=== PATIENT | female | born 1945 | race Caucasian/White ===

== ENCOUNTER 2018-11-16 09:40 | Emergency (ER) | payer SELFPAY ==
[2018-11-16] MEDS ORDERED: PHENYLEPHRINE 0.5% NOSE 15ML NAS ONE (10:04)
[2018-11-16] MEDS ORDERED: ONDANSETRON 4 MG/2 ML VIAL ONE (10:19)
[2018-11-16 10:57] LABS: Absolute Lymphocytes (CBC) 1.8 K/uL (0.7-4.9); Basophils % 1.4 % (0-1.3); Lymphocytes % 17.6 % (15.3-44.8); MPV 7.8 fL (7.6-11.3)
--- NOTE | 2018-11-16 11:28 | ER ---
Nurse's Notes [facility] Name: Tab Hanley Age: 73 yrs Sex: Female : 1945 Arrival Date: 11/16/2018 Time: 09:42 Bed 17 Private MD: Diagnosis: Epistaxis Presentation: 11/16 09:49 Presenting complaint: EMS states: [facility] faculty reported epistaxis x 1.5 hours, jl7 pt initially reported scratching her nose but does not remember at this time. Transition of care: patient was received from another setting of care (long-term care facility), [facility]. Onset of symptoms was November 16, 2018. Risk Assessment: Do you want to hurt yourself or someone else? Patient reports no desire to harm self or others. Initial Sepsis Screen: Does the patient meet any 2 criteria? No. Patient's initial sepsis screen is negative. Does the patient have a suspected source of infection? No. Patient's initial sepsis screen is negative. Care prior to arrival: None. 09:49 Method Of Arrival: EMS: [facility] jl7 09:49 Acuity: ELIER 4 jl7 Triage Assessment: 09:55 General: Appears in no apparent distress. comfortable, Behavior is calm, cooperative, jl7 appropriate for age. Pain: Denies pain. EENT: Nares with bleeding noted on left. Neuro: Level of Consciousness is awake, alert, obeys commands, Oriented to person, place. Cardiovascular: Patient's skin is warm and dry. Respiratory: Airway is patent Respiratory effort is even, unlabored, Respiratory pattern is regular, symmetrical. GI: No signs and/or symptoms were reported involving the gastrointestinal system. : No signs and/or symptoms were reported regarding the genitourinary system. Derm: Skin is pink, warm \\T\\ dry. Musculoskeletal: No signs and/or symptoms reported regarding the musculoskeletal system. Historical: - Allergies: 09:55 No Known Allergies; jl7 - Home Meds: 09:55 atorvastatin 80 mg oral tab 1 tab once daily [Active]; gabapentin 100 mg oral cap jl7 [Active]; carvedilol 6.25 mg oral tab 1 tab every 12 hours [Active]; apixaban oral oral [Active]; clopidogrel 75 mg oral tab 1 tab once daily [Active]; isosorbide mononitrate 30 mg Oral Tb24 1 tab once daily [Active]; fluoxetine 10 mg Oral cap 1 caps once daily [Active]; famotidine 20 mg Oral tab [Active]; Insulin Glargine Sub-Q [Active]; - PMHx: 09:55 Hyperlipidemia; Hypertension; Depression; Diabetes - IDDM; GERD; jl7 - Immunization history:: Adult Immunizations up to date. - Social history:: Smoking status: Patient/guardian denies using tobacco. - Family history:: not pertinent. - Ebola Screening: : No symptoms or risks identified at this time. - Hospitalizations: : No recent hospitalization is reported. Screenin:05 Abuse screen: Denies threats or abuse. Denies injuries from another. Nutritional jl7 screening: No deficits noted. Tuberculosis screening: No symptoms or risk factors identified. Fall Risk Gait- Weak (10 pts.). Mental Status- Overestimates/Forgets Limitations (15 pts.). Total Trevino Fall Scale indicates Low Risk Score (25-44 pts). Fall prevention measures have been instituted. Side Rails Up X 2 Placed close to Nursing Station Frequent Obs/Assesments occuring As available Patient and Family Educated on Fall Prevention Program and strategies. Assessment: 10:05 Reassessment: Nose clamp removed, no bleeding noted, pt denies any discomfort at this 7 time. retail service technician will be obtaining ordered labs, labels at the bedside. 11:00 Reassessment: Patient appears in no apparent distress at this time. Patient and/or jl7 family updated on plan of care and expected duration. Pain level reassessed. Patient denies pain at this time. 12:00 Reassessment: Pt's son is at bedside, report called to Matthew at [facility], reports he jl7 is calling for transportation now. 12:15 Reassessment: pt c/o mild VERDUZCO, requesting tylenol, ERD notified, see MAR for orders. jl7 12:41 Reassessment: Waiting for applesauce from the cafeteria to administer Tylenol to pt. jl7 13:33 Reassessment: Patient appears in no apparent distress at this time. Patient and/or jl7 family updated on plan of care and expected duration. Pain level reassessed. Apple sauce delivered from cafeteria, pt denies VERDUZCO at this time. Repositioned pt to left side, pt denies discomfort. [facility] faculty reports transportation will be here to transport pt in about 10 minutes Patient denies pain at this time. 14:15 Reassessment: [facility] sent a patient bus for transportation, the transportation jl7 employee states "I do not lift patients and put them in the wheelchair." Pt has not been able to sit unassisted in the stretcher during ER visit. Pt reports she cannot hold herself up to sit in the wheel chair. 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 alf notified, [facility] faculty stated "We haven't had her for very long but she sat in the wheelchair this morning." Requested for stretcher transportation, Matthew at [facility] currently trying to get a hold of [facility]. 15:36 Reassessment: [facility] at bedside to transport pt to [facility]. jl7 Vital Signs: 10:03 BP 109 / 89; Pulse 98; Resp 18 S; Pulse Ox 96% on R/A; Pain 0/10; jl7 15:36 BP 115 / 89; Pulse 95; Resp 16 S; Pulse Ox 96% on R/A; jl7 ED Course: 09:42 Patient arrived in ED. rn 09:42 Surya Ortiz MD is Attending Physician. rn 09:51 Jagruti Pierce RN is Primary Nurse. jl7 09:51 Triage completed. jl7 09:55 Arm band placed on right wrist. jl7 10:05 Patient has correct armband on for positive identification. Fall risk band placed. Bed jl7 in low position. Call light in reach. Side rails up X2. Pulse ox on. NIBP on. Warm blanket given. 10:05 Missed attempt(s): 22 gauge in right antecubital area. jl7 13:32 Head of bed lowered. Turned to left side. jl7 14:42 Turned to right side. jl7 15:38 No provider procedures requiring assistance completed. Patient did not have IV access jl7 during this emergency room visit. Administered Medications: 09:45 Drug: Hieu-Synephrine [place] 0.5 % 2 sprays Route: Intranasal; Site: both nares; jl7 10:05 Follow up: Response: No adverse reaction jl7 09:49 Not Given (Other Intervention Used): Oxymetazoline Drops (0.05 %) 1 sprays Intranasal jl7 once 12:40 Not Given (Patient Refused): Zofran 4 mg IVP once; over 2 minutes jl7 15:39 Not Given (Patient Refused): Tylenol 650 mg PO once jl7 Outcome: 11:27 Discharge ordered by . rn 15:38 Discharged to senior living. Report called to Matthew mortensen 15:38 Condition: stable 15:38 Discharge instructions given to patient, senior living, Instructed on discharge instructions, follow up and referral plans. Demonstrated understanding of instructions, follow-up care. 15:39 Patient left the ED. jl7 Signatures: Surya Ortiz MD MD rn Jagruti Pierce RN RN jl7
--- NOTE | 2018-11-16 11:29 | EDPHYS ---
Physician Documentation [facility] Name: Tab Hanley Age: 73 yrs Sex: Female : 1945 Arrival Date: 11/16/2018 Time: 09:42 Bed 17 Private MD: ED Physician Surya Ortiz HPI: 11/16 09:43 This 73 yrs old Female presents to ER via Unassigned with complaints of rn nosebleed. 09:43 The patient presents with a nose bleed, and the bleeding resolved prior to arrival. rn Onset: The symptoms/episode began/occurred this morning. Modifying factors: The symptoms are alleviated by nothing. the symptoms are aggravated by nothing. Severity of symptoms: At their worst the symptoms were mild in the emergency department the symptoms have resolved. The patient has not experienced similar symptoms in the past. 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 No known trauma. Questionable if patient was scratching. . Historical: - Allergies: 09:55 No Known Allergies; jl7 - Home Meds: 09:55 atorvastatin 80 mg oral tab 1 tab once daily [Active]; gabapentin 100 mg oral cap jl7 [Active]; carvedilol 6.25 mg oral tab 1 tab every 12 hours [Active]; apixaban oral oral [Active]; clopidogrel 75 mg oral tab 1 tab once daily [Active]; isosorbide mononitrate 30 mg Oral Tb24 1 tab once daily [Active]; fluoxetine 10 mg Oral cap 1 caps once daily [Active]; famotidine 20 mg Oral tab [Active]; Insulin Glargine Sub-Q [Active]; - PMHx: 09:55 Hyperlipidemia; Hypertension; Depression; Diabetes - IDDM; GERD; jl7 - Immunization history:: Adult Immunizations up to date. - Social history:: Smoking status: Patient/guardian denies using tobacco. - Family history:: not pertinent. - Ebola Screening: : No symptoms or risks identified at this time. - Hospitalizations: : No recent hospitalization is reported. ROS: 09:43 Constitutional: Negative for fever, chills, and weight loss, ENT: + nosebleed corporate communications intern: Negative for chest pain, palpitations, and edema, Respiratory: Negative for shortness of breath, cough, wheezing, and pleuritic chest pain, Abdomen/GI: + nausea, no abd pain Neuro: Negative for headache, weakness, numbness, tingling, and seizure. Exam: 09:43 Constitutional: This is a well developed, well nourished patient who is awake, alert, rn and in no acute distress. Head/Face: Normocephalic, atraumatic. Eyes: Normal conjunctivae ENT: dry blood in mouth, clotted blood left nare, no active bleeding noted. Respiratory: Mild tachypnea, no retractions, is speaking full sentences Abdomen/GI: soft, non-tender Neuro: Awake, alert, oriented to person and place, not time (per EMS baseline is Oriented x 2) Vital Signs: 10:03 BP 109 / 89; Pulse 98; Resp 18 S; Pulse Ox 96% on R/A; Pain 0/10; jl7 15:36 BP 115 / 89; Pulse 95; Resp 16 S; Pulse Ox 96% on R/A; jl7 MDM: 09:42 Patient medically screened. rn 11:26 Differential diagnosis: spontaneous epistaxis. Data reviewed: vital signs, nurses rn notes, lab test result(s), and as a result, I will discharge patient. Counseling: I had a detailed discussion with the patient and/or guardian regarding: the historical points, exam findings, and any diagnostic results supporting the discharge/admit diagnosis, lab results, the need for outpatient follow up, to return to the emergency department if symptoms worsen or persist or if there are any questions or concerns that arise at home. Response to treatment: the patient's symptoms have resolved after treatment, and as a result, I will discharge patient. ED course: NO further bleeding here, hemoglobin 10.4, normal vitals, will dc back to group home for observation. No intervention required here. No indication for admission or emergent blood transfusion.. 11/16 09:42 Order name: CBC with Diff; Complete Time: 11:26 rn Administered Medications: 09:45 Drug: Hieu-Synephrine [place] 0.5 % 2 sprays Route: Intranasal; Site: both nares; [facility] 10:05 Follow up: Response: No adverse reaction [facility] 09:49 Not Given (Other Intervention Used): Oxymetazoline Drops (0.05 %) 1 sprays Intranasal jl7 once 12:40 Not Given (Patient Refused): Zofran 4 mg IVP once; over 2 minutes jl7 15:39 Not Given (Patient Refused): Tylenol 650 mg PO once jl7 Disposition: 11/16/18 11:27 Discharged to Home. Impression: Epistaxis. - Condition is Stable. - Discharge Instructions: Nosebleed, Adult. - Medication Reconciliation Form, Thank You Letter, Antibiotic Education, Prescription Opioid Use form. - Follow up: Private Physician; When: As needed; Reason: Recheck today's complaints, Re-evaluation by your physician. - Problem is new. - Symptoms are resolved. Signatures: Dispatcher [employer] EDRI Surya Ortiz MD MD rn Leal, Jahala, RN RN jl7 Corrections: (The following items were deleted from the chart) 12:04 09:43 PROTIME (+INR)+COAG.LAB.BRZ ordered. EDRI EDRI 12:04 09:43 PTT, ACTIVATED+COAG.LAB.BRZ ordered. [facility] EDRI 15:39 11:27 11/16/2018 11:27 Discharged to Home. Impression: Epistaxis. Condition is Stable. jl7 Forms are Medication Reconciliation Form, Thank You Letter, Antibiotic Education, Prescription Opioid Use. Follow up: Private Physician; When: As needed; Reason: Recheck today's complaints, Re-evaluation by your physician. Problem is new. Symptoms are resolved. rn
[2018-11-16] MEDS ORDERED: ACETAMINOPHEN 325 MG TABLET ONE (12:35)
--- NOTE | 2018-11-16 22:12 | EKG ---
Test Date: 2018-11-16 Test Time: 09:50:41 Crystallography Teacher: TERELL MEASUREMENT RESULTS: Intervals: Rate: 100 WY: 172 QRSD: 164 QT: 416 QTc: 536 [place]: P: 38 WY: 172 QRS: -55 T: 100 INTERPRETIVE STATEMENTS: Atrial-sensed ventricular-paced rhythm tracking sinus rhythm No previous ECG available for comparison Electronically Signed On 11-16-18 22:11:10 CDT by Rikki Briggs
== END 2018-11-16 15:39 | disposition home or self-care (01) ==
LOC: ER 09:40
DX: R04.0 Epistaxis (principal); E78.5 Hyperlipidemia, unspecified; I10 Essential (primary) hypertension; E11.9 Type 2 diabetes mellitus without complications; F32.9 Major depressive disorder, single episode, unspecified; K21.9 Gastro-esophageal reflux disease without esophagitis; Z79.4 Long term (current) use of insulin
CPT/HCPCS: 36415; 85025; 93005; J2405

== ENCOUNTER 2018-11-18 12:57 | Emergency (ER) | payer OTHER, SELFPAY ==
--- OUTSIDE RECORDS SUMMARY | 2018-11-18 13:08 | XMS REPORT ---
:1945 [facility] [address] [place] [address] [address] [place] [address] Care Team Providers Name Role Phone OSCAR COSTA Unavailable Unavailable Problems This patient has no known problems. Allergies, Adverse Reactions, Alerts This patient has no known allergies or adverse reactions. Medications This patient has no known medications. Results Test Description Test Time Test Comments Text Results Atomic Results Result Comments BLOOD CULTURE 2018-11-16 20:01:00 Test Item Value Reference Range Comments CULTURE (BEAKER) (test nlez=7506) No growth in 5 days BLOOD [id number] 20:01:00 Test Item Value Reference Range Comments CULTURE (BEAKER) (test ovcg=5889) No growth in 5 days BLOOD [id number] 10:37:00 Test Item Value Reference Range Comments CULTURE (BEAKER) From Aerobic Bottle Only (test ygfu=5767) Coagulase negative Staphylococcus GRAM STAIN RESULT From aerobic bottle (BEAKER) (test only: gram positive ledv=5991) cocci in clusters BLOOD [id number] 10:36:00 Test Item Value Reference Range Comments CULTURE (BEAKER) From Aerobic Bottle Only (test gxie=1519) Coagulase negative Staphylococcus GRAM STAIN RESULT From aerobic bottle (BEAKER) (test only: gram positive bipc=7575) cocci in clusters POCT-GLUCOSE [id number] 12:32:00 Test Item Value Reference Range Comments POC-GLUCOSE METER (BEAKER) 87 mg/dL 70-110 TESTED AT [facility] [address] [facility] (test yxnx=2494) [facility] [address] POCT-GLUCOSE [id number] 21:28:00 Test Item Value Reference Range Comments POC-GLUCOSE METER (BEAKER) 100 mg/dL 70-110 TESTED AT [facility] [address] [facility] (test tikh=9402) [facility] [address] POCT-GLUCOSE [id number] 21:01:00 Test Item Value Reference Range Comments POC-GLUCOSE METER (BEAKER) 98 mg/dL 70-110 TESTED AT [facility] [address] [facility] (test jluf=6393) [facility] [address] VANCOMYCIN LEVEL, [id number] 13:29:00 Test Item Value Reference Range Comments VANCOMYCIN TROUGH (BEAKER) (test mchc=204) 14.1 ug/mL 10.0-20.0 POCT-GLUCOSE [id number] 12:34:00 Test Item Value Reference Range Comments POC-GLUCOSE METER (BEAKER) 113 mg/dL 70-110 TESTED AT [facility] [address] [facility] (test qbyc=9664) [facility] [address] [id number] 06:25:00 Test Item Value Reference Range Comments MAGNESIUM (BEAKER) (test rzuh=160) 1.8 mg/dL 1.6-2.6 BASIC METABOLIC [id number] 06:25:00 Test Item Value Reference Range Comments SODIUM (BEAKER) (test 140 meq/L 136-145 crxx=985) POTASSIUM (BEAKER) (test 3.8 meq/L 3.5-5.1 adtu=075) CHLORIDE (BEAKER) (test 110 meq/L 98-107 zcuk=483) CO2 (BEAKER) (test 27 meq/L 22-29 ayoe=675) BLOOD UREA NITROGEN 16 mg/dL 7-21 (BEAKER) (test tbrg=822) CREATININE (BEAKER) (test 0.90 mg/dL 0.57-1.25 tlnn=681) GLUCOSE RANDOM (BEAKER) 106 mg/dL 70-105 (test omdm=850) CALCIUM (BEAKER) (test 8.1 mg/dL 8.4-10.2 ynwi=590) EGFR (BEAKER) (test 61 mL/min/1.73 sq m ESTIMATED GFR IS NOT lzfo=1960) ACCURATE CREATININE CLEARANCE IN PREDICTING GLOMERULAR FILTRATION RATE. ESTIMATED GFR IS NOT APPLICABLE FOR DIALYSIS PATIENTS. CBC (HEMOGRAM ONLY)2018-11-14 05:35:00 Test Item Value Reference Range Comments WHITE BLOOD CELL COUNT (BEAKER) (test mzpx=933) 6.3 K/ L 3.5-10.5 RED BLOOD CELL COUNT (BEAKER) (test xhlq=263) 2.54 M/ L 3.93-5.22 HEMOGLOBIN (BEAKER) (test uljb=041) 7.2 GM/DL 11.2-15.7 HEMATOCRIT (BEAKER) (test jrtg=947) 24.2 % 34.1-44.9 MEAN CORPUSCULAR VOLUME (BEAKER) (test okel=724) 95.3 fL 79.4-94.8 MEAN CORPUSCULAR HEMOGLOBIN (BEAKER) (test 28.3 pg 25.6-32.2 nzuq=867) MEAN CORPUSCULAR HEMOGLOBIN CONC (BEAKER) (test 29.8 GM/DL 32.2-35.5 cxlj=439) RED CELL DISTRIBUTION WIDTH (BEAKER) (test 15.0 % 11.7-14.4 pjku=300) PLATELET COUNT (BEAKER) (test cohe=157) 362 K/CU MM 150-450 MEAN PLATELET VOLUME (BEAKER) (test sxhq=661) 9.6 fL 9.4-12.3 NUCLEATED RED BLOOD CELLS (BEAKER) (test 0 /100 WBC 0-0 yzir=987) POCT-GLUCOSE [id number] 21:52:00 Test Item Value Reference Range Comments POC-GLUCOSE METER (BEAKER) 221 mg/dL 70-110 TESTED AT [address] (test qxev=8816) [place] [address] POCT-GLUCOSE [id number] 16:58:00 Test Item Value Reference Range Comments POC-GLUCOSE METER (BEAKER) 190 mg/dL 70-110 TESTED AT [address] (test xwbf=4007) [place] [address] POCT-GLUCOSE [id number] 16:58:00 Test Item Value Reference Range Comments POC-GLUCOSE METER (BEAKER) 167 mg/dL 70-110 TESTED AT [address] (test hptz=7270) [place] [address] [id number] 13:24:00 Test Item Value Reference Range Comments PREALBUMIN (BEAKER) (test qchu=823) 15 mg/dL 14-45 VANCOMYCIN LEVEL, [id number] 13:21:00 Test Item Value Reference Range Comments VANCOMYCIN TROUGH (BEAKER) (test jhrt=876) 22.5 ug/mL 10.0-20.0 CT, CTANGIO [id number] 11:52:00FINAL REPORT CT, CTANGIO BRAIN, CT, CAROTID, ANGIOBRAIN CT WITHOUT CONTRAST INDICATION: Stroke COMPARISON: Correlation to noncontrast head CT November 06, 2018 TECHNIQUE:Rapid acquisition spiral images were obtained between the aortic arch and the cranial vertex during intravenous contrast infusion to reconstruct axial images and angiographic 3D maximum intensity projections (MIP). 3-D volumetric reformatted images were created at a dedicated workstation. Precontrast images of the brain were also obtained. Stenosis evaluation reported in compliance with NASCET criteria. DOSE REDUCTION: Dose modulation, iterative reconstruction, and/or weight-based adjustment of the mA/kV was utilized to reduce the radiation dose to as low as reasonably achievable. FINDINGS:CT BRAIN:Cerebral parenchyma: Evolving ischemic changes in the right posterior and middle cerebral artery territories without hemorrhagic conversion. No interval infarct.Midline structures: Normally positioned.Cerebellum and brainstem: Normal.Ventricles: Normal volume.Extra-axial spaces: Unremarkable.Calvarium and skull base: Intact.Paranasal sinuses and mastoid air cells: Visible chambers are clear.Orbital contents: Included portions unremarkable. CTA BRAIN:Internal carotid arteries: Circumferential calcific atherosclerosis of the internal carotid arteries bilaterally intracranially. There is retrograde filling on the right via intact communicating vessels.Middle cerebral arteries: Patent to distal branches.Anteriorcerebral arteries: Right A1 segment is atretic. Anterior communicating artery is intact. Anterior cerebral arteries are patent bilaterally.Basilar system: Patent vertebrobasilar system.Posterior cerebral arteries: Atretic caliber of the right P4 segment and distal branches. There is preserved perfusion of the proximal right [employer] segments. The contralateral side is unremarkable.Venous opacification: Major dural sinuses unremarkable for bolus timing.Additional findings: None. CTA NECK:Common carotid arteries: The common carotid arteries are normal in size. 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 Cervical internal carotid arteries: Left internal carotid artery stent material is patent.Vertebral arteries: Codominant. No origin stenosis.Arch anatomy: Conventional. Marked narrowing at the origin of the innominate artery, greater than 50%. Approximately 50% narrowing at the origin of the left common carotid and subclavian arteries, respectively. Nonvascularfindings:Osseous structures: No acute osseous abnormality. Intact calvarium and skull base.Cervical soft tissues : No adenopathy. Patent aerodigestive tract.Lung apices: Severe emphysematous changes bilaterally in the apices. Small bilateral pleural effusions are present. No apical pneumothorax. IMPRESSION: Evolving right [employer] territory infarction without hemorrhagic conversion. Lesser involvement in the right middle cerebral artery territory. Distal/P4 segments on the right are insufficiently opacified. Proximal segments are intact. Marked narrowing at the origin of the great cervical vessels including the innominate, left common and left subclavian arteries. Distal opacification is present. 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 Right anterior and middle cerebral artery supplied by the contralateral circulation and patent communicating vessels. Signed: JR Leary Robert [facility] Verified Date/ Time: 11/13/2018 11:52:12 Reading Location: [address] Neuro Reading Room CT, CAROTID, [id number] 11:52:00FINAL REPORT CT, CTANGIO BRAIN, CT, CAROTID, ANGIOBRAIN CT WITHOUT CONTRAST INDICATION: Stroke COMPARISON: Correlation to noncontrast head CT November 06, 2018 TECHNIQUE:Rapid acquisition spiral images were obtained between the aortic arch and the cranial vertex during intravenous contrast infusion to reconstruct axial images and angiographic 3D maximum intensity projections (MIP). 3-D volumetric reformatted images were created at a dedicated workstation. Precontrast images of the brain were also obtained. Stenosis evaluation reported in compliance with NASCET criteria. DOSE REDUCTION: Dose modulation, iterative reconstruction, and/or weight-based adjustment of the mA/kV was utilized to reduce the radiation dose to as low as reasonably achievable. FINDINGS:CT BRAIN:Cerebral parenchyma: Evolving ischemic changes in the right posterior and middle cerebral artery territories without hemorrhagic conversion. No interval infarct.Midline structures: Normally positioned.Cerebellum and brainstem: Normal.Ventricles: Normal volume.Extra-axial spaces: Unremarkable.Calvarium and skull base: Intact.Paranasal sinuses and mastoid air cells: Visible chambers are clear.Orbital contents: Included portions unremarkable. CTA BRAIN:Internal carotid arteries: Circumferential calcific atherosclerosis of the internal carotid arteries bilaterally intracranially. There is retrograde filling on the right via intact communicating vessels.Middle cerebral arteries: Patent to distal branches.Anteriorcerebral arteries: Right A1 segment is atretic. Anterior communicating artery is intact. Anterior cerebral arteries are patent bilaterally.Basilar system: Patent vertebrobasilar system.Posterior cerebral arteries: Atretic caliber of the right P4 segment and distal branches. There is preserved perfusion of the proximal right [employer] segments. The contralateral side is unremarkable.Venous opacification: Major dural sinuses unremarkable for bolus timing.Additional findings: None. CTA NECK:Common carotid arteries: The common carotid arteries are normal in size. 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 Cervical internal carotid arteries: Left internal carotid artery stent material is patent.Vertebral arteries: Codominant. No origin stenosis.Arch anatomy: Conventional. Marked narrowing at the origin of the innominate artery, greater than 50%. Approximately 50% narrowing at the origin of the left common carotid and subclavian arteries, respectively. Nonvascularfindings:Osseous structures: No acute osseous abnormality. Intact calvarium and skull base.Cervical soft tissues : No adenopathy. Patent aerodigestive tract.Lung apices: Severe emphysematous changes bilaterally in the apices. Small bilateral pleural effusions are present. No apical pneumothorax. IMPRESSION: Evolving right [employer] territory infarction without hemorrhagic conversion. Lesser involvement in the right middle cerebral artery territory. Distal/P4 segments on the right are insufficiently opacified. Proximal segments are intact. Marked narrowing at the origin of the great cervical vessels including the innominate, left common and left subclavian arteries. Distal opacification is present. 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 Right anterior and middle cerebral artery supplied by the contralateral circulation and patent communicating vessels. Signed: JR Leary Robert [facility] Verified Date/ Time: 11/13/2018 11:52:12 Reading Location: [facility] C0[facility] Neuro Reading Room BASIC METABOLIC [id number] 07:49:00 Test Item Value Reference Range Comments SODIUM (BEAKER) (test 140 meq/L 136-145 cxul=991) POTASSIUM (BEAKER) (test 4.0 meq/L 3.5-5.1 wxfr=829) CHLORIDE (BEAKER) (test 110 meq/L 98-107 slun=393) CO2 (BEAKER) (test 25 meq/L 22-29 wsdh=701) BLOOD UREA NITROGEN 11 mg/dL 7-21 (BEAKER) (test mncz=652) CREATININE (BEAKER) (test 0.92 mg/dL 0.57-1.25 uhww=415) GLUCOSE RANDOM (BEAKER) 116 mg/dL 70-105 (test ibfu=212) CALCIUM (BEAKER) (test 7.9 mg/dL 8.4-10.2 hzjn=226) EGFR (BEAKER) (test 60 mL/min/1.73 sq m ESTIMATED GFR IS NOT okcm=1785) ACCURATE CREATININE CLEARANCE IN PREDICTING GLOMERULAR FILTRATION RATE. ESTIMATED GFR IS NOT APPLICABLE FOR DIALYSIS PATIENTS. [id number] 07:47:00 Test Item Value Reference Range Comments MAGNESIUM (BEAKER) (test igdz=506) 1.8 mg/dL 1.6-2.6 POCT-GLUCOSE [id number] 07:34:00 Test Item Value Reference Range Comments POC-GLUCOSE METER (BEAKER) 121 mg/dL 70-110 TESTED AT [facility] [address] [facility] (test wemu=7620) [facility] [address] CBC (HEMOGRAM ONLY)2018-11-13 05:12:00 Test Item Value Reference Range Comments WHITE BLOOD CELL COUNT (BEAKER) (test arhz=211) 5.7 K/ L 3.5-10.5 RED BLOOD CELL COUNT (BEAKER) (test wvry=735) 2.52 M/ L 3.93-5.22 HEMOGLOBIN (BEAKER) (test yxnt=225) 7.4 GM/DL 11.2-15.7 HEMATOCRIT (BEAKER) (test zgtx=487) 24.1 % 34.1-44.9 MEAN CORPUSCULAR VOLUME (BEAKER) (test gszm=279) 95.6 fL 79.4-94.8 MEAN CORPUSCULAR HEMOGLOBIN (BEAKER) (test 29.4 pg 25.6-32.2 pfdo=611) MEAN CORPUSCULAR HEMOGLOBIN CONC (BEAKER) (test 30.7 GM/DL 32.2-35.5 byya=357) RED CELL DISTRIBUTION WIDTH (BEAKER) (test 15.0 % 11.7-14.4 dxco=305) PLATELET COUNT (BEAKER) (test ewfy=790) 342 K/CU MM 150-450 MEAN PLATELET VOLUME (BEAKER) (test lmqx=683) 9.7 fL 9.4-12.3 NUCLEATED RED BLOOD CELLS (BEAKER) (test 0 /100 WBC 0-0 npbr=387) POCT-GLUCOSE [id number] 22:19:00 Test Item Value Reference Range Comments POC-GLUCOSE METER (BEAKER) 158 mg/dL 70-110 TESTED AT [address] (test txdx=1037) [facility] [address] POCT-GLUCOSE [id number] 17:24:00 Test Item Value Reference Range Comments POC-GLUCOSE METER (BEAKER) 135 mg/dL 70-110 TESTED AT [address] (test logo=9927) [facility] [address] POCT-GLUCOSE [id number] 12:54:00 Test Item Value Reference Range Comments POC-GLUCOSE METER (BEAKER) 159 mg/dL 70-110 TESTED AT [address] (test szjj=1473) [facility] [address] POCT-GLUCOSE [id number] 07:55:00 Test Item Value Reference Range Comments POC-GLUCOSE METER (BEAKER) 110 mg/dL 70-110 TESTED AT [address] (test qmme=6866) [facility] [address] [id number] 06:07:00 Test Item Value Reference Range Comments MAGNESIUM (BEAKER) (test ezrv=189) 1.8 mg/dL 1.6-2.6 BASIC METABOLIC [id number] 06:07:00 Test Item Value Reference Range Comments SODIUM (BEAKER) (test 140 meq/L 136-145 yvbi=913) POTASSIUM (BEAKER) (test 3.4 meq/L 3.5-5.1 jxqz=881) CHLORIDE (BEAKER) (test 110 meq/L 98-107 jfvb=907) CO2 (BEAKER) (test 25 meq/L 22-29 ndcr=026) BLOOD UREA NITROGEN 8 mg/dL 7-21 (BEAKER) (test vswt=962) CREATININE (BEAKER) (test 0.81 mg/dL 0.57-1.25 mvqb=726) GLUCOSE RANDOM (BEAKER) 89 mg/dL 70-105 (test omiq=742) CALCIUM (BEAKER) (test 8.2 mg/dL 8.4-10.2 dcnq=757) EGFR (BEAKER) (test 69 mL/min/1.73 sq m ESTIMATED GFR IS NOT jdsi=6002) ACCURATE CREATININE CLEARANCE IN PREDICTING GLOMERULAR FILTRATION RATE. ESTIMATED GFR IS NOT APPLICABLE FOR DIALYSIS PATIENTS. CBC (HEMOGRAM ONLY)2018-11-12 05:20:00 Test Item Value Reference Range Comments WHITE BLOOD CELL COUNT (BEAKER) (test ucff=624) 6.1 K/ L 3.5-10.5 RED BLOOD CELL COUNT (BEAKER) (test utfr=036) 2.71 M/ L 3.93-5.22 HEMOGLOBIN (BEAKER) (test phen=464) 7.9 GM/DL 11.2-15.7 HEMATOCRIT (BEAKER) (test kwky=718) 25.1 % 34.1-44.9 MEAN CORPUSCULAR VOLUME (BEAKER) (test suul=530) 92.6 fL 79.4-94.8 MEAN CORPUSCULAR HEMOGLOBIN (BEAKER) (test 29.2 pg 25.6-32.2 vwhc=776) MEAN CORPUSCULAR HEMOGLOBIN CONC (BEAKER) (test 31.5 GM/DL 32.2-35.5 ojlt=462) RED CELL DISTRIBUTION WIDTH (BEAKER) (test 14.9 % 11.7-14.4 spxv=899) PLATELET COUNT (BEAKER) (test jghc=251) 375 K/CU MM 150-450 MEAN PLATELET VOLUME (BEAKER) (test wjpl=247) 9.6 fL 9.4-12.3 NUCLEATED RED BLOOD CELLS (BEAKER) (test 0 /100 WBC 0-0 boox=690) RAD, CHEST, 1 VIEW, NON [id number] 23:49:00Reason for exam:-> cracklesShould this be performed at the bedside?->YesFINAL REPORT Portable chest. CLINICAL HISTORY: crackles. COMPARISON STUDY: October 07, 2018. FINDINGS: The cardiac silhouette is enlarged. Sternotomy wires are seen. The pulmonary parenchyma demonstrates interstitial and airspace opacities , more pronounced than on previous. A rightPICC line is again noted. There is a pacer device. No pneumothorax is seen. Degenerative changes arenoted. IMPRESSION : Worsening of pulmonary opacities compared to previous suggestive of worsening infection or CHF. Signed: Kenny Land [facility] Verified Date/Time: 2018 23:49:52 Reading Location: [facility] B1 C013W Consult Reading Room POCT- GLUCOSE [id number] 22:44:00 Test Item Value Reference Range Comments POC-GLUCOSE METER (BEAKER) 169 mg/dL 70-110 TESTED AT [facility] [address] [facility] (test xqiv=5368) [facility] [address] POCT-GLUCOSE [id number] 18:45:00 Test Item Value Reference Range Comments POC-GLUCOSE METER (BEAKER) 233 mg/dL 70-110 TESTED AT [facility] [address] [facility] (test teph=9263) [facility] [address] BLOOD CULTURE IDENTIFICATION [id number] 15:21:00 Test Item Value Reference Range Comments LISTERIA MONOCYTOGENES (test Not detected Not detected gads=[id number]) STAPHYLOCOCCUS (test Detected Not detected Coagulase negative Staph udfb=9778268) species (CoNS)- methicillin resistantFirst-line therapy: Vancomycin MecA DETECTED Possible contamination. The likelihood of pathogenicity is increased if the organism is observed in multiple blood cultures obtained from separate venipunctures. Reference Range: Not Detected STAPHYLOCOCCUS AUREUS (test Not detected Not detected msfu=3417860) STREPTOCOCCUS (test Not detected Not detected ddsz=2414380) STREPTOCOCCUS AGALACTIAE (GROUP Not detected Not detected B) (test vtbh=7471909) STREPTOCOCCUS PNEUMONIAE (test Not detected Not detected bwti=5741824) STREPTOCOCCUS PYOGENES (GROUP Not detected Not detected A) (test bfym=8660265) ACINETOBACTER BAUMANNII (test Not detected Not detected zanq=1312302) HAEMOPHILUS INFLUENZAE (test Not detected Not detected vgsg=8113787) NEISSERIA MENINGITIDIS (test Not detected Not detected rkos=5212113) ENTEROBACTERIACEAE (test Not detected Not detected phae=6642945) ENTEROBACTER CLOACOE COMPLEX Not detected Not detected (test mpfv=6569869) KLEBSIELLA OXYTOCA (test Not detected Not detected nptg=8710482) KLEBSIELLA PNEUMONIAE (test Not detected Not detected czop=2977) PROTEUS (test pqfx=1089309) Not detected Not detected SERRATIA MARCESCENS (test Not detected Not detected jegz=0577707) HAIR ALBICANS (test Not detected Not detected ksyv=1152623) HAIR GLABRATA (test Not detected Not detected xotv=2694452) HAIR KRUSEI (test Not detected Not detected dvth=2311695) HAIR PARAPSILOSIS (test Not detected Not detected plyh=8498255) HAIR TROPICALIS (test Not detected Not detected owdj=8161722) ESCHERICHIA COLI (test Not detected Not detected xcxx=9102670) METHICILLIN-RESISTANCE GENE Detected Not detected (test etcm=6459461) VANCOMYCIN-RESISTANCE GENE Not detected (test icjp=1375257) CARBAPENEM-RESISTANCE GENE Not detected (test dbfa=0539386) ENTEROCOCCUS-BEAKER (test Not detected Not detected cuen=5480820) PSEUDOMONAS AERUGINOSA-BEAKER Not detected Not detected (test pvvz=5646524) Other bacteria and resistance markers not targeted by this PCR panel cannot be excluded; therefore clinical correlation and follow up of serology, culture results, and other molecular studies is required. The results are not intended to be used as the sole means for clinical diagnosis or patient management decisions. This sample was tested at the [facility] using the [employer] Blood Culture ID Panel. It is FDA cleared and has been verified and approved by the [facility] for clinical use. This laboratory is CLIA-certified and College ofAmerican Pathologists (CAP)-accredited to perform high complexity testing.VANCOMYCIN LEVEL, [id number] 12:54:00 Test Item Value Reference Range Comments VANCOMYCIN TROUGH (AKER) (test edpi=183) 2.2 ug/mL 10.0-20.0 POCT-GLUCOSE [id number] 12:32:00 Test Item Value Reference Range Comments POC-GLUCOSE METER (BEAKER) 199 mg/dL 70-110 TESTED AT [facility] [address] (test xdfh=2410) [facility] [address] [id number] 12:30:00 Test Item Value Reference Range Comments PROCALCITONIN (BEAKER) (test sths=0752) 0.17 ng/mL <0.05 SEPSIS RISK (ng/mL)Low: 0.05-0.50Intermediate: 0.51-2.00High: & gt;=2.01LACTIC ACID, [id number] 11:55:00 Test Item Value Reference Range Comments LACTATE BLOOD VENOUS (2) (BEAKER) (test 1.8 mmol/L 0.5-2.2 wmlg=8459) POCT-GLUCOSE [id number] 07:47:00 Test Item Value Reference Range Comments POC-GLUCOSE METER (BEAKER) 110 mg/dL 70-110 TESTED AT [facility] [address] (test fdqa=8828) [facility] [address] [id number] 07:22:00 Test Item Value Reference Range Comments MAGNESIUM (BEAKER) (test vjzm=640) 1.9 mg/dL 1.6-2.6 BASIC METABOLIC [id number] 07:22:00 Test Item Value Reference Range Comments SODIUM (BEAKER) (test 139 meq/L 136-145 hkhs=387) POTASSIUM (BEAKER) (test 3.3 meq/L 3.5-5.1 scjo=235) CHLORIDE (BEAKER) (test 108 meq/L 98-107 wfol=527) CO2 (BEAKER) (test 25 meq/L 22-29 cbzg=390) BLOOD UREA NITROGEN 10 mg/dL 7-21 (BEAKER) (test erpg=104) CREATININE (BEAKER) (test 0.95 mg/dL 0.57-1.25 uekk=496) GLUCOSE RANDOM (BEAKER) 89 mg/dL 70-105 (test mgfw=818) CALCIUM (BEAKER) (test 8.1 mg/dL 8.4-10.2 jqok=258) EGFR (BEAKER) (test 58 mL/min/1.73 sq m ESTIMATED GFR IS NOT awhk=5816) ACCURATE CREATININE CLEARANCE IN PREDICTING GLOMERULAR FILTRATION RATE. ESTIMATED GFR IS NOT APPLICABLE FOR DIALYSIS PATIENTS. CBC (HEMOGRAM ONLY)2018-11-11 06:56:00 Test Item Value Reference Range Comments WHITE BLOOD CELL COUNT (BEAKER) (test lmjb=117) 5.9 K/ L 3.5-10.5 RED BLOOD CELL COUNT (BEAKER) (test yvjm=602) 2.60 M/ L 3.93-5.22 HEMOGLOBIN (BEAKER) (test djim=821) 7.5 GM/DL 11.2-15.7 HEMATOCRIT (BEAKER) (test qijo=882) 24.3 % 34.1-44.9 MEAN CORPUSCULAR VOLUME (BEAKER) (test adrl=617) 93.5 fL 79.4-94.8 MEAN CORPUSCULAR HEMOGLOBIN (BEAKER) (test 28.8 pg 25.6-32.2 iizf=010) MEAN CORPUSCULAR HEMOGLOBIN CONC (BEAKER) (test 30.9 GM/DL 32.2-35.5 kbts=405) RED CELL DISTRIBUTION WIDTH (BEAKER) (test 14.7 % 11.7-14.4 otzm=239) PLATELET COUNT (BEAKER) (test znyh=903) 338 K/CU MM 150-450 MEAN PLATELET VOLUME (BEAKER) (test utxo=454) 10.1 fL 9.4-12.3 NUCLEATED RED BLOOD CELLS (BEAKER) (test 0 /100 WBC 0-0 xgxf=103) POCT-GLUCOSE [id number] 21:00:00 Test Item Value Reference Range Comments POC-GLUCOSE METER (BEAKER) 202 mg/dL 70-110 TESTED AT [facility] [address] [facility] (test sesy=3897) [facility] [address] URINALYSIS W/ REFLEX URINE [id number] 18:44:00 Test Item Value Reference Range Comments COLOR (BEAKER) (test eddw=550) Yellow CLARITY (BEAKER) (test ysrs=792) Cloudy SPECIFIC GRAVITY UA (BEAKER) (test hhiy=767) 1.011 1.001-1.035 PH UA (BEAKER) (test gmww=519) 6.0 5.0-8.0 PROTEIN UA (BEAKER) (test clfv=392) 100 mg/dL Negative GLUCOSE UA (BEAKER) (test akue=289) Negative Negative KETONES UA (BEAKER) (test tles=582) Negative Negative BILIRUBIN UA (BEAKER) (test qjiy=806) Negative Negative BLOOD UA (BEAKER) (test jjub=027) Small Negative NITRITE UA (BEAKER) (test dikj=921) Negative Negative LEUKOCYTE ESTERASE UA (BEAKER) (test iyhe=820) Large Negative UROBILINOGEN UA (BEAKER) (test pkhp=732) 0.2 mg/dL 0.2-1.0 RBC UA (BEAKER) (test xxml=266) 33 /HPF WBC UA (BEAKER) (test adhu=650) 357 /HPF MUCUS (BEAKER) (test vqbj=6367) Rare YEAST (BEAKER) (test olqg=4223) Many SOURCE(BEAKER) (test eqjf=6585) POCT-GLUCOSE [id number] 18:37:00 Test Item Value Reference Range Comments POC-GLUCOSE METER (BEAKER) 218 mg/dL 70-110 TESTED AT [facility] [address] [facility] (test kncq=0735) [facility] [address] POCT-GLUCOSE [id number] 17:16:00 Test Item Value Reference Range Comments POC-GLUCOSE METER (BEAKER) 216 mg/dL 70-110 TESTED AT [address] (test pkxr=1481) [facility] [address] POCT-GLUCOSE [id number] 08:55:00 Test Item Value Reference Range Comments POC-GLUCOSE METER (BEAKER) 212 mg/dL 70-110 TESTED AT [address] (test plar=6834) [facility] [address] [id number] 06:55:00 Test Item Value Reference Range Comments MAGNESIUM (BEAKER) (test urjs=404) 1.4 mg/dL 1.6-2.6 BASIC METABOLIC [id number] 06:55:00 Test Item Value Reference Range Comments SODIUM (BEAKER) (test 137 meq/L 136-145 bnak=428) POTASSIUM (BEAKER) (test 3.5 meq/L 3.5-5.1 ejmi=389) CHLORIDE (BEAKER) (test 107 meq/L 98-107 rxjj=500) CO2 (BEAKER) (test 24 meq/L 22-29 nnda=205) BLOOD UREA NITROGEN 12 mg/dL 7-21 (BEAKER) (test rsxj=435) CREATININE (BEAKER) (test 0.89 mg/dL 0.57-1.25 pysy=074) GLUCOSE RANDOM (BEAKER) 141 mg/dL 70-105 (test ubui=808) CALCIUM (BEAKER) (test 8.3 mg/dL 8.4-10.2 tuke=418) EGFR (BEAKER) (test 62 mL/min/1.73 sq m ESTIMATED GFR IS NOT jjni=1853) ACCURATE CREATININE CLEARANCE IN PREDICTING GLOMERULAR FILTRATION RATE. ESTIMATED GFR IS NOT APPLICABLE FOR DIALYSIS PATIENTS. CBC (HEMOGRAM ONLY)2018-11-10 05:57:00 Test Item Value Reference Range Comments WHITE BLOOD CELL COUNT (BEAKER) (test ffcx=309) 7.4 K/ L 3.5-10.5 RED BLOOD CELL COUNT (BEAKER) (test ooeo=122) 2.78 M/ L 3.93-5.22 HEMOGLOBIN (BEAKER) (test jwwm=799) 8.0 GM/DL 11.2-15.7 HEMATOCRIT (BEAKER) (test efnx=166) 25.9 % 34.1-44.9 MEAN CORPUSCULAR VOLUME (BEAKER) (test jeqd=048) 93.2 fL 79.4-94.8 MEAN CORPUSCULAR HEMOGLOBIN (BEAKER) (test 28.8 pg 25.6-32.2 gfgr=588) MEAN CORPUSCULAR HEMOGLOBIN CONC (BEAKER) (test 30.9 GM/DL 32.2-35.5 xdha=741) RED CELL DISTRIBUTION WIDTH (BEAKER) (test 14.6 % 11.7-14.4 ljtv=862) PLATELET COUNT (BEAKER) (test cofp=806) 331 K/CU MM 150-450 MEAN PLATELET VOLUME (BEAKER) (test snzy=581) 10.0 fL 9.4-12.3 NUCLEATED RED BLOOD CELLS (BEAKER) (test 0 /100 WBC 0-0 dblr=092) POCT-GLUCOSE [id number] 21:26:00 Test Item Value Reference Range Comments POC-GLUCOSE METER (BEAKER) 213 mg/dL 70-110 TESTED AT [address] (test yhol=6712) [place] [address] POCT-GLUCOSE [id number] 17:27:00 Test Item Value Reference Range Comments POC-GLUCOSE METER (BEAKER) 185 mg/dL 70-110 TESTED AT [address] (test wbbq=9338) [place] [address] POCT-GLUCOSE [id number] 13:24:00 Test Item Value Reference Range Comments POC-GLUCOSE METER (BEAKER) 135 mg/dL 70-110 TESTED AT [address] (test hflt=9730) [place] [address] BLOOD [id number] 10:55:00 Test Item Value Reference Range Comments CULTURE (BEAKER) From Aerobic And Anaerobic (test hddq=6337) Bottles Same organism has been isolated from cultures(s) of the same body site and collection date. Repeat identification and susceptibility testing performed only after consultation with the clinical microbiology laboratory.Refer to previous culture ofProteus mirabilis GRAM STAIN RESULT From aerobic and (BEAKER) (test anaerobic bottles: rehm=5357) gram negative rods BLOOD [id number] 10:54:00 Test Item Value Reference Range Comments CULTURE (BEAKER) (test PROTEUS MIRABILIS From Aerobic And mvmv=9153) Anaerobic Bottles Proteus mirabilis Amikacin (test code=1) Ampicillin + Sulbactam (test code=6) Aztreonam (test code=32) Cefepime (test code=51) Cefoxitin (test code=68) Ceftazidime (test code=27) Ceftriaxone (test code=52) Ertapenem (test code=38) Gentamicin (test code=18) Levofloxacin (test code=22) Meropenem (test code=34) Nitrofurantoin (test code=23) Piperacillin + Tazobactam (test code=29) Tetracycline (test code=2) Tobramycin (test code=25) Trimethoprim + Sulfamethoxazole (test code=47) GRAM STAIN RESULT (BEAKER) From aerobic and (test jxvk=7190) anaerobic bottles: gram negative rods BLOOD CULTURE IDENTIFICATION [id number] 10:54:00 Test Item Value Reference Range Comments LISTERIA MONOCYTOGENES Not detected Not detected (test dqoo=4191783) STAPHYLOCOCCUS (test Not detected Not detected dqqp=3458943) STAPHYLOCOCCUS AUREUS Not detected Not detected (test tbrq=3666799) STREPTOCOCCUS (test Not detected Not detected dljn=9446231) STREPTOCOCCUS AGALACTIAE Not detected Not detected (GROUP B) (test yzek=8347088) STREPTOCOCCUS PNEUMONIAE Not detected Not detected (test aarx=3970080) STREPTOCOCCUS PYOGENES Not detected Not detected (GROUP A) (test nwon=2818606) ACINETOBACTER BAUMANNII Not detected Not detected (test xdgd=9394565) HAEMOPHILUS INFLUENZAE Not detected Not detected (test uuly=1889034) NEISSERIA MENINGITIDIS Not detected Not detected (test nkkr=0135764) ENTEROBACTERIACEAE (test Detected Not detected ptqx=0271689) ENTEROBACTER CLOACOE Not detected Not detected COMPLEX (test ruxl=7213680) KLEBSIELLA OXYTOCA (test Not detected Not detected izhf=5585235) KLEBSIELLA PNEUMONIAE Not detected Not detected (test crju=9280) PROTEUS (test Detected Not detected Proteus speciesKPC not detected nmbn=8433942) (a carbapenamase gene)First-line therapy: Cefepime or MeropenemDe-escalate based on susceptibilitiesReference Range: Not Detected SERRATIA MARCESCENS (test Not detected Not detected bcqe=1118600) HAIR ALBICANS (test Not detected Not detected rklg=6534688) HAIR GLABRATA (test Not detected Not detected lmnj=1383282) HAIR KRUSEI (test Not detected Not detected tohj=8499051) HAIR PARAPSILOSIS Not detected Not detected (test yxxl=6235144) HAIR TROPICALIS (test Not detected Not detected hixy=2391576) ESCHERICHIA COLI (test Not detected Not detected usgi=2863609) METHICILLIN-RESISTANCE Not detected GENE (test kehw=2612248) VANCOMYCIN-RESISTANCE Not detected GENE (test mkzp=5034014) CARBAPENEM-RESISTANCE Not detected Not detected GENE (test pjna=5749653) ENTEROCOCCUS-BEAKER (test Not detected Not detected hnwm=4324872) PSEUDOMONAS Not detected Not detected AERUGINOSA-BEAKER (test llfx=1652822) Other bacteria and resistance markers not targeted by this PCR panel cannot be excluded; therefore clinical correlation and follow up of serology, culture results, and other molecular studies is required. The results are not intended to be used as the sole means for clinical diagnosis or patient management decisions. This sample was tested at the [facility] using the [place] Blood Culture ID Panel. It is FDA cleared and has been verified and approved by the [facility] for clinical use. This laboratory is CLIA-certified and College ofAmerican Pathologists (CAP)-accredited to perform high complexity testing.POCT-GLUCOSE [id number] 08:40:00 Test Item Value Reference Range Comments POC-GLUCOSE METER (BEAKER) 110 mg/dL 70-110 TESTED AT [facility] [address] (test pwkv=4643) [facility] [address] [id number] 05:26:00 Test Item Value Reference Range Comments MAGNESIUM (BEAKER) (test oodg=501) 1.6 mg/dL 1.6-2.6 BASIC METABOLIC [id number] 05:26:00 Test Item Value Reference Range Comments SODIUM (BEAKER) (test 140 meq/L 136-145 rqsq=968) POTASSIUM (BEAKER) (test 3.6 meq/L 3.5-5.1 iidg=460) CHLORIDE (BEAKER) (test 111 meq/L 98-107 auyb=535) CO2 (BEAKER) (test 25 meq/L 22-29 xrad=411) BLOOD UREA NITROGEN 13 mg/dL 7-21 (BEAKER) (test jefk=259) CREATININE (BEAKER) (test 0.83 mg/dL 0.57-1.25 ksnb=409) GLUCOSE RANDOM (BEAKER) 84 mg/dL 70-105 (test qiuc=004) CALCIUM (BEAKER) (test 8.3 mg/dL 8.4-10.2 scow=938) EGFR (BEAKER) (test 67 mL/min/1.73 sq m ESTIMATED GFR IS NOT cxbl=6094) ACCURATE CREATININE CLEARANCE IN PREDICTING GLOMERULAR FILTRATION RATE. ESTIMATED GFR IS NOT APPLICABLE FOR DIALYSIS PATIENTS. CBC (HEMOGRAM ONLY)2018-11-09 04:53:00 Test Item Value Reference Range Comments WHITE BLOOD CELL COUNT (BEAKER) (test tesj=902) 6.2 K/ L 3.5-10.5 RED BLOOD CELL COUNT (BEAKER) (test xodz=587) 2.71 M/ L 3.93-5.22 HEMOGLOBIN (BEAKER) (test mvci=577) 7.8 GM/DL 11.2-15.7 HEMATOCRIT (BEAKER) (test ppvt=585) 25.9 % 34.1-44.9 MEAN CORPUSCULAR VOLUME (BEAKER) (test errl=900) 95.6 fL 79.4-94.8 MEAN CORPUSCULAR HEMOGLOBIN (BEAKER) (test 28.8 pg 25.6-32.2 kxuh=139) MEAN CORPUSCULAR HEMOGLOBIN CONC (BEAKER) (test 30.1 GM/DL 32.2-35.5 arjw=968) RED CELL DISTRIBUTION WIDTH (BEAKER) (test 14.7 % 11.7-14.4 iano=107) PLATELET COUNT (BEAKER) (test ynri=606) 307 K/CU MM 150-450 MEAN PLATELET VOLUME (BEAKER) (test mief=586) 9.8 fL 9.4-12.3 NUCLEATED RED BLOOD CELLS (BEAKER) (test 0 /100 WBC 0-0 ittb=726) POCT-GLUCOSE [id number] 20:45:00 Test Item Value Reference Range Comments POC-GLUCOSE METER (BEAKER) 207 mg/dL 70-110 TESTED AT [facility] [address] [facility] (test wajc=0052) [facility] [address] POCT-GLUCOSE [id number] 19:02:00 Test Item Value Reference Range Comments POC-GLUCOSE METER (BEAKER) 296 mg/dL 70-110 TESTED AT [facility] [address] [facility] (test qzkt=1833) [facility] [address] POCT-GLUCOSE [id number] 12:32:00 Test Item Value Reference Range Comments POC-GLUCOSE METER (BEAKER) 291 mg/dL 70-110 TESTED AT [address] (test ikvs=5936) [facility] [address] POCT-GLUCOSE [id number] 08:34:00 Test Item Value Reference Range Comments POC-GLUCOSE METER (BEAKER) 261 mg/dL 70-110 TESTED AT [address] (test avud=7328) [place] [address] [id number] 07:19:00 Test Item Value Reference Range Comments MAGNESIUM (BEAKER) (test glou=928) 1.8 mg/dL 1.6-2.6 BASIC METABOLIC [id number] 07:19:00 Test Item Value Reference Range Comments SODIUM (BEAKER) (test 138 meq/L 136-145 itit=928) POTASSIUM (BEAKER) (test 3.9 meq/L 3.5-5.1 qipt=325) CHLORIDE (BEAKER) (test 110 meq/L 98-107 mqnl=936) CO2 (BEAKER) (test 22 meq/L 22-29 vjse=529) BLOOD UREA NITROGEN 15 mg/dL 7-21 (BEAKER) (test xogz=371) CREATININE (BEAKER) (test 0.97 mg/dL 0.57-1.25 vbkq=919) GLUCOSE RANDOM (BEAKER) 182 mg/dL 70-105 (test vqsn=537) CALCIUM (BEAKER) (test 8.6 mg/dL 8.4-10.2 oova=895) EGFR (BEAKER) (test 56 mL/min/1.73 sq m ESTIMATED GFR IS NOT mxan=1127) ACCURATE CREATININE CLEARANCE IN PREDICTING GLOMERULAR FILTRATION RATE. ESTIMATED GFR IS NOT APPLICABLE FOR DIALYSIS PATIENTS. CBC (HEMOGRAM ONLY)2018-11-08 06:06:00 Test Item Value Reference Range Comments WHITE BLOOD CELL COUNT (BEAKER) (test mlvq=591) 8.5 K/ L 3.5-10.5 RED BLOOD CELL COUNT (BEAKER) (test zotq=980) 2.93 M/ L 3.93-5.22 HEMOGLOBIN (BEAKER) (test frbx=115) 8.6 GM/DL 11.2-15.7 HEMATOCRIT (BEAKER) (test ldnc=897) 28.0 % 34.1-44.9 MEAN CORPUSCULAR VOLUME (BEAKER) (test mkfo=917) 95.6 fL 79.4-94.8 MEAN CORPUSCULAR HEMOGLOBIN (BEAKER) (test 29.4 pg 25.6-32.2 egct=173) MEAN CORPUSCULAR HEMOGLOBIN CONC (BEAKER) (test 30.7 GM/DL 32.2-35.5 xfgq=001) RED CELL DISTRIBUTION WIDTH (BEAKER) (test 15.1 % 11.7-14.4 yfhg=618) PLATELET COUNT (BEAKER) (test lljy=779) 355 K/CU MM 150-450 MEAN PLATELET VOLUME (BEAKER) (test prty=976) 9.8 fL 9.4-12.3 NUCLEATED RED BLOOD CELLS (BEAKER) (test 0 /100 WBC 0-0 aktv=482) POCT-GLUCOSE [id number] 20:44:00 Test Item Value Reference Range Comments POC-GLUCOSE METER (BEAKER) 160 mg/dL 70-110 TESTED AT [address] (test evot=7847) [facility] [address] POCT-GLUCOSE [id number] 18:16:00 Test Item Value Reference Range Comments POC-GLUCOSE METER (BEAKER) 196 mg/dL 70-110 TESTED AT [address] (test rkjg=3779) [facility] [address] RAD, ABDOMEN/KUB, 1 VIEW [id number] 14:24:00Reason for exam:->feeding tubeFINAL REPORT RAD, ABDOMEN/KUB, 1 VIEW AP INDICATION: feeding tube COMPARISON:None TECHNIQUE: Limited portable radiograph of the lower chest and upper abdomen was acquired for purposes of evaluating feeding tube placement Findings/impression: Feeding tube tip is located to the right of the spine at the level of L4, and unusual course in the absence of prior surgery. Conceivably, it may be within the distal stomach. Signed: Alejandra Bose MDReport Verified Date/Time: 11/07/2018 14:24:41 Reading Location: [facility] C013W Consult Reading Room POCT-GLUCOSE [id number] 12:35:00 Test Item Value Reference Range Comments POC-GLUCOSE METER (BEAKER) 185 mg/dL 70-110 TESTED AT [facility] [address] (test kyhg=8058) [facility] [address] [id number] 06:03:00 Test Item Value Reference Range Comments MAGNESIUM (BEAKER) (test cnsp=711) 2.2 mg/dL 1.6-2.6 BASIC METABOLIC [id number] 06:03:00 Test Item Value Reference Range Comments SODIUM (BEAKER) (test 138 meq/L 136-145 edei=748) POTASSIUM (BEAKER) (test 4.0 meq/L 3.5-5.1 asoz=867) CHLORIDE (BEAKER) (test 110 meq/L 98-107 rumy=829) CO2 (BEAKER) (test 24 meq/L 22-29 igzi=643) BLOOD UREA NITROGEN 16 mg/dL 7-21 (BEAKER) (test trfd=961) CREATININE (BEAKER) (test 0.94 mg/dL 0.57-1.25 blcy=676) GLUCOSE RANDOM (BEAKER) 115 mg/dL 70-105 (test utsm=966) CALCIUM (BEAKER) (test 8.4 mg/dL 8.4-10.2 jlqe=616) EGFR (BEAKER) (test 58 mL/min/1.73 sq m ESTIMATED GFR IS NOT omqz=9834) ACCURATE CREATININE CLEARANCE IN PREDICTING GLOMERULAR FILTRATION RATE. ESTIMATED GFR IS NOT APPLICABLE FOR DIALYSIS PATIENTS. PT/[id number] 05:51:00 Test Item Value Reference Range Comments PROTIME (BEAKER) (test alfj=922) 18.3 seconds 11.9-14.2 INR (BEAKER) (test jdtn=917) 1.6 <=5.9 PARTIAL THROMBOPLASTIN TIME (BEAKER) (test 29.8 seconds 22.5-36.0 ffqr=169) Effective 09/14/2018: PT Reference Range ChangeNew: 11.9-14.2 Previous: 11.7- 14.7RECOMMENDED COUMADIN/WARFARIN INR THERAPY RANGESSTANDARD DOSE: 2.0-3.0 Includes: PROPHYLAXIS for venous thrombosis, systemic embolization; TREATMENT for venous thrombosis and/or pulmonary embolus.HIGH RISK: Target INR is2.5-3.5 for patients wiht mechanical heart valves.CBC (HEMOGRAM ONLY)2018-11-07 05:29:00 Test Item Value Reference Range Comments WHITE BLOOD CELL COUNT (BEAKER) (test ztio=217) 7.7 K/ L 3.5-10.5 RED BLOOD CELL COUNT (BEAKER) (test oohb=211) 2.85 M/ L 3.93-5.22 HEMOGLOBIN (BEAKER) (test nvko=450) 8.2 GM/DL 11.2-15.7 HEMATOCRIT (BEAKER) (test yeoa=809) 27.1 % 34.1-44.9 MEAN CORPUSCULAR VOLUME (BEAKER) (test mldb=302) 95.1 fL 79.4-94.8 MEAN CORPUSCULAR HEMOGLOBIN (BEAKER) (test 28.8 pg 25.6-32.2 ssje=976) MEAN CORPUSCULAR HEMOGLOBIN CONC (BEAKER) (test 30.3 GM/DL 32.2-35.5 yghi=682) RED CELL DISTRIBUTION WIDTH (BEAKER) (test 15.1 % 11.7-14.4 uqmy=579) PLATELET COUNT (BEAKER) (test jczw=334) 334 K/CU MM 150-450 MEAN PLATELET VOLUME (BEAKER) (test bnfq=269) 10.1 fL 9.4-12.3 NUCLEATED RED BLOOD CELLS (BEAKER) (test 0 /100 WBC 0-0 lidq=873) TROPONIN [id number] 00:59:00 Test Item Value Reference Range Comments TROPONIN I (BEAKER) (test kazl=005) 0.08 ng/mL 0.00-0.03 Troponin I (TnI) levels must be interpreted in the context of the presenting symptoms and the clinical findings. Elevated TnI levels indicate myocardial damage, but are not specific for ischemic heart disease. Elevated TnI levels are seen in patients with other cardiac conditions (including myocarditis and congestive heart failure), and slight TnI elevations occur in patients with other conditions, including sepsis, renal failure, acidosis, acute neurological disease, and persistent tachyarrhythmia.POCT-GLUCOSE [id number] 20:54:00 Test Item Value Reference Range Comments POC-GLUCOSE METER (BEAKER) 115 mg/dL 70-110 TESTED AT [place] [id number] [facility] (test rqtc=3493) [place] [id number] POCT-GLUCOSE [id number] 20:41:00 Test Item Value Reference Range Comments POC-GLUCOSE METER (BEAKER) 182 mg/dL 70-110 TESTED AT [address] (test sljr=2546) [place] [address] RAD, CHEST, 1 VIEW, NON [id number] 18:32:00Reason for exam:-> dyspneaShould this be performed at the bedside?->YesFINAL REPORT AP chest HISTORY: Dyspnea. COMPARISON: 11/02/2017. IMPRESSION: Left AICD. Stable cardiac silhouette. Coarse interstitial markings similar to previous. Small effusionsappear improved from previous. No pneumothorax. Signed : Raquel Maria MDReport Verified Date/Time: 11/06/2018 18:32:43 Reading Location: [address] Consult Reading Room POCT-GLUCOSE [id number] 18:16:00 Test Item Value Reference Range Comments POC-GLUCOSE METER (BEAKER) 174 mg/dL 70-110 TESTED AT [address] (test kqld=6365) [place] [address] URINALYSIS W/ REFLEX URINE [id number] 17:44:00 Test Item Value Reference Range Comments COLOR (BEAKER) (test rlar=724) Yellow CLARITY (BEAKER) (test kgvr=432) Hazy SPECIFIC GRAVITY UA (BEAKER) (test 1.010 1.001-1.035 deft=307) PH UA (BEAKER) (test zvdk=219) 6.5 5.0-8.0 PROTEIN UA (BEAKER) (test xjtv=742) 200 mg/dL Negative GLUCOSE UA (BEAKER) (test qozs=027) Negative Negative KETONES UA (BEAKER) (test ysdb=773) Negative Negative BILIRUBIN UA (BEAKER) (test ukho=953) Negative Negative BLOOD UA (BEAKER) (test anya=940) Trace Negative NITRITE UA (BEAKER) (test ilro=388) Negative Negative LEUKOCYTE ESTERASE UA (BEAKER) (test Large Negative ioqx=046) UROBILINOGEN UA (BEAKER) (test eqix=680) 0.2 mg/dL 0.2-1.0 RBC UA (BEAKER) (test qmtr=621) 7 /HPF WBC UA (BEAKER) (test juxh=118) 258 /HPF WBC CLUMPS PRESENT YEAST (BEAKER) (test fvzj=0717) Few SOURCE(BEAKER) (test ysfy=8214) TROPONIN [id number] 16:50:00 Test Item Value Reference Range Comments TROPONIN I (BEAKER) (test sykf=846) 0.08 ng/mL 0.00-0.03 Troponin I (TnI) levels must be interpreted in the context of the presenting symptoms and the clinical findings. Elevated TnI levels indicate myocardial damage, but are not specific for ischemic heart disease. Elevated TnI levels are seen in patients with other cardiac conditions (including myocarditis and congestive heart failure), and slight TnI elevations occur in patients with other conditions, including sepsis, renal failure, acidosis, acute neurological disease, and persistent tachyarrhythmia.POCT-LACTIC ACID, [id number] 15:55 :00 Test Item Value Reference Range Comments POC-LACTIC ACID, VENOUS 1.2 mmol/L 0.9-1.7 TESTED AT [facility] [address] (BEAKER) (test tvru=8940) [facility] [address] CT, BRAIN/STROKE [id number] 15:32:00FINAL REPORT CT Head without contrast CLINICAL HISTORY: Decreased alertness TECHNIQUE: Contiguous axial images through the head without contrast. This exam was performed according to the departmental dose optimization program which includes automated exposure control, adjustmentof the mA and/or kV according to the patient size, and/or use of an iterative reconstruction technique. COMPARISON: 10/29/2018 FINDINGS: Evolving right middle and posterior cerebral artery distribution infarction is again seen without hemorrhagic transformation. There is questionable new lucency in theleft parietal lobe. Generalized parenchymal volume loss is again seen without hydrocephalus or midline shift. There are atherosclerotic calcifications of the intracranial circulation. There are no extra-axial fluid collections. The skull is intact. The paranasal sinuses are well-aerated. IMPRESSION: Possible new loss of lewis- white differentiation the left parietal lobe, for which clinical correlationfor acute infarction is recommended. Evolving right MCA and [employer] distribution infarction without hemorrhagic transformation. The findings were discussed with the stroke neurologist at 3:30 PM Signed: Jaret Robbins Verified Date/Time: 11/06/2018 15:32:51 Reading Location: [facility] C013V Neuro Reading Room POCT-GLUCOSE [id number] 12:49:00 Test Item Value Reference Range Comments POC-GLUCOSE METER (BEAKER) 199 mg/dL 70-110 TESTED AT [facility] [address] [facility] (test aqjm=7591) [facility] [address] POCT-GLUCOSE [id number] 10:14:00 Test Item Value Reference Range Comments POC-GLUCOSE METER (BEAKER) 182 mg/dL 70-110 TESTED AT [address] (test iqba=4183) [facility] [address] [id number] 06:57:00 Test Item Value Reference Range Comments MAGNESIUM (BEAKER) (test wvsz=574) 1.6 mg/dL 1.6-2.6 BASIC METABOLIC [id number] 06:57:00 Test Item Value Reference Range Comments SODIUM (BEAKER) (test 141 meq/L 136-145 ysge=007) POTASSIUM (BEAKER) (test 3.6 meq/L 3.5-5.1 yjmc=688) CHLORIDE (BEAKER) (test 109 meq/L 98-107 hxzv=424) CO2 (BEAKER) (test 27 meq/L 22-29 vttx=950) BLOOD UREA NITROGEN 18 mg/dL 7-21 (BEAKER) (test aytn=768) CREATININE (BEAKER) (test 0.96 mg/dL 0.57-1.25 sqei=013) GLUCOSE RANDOM (BEAKER) 149 mg/dL 70-105 (test okpi=795) CALCIUM (BEAKER) (test 8.6 mg/dL 8.4-10.2 rpdr=323) EGFR (BEAKER) (test 57 mL/min/1.73 sq m ESTIMATED GFR IS NOT gjjj=5119) ACCURATE CREATININE CLEARANCE IN PREDICTING GLOMERULAR FILTRATION RATE. ESTIMATED GFR IS NOT APPLICABLE FOR DIALYSIS PATIENTS. CBC (HEMOGRAM ONLY)2018-11-06 05:47:00 Test Item Value Reference Range Comments WHITE BLOOD CELL COUNT (BEAKER) (test yrih=756) 7.1 K/ L 3.5-10.5 RED BLOOD CELL COUNT (BEAKER) (test slok=614) 2.99 M/ L 3.93-5.22 HEMOGLOBIN (BEAKER) (test vdsd=505) 8.8 GM/DL 11.2-15.7 HEMATOCRIT (BEAKER) (test arfn=547) 28.5 % 34.1-44.9 MEAN CORPUSCULAR VOLUME (BEAKER) (test uhwl=409) 95.3 fL 79.4-94.8 MEAN CORPUSCULAR HEMOGLOBIN (BEAKER) (test 29.4 pg 25.6-32.2 fmgd=011) MEAN CORPUSCULAR HEMOGLOBIN CONC (BEAKER) (test 30.9 GM/DL 32.2-35.5 ipta=862) RED CELL DISTRIBUTION WIDTH (BEAKER) (test 14.8 % 11.7-14.4 ouxm=800) PLATELET COUNT (BEAKER) (test rndm=126) 330 K/CU MM 150-450 MEAN PLATELET VOLUME (BEAKER) (test rhjg=817) 10.0 fL 9.4-12.3 NUCLEATED RED BLOOD CELLS (BEAKER) (test 0 /100 WBC 0-0 bhyw=537) POCT-GLUCOSE [id number] 21:14:00 Test Item Value Reference Range Comments POC-GLUCOSE METER (BEAKER) 190 mg/dL 70-110 TESTED AT [address] (test wevq=3565) [place] [address] POCT-GLUCOSE [id number] 18:18:00 Test Item Value Reference Range Comments POC-GLUCOSE METER (BEAKER) 206 mg/dL 70-110 TESTED AT [address] (test twbj=5170) [place] [id number] POCT-GLUCOSE [id number] 12:54:00 Test Item Value Reference Range Comments POC-GLUCOSE METER (BEAKER) 167 mg/dL 70-110 TESTED AT [address] (test reji=1855) [place] [address] VITAMIN D, [id number] 08:40:00 Test Item Value Reference Range Comments VITAMIN D 25-OH (BEAKER) (test ntex=0931) 6.4 ng/mL 6.6-49.9 Effective 01/27/2017: Reference Range ChangeNew: 6.6-49.9 ng/mL Previous: 13.0 -47.8 ng/mLRecommended Vitamin D Target Range: 30.0-40.0 ng/mLPOCT-GLUCOSE [id number] 08:10:00 Test Item Value Reference Range Comments POC-GLUCOSE METER (BEAKER) 155 mg/dL 70-110 TESTED AT [facility] [address] [facility] (test odww=0211) [facility] [address] [id number] 07:35:00 Test Item Value Reference Range Comments FERRITIN (BEAKER) (test yeiz=279) 355 ng/mL 5-275 VITAMIN B12 AND [id number] 07:35:00 Test Item Value Reference Range Comments VITAMIN B12 (BEAKER) (test abms=686) 420 pg/mL 213-816 FOLATE (BEAKER) (test cttl=958) 6.7 ng/mL >=7.0 IRON, TIBC, % SAT. (WITHOUT FERRITIN)2018-11-05 06:59:00 Test Item Value Reference Range Comments IRON (BEAKER) (test cgha=414) 28.0 ug/dL 40.0-160.0 TOTAL IRON BINDING CAPACITY (BEAKER) (test 194 ug/dL 250-450 cryz=627) IRON % SATURATION (2) (BEAKER) (test nwss=2740) 14 % 20-55 [id number] 06:38:00 Test Item Value Reference Range Comments MAGNESIUM (BEAKER) (test svuy=203) 1.6 mg/dL 1.6-2.6 BASIC METABOLIC [id number] 06:38:00 Test Item Value Reference Range Comments SODIUM (BEAKER) (test 138 meq/L 136-145 seho=966) POTASSIUM (BEAKER) (test 3.9 meq/L 3.5-5.1 bemc=537) CHLORIDE (BEAKER) (test 105 meq/L 98-107 revm=986) CO2 (BEAKER) (test 27 meq/L 22-29 ypsr=511) BLOOD UREA NITROGEN 18 mg/dL 7-21 (BEAKER) (test yyhd=082) CREATININE (BEAKER) (test 1.00 mg/dL 0.57-1.25 faak=315) GLUCOSE RANDOM (BEAKER) 131 mg/dL 70-105 (test ctam=439) CALCIUM (BEAKER) (test 8.7 mg/dL 8.4-10.2 pexh=218) EGFR (BEAKER) (test 54 mL/min/1.73 sq m ESTIMATED GFR IS NOT snrm=2993) ACCURATE CREATININE CLEARANCE IN PREDICTING GLOMERULAR FILTRATION RATE. ESTIMATED GFR IS NOT APPLICABLE FOR DIALYSIS PATIENTS. CBC (HEMOGRAM ONLY)2018-11-05 05:52:00 Test Item Value Reference Range Comments WHITE BLOOD CELL COUNT (BEAKER) (test uanh=733) 7.3 K/ L 3.5-10.5 RED BLOOD CELL COUNT (BEAKER) (test lzfe=408) 3.09 M/ L 3.93-5.22 HEMOGLOBIN (BEAKER) (test idob=631) 9.0 GM/DL 11.2-15.7 HEMATOCRIT (BEAKER) (test oawz=529) 29.5 % 34.1-44.9 MEAN CORPUSCULAR VOLUME (BEAKER) (test qrii=866) 95.5 fL 79.4-94.8 MEAN CORPUSCULAR HEMOGLOBIN (BEAKER) (test 29.1 pg 25.6-32.2 wsgi=375) MEAN CORPUSCULAR HEMOGLOBIN CONC (BEAKER) (test 30.5 GM/DL 32.2-35.5 qois=942) RED CELL DISTRIBUTION WIDTH (BEAKER) (test 14.8 % 11.7-14.4 ywiy=510) PLATELET COUNT (BEAKER) (test bnbk=904) 353 K/CU MM 150-450 MEAN PLATELET VOLUME (BEAKER) (test icur=938) 9.9 fL 9.4-12.3 NUCLEATED RED BLOOD CELLS (BEAKER) (test 0 /100 WBC 0-0 xkzm=860) POCT-GLUCOSE [id number] 21:02:00 Test Item Value Reference Range Comments POC-GLUCOSE METER (BEAKER) 149 mg/dL 70-110 TESTED AT [address] (test mdbz=8417) [facility] [address] POCT-GLUCOSE [id number] 19:17:00 Test Item Value Reference Range Comments POC-GLUCOSE METER (BEAKER) 142 mg/dL 70-110 TESTED AT [address] (test tucc=9593) [facility] [address] [id number] 13:41:00 Test Item Value Reference Range Comments ALBUMIN (BEAKER) (test mjdc=0092) 2.6 g/dL 3.5-5.0 POCT-GLUCOSE [id number] 11:23:00 Test Item Value Reference Range Comments POC-GLUCOSE METER (BEAKER) 202 mg/dL 70-110 TESTED AT [facility] [address] [facility] (test nbxw=7056) [facility] [address] [id number] 08:46:00 Test Item Value Reference Range Comments MAGNESIUM (BEAKER) (test ifhl=258) 1.6 mg/dL 1.6-2.6 BASIC METABOLIC [id number] 08:46:00 Test Item Value Reference Range Comments SODIUM (BEAKER) (test 135 meq/L 136-145 zzgu=331) POTASSIUM (BEAKER) (test 3.7 meq/L 3.5-5.1 agiq=687) CHLORIDE (BEAKER) (test 103 meq/L 98-107 clla=168) CO2 (BEAKER) (test 26 meq/L 22-29 vgia=443) BLOOD UREA NITROGEN 15 mg/dL 7-21 (BEAKER) (test kvsm=329) CREATININE (BEAKER) (test 0.85 mg/dL 0.57-1.25 mdeb=482) GLUCOSE RANDOM (BEAKER) 193 mg/dL 70-105 (test qxvt=685) CALCIUM (BEAKER) (test 8.5 mg/dL 8.4-10.2 ejwm=776) EGFR (BEAKER) (test 66 mL/min/1.73 sq m ESTIMATED GFR IS NOT uqjs=7225) ACCURATE CREATININE CLEARANCE IN PREDICTING GLOMERULAR FILTRATION RATE. ESTIMATED GFR IS NOT APPLICABLE FOR DIALYSIS PATIENTS. CBC (HEMOGRAM ONLY)2018-11-04 06:41:00 Test Item Value Reference Range Comments WHITE BLOOD CELL COUNT (BEAKER) (test thnk=032) 8.9 K/ L 3.5-10.5 RED BLOOD CELL COUNT (BEAKER) (test jsfd=059) 3.24 M/ L 3.93-5.22 HEMOGLOBIN (BEAKER) (test tiit=612) 9.4 GM/DL 11.2-15.7 HEMATOCRIT (BEAKER) (test bhrq=212) 29.6 % 34.1-44.9 MEAN CORPUSCULAR VOLUME (BEAKER) (test kutq=150) 91.4 fL 79.4-94.8 MEAN CORPUSCULAR HEMOGLOBIN (BEAKER) (test 29.0 pg 25.6-32.2 pivk=048) MEAN CORPUSCULAR HEMOGLOBIN CONC (BEAKER) (test 31.8 GM/DL 32.2-35.5 mlnx=020) RED CELL DISTRIBUTION WIDTH (BEAKER) (test 14.8 % 11.7-14.4 glyo=715) PLATELET COUNT (BEAKER) (test jnua=467) 373 K/CU MM 150-450 MEAN PLATELET VOLUME (BEAKER) (test twuu=177) 9.9 fL 9.4-12.3 NUCLEATED RED BLOOD CELLS (BEAKER) (test 0 /100 WBC 0-0 wvgk=489) POCT-GLUCOSE [id number] 22:15:00 Test Item Value Reference Range Comments POC-GLUCOSE METER (BEAKER) 263 mg/dL 70-110 TESTED AT [address] (test tysp=8681) [place] [id number] POCT-GLUCOSE [id number] 18:35:00 Test Item Value Reference Range Comments POC-GLUCOSE METER (BEAKER) 338 mg/dL 70-110 TESTED AT [address] (test lbdb=4890) [place] [address] [id number] 08:26:00 Test Item Value Reference Range Comments MAGNESIUM (BEAKER) (test zcar=552) 1.5 mg/dL 1.6-2.6 BASIC METABOLIC [id number] 08:26:00 Test Item Value Reference Range Comments SODIUM (BEAKER) (test 136 meq/L 136-145 ewpc=249) POTASSIUM (BEAKER) (test 3.8 meq/L 3.5-5.1 utzx=303) CHLORIDE (BEAKER) (test 104 meq/L 98-107 eyix=245) CO2 (BEAKER) (test 25 meq/L 22-29 vsep=827) BLOOD UREA NITROGEN 10 mg/dL 7-21 (BEAKER) (test zkki=224) CREATININE (BEAKER) (test 0.83 mg/dL 0.57-1.25 nqbc=731) GLUCOSE RANDOM (BEAKER) 129 mg/dL 70-105 (test aoqu=773) CALCIUM (BEAKER) (test 8.8 mg/dL 8.4-10.2 tqka=713) EGFR (BEAKER) (test 67 mL/min/1.73 sq m ESTIMATED GFR IS NOT eozj=5616) ACCURATE CREATININE CLEARANCE IN PREDICTING GLOMERULAR FILTRATION RATE. ESTIMATED GFR IS NOT APPLICABLE FOR DIALYSIS PATIENTS. TROPONIN [id number] 08:23:00 Test Item Value Reference Range Comments TROPONIN I (BEAKER) (test tfqu=782) 0.24 ng/mL 0.00-0.03 Troponin I (TnI) levels must be interpreted in the context of the presenting symptoms and the clinical findings. Elevated TnI levels indicate myocardial damage, but are not specific for ischemic heart disease. Elevated TnI levels are seen in patients with other cardiac conditions (including myocarditis and congestive heart failure), and slight TnI elevations occur in patients with other conditions, including sepsis, renal failure, acidosis, acute neurological disease, and persistent tachyarrhythmia.POCT-GLUCOSE [id number] 07:59:00 Test Item Value Reference Range Comments POC-GLUCOSE METER (BEAKER) 134 mg/dL 70-110 TESTED AT [facility] [address] [facility] (test heli=5877) [facility] [address] CBC (HEMOGRAM ONLY)2018-11-03 07:16:00 Test Item Value Reference Range Comments WHITE BLOOD CELL COUNT (BEAKER) (test yvrf=851) 8.4 K/ L 3.5-10.5 RED BLOOD CELL COUNT (BEAKER) (test xpus=172) 3.21 M/ L 3.93-5.22 HEMOGLOBIN (BEAKER) (test rfmv=514) 9.4 GM/DL 11.2-15.7 HEMATOCRIT (BEAKER) (test aekm=253) 29.9 % 34.1-44.9 MEAN CORPUSCULAR VOLUME (BEAKER) (test ldrn=221) 93.1 fL 79.4-94.8 MEAN CORPUSCULAR HEMOGLOBIN (BEAKER) (test 29.3 pg 25.6-32.2 npyd=786) MEAN CORPUSCULAR HEMOGLOBIN CONC (BEAKER) (test 31.4 GM/DL 32.2-35.5 ikky=034) RED CELL DISTRIBUTION WIDTH (BEAKER) (test 14.7 % 11.7-14.4 cela=264) PLATELET COUNT (BEAKER) (test wdxh=130) 337 K/CU MM 150-450 MEAN PLATELET VOLUME (BEAKER) (test kzhi=916) 9.8 fL 9.4-12.3 NUCLEATED RED BLOOD CELLS (BEAKER) (test 0 /100 WBC 0-0 bacs=183) POCT-GLUCOSE [id number] 22:53:00 Test Item Value Reference Range Comments POC-GLUCOSE METER (BEAKER) 142 mg/dL 70-110 TESTED AT [address] (test euxv=9601) [place] [address] TROPONIN [id number] 18:57:00 Test Item Value Reference Range Comments TROPONIN I (BEAKER) (test lpyf=946) 0.28 ng/mL 0.00-0.03 Troponin I (TnI) levels must be interpreted in the context of the presenting symptoms and the clinical findings. Elevated TnI levels indicate myocardial damage, but are not specific for ischemic heart disease. Elevated TnI levels are seen in patients with other cardiac conditions (including myocarditis and congestive heart failure), and slight TnI elevations occur in patients with other conditions, including sepsis, renal failure, acidosis, acute neurological disease, and persistent tachyarrhythmia.POCT-GLUCOSE [id number] 18:42:00 Test Item Value Reference Range Comments POC-GLUCOSE METER (BEAKER) 125 mg/dL 70-110 TESTED AT [address] (test kfvn=7306) [place] [address] POCT-GLUCOSE [id number] 15:04:00 Test Item Value Reference Range Comments POC-GLUCOSE METER (BEAKER) 120 mg/dL 70-110 TESTED AT [address] (test xrix=1555) [place] [address] TROPONIN [id number] 11:37:00 Test Item Value Reference Range Comments TROPONIN I (BEAKER) (test llhf=243) 0.26 ng/mL 0.00-0.03 Troponin I (TnI) levels must be interpreted in the context of the presenting symptoms and the clinical findings. Elevated TnI levels indicate myocardial damage, but are not specific for ischemic heart disease. Elevated TnI levels are seen in patients with other cardiac conditions (including myocarditis and congestive heart failure), and slight TnI elevations occur in patients with other conditions, including sepsis, renal failure, acidosis, acute neurological disease, and persistent tachyarrhythmia.RAD, CHEST, 1 VIEW, NON [id number] 11:31:00Reason for exam:->chest painShould this be performed at the bedside?- >YesFINAL REPORT Chest, portable AP view History: Chest pain Comparison: 10/25/2018 IMPRESSION: The cardiothoracic stable. 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 Right operation PICCtip terminates at the cavoatrial junction. Bibasilar atelectasis is present. No new consolidation, pleural effusion, or pneumothorax. Signed: Oscar Lyons MDReport Verified Date/Time: 11/02/2018 11:31:36 Reading Location: [facility] Radiology Reading Room POCT-GLUCOSE [id number] 09:33:00 Test Item Value Reference Range Comments POC-GLUCOSE METER (ROCAELAKER) 155 mg/dL 70-110 TESTED AT [address] (test pxgd=7175) [facility] [address] [place], ANGIOGRAM, [id number] 08:35:00Reason for exam:->Diagnostic Angiogram and Possible Carotid Stent PlacmentFINAL REPORT DATE OF PROCEDURE: 10/26/2018 SURGEON: Lobo Dillon M.D. GEOMETRY PROFESSOR: Felicity Curiel MD PREOPERATIVE DIAGNOSIS: Left and right cervical carotid stenosis POSTOPERATIVE DIAGNOSIS: High grade left carotid stenosis s/p stenting and balloon angioplasty and rightcervical carotid artery occlusion OPERATION : 1) Diagnostic Cerebral Angiogram2) Left cervical carotid stent placement with distal protection.3) Post-stent balloon angioplasty of the left internal carotid artery origin ANESTHESIA: MAC ESTIMATED BLOOD LOSS: minimal COMPLICATIONS: none apparent VESSELS STUDIED:*Right common carotid artery x 2* Right subclavian artery x 1*Right vertebral artery x2*Left common carotid artery x 1*Left internal carotid artery x 3*Left subclavian artery x 1*Left vertebral artery x 2*Right common femoral artery x1 MATERIALS EMPLOYED:*6 Lithuanian shuttle sheath *5 Lithuanian 130cm diagnostic catheter*Flexor Shuttle guiding cathter*Synchro Glidewire*Amplatz Super Stiff guidewire*ALBERTO II catheter* 5F Flush Contra catheter*Synchro Standard, exchange length*Spyder 6mm distal protection device*Viatrac 14 Plus 4x20mm balloon*Precise Pro 6 x 30mm stent*6 Lithuanian Mynxgrip closure device INDICATIONS: The patient is a 73 year old female with significant vascular disease who originally presented with an occlusion of the right carotid terminus, who underwent thrombectomy. She has had a prolonged hospital stay, requiring pacemaker, anticoagulation for numerous DVTs, and NSTEMI for whichshe is undergoing evaluation for CABG. She presents for diagnosis of right and left carotid stenosisand possible treatment of left or right carotid stenosis depending on imaging findings. The patient was on appropriate DAPT prior to the angiogram. I had a complete discussion with the patient and her son regarding natural history of the disease process and stroke risk, rationale for the procedure, benefits of the procedure, as well as the risks of the procedure. They asked appropriate questions and was demonstrated understanding of the disease and the procedure. The risks discussed included but were not limited to stroke, weakness, paralysis, aphasia , contrast reaction, kidney to toxicity, vessel dissection or injury, bleeding, groin hematoma, paralysis and even . They understood the risk benefit profile and agreed to proceed. PROCEDURE: After appropriate consent was obtained, the patient was brought to the angiographic suite and cardiopulmonary monitoring was placed. A timeout was performed. Both groins were prepped and draped in the usual sterile fashion. The right pedal pulse was inconsistently dopplerable, and nonpalpable. After administration of 10 mL of 2% lidocaine at the puncture site a micropuncture needle was used to perform a single wall puncture of the left common femoralartery and an angled DSA angiogram was performed. After confirming good location the puncture site, a 6 Lithuanian shuttle sheath was advanced over an exchange length Synchro Glidewire into the mid thoracic aorta, the inner stylette and wire were removed, the catheter back bled , flushed in usual fashion and it was maintained on heparinized flushed throughout remainder the procedure. Using coaxial technique, a pre-flushed 4 Lithuanian Berenstein catheter on constant heparinized saline flush was advanced overthe Glidewire into the descending aorta, the Glidewire was removed, the catheter back bled, flushed in usual fashion and the catheter was maintained on heparinized flushed throughout duration of the case. Using coaxial technique, the catheter was advanced into the aortic arch and with the aid of roadmapping, digital fluoroscopy, and careful guidewire manipulation, the right innominate, right common carotid, left common carotid, left internal carotid and left vertebral arteries were selectively catheterized. Upon each successive catheterization, digital subtraction angiography using the appropriate rate and volume of contrast in multiple projections was performed. The images reviewed at the outsideworkstation for quality and content. Given the SHAYNA occlusion and high grade LICA origin stenosis and the patient's future need for a CABG, a left ICA carotid stent was recommended. While in the LCCA, roadmap guidance was used to advance the dx catheter into the ECA. The Dx catheter and sheath were exchanged out under live fluoro. The shuttle sheath was then advanced into the mid cervical common carotid artery. The Glidewire and diagnostic catheter were then removed. We then performed cervical and intracranial ICA angiograms through the 6 Lithuanian sheath. ENDOVASCULAR INTERVENTION: A Weight-based heparin bolus was administered and the ACT checked after five minutes and confirmed to be above 250. Using a gently curved Synchro microwire, the stenosis was carefully traversed with minimal contact with the plaque. The Synchro wire was advanced under roadmap guidance to the horizontal petrous ICA andexchanged for a preprepared Spider 6 mm distal protection device was advanced over the exchange length wire and positioned in the distal cervical internal carotid artery and deployed. Using standard technique, a 6x30mm Precise Pro carotid stent was then deployed in the internal carotid artery extending into the common carotid artery. There appeared to be some residual stenosis of the proximal ICA. Under roadmap guidance, a prepped 4 x 20mm Viatrac balloon was advanced over the wire with rapid exchange technique and position and across the stenosis. The balloon was inflated carefully to nominal of8 thuy pressure within the stent to resolve residual stenosis and ensure full stent apposition. The anesthesia team had atropine on standby during this maneuver but it was not necessary as his heart rate was stable and SBP maintained >110. Follow-up runs showed no residual stenosis and the balloon was removed in the standard manner. The distal protection device was then recaptured and removed. Post stenting, an angiogram of the cervical carotid was performed demonstrating significant improvement in the stenosis and satisfactory positioning of the stent. A repeat cerebral angiogram demonstrated no evidence of branch occlusions or slow filling branches, and no other untoward findings. The sheath was slowly retracted and the cervical common carotid artery was examined under fluoroscopy with puffing technique and no evidence of luminal injuries was noted. The sheath was then retracted into the descending aorta, the guidewire was then reinserted in the sheath exchanged out the circulation. Hemostasis was then achieved with a 6 Mynxgrip closure device. The patient tolerated the procedure well and was [facility] unchanged neurological status, without groin hematoma andwith good left distal extremity pulses. The patient was transferred to the intensive care unit for further recovery monitoring. FINDINGS: RIGHT COMMON FEMORAL ARTERY (DSA PA - PELVIS )Normal puncture above the bifurcation and below the markers of the inguinal ligament. Atherosclerotic disease of the femoral vessel RIGHT COMMON CAROTID ARTERY (DSA - PA, LATERAL - CERVICAL )There is complete occlusion of the right common carotid artery at it's origin. There are large and tortuous ECA branches, which anastomoses with the vertebrobasilar system. RIGHT SUBCLAVIAN ARTERY (DSA - PA, LATERAL - CERVICAL )The right subclavian artery is occluded distal to the origin of the right vertebral artery. The cervical right ICA is also occluded just distal to the origin. There are large, tortuous ECA branches which anastomoses and retrograde filling of the ascending cervical branches and retrograde fills the right subclavian artery distal to the occlusion. Vertebral artery fills without stenosis, aneurysm or otherlesion , and fills the majority of the right anterior circulation via the posterior communicating artery. LEFT SUBCLAVIAN ARTERY (DSA -PA, LATERAL )The origin of the left vertebral artery is severely stenotic >85%. The subclavian artery shows moderate atherosclerotic disease. The visualized intracranial portions of the left vertebral artery are without obvious stenosis or vascular lesion. LEFT COMMON CAROTID ARTERY (DSA - PA, LATERAL, OBLIQUE - CERVICAL )The left internal carotid artery origin shows 80% stenosis by NASCET criteria with a post -stenotic dilatation. There are large, tortuous ECA branches. LEFT INTERNAL CAROTID ARTERY (DSA, PA, LATERAL x2)Normal distal cervical, petrous, cavernous and supraclinoid internal carotid artery with physiological filling of the MCA and MARY branches. Capillary phase and venous phase are unremarkable. Post- carotid stenting, there is increased density ofcontrast filling indicating better flow and there is new cross-filling into the right MCA noted across [place] indicating that the collateral flow to the right anterior circulation is enhanced. The venous phase demonstrates patent transverse sinuses. INTERPRETATION: 1. Severe left cervical carotid artery stenosis >80%, successfully treated with a Precise Pro 6 x 30mm stent and balloon angioplasty. Post-stenting, there is no residual LICA stenosis by NASCET criteria and good apposition of the stent to the vessel wall. 2. Complete right cervical internal carotid occlusion with right anterior circulation filling via the right P-comm and right Acomm anastomotic channels. 3. Severe left vertebral artery stenosis & gt;85% but widely patent right vertebral artery origin and course. 4. Complete occlusionof the right subclavian artery just distal to the right vertebral artery origin with reconstitution of the right subclavian artery via retrograde flow through the thyrocervical trunk via right occipital artery and right ascending cervical artery enlarged anastomoses, indicating significant chronicity of the occlusion. FACULTY ATTESTATION: I, Lobo Dillon M.D., was present for the entirety of the procedure. I performed or directly supervised all aspects of the procedure. I performed all critical aspects of the case. I interpreted the images and reported results. Signed: Lobo Dillon MDReport Verified Date/Time: 11/02/2018 08:35:28 Reading Location: [facility] Y026 Neuro Angio Reading Room [id number] 07:55:00 Test Item Value Reference Range Comments MAGNESIUM (BEAKER) (test vtcg=439) 1.6 mg/dL 1.6-2.6 BASIC METABOLIC [id number] 07:55:00 Test Item Value Reference Range Comments SODIUM (BEAKER) (test 137 meq/L 136-145 kerc=218) POTASSIUM (BEAKER) (test 4.0 meq/L 3.5-5.1 edeu=725) CHLORIDE (BEAKER) (test 105 meq/L 98-107 qubz=978) CO2 (BEAKER) (test 25 meq/L 22-29 eajz=829) BLOOD UREA NITROGEN 9 mg/dL 7-21 (BEAKER) (test kxqn=303) CREATININE (BEAKER) (test 0.79 mg/dL 0.57-1.25 ljcv=840) GLUCOSE RANDOM (BEAKER) 141 mg/dL 70-105 (test lfcb=145) CALCIUM (BEAKER) (test 8.6 mg/dL 8.4-10.2 lvry=965) EGFR (BEAKER) (test 71 mL/min/1.73 sq m ESTIMATED GFR IS NOT fygc=2083) ACCURATE CREATININE CLEARANCE IN PREDICTING GLOMERULAR FILTRATION RATE. ESTIMATED GFR IS NOT APPLICABLE FOR DIALYSIS PATIENTS. TROPONIN [id number] 07:21:00 Test Item Value Reference Range Comments TROPONIN I (BEAKER) (test uvhu=095) 0.21 ng/mL 0.00-0.03 Troponin I (TnI) levels must be interpreted in the context of the presenting symptoms and the clinical findings. Elevated TnI levels indicate myocardial damage, but are not specific for ischemic heart disease. Elevated TnI levels are seen in patients with other cardiac conditions (including myocarditis and congestive heart failure), and slight TnI elevations occur in patients with other conditions, including sepsis, renal failure, acidosis, acute neurological disease, and persistent tachyarrhythmia.CBC (HEMOGRAM ONLY)2018-11-02 06:20:00 Test Item Value Reference Range Comments WHITE BLOOD CELL COUNT (BEAKER) (test ewfx=041) 7.8 K/ L 3.5-10.5 RED BLOOD CELL COUNT (BEAKER) (test ikzk=106) 3.22 M/ L 3.93-5.22 HEMOGLOBIN (BEAKER) (test ckbp=429) 9.3 GM/DL 11.2-15.7 HEMATOCRIT (BEAKER) (test unwj=459) 30.3 % 34.1-44.9 MEAN CORPUSCULAR VOLUME (BEAKER) (test gkkt=957) 94.1 fL 79.4-94.8 MEAN CORPUSCULAR HEMOGLOBIN (BEAKER) (test 28.9 pg 25.6-32.2 oiss=405) MEAN CORPUSCULAR HEMOGLOBIN CONC (BEAKER) (test 30.7 GM/DL 32.2-35.5 kmiq=244) RED CELL DISTRIBUTION WIDTH (BEAKER) (test 14.8 % 11.7-14.4 fuar=483) PLATELET COUNT (BEAKER) (test xwvr=896) 342 K/CU MM 150-450 MEAN PLATELET VOLUME (BEAKER) (test mqef=945) 10.0 fL 9.4-12.3 NUCLEATED RED BLOOD CELLS (BEAKER) (test 0 /100 WBC 0-0 pais=461) POCT-GLUCOSE [id number] 21:32:00 Test Item Value Reference Range Comments POC-GLUCOSE METER (BEAKER) 137 mg/dL 70-110 TESTED AT [address] (test hhdj=7499) [place] [address] TROPONIN [id number] 18:48:00 Test Item Value Reference Range Comments TROPONIN I (BEAKER) (test zfzx=506) 0.34 ng/mL 0.00-0.03 Troponin I (TnI) levels must be interpreted in the context of the presenting symptoms and the clinical findings. Elevated TnI levels indicate myocardial damage, but are not specific for ischemic heart disease. Elevated TnI levels are seen in patients with other cardiac conditions (including myocarditis and congestive heart failure), and slight TnI elevations occur in patients with other conditions, including sepsis, renal failure, acidosis, acute neurological disease, and persistent tachyarrhythmia.POCT-GLUCOSE [id number] 17:34:00 Test Item Value Reference Range Comments POC-GLUCOSE METER (BEAKER) 108 mg/dL 70-110 TESTED AT [address] (test ccgu=5502) [place] [address] POCT-GLUCOSE [id number] 12:55:00 Test Item Value Reference Range Comments POC-GLUCOSE METER (BEAKER) 190 mg/dL 70-110 TESTED AT [address] (test wdyr=0665) [place] [address] POCT-GLUCOSE [id number] 09:07:00 Test Item Value Reference Range Comments POC-GLUCOSE METER (BEAKER) 199 mg/dL 70-110 TESTED AT [address] (test vbtp=3073) [place] [address] TROPONIN [id number] 08:04:00 Test Item Value Reference Range Comments TROPONIN I (BEAKER) (test jvdv=001) 0.37 ng/mL 0.00-0.03 Troponin I (TnI) levels must be interpreted in the context of the presenting symptoms and the clinical findings. Elevated TnI levels indicate myocardial damage, but are not specific for ischemic heart disease. Elevated TnI levels are seen in patients with other cardiac conditions (including myocarditis and congestive heart failure), and slight TnI elevations occur in patients with other conditions, including sepsis, renal failure, acidosis, acute neurological disease, and persistent tachyarrhythmia.[id number] 07:14:00 Test Item Value Reference Range Comments MAGNESIUM (BEAKER) (test kejz=200) 1.8 mg/dL 1.6-2.6 BASIC METABOLIC [id number] 07:14:00 Test Item Value Reference Range Comments SODIUM (BEAKER) (test 139 meq/L 136-145 kmpj=385) POTASSIUM (BEAKER) (test 4.0 meq/L 3.5-5.1 fzjj=953) CHLORIDE (BEAKER) (test 107 meq/L 98-107 mlmb=540) CO2 (BEAKER) (test 27 meq/L 22-29 grgx=847) BLOOD UREA NITROGEN 11 mg/dL 7-21 (BEAKER) (test bgmw=963) CREATININE (BEAKER) (test 0.76 mg/dL 0.57-1.25 wzdu=995) GLUCOSE RANDOM (BEAKER) 97 mg/dL 70-105 (test ljij=360) CALCIUM (BEAKER) (test 8.4 mg/dL 8.4-10.2 xlax=013) EGFR (BEAKER) (test 75 mL/min/1.73 sq m ESTIMATED GFR IS NOT sbrt=9754) ACCURATE CREATININE CLEARANCE IN PREDICTING GLOMERULAR FILTRATION RATE. ESTIMATED GFR IS NOT APPLICABLE FOR DIALYSIS PATIENTS. [id number] 07:02:00 Test Item Value Reference Range Comments PARTIAL THROMBOPLASTIN TIME (BEAKER) (test 78.2 seconds 22.5-36.0 wjux=299) CBC (HEMOGRAM ONLY)2018-11-01 06:38:00 Test Item Value Reference Range Comments WHITE BLOOD CELL COUNT (BEAKER) (test fwjd=744) 8.0 K/ L 3.5-10.5 RED BLOOD CELL COUNT (BEAKER) (test cslp=862) 3.02 M/ L 3.93-5.22 HEMOGLOBIN (BEAKER) (test nops=746) 8.8 GM/DL 11.2-15.7 HEMATOCRIT (BEAKER) (test uwpp=929) 28.3 % 34.1-44.9 MEAN CORPUSCULAR VOLUME (BEAKER) (test bydp=770) 93.7 fL 79.4-94.8 MEAN CORPUSCULAR HEMOGLOBIN (BEAKER) (test 29.1 pg 25.6-32.2 zvau=452) MEAN CORPUSCULAR HEMOGLOBIN CONC (BEAKER) (test 31.1 GM/DL 32.2-35.5 tqpt=564) RED CELL DISTRIBUTION WIDTH (BEAKER) (test 14.9 % 11.7-14.4 ofed=177) PLATELET COUNT (BEAKER) (test pxhg=117) 336 K/CU MM 150-450 MEAN PLATELET VOLUME (BEAKER) (test ogsq=122) 10.1 fL 9.4-12.3 NUCLEATED RED BLOOD CELLS (BEAKER) (test 0 /100 WBC 0-0 tdbo=850) [id number] 01:43:00 Test Item Value Reference Range Comments PARTIAL THROMBOPLASTIN TIME (BEAKER) (test 71.9 seconds 22.5-36.0 vulr=064) TROPONIN [id number] 00:57:00 Test Item Value Reference Range Comments TROPONIN I (BEAKER) (test vbpm=034) 0.44 ng/mL 0.00-0.03 Troponin I (TnI) levels must be interpreted in the context of the presenting symptoms and the clinical findings. Elevated TnI levels indicate myocardial damage, but are not specific for ischemic heart disease. Elevated TnI levels are seen in patients with other cardiac conditions (including myocarditis and congestive heart failure), and slight TnI elevations occur in patients with other conditions, including sepsis, renal failure, acidosis, acute neurological disease, and persistent tachyarrhythmia.POCT-GLUCOSE [id number] 22:19:00 Test Item Value Reference Range Comments POC-GLUCOSE METER (BEAKER) 307 mg/dL 70-110 Notified LLUVIA VERA/TESTED AT [facility] (test tcjo=8507) [address] [facility] [address] PLATELET [id number] 18:57:00 Test Item Value Reference Range Comments PLATELET COUNT (BEAKER) (test mzpt=899) 311 K/CU MM 150-450 [id number] 17:43:00 Test Item Value Reference Range Comments PARTIAL THROMBOPLASTIN TIME (BEAKER) (test 46.3 seconds 22.5-36.0 bwdf=669) TROPONIN [id number] 17:01:00 Test Item Value Reference Range Comments TROPONIN I (BEAKER) (test jwxp=831) 0.75 ng/mL 0.00-0.03 Troponin I (TnI) levels must be interpreted in the context of the presenting symptoms and the clinical findings. Elevated TnI levels indicate myocardial damage, but are not specific for ischemic heart disease. Elevated TnI levels are seen in patients with other cardiac conditions (including myocarditis and congestive heart failure), and slight TnI elevations occur in patients with other conditions, including sepsis, renal failure, acidosis, acute neurological disease, and persistent tachyarrhythmia.[id number] 16:43:00 Test Item Value Reference Range Comments PARTIAL THROMBOPLASTIN TIME (BEAKER) (test 140.2 seconds 22.5-36.0 apol=061) POCT-GLUCOSE [id number] 12:30:00 Test Item Value Reference Range Comments POC-GLUCOSE METER (BEAKER) 173 mg/dL 70-110 TESTED AT [facility] [address] [place] [address] (test zrto=7267) [facility] [address] TROPONIN [id number] 11:16:00 Test Item Value Reference Range Comments TROPONIN I (BEAKER) (test wglh=043) 0.84 ng/mL 0.00-0.03 Troponin I (TnI) levels must be interpreted in the context of the presenting symptoms and the clinical findings. Elevated TnI levels indicate myocardial damage, but are not specific for ischemic heart disease. Elevated TnI levels are seen in patients with other cardiac conditions (including myocarditis and congestive heart failure), and slight TnI elevations occur in patients with other conditions, including sepsis, renal failure, acidosis, acute neurological disease, and persistent tachyarrhythmia.[id number] 10:46:00 Test Item Value Reference Range Comments MAGNESIUM (BEAKER) (test jqdm=391) 2.2 mg/dL 1.6-2.6 [id number] 10:38:00 Test Item Value Reference Range Comments PARTIAL THROMBOPLASTIN TIME (BEAKER) (test 65.3 seconds 22.5-36.0 syiv=819) HEMOGLOBIN AND [id number] 10:34:00 Test Item Value Reference Range Comments HEMOGLOBIN (BEAKER) (test mrpv=957) 8.7 GM/DL 11.2-15.7 HEMATOCRIT (BEAKER) (test ytsz=398) 28.4 % 34.1-44.9 POCT-GLUCOSE [id number] 08:38:00 Test Item Value Reference Range Comments POC-GLUCOSE METER (BEAKER) 205 mg/dL 70-110 TESTED AT [facility] [address] (test bmpa=1077) [place] [address] TROPONIN [id number] 05:22:00 Test Item Value Reference Range Comments TROPONIN I (BEAKER) (test krsb=113) 0.50 ng/mL 0.00-0.03 Troponin I (TnI) levels must be interpreted in the context of the presenting symptoms and the clinical findings. Elevated TnI levels indicate myocardial damage, but are not specific for ischemic heart disease. Elevated TnI levels are seen in patients with other cardiac conditions (including myocarditis and congestive heart failure), and slight TnI elevations occur in patients with other conditions, including sepsis, renal failure, acidosis, acute neurological disease, and persistent tachyarrhythmia.[id number] 05:07:00 Test Item Value Reference Range Comments MAGNESIUM (BEAKER) (test gfnc=541) 1.7 mg/dL 1.6-2.6 BASIC METABOLIC [id number] 05:07:00 Test Item Value Reference Range Comments SODIUM (BEAKER) (test 139 meq/L 136-145 ywmb=559) POTASSIUM (BEAKER) (test 4.1 meq/L 3.5-5.1 dojb=582) CHLORIDE (BEAKER) (test 108 meq/L 98-107 pfui=176) CO2 (BEAKER) (test 26 meq/L 22-29 vwtu=645) BLOOD UREA NITROGEN 11 mg/dL 7-21 (BEAKER) (test vkbx=494) CREATININE (BEAKER) (test 0.79 mg/dL 0.57-1.25 tlgx=763) GLUCOSE RANDOM (BEAKER) 190 mg/dL 70-105 (test yxus=689) CALCIUM (BEAKER) (test 8.0 mg/dL 8.4-10.2 guwi=797) EGFR (BEAKER) (test 71 mL/min/1.73 sq m ESTIMATED GFR IS NOT yuae=5208) ACCURATE CREATININE CLEARANCE IN PREDICTING GLOMERULAR FILTRATION RATE. ESTIMATED GFR IS NOT APPLICABLE FOR DIALYSIS PATIENTS. [id number] 04:42:00 Test Item Value Reference Range Comments PARTIAL THROMBOPLASTIN TIME (BEAKER) (test 76.0 seconds 22.5-36.0 seba=170) CBC (HEMOGRAM ONLY)2018-10-31 04:35:00 Test Item Value Reference Range Comments WHITE BLOOD CELL COUNT (BEAKER) (test dodi=730) 7.8 K/ L 3.5-10.5 RED BLOOD CELL COUNT (BEAKER) (test hfek=261) 2.88 M/ L 3.93-5.22 HEMOGLOBIN (BEAKER) (test pexy=163) 8.4 GM/DL 11.2-15.7 HEMATOCRIT (BEAKER) (test vjvj=565) 27.2 % 34.1-44.9 MEAN CORPUSCULAR VOLUME (BEAKER) (test xckc=921) 94.4 fL 79.4-94.8 MEAN CORPUSCULAR HEMOGLOBIN (BEAKER) (test 29.2 pg 25.6-32.2 qclm=594) MEAN CORPUSCULAR HEMOGLOBIN CONC (BEAKER) (test 30.9 GM/DL 32.2-35.5 htct=790) RED CELL DISTRIBUTION WIDTH (BEAKER) (test 15.0 % 11.7-14.4 vjcu=588) PLATELET COUNT (BEAKER) (test csbg=273) 302 K/CU MM 150-450 MEAN PLATELET VOLUME (BEAKER) (test siow=851) 9.9 fL 9.4-12.3 NUCLEATED RED BLOOD CELLS (BEAKER) (test 0 /100 WBC 0-0 qvqx=924) TROPONIN [id number] 22:57:00 Test Item Value Reference Range Comments TROPONIN I (BEAKER) (test jgvw=431) 0.15 ng/mL 0.00-0.03 Troponin I (TnI) levels must be interpreted in the context of the presenting symptoms and the clinical findings. Elevated TnI levels indicate myocardial damage, but are not specific for ischemic heart disease. Elevated TnI levels are seen in patients with other cardiac conditions (including myocarditis and congestive heart failure), and slight TnI elevations occur in patients with other conditions, including sepsis, renal failure, acidosis, acute neurological disease, and persistent tachyarrhythmia.[id number] 22:43:00 Test Item Value Reference Range Comments PROTIME (BEAKER) (test xvls=197) 13.6 seconds 11.9-14.2 INR (BEAKER) (test nxio=668) 1.1 <=5.9 PARTIAL THROMBOPLASTIN TIME (BEAKER) (test 63.6 seconds 22.5-36.0 tlyv=086) Effective 09/14/2018: PT Reference Range ChangeNew: 11.9-14.2 Previous: 11.7- 14.7RECOMMENDED COUMADIN/WARFARIN INR THERAPY RANGESSTANDARD DOSE: 2.0-3.0 Includes: PROPHYLAXIS for venous thrombosis, systemic embolization; TREATMENT for venous thrombosis and/or pulmonary embolus.HIGH RISK: Target INR is2.5-3.5 for patients wiht mechanical heart valves.HEMOGLOBIN AND [id number] 22 :33:00 Test Item Value Reference Range Comments HEMOGLOBIN (BEAKER) (test ezsl=663) 9.5 GM/DL 11.2-15.7 HEMATOCRIT (BEAKER) (test zouv=381) 30.3 % 34.1-44.9 POCT-GLUCOSE [id number] 22:12:00 Test Item Value Reference Range Comments POC-GLUCOSE METER (BEAKER) 278 mg/dL 70-110 TESTED AT [address] (test wdun=0321) [facility] [address] POCT-GLUCOSE [id number] 17:26:00 Test Item Value Reference Range Comments POC-GLUCOSE METER (BEAKER) 203 mg/dL 70-110 TESTED AT [address] (test genv=6242) [facility] [address] [id number] 16:36:00 Test Item Value Reference Range Comments PROTIME (BEAKER) (test kudx=854) 14.8 seconds 11.9-14.2 INR (BEAKER) (test lmnb=862) 1.2 <=5.9 PARTIAL THROMBOPLASTIN TIME (BEAKER) (test 106.3 seconds 22.5-36.0 xhtj=623) Effective 09/14/2018: PT Reference Range ChangeNew: 11.9-14.2 Previous: 11.7- 14.7RECOMMENDED COUMADIN/WARFARIN INR THERAPY RANGESSTANDARD DOSE: 2.0-3.0 Includes: PROPHYLAXIS for venous thrombosis, systemic embolization; TREATMENT for venous thrombosis and/or pulmonary embolus.HIGH RISK: Target INR is2.5-3.5 for patients wiht mechanical heart valves.HEMOGLOBIN AND [id number] 16 :13:00 Test Item Value Reference Range Comments HEMOGLOBIN (BEAKER) (test pcsd=210) 8.8 GM/DL 11.2-15.7 HEMATOCRIT (BEAKER) (test zhfq=899) 28.4 % 34.1-44.9 OCCULT BLOOD, [id number] 15:13:00 Test Item Value Reference Range Comments FECAL OCCULT BLOOD (BEAKER) (test nuil=474) Negative Negative POCT-GLUCOSE [id number] 11:31:00 Test Item Value Reference Range Comments POC-GLUCOSE METER (BEAKER) 185 mg/dL 70-110 TESTED AT [facility] [address] [facility] (test bahu=9679) [facility] [address] [id number] 09:25:00 Test Item Value Reference Range Comments MAGNESIUM (BEAKER) (test xixg=274) 2.1 mg/dL 1.6-2.6 [id number] 09:21:00 Test Item Value Reference Range Comments PROTIME (BEAKER) (test qaai=492) 13.8 seconds 11.9-14.2 INR (BEAKER) (test zkly=862) 1.1 <=5.9 PARTIAL THROMBOPLASTIN TIME (BEAKER) (test 69.6 seconds 22.5-36.0 akoi=537) Effective 09/14/2018: PT Reference Range ChangeNew: 11.9-14.2 Previous: 11.7- 14.7RECOMMENDED COUMADIN/WARFARIN INR THERAPY RANGESSTANDARD DOSE: 2.0-3.0 Includes: PROPHYLAXIS for venous thrombosis, systemic embolization; TREATMENT for venous thrombosis and/or pulmonary embolus.HIGH RISK: Target INR is2.5-3.5 for patients wiht mechanical heart valves.HEMOGLOBIN AND [id number] 09 :17:00 Test Item Value Reference Range Comments HEMOGLOBIN (BEAKER) (test izev=621) 8.8 GM/DL 11.2-15.7 HEMATOCRIT (BEAKER) (test knsl=749) 28.2 % 34.1-44.9 OCCULT BLOOD, [id number] 08:28:00 Test Item Value Reference Range Comments FECAL OCCULT BLOOD (BEAKER) (test spmo=131) Negative Negative POCT-GLUCOSE [id number] 08:02:00 Test Item Value Reference Range Comments POC-GLUCOSE METER (BEAKER) 94 mg/dL 70-110 TESTED AT [facility] [address] (test xvfd=3378) [facility] [address] [id number] 03:04:00 Test Item Value Reference Range Comments MAGNESIUM (BEAKER) (test ugeu=187) 1.6 mg/dL 1.6-2.6 BASIC METABOLIC [id number] 03:04:00 Test Item Value Reference Range Comments SODIUM (BEAKER) (test 138 meq/L 136-145 mgnc=827) POTASSIUM (BEAKER) (test 3.9 meq/L 3.5-5.1 iyte=225) CHLORIDE (BEAKER) (test 109 meq/L 98-107 adgq=458) CO2 (BEAKER) (test 25 meq/L 22-29 kzlz=160) BLOOD UREA NITROGEN 11 mg/dL 7-21 (BEAKER) (test frlz=097) CREATININE (BEAKER) (test 0.77 mg/dL 0.57-1.25 vtsf=493) GLUCOSE RANDOM (BEAKER) 107 mg/dL 70-105 (test yzkm=439) CALCIUM (BEAKER) (test 8.1 mg/dL 8.4-10.2 sipu=227) EGFR (BEAKER) (test 73 mL/min/1.73 sq m ESTIMATED GFR IS NOT elsh=8003) ACCURATE CREATININE CLEARANCE IN PREDICTING GLOMERULAR FILTRATION RATE. ESTIMATED GFR IS NOT APPLICABLE FOR DIALYSIS PATIENTS. [id number] 02:35:00 Test Item Value Reference Range Comments PARTIAL THROMBOPLASTIN TIME (BEAKER) (test 80.4 seconds 22.5-36.0 nugq=362) CBC (HEMOGRAM ONLY)2018-10-30 02:23:00 Test Item Value Reference Range Comments WHITE BLOOD CELL COUNT (BEAKER) (test dyjk=194) 7.2 K/ L 3.5-10.5 RED BLOOD CELL COUNT (BEAKER) (test rhuv=325) 2.88 M/ L 3.93-5.22 HEMOGLOBIN (BEAKER) (test jsvj=465) 8.4 GM/DL 11.2-15.7 HEMATOCRIT (BEAKER) (test ovxq=340) 26.8 % 34.1-44.9 MEAN CORPUSCULAR VOLUME (BEAKER) (test ebec=034) 93.1 fL 79.4-94.8 MEAN CORPUSCULAR HEMOGLOBIN (BEAKER) (test 29.2 pg 25.6-32.2 piax=566) MEAN CORPUSCULAR HEMOGLOBIN CONC (BEAKER) (test 31.3 GM/DL 32.2-35.5 ontt=742) RED CELL DISTRIBUTION WIDTH (BEAKER) (test 15.4 % 11.7-14.4 jvtq=242) PLATELET COUNT (BEAKER) (test diao=243) 310 K/CU MM 150-450 MEAN PLATELET VOLUME (BEAKER) (test icdv=596) 9.4 fL 9.4-12.3 NUCLEATED RED BLOOD CELLS (BEAKER) (test 0 /100 WBC 0-0 sswp=180) CT, BRAIN, WITHOUT [id number] 02:05:00FINAL REPORT EXAM: CT head without contrast. CLINICAL HISTORY: Cerebral ischemia COMPARISON: CT head 10/27/2018. TECHNIQUE: CT images of the head were obtained without intravenous contrast. This exam was performed according to our departmental dose optimization program which includes automated exposure control , adjustment of the mA and/or kV according to patient's size and/or use of iterative reconstructive technique. FINDINGS:There is an area of diffuse hypodensity in the right temporoparietal and right occipital lobes as well as hypodense areas in the right basal ganglia, right thalamus and right thalamocapsular region consistent with evolving acute right MCA and right [employer] territory infarcts. There is diffuse sulcal effacement without significant mass effect. There is noacute intracranial hemorrhage, extra-axial fluid collection, midline shift or hydrocephalus. The basal cisterns are patent. There is generalized parenchymal atrophy. The visualized orbits are normal.There is mild mucosal thickening of the right ethmoid sinus. The tympanomastoid cavities are clear.The skull base and calvarium are intact. 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 No acute intracranial hemorrhage, midline shift or hydrocephalus. Signed: Kane Beck Verified Date/Time : 10/30/2018 02:05:43 [id number] 01:04:00 Test Item Value Reference Range Comments PARTIAL THROMBOPLASTIN TIME (BEAKER) (test 116.1 seconds 22.5-36.0 ufrq=164) [id number] 22:08:00 Test Item Value Reference Range Comments PARTIAL THROMBOPLASTIN TIME (BEAKER) (test 127.2 seconds 22.5-36.0 wlxn=736) HEMOGLOBIN AND [id number] 21:39:00 Test Item Value Reference Range Comments HEMOGLOBIN (BEAKER) (test eywr=426) 9.0 GM/DL 11.2-15.7 HEMATOCRIT (BEAKER) (test zrwr=499) 28.7 % 34.1-44.9 HEMOGLOBIN AND [id number] 18:45:00 Test Item Value Reference Range Comments HEMOGLOBIN (BEAKER) (test xkzk=991) 9.2 GM/DL 11.2-15.7 HEMATOCRIT (BEAKER) (test zjpy=690) 29.7 % 34.1-44.9 POCT-GLUCOSE [id number] 18:27:00 Test Item Value Reference Range Comments POC-GLUCOSE METER (BEAKER) 224 mg/dL 70-110 TESTED AT [address] (test rfwh=0311) [place] [address] [id number] 16:04:00 Test Item Value Reference Range Comments PARTIAL THROMBOPLASTIN TIME (BEAKER) (test 68.7 seconds 22.5-36.0 sgtj=076) [id number] 14:22:00 Test Item Value Reference Range Comments PARTIAL THROMBOPLASTIN TIME (BEAKER) (test 195.5 seconds 22.5-36.0 gcmo=510) HEMOGLOBIN AND [id number] 13:11:00 Test Item Value Reference Range Comments HEMOGLOBIN (BEAKER) (test ggoi=644) 8.8 GM/DL 11.2-15.7 HEMATOCRIT (BEAKER) (test elkw=721) 29.8 % 34.1-44.9 POCT-GLUCOSE [id number] 12:17:00 Test Item Value Reference Range Comments POC-GLUCOSE METER (BEAKER) 196 mg/dL 70-110 TESTED AT [address] (test ajvh=8689) [place] [address] [id number] 06:21:00 Test Item Value Reference Range Comments MAGNESIUM (BEAKER) (test jmtd=683) 1.9 mg/dL 1.6-2.6 BASIC METABOLIC [id number] 06:21:00 Test Item Value Reference Range Comments SODIUM (BEAKER) (test 139 meq/L 136-145 cqck=437) POTASSIUM (BEAKER) (test 3.7 meq/L 3.5-5.1 ihsv=728) CHLORIDE (BEAKER) (test 109 meq/L 98-107 ahdx=633) CO2 (BEAKER) (test 24 meq/L 22-29 qbzm=738) BLOOD UREA NITROGEN 13 mg/dL 7-21 (BEAKER) (test lfpi=587) CREATININE (BEAKER) (test 0.81 mg/dL 0.57-1.25 xxxy=038) GLUCOSE RANDOM (BEAKER) 117 mg/dL 70-105 (test oblb=779) CALCIUM (BEAKER) (test 8.3 mg/dL 8.4-10.2 uuzj=646) EGFR (BEAKER) (test 69 mL/min/1.73 sq m ESTIMATED GFR IS NOT lqgf=6480) ACCURATE CREATININE CLEARANCE IN PREDICTING GLOMERULAR FILTRATION RATE. ESTIMATED GFR IS NOT APPLICABLE FOR DIALYSIS PATIENTS. [id number] 05:56:00 Test Item Value Reference Range Comments PARTIAL THROMBOPLASTIN TIME (BEAKER) (test 73.1 seconds 22.5-36.0 vckw=912) CBC (HEMOGRAM ONLY)2018-10-29 05:36:00 Test Item Value Reference Range Comments WHITE BLOOD CELL COUNT (BEAKER) (test nito=466) 8.2 K/ L 3.5-10.5 RED BLOOD CELL COUNT (BEAKER) (test yhgl=262) 2.97 M/ L 3.93-5.22 HEMOGLOBIN (BEAKER) (test ubxz=684) 8.7 GM/DL 11.2-15.7 HEMATOCRIT (BEAKER) (test lott=110) 28.2 % 34.1-44.9 MEAN CORPUSCULAR VOLUME (BEAKER) (test mjov=831) 94.9 fL 79.4-94.8 MEAN CORPUSCULAR HEMOGLOBIN (BEAKER) (test 29.3 pg 25.6-32.2 jkcz=080) MEAN CORPUSCULAR HEMOGLOBIN CONC (BEAKER) (test 30.9 GM/DL 32.2-35.5 zmsc=060) RED CELL DISTRIBUTION WIDTH (BEAKER) (test 15.9 % 11.7-14.4 hxfb=070) PLATELET COUNT (BEAKER) (test eoes=324) 333 K/CU MM 150-450 MEAN PLATELET VOLUME (BEAKER) (test lcvq=968) 9.9 fL 9.4-12.3 NUCLEATED RED BLOOD CELLS (BEAKER) (test 0 /100 WBC 0-0 bojm=625) POCT-GLUCOSE [id number] 22:41:00 Test Item Value Reference Range Comments POC-GLUCOSE METER (BEAKER) 139 mg/dL 70-110 TESTED AT [facility] [address] [facility] (test njmr=6650) [facility] [address] HEMOGLOBIN AND [id number] 21:49:00 Test Item Value Reference Range Comments HEMOGLOBIN (BEAKER) (test ikat=198) 8.4 GM/DL 11.2-15.7 HEMATOCRIT (BEAKER) (test rqzd=628) 26.7 % 34.1-44.9 CT, [id number] 21:47:00FINAL REPORT CT abdomen and pelvis, 10/28/2018 TECHNIQUE: Helical scanning of the abdomen and pelvis was performed without intravenous or oral contrast. There are small bilateral pleural effusions. There are mild changes of interstitial lung disease in both lung bases characterized by traction bronchiectasis and small blebs. There are 7 to 8 mm nodules in the left lung base of uncertain etiology. Neoplasm is a consideration follow-up is recommended. There is no evidence of pericardial effusion. The liver, spleen, pancreas and adrenals appear normal. There are a few scattered calcifications are quite small and likely represent nonobstructive stones. There is no evidence of significant distention gastrointestinal tract or retroperitoneal hematoma or ascites. CT examination of pelvis unremarkable. CONCLUSION: Small bilateral pleural effusions. Interstitial lung disease. 2 Suspicious nodules in the left lower lobe. Follow- up is recommended.. There is no evidence of retroperitoneal adenopathy Signed: [facility] Verified Date/Time: 10/28/2018 21:47:43 Reading Location : [facility] B1 [id number] Consult Reading Room POCT-GLUCOSE [id number] 17:56:00 Test Item Value Reference Range Comments POC-GLUCOSE METER (BEAKER) 196 mg/dL 70-110 TESTED AT [address] (test dxst=9989) [facility] [address] CBC (HEMOGRAM ONLY)2018-10-28 17:24:00 Test Item Value Reference Range Comments WHITE BLOOD CELL COUNT (BEAKER) (test sxzj=116) 10.1 K/ L 3.5-10.5 RED BLOOD CELL COUNT (BEAKER) (test covb=465) 2.98 M/ L 3.93-5.22 HEMOGLOBIN (BEAKER) (test vabo=408) 8.6 GM/DL 11.2-15.7 HEMATOCRIT (BEAKER) (test cijn=747) 28.0 % 34.1-44.9 MEAN CORPUSCULAR VOLUME (BEAKER) (test vbqh=402) 94.0 fL 79.4-94.8 MEAN CORPUSCULAR HEMOGLOBIN (BEAKER) (test 28.9 pg 25.6-32.2 qbim=090) MEAN CORPUSCULAR HEMOGLOBIN CONC (BEAKER) (test 30.7 GM/DL 32.2-35.5 sjnx=923) RED CELL DISTRIBUTION WIDTH (BEAKER) (test 15.9 % 11.7-14.4 uajr=880) PLATELET COUNT (BEAKER) (test rvpr=350) 410 K/CU MM 150-450 MEAN PLATELET VOLUME (BEAKER) (test yydo=255) 9.5 fL 9.4-12.3 NUCLEATED RED BLOOD CELLS (BEAKER) (test 0 /100 WBC 0-0 lspk=529) [id number] 17:16:00 Test Item Value Reference Range Comments PARTIAL THROMBOPLASTIN TIME (BEAKER) (test 28.2 seconds 22.5-36.0 eixj=660) Prior to initiating heparinPOCT-GLUCOSE [id number] 07:57:00 Test Item Value Reference Range Comments POC-GLUCOSE METER (BEAKER) 199 mg/dL 70-110 TESTED AT [address] (test rtiz=6791) [facility] [address] [id number] 04:40:00 Test Item Value Reference Range Comments MAGNESIUM (BEAKER) (test vipy=181) 2.0 mg/dL 1.6-2.6 BASIC METABOLIC [id number] 04:40:00 Test Item Value Reference Range Comments SODIUM (BEAKER) (test 142 meq/L 136-145 pyjx=780) POTASSIUM (BEAKER) (test 3.9 meq/L 3.5-5.1 tgnz=217) CHLORIDE (BEAKER) (test 113 meq/L 98-107 kzzo=047) CO2 (BEAKER) (test 23 meq/L 22-29 ljmm=922) BLOOD UREA NITROGEN 15 mg/dL 7-21 (BEAKER) (test imzr=742) CREATININE (BEAKER) (test 0.86 mg/dL 0.57-1.25 bmil=838) GLUCOSE RANDOM (BEAKER) 171 mg/dL 70-105 (test uvkc=218) CALCIUM (BEAKER) (test 8.1 mg/dL 8.4-10.2 uxer=446) EGFR (BEAKER) (test 65 mL/min/1.73 sq m ESTIMATED GFR IS NOT zayo=3740) ACCURATE CREATININE CLEARANCE IN PREDICTING GLOMERULAR FILTRATION RATE. ESTIMATED GFR IS NOT APPLICABLE FOR DIALYSIS PATIENTS. CBC (HEMOGRAM ONLY)2018-10-28 04:36:00 Test Item Value Reference Range Comments WHITE BLOOD CELL COUNT (BEAKER) (test zmig=080) 12.3 K/ L 3.5-10.5 RED BLOOD CELL COUNT (BEAKER) (test mhch=501) 2.35 M/ L 3.93-5.22 HEMOGLOBIN (BEAKER) (test ixuv=626) 6.8 GM/DL 11.2-15.7 HEMATOCRIT (BEAKER) (test llqe=497) 23.0 % 34.1-44.9 MEAN CORPUSCULAR VOLUME (BEAKER) (test depc=099) 97.9 fL 79.4-94.8 MEAN CORPUSCULAR HEMOGLOBIN (BEAKER) (test 28.9 pg 25.6-32.2 vnpx=706) MEAN CORPUSCULAR HEMOGLOBIN CONC (BEAKER) (test 29.6 GM/DL 32.2-35.5 ymkl=807) RED CELL DISTRIBUTION WIDTH (BEAKER) (test 14.8 % 11.7-14.4 ncro=492) PLATELET COUNT (BEAKER) (test botu=965) 353 K/CU MM 150-450 MEAN PLATELET VOLUME (BEAKER) (test xyfj=573) 9.6 fL 9.4-12.3 NUCLEATED RED BLOOD CELLS (BEAKER) (test 0 /100 WBC 0-0 ftgo=197) POCT-GLUCOSE [id number] 22:07:00 Test Item Value Reference Range Comments POC-GLUCOSE METER (BEAKER) 223 mg/dL 70-110 TESTED AT [address] (test qakq=7449) [place] [address] POCT-GLUCOSE [id number] 16:51:00 Test Item Value Reference Range Comments POC-GLUCOSE METER (BEAKER) 234 mg/dL 70-110 TESTED AT [address] (test nuht=3148) [place] [address] POCT-GLUCOSE [id number] 14:05:00 Test Item Value Reference Range Comments POC-GLUCOSE METER (BEAKER) 250 mg/dL 70-110 TESTED AT [address] (test bijz=9066) [place] [address] TROPONIN [id number] 14:00:00 Test Item Value Reference Range Comments TROPONIN I (BEAKER) (test hcan=798) 0.47 ng/mL 0.00-0.03 Troponin I (TnI) levels must be interpreted in the context of the presenting symptoms and the clinical findings. Elevated TnI levels indicate myocardial damage, but are not specific for ischemic heart disease. Elevated TnI levels are seen in patients with other cardiac conditions (including myocarditis and congestive heart failure), and slight TnI elevations occur in patients with other conditions, including sepsis, renal failure, acidosis, acute neurological disease, and persistent tachyarrhythmia.POCT-P2Y12 PLATELET [id number] 13:28:00 Test Item Value Reference Range Comments POC-P2Y12 PLATELET AGG (BEAKER) (test jqbb=4007) 142 PRU RANGE INFORMATION: PRU reference range is 194-418. Post Drug Results: Lower PRU levels are associated with expected antiplatelet effect. Values may be below the stated reference range above. The post-drug PRU values reported in the [employer] P2Y12 package insert are [id number].CT, BRAIN, WITHOUT [id number] 11:44:00FINAL REPORT CT Head without contrast CLINICAL HISTORY: Cerebral ischemia TECHNIQUE: Contiguous axial CT images through the head without contrast. This exam was performed according to the departmental dose optimization program which includes automated exposure control, adjustment of the mA and/or kV according to the patient size, and/or use of an iterative reconstruction technique. 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 However, there is no evidence for hemorrhagic transformation or significant extension of infarction. There is near complete resolution of mass effect on the right lateral ventricle, without residual midline shift. Generalized parenchymal volume loss is again seen without hydrocephalus. IMPRESSION: Near- complete resolution of mass effect related to the recent right middle and posterior cerebral artery distribution infarction. Signed: Jaret Robbins MDReport Verified Date/Time: 10/27/2018 11:44:04 Reading Location: [address] Neuro Reading Room TROPONIN [id number] 10:05:00 Test Item Value Reference Range Comments TROPONIN I (BEAKER) (test dazd=692) 0.53 ng/mL 0.00-0.03 Troponin I (TnI) levels must be interpreted in the context of the presenting symptoms and the clinical findings. Elevated TnI levels indicate myocardial damage, but are not specific for ischemic heart disease. Elevated TnI levels are seen in patients with other cardiac conditions (including myocarditis and congestive heart failure), and slight TnI elevations occur in patients with other conditions, including sepsis, renal failure, acidosis, acute neurological disease, and persistent tachyarrhythmia.[id number] 04:30:00 Test Item Value Reference Range Comments PARTIAL THROMBOPLASTIN TIME (BEAKER) (test 30.8 seconds 22.5-36.0 vaon=538) 6 hours after starting heparin infusion and as indicated per sliding scaleBASI METABOLIC [id number] 04:24:00 Test Item Value Reference Range Comments SODIUM (BEAKER) (test 143 meq/L 136-145 xxiu=765) POTASSIUM (BEAKER) (test 3.9 meq/L 3.5-5.1 briz=088) CHLORIDE (BEAKER) (test 112 meq/L 98-107 bogh=077) CO2 (BEAKER) (test 21 meq/L 22-29 lbmg=168) BLOOD UREA NITROGEN 14 mg/dL 7-21 (BEAKER) (test typc=203) CREATININE (BEAKER) (test 0.86 mg/dL 0.57-1.25 vjsh=822) GLUCOSE RANDOM (BEAKER) 168 mg/dL 70-105 (test lmlr=020) CALCIUM (BEAKER) (test 7.7 mg/dL 8.4-10.2 wfga=382) EGFR (BEAKER) (test 65 mL/min/1.73 sq m ESTIMATED GFR IS NOT ydev=5290) ACCURATE CREATININE CLEARANCE IN PREDICTING GLOMERULAR FILTRATION RATE. ESTIMATED GFR IS NOT APPLICABLE FOR DIALYSIS PATIENTS. [id number] 04:23:00 Test Item Value Reference Range Comments MAGNESIUM (BEAKER) (test exdl=624) 1.8 mg/dL 1.6-2.6 CBC (HEMOGRAM ONLY)2018-10-27 04:00:00 Test Item Value Reference Range Comments WHITE BLOOD CELL COUNT (BEAKER) (test fnph=354) 16.2 K/ L 3.5-10.5 RED BLOOD CELL COUNT (BEAKER) (test npgb=820) 2.64 M/ L 3.93-5.22 HEMOGLOBIN (BEAKER) (test sgwa=135) 7.8 GM/DL 11.2-15.7 HEMATOCRIT (BEAKER) (test dypx=481) 25.7 % 34.1-44.9 MEAN CORPUSCULAR VOLUME (BEAKER) (test uhad=103) 97.3 fL 79.4-94.8 MEAN CORPUSCULAR HEMOGLOBIN (BEAKER) (test 29.5 pg 25.6-32.2 echq=916) MEAN CORPUSCULAR HEMOGLOBIN CONC (BEAKER) (test 30.4 GM/DL 32.2-35.5 bcie=463) RED CELL DISTRIBUTION WIDTH (BEAKER) (test 14.6 % 11.7-14.4 rhxe=276) PLATELET COUNT (BEAKER) (test njpg=582) 430 K/CU MM 150-450 MEAN PLATELET VOLUME (BEAKER) (test ljqb=099) 9.7 fL 9.4-12.3 NUCLEATED RED BLOOD CELLS (BEAKER) (test 0 /100 WBC 0-0 owry=557) POCT-GLUCOSE [id number] 00:53:00 Test Item Value Reference Range Comments POC-GLUCOSE METER (BEAKER) 154 mg/dL 70-110 TESTED AT [address] (test xwag=5914) [place] [id number] 21:42:00 Test Item Value Reference Range Comments ACTIVATED CLOTTING TIME 241 sec TESTED AT [address] (BEAKER) (test qiwm=300) [place] [id number] BLOOD GAS, [id number] 21:42:00 Test Item Value Reference Range Comments PH ARTERIAL (BEAKER) (test bxxa=556) 7.45 7.35-7.45 PCO2 ARTERIAL (BEAKER) (test hmog=264) 39 mm Hg 35-45 PO2 ARTERIAL (BEAKER) (test olvn=763) 133 mm Hg 80-90 O2 SATURATION ARTERIAL (BEAKER) (test fmkx=980) 98.8 % 96.0-97.0 HCO3 ARTERIAL (BEAKER) (test tifu=338) 27 mmol/L 21-29 BASE EXCESS ARTERIAL (BEAKER) (test lbzl=426) 2.3 mmol/L -2.0-3.0 SODIUM NA-STAT [id number] 21:42:00 Test Item Value Reference Range Comments SODIUM (BEAKER) (test jbwp=810) 138 meq/L 135-148 POTASSIUM-STAT [id number] 21:42:00 Test Item Value Reference Range Comments POTASSIUM (BEAKER) (test cacx=608) 3.7 meq/L 3.6-5.5 GLUCOSE-STAT [id number] 21:42:00 Test Item Value Reference Range Comments GLUCOSE RANDOM (BEAKER) (test zfxc=222) 129 mg/dL 70-110 HGB/HCT (H&H) - STAT [id number] 21:42:00 Test Item Value Reference Range Comments HEMOGLOBIN (BEAKER) (test aztx=843) 9.5 GM/DL 12.0-15.0 HEMATOCRIT (BEAKER) (test aejr=984) 28.0 % 36.0-45.0 POCT-GLUCOSE [id number] 17:26:00 Test Item Value Reference Range Comments POC-GLUCOSE METER (BEAKER) 147 mg/dL 70-110 TESTED AT [address] (test hhcd=2596) [place] [id number] CT, BRAIN, WITHOUT [id number] 15:43:00FINAL REPORT CT Head without contrast CLINICAL HISTORY: Cerebral ischemia TECHNIQUE : Contiguous axial CT images through the head without contrast. This exam was performed according to the departmental dose optimization program which includes automated exposure control, adjustment of the mA and/or kV according to the patient size, and/or use of an iterative reconstruction technique. COMPARISON: 10/19/2018 FINDINGS: A subacute right middle and posterior cerebral artery distribution infarct is again seen with minimal petechial hemorrhage, without hemorrhagic transformation. The size of infarction is not significantly changed. Mass effect has decreased, with less narrowing of the right lateral ventricle and decreased midline shift. Generalized parenchymal volume loss is again noted without hydrocephalus. There are no extra-axial fluid collections. The skull is intact. The visualized paranasal sinuses are well-aerated. IMPRESSION: Since 10/19/2018, evolving right cerebral infarction with minimal petechial hemorrhage again seen but decreased mass effect. Signed: Jaret Robbins MDReport Verified Date/Time: 10/26/2018 15:43:56 Reading Location: [address] Neuro Reading RoomElectronically signed by: JARET ROBBINS M.D. on 01/2019 03:43 PMPROTHROMBIN [id number] 13:31:00 Test Item Value Reference Range Comments PROTIME (BEAKER) (test ixds=301) 13.4 seconds 11.9-14.2 INR (BEAKER) (test jxhi=255) 1.1 <=5.9 Effective 09/14/2018: PT Reference Range ChangeNew: 11.9-14.2 Previous: 11.7- 14.7RECOMMENDED COUMADIN/WARFARIN INR THERAPY RANGESSTANDARD DOSE: 2.0-3.0 Includes: PROPHYLAXIS for venous thrombosis, systemic embolization; TREATMENT for venous thrombosis and/or pulmonary embolus.HIGH RISK: Target INR is2.5-3.5 for patients wiht mechanical heart valves.POCT-GLUCOSE [id number] 12:14:00 Test Item Value Reference Range Comments POC-GLUCOSE METER (BEAKER) 264 mg/dL 70-110 TESTED AT [facility] [address] (test jeys=9058) [facility] [address] POCT-GLUCOSE [id number] 07:52:00 Test Item Value Reference Range Comments POC-GLUCOSE METER (BEAKER) 247 mg/dL 70-110 TESTED AT [facility] [address] (test epys=2489) [place] [address] [id number] 05:38:00 Test Item Value Reference Range Comments MAGNESIUM (BEAKER) (test gmkb=521) 1.9 mg/dL 1.6-2.6 BASIC METABOLIC [id number] 05:38:00 Test Item Value Reference Range Comments SODIUM (BEAKER) (test 138 meq/L 136-145 alrs=439) POTASSIUM (BEAKER) (test 4.2 meq/L 3.5-5.1 mskn=304) CHLORIDE (BEAKER) (test 103 meq/L 98-107 zxoh=333) CO2 (BEAKER) (test 26 meq/L 22-29 ewpq=320) BLOOD UREA NITROGEN 15 mg/dL 7-21 (BEAKER) (test vzdj=397) CREATININE (BEAKER) (test 1.06 mg/dL 0.57-1.25 uzlj=432) GLUCOSE RANDOM (BEAKER) 227 mg/dL 70-105 (test vxvt=749) CALCIUM (BEAKER) (test 9.0 mg/dL 8.4-10.2 kfrn=605) EGFR (BEAKER) (test 51 mL/min/1.73 sq m ESTIMATED GFR IS NOT xuop=5558) ACCURATE CREATININE CLEARANCE IN PREDICTING GLOMERULAR FILTRATION RATE. ESTIMATED GFR IS NOT APPLICABLE FOR DIALYSIS PATIENTS. CBC (HEMOGRAM ONLY)2018-10-26 05:27:00 Test Item Value Reference Range Comments WHITE BLOOD CELL COUNT (BEAKER) (test stiv=166) 14.3 K/ L 3.5-10.5 RED BLOOD CELL COUNT (BEAKER) (test weqi=888) 3.25 M/ L 3.93-5.22 HEMOGLOBIN (BEAKER) (test mvmb=043) 9.4 GM/DL 11.2-15.7 HEMATOCRIT (BEAKER) (test tghu=003) 30.7 % 34.1-44.9 MEAN CORPUSCULAR VOLUME (BEAKER) (test xmvf=657) 94.5 fL 79.4-94.8 MEAN CORPUSCULAR HEMOGLOBIN (BEAKER) (test 28.9 pg 25.6-32.2 bret=960) MEAN CORPUSCULAR HEMOGLOBIN CONC (BEAKER) (test 30.6 GM/DL 32.2-35.5 zbsl=762) RED CELL DISTRIBUTION WIDTH (BEAKER) (test 14.4 % 11.7-14.4 tzog=330) PLATELET COUNT (BEAKER) (test xngk=657) 501 K/CU MM 150-450 MEAN PLATELET VOLUME (BEAKER) (test zmka=293) 9.9 fL 9.4-12.3 NUCLEATED RED BLOOD CELLS (BEAKER) (test 0 /100 WBC 0-0 xibs=204) [id number] 02:31:00 Test Item Value Reference Range Comments PARTIAL THROMBOPLASTIN TIME (BEAKER) (test 58.6 seconds 22.5-36.0 epko=408) POCT-GLUCOSE [id number] 22:21:00 Test Item Value Reference Range Comments POC-GLUCOSE METER (BEAKER) 277 mg/dL 70-110 TESTED AT [address] (test rvtt=1776) [facility] [address] RAD, CHEST, 1 VIEW, NON [id number] 19:48:00Reason for exam:->Right UE PICC placementShould this be performed at the bedside?->YesFINAL REPORT EXAM: Chest one view CLINICAL HISTORY: PICC insertion FINDINGS: There is interval insertion of a right arm PICC with its tip overlying the cavoatrial junction. The right hand partially obscured the right midlung, if there is clinical concern in this region, repeat chest radiograph is recommended. The left subclavian dual-lead transvenous pacemaker appears unchangedin position. The cardiac size is mildly enlarged. There is no evidence of pleural effusion or pneumothorax. The regional osseous structures are unremarkable. Signed: Bhargav Tuttle MDReport Verified Date/Time: 10/25/2018 19:48:53 Reading Location: [address] Consult Reading Room [id number] 19:08:00 Test Item Value Reference Range Comments PARTIAL THROMBOPLASTIN TIME (BEAKER) (test 30.7 seconds 22.5-36.0 tlis=712) Prior to initiating heparinCBC (HEMOGRAM ONLY)2018-10-25 18:57:00 Test Item Value Reference Range Comments WHITE BLOOD CELL COUNT (BEAKER) (test fwdd=669) 9.7 K/ L 3.5-10.5 RED BLOOD CELL COUNT (BEAKER) (test focy=987) 3.23 M/ L 3.93-5.22 HEMOGLOBIN (BEAKER) (test wbfw=058) 9.5 GM/DL 11.2-15.7 HEMATOCRIT (BEAKER) (test doud=266) 30.6 % 34.1-44.9 MEAN CORPUSCULAR VOLUME (BEAKER) (test sksr=104) 94.7 fL 79.4-94.8 MEAN CORPUSCULAR HEMOGLOBIN (BEAKER) (test 29.4 pg 25.6-32.2 gics=912) MEAN CORPUSCULAR HEMOGLOBIN CONC (BEAKER) (test 31.0 GM/DL 32.2-35.5 ofaz=889) RED CELL DISTRIBUTION WIDTH (BEAKER) (test 14.5 % 11.7-14.4 asrx=043) PLATELET COUNT (BEAKER) (test mamt=645) 497 K/CU MM 150-450 MEAN PLATELET VOLUME (BEAKER) (test yhgv=996) 9.2 fL 9.4-12.3 NUCLEATED RED BLOOD CELLS (BEAKER) (test 0 /100 WBC 0-0 tytg=337) POCT-GLUCOSE [id number] 18:52:00 Test Item Value Reference Range Comments POC-GLUCOSE METER (BEAKER) 122 mg/dL 70-110 TESTED AT [address] (test zcaz=2463) [place] [id number] POCT-GLUCOSE [id number] 11:57:00 Test Item Value Reference Range Comments POC-GLUCOSE METER (BEAKER) 252 mg/dL 70-110 TESTED AT [address] (test tnla=7232) [place] [id number] POCT-GLUCOSE [id number] 07:44:00 Test Item Value Reference Range Comments POC-GLUCOSE METER (BEAKER) 201 mg/dL 70-110 TESTED AT [address] (test ozyg=7668) [place] [id number] BASIC METABOLIC [id number] 05:57:00 Test Item Value Reference Range Comments SODIUM (BEAKER) (test 138 meq/L 136-145 bdze=397) POTASSIUM (BEAKER) (test 4.6 meq/L 3.5-5.1 piyu=834) CHLORIDE (BEAKER) (test 103 meq/L 98-107 lqoe=237) CO2 (BEAKER) (test 27 meq/L 22-29 npvl=266) BLOOD UREA NITROGEN 15 mg/dL 7-21 (BEAKER) (test nxmq=495) CREATININE (BEAKER) (test 1.13 mg/dL 0.57-1.25 nrpe=306) GLUCOSE RANDOM (BEAKER) 158 mg/dL 70-105 (test cdpy=502) CALCIUM (BEAKER) (test 9.1 mg/dL 8.4-10.2 luop=656) EGFR (BEAKER) (test 47 mL/min/1.73 sq m ESTIMATED GFR IS NOT mdfm=2392) ACCURATE CREATININE CLEARANCE IN PREDICTING GLOMERULAR FILTRATION RATE. ESTIMATED GFR IS NOT APPLICABLE FOR DIALYSIS PATIENTS. [id number] 05:54:00 Test Item Value Reference Range Comments MAGNESIUM (BEAKER) (test mpcr=090) 2.1 mg/dL 1.6-2.6 CBC (HEMOGRAM ONLY)2018-10-25 04:46:00 Test Item Value Reference Range Comments WHITE BLOOD CELL COUNT (BEAKER) (test avxv=800) 9.4 K/ L 3.5-10.5 RED BLOOD CELL COUNT (BEAKER) (test ssjo=932) 3.08 M/ L 3.93-5.22 HEMOGLOBIN (BEAKER) (test scql=346) 9.0 GM/DL 11.2-15.7 HEMATOCRIT (BEAKER) (test pfmm=346) 29.0 % 34.1-44.9 MEAN CORPUSCULAR VOLUME (BEAKER) (test jzpu=993) 94.2 fL 79.4-94.8 MEAN CORPUSCULAR HEMOGLOBIN (BEAKER) (test 29.2 pg 25.6-32.2 kjiy=029) MEAN CORPUSCULAR HEMOGLOBIN CONC (BEAKER) (test 31.0 GM/DL 32.2-35.5 utka=884) RED CELL DISTRIBUTION WIDTH (BEAKER) (test 14.6 % 11.7-14.4 iqlg=306) PLATELET COUNT (BEAKER) (test zdnh=629) 459 K/CU MM 150-450 MEAN PLATELET VOLUME (BEAKER) (test ramk=074) 9.6 fL 9.4-12.3 NUCLEATED RED BLOOD CELLS (BEAKER) (test 0 /100 WBC 0-0 yfkc=430) POCT-GLUCOSE [id number] 21:47:00 Test Item Value Reference Range Comments POC-GLUCOSE METER (BEAKER) 188 mg/dL 70-110 TESTED AT [address] (test muyx=2027) [place] [address] POCT-GLUCOSE [id number] 17:18:00 Test Item Value Reference Range Comments POC-GLUCOSE METER (BEAKER) 83 mg/dL 70-110 TESTED AT [address] (test hjoz=4663) [place] [id number] POCT-GLUCOSE [id number] 12:07:00 Test Item Value Reference Range Comments POC-GLUCOSE METER (BEAKER) 209 mg/dL 70-110 TESTED AT [address] (test vtpy=6696) [place] [address] RAD, CHEST, 1 VIEW, NON [id number] 10:18:00Reason for exam:->SOBShould this be performed at the bedside?->YesFINAL REPORT Chest dated 10/24/2018 COMPARISON: October 20, 2018 Clinical Information: SOB Comment : Heart is enlarged. AICD remains in place. Pulmonary vasculature is indistinct. Interstitial disease is seen bilaterally suggestive of vascular congestion or pulmonary edema. No pleuraleffusion or pneumothorax is seen. Impression: No interval change. Signed: Yancy Cobb Verified Date/Time : 10/24/2018 10:18:27 Reading Location[facility] Reading Room POCT- GLUCOSE [id number] 08:09:00 Test Item Value Reference Range Comments POC-GLUCOSE METER (BEAKER) 197 mg/dL 70-110 TESTED AT [address] (test ufar=9491) [place] [id number] POCT-GLUCOSE [id number] 06:17:00 Test Item Value Reference Range Comments POC-GLUCOSE METER (BEAKER) 179 mg/dL 70-110 TESTED AT [address] (test yrkp=7058) [place] [id number] BASIC METABOLIC [id number] 06:11:00 Test Item Value Reference Range Comments SODIUM (BEAKER) (test 140 meq/L 136-145 nunn=936) POTASSIUM (BEAKER) (test 3.7 meq/L 3.5-5.1 bkjo=509) CHLORIDE (BEAKER) (test 111 meq/L 98-107 vfzo=368) CO2 (BEAKER) (test 23 meq/L 22-29 kowb=678) BLOOD UREA NITROGEN 15 mg/dL 7-21 (BEAKER) (test abrs=510) CREATININE (BEAKER) (test 0.85 mg/dL 0.57-1.25 pqmv=442) GLUCOSE RANDOM (BEAKER) 133 mg/dL 70-105 (test cqkp=885) CALCIUM (BEAKER) (test 6.9 mg/dL 8.4-10.2 jhcn=218) EGFR (BEAKER) (test 66 mL/min/1.73 sq m ESTIMATED GFR IS NOT nmiv=9738) ACCURATE CREATININE CLEARANCE IN PREDICTING GLOMERULAR FILTRATION RATE. ESTIMATED GFR IS NOT APPLICABLE FOR DIALYSIS PATIENTS. [id number] 05:25:00 Test Item Value Reference Range Comments MAGNESIUM (BEAKER) (test mvts=820) 1.7 mg/dL 1.6-2.6 [id number] 04:33:00 Test Item Value Reference Range Comments PARTIAL THROMBOPLASTIN TIME (BEAKER) (test 72.9 seconds 22.5-36.0 otbk=894) CBC (HEMOGRAM ONLY)2018-10-24 04:10:00 Test Item Value Reference Range Comments WHITE BLOOD CELL COUNT (BEAKER) (test ylbv=750) 10.6 K/ L 3.5-10.5 RED BLOOD CELL COUNT (BEAKER) (test jdvd=627) 3.25 M/ L 3.93-5.22 HEMOGLOBIN (BEAKER) (test ppwe=515) 9.6 GM/DL 11.2-15.7 HEMATOCRIT (BEAKER) (test nwrp=156) 30.3 % 34.1-44.9 MEAN CORPUSCULAR VOLUME (BEAKER) (test ftnk=794) 93.2 fL 79.4-94.8 MEAN CORPUSCULAR HEMOGLOBIN (BEAKER) (test 29.5 pg 25.6-32.2 sebv=817) MEAN CORPUSCULAR HEMOGLOBIN CONC (BEAKER) (test 31.7 GM/DL 32.2-35.5 schz=081) RED CELL DISTRIBUTION WIDTH (BEAKER) (test 14.9 % 11.7-14.4 lfhb=598) PLATELET COUNT (BEAKER) (test hslt=868) 485 K/CU MM 150-450 MEAN PLATELET VOLUME (BEAKER) (test evwd=237) 9.5 fL 9.4-12.3 NUCLEATED RED BLOOD CELLS (BEAKER) (test 0 /100 WBC 0-0 nzge=687) POCT-GLUCOSE [id number] 18:15:00 Test Item Value Reference Range Comments POC-GLUCOSE METER (BEAKER) 145 mg/dL 70-110 TESTED AT [facility] [address] [facility] (test dveq=6160) [facility] [address] BASIC METABOLIC [id number] 16:22:00 Test Item Value Reference Range Comments SODIUM (BEAKER) (test 140 meq/L 136-145 pirk=803) POTASSIUM (BEAKER) (test 5.0 meq/L 3.5-5.1 Specimen slightly buum=169) hemolyzed CHLORIDE (BEAKER) (test 101 meq/L 98-107 uaqw=199) CO2 (BEAKER) (test 31 meq/L 22-29 mgpc=922) BLOOD UREA NITROGEN 17 mg/dL 7-21 (BEAKER) (test vimy=538) CREATININE (BEAKER) (test 1.16 mg/dL 0.57-1.25 Specimen slightly tsnn=527) hemolyzed GLUCOSE RANDOM (BEAKER) 119 mg/dL 70-105 (test mawk=249) CALCIUM (BEAKER) (test 9.1 mg/dL 8.4-10.2 knay=352) EGFR (BEAKER) (test 46 mL/min/1.73 sq m ESTIMATED GFR IS NOT lfuj=5325) ACCURATE CREATININE CLEARANCE IN PREDICTING GLOMERULAR FILTRATION RATE. ESTIMATED GFR IS NOT APPLICABLE FOR DIALYSIS PATIENTS. To be drawn at the same time as post transfusion CBCCBC (HEMOGRAM ONLY) 16:09:00 Test Item Value Reference Range Comments WHITE BLOOD CELL COUNT (BEAKER) (test kfrt=624) 10.7 K/ L 3.5-10.5 RED BLOOD CELL COUNT (BEAKER) (test pmug=950) 3.10 M/ L 3.93-5.22 HEMOGLOBIN (BEAKER) (test ixad=313) 9.1 GM/DL 11.2-15.7 HEMATOCRIT (BEAKER) (test zcbx=800) 28.7 % 34.1-44.9 MEAN CORPUSCULAR VOLUME (BEAKER) (test fhmu=048) 92.6 fL 79.4-94.8 MEAN CORPUSCULAR HEMOGLOBIN (BEAKER) (test 29.4 pg 25.6-32.2 byhz=691) MEAN CORPUSCULAR HEMOGLOBIN CONC (BEAKER) (test 31.7 GM/DL 32.2-35.5 jhrr=461) RED CELL DISTRIBUTION WIDTH (BEAKER) (test 14.2 % 11.7-14.4 bwfp=585) PLATELET COUNT (BEAKER) (test gmkf=640) 462 K/CU MM 150-450 MEAN PLATELET VOLUME (BEAKER) (test juhm=865) 9.6 fL 9.4-12.3 NUCLEATED RED BLOOD CELLS (BEAKER) (test 0 /100 WBC 0-0 jvai=702) POCT-GLUCOSE [id number] 12:23:00 Test Item Value Reference Range Comments POC-GLUCOSE METER (BEAKER) 214 mg/dL 70-110 TESTED AT [address] (test ziqp=4062) [place] [address] PLATELET AGGREGATION: FUNCTION [id number] 10:50:00 Test Item Value Reference Range Comments WEAK ADP RESULT(BEAKER) (test 16 % 60-91 rwfu=7525) PLATELET FUNCTION SCREEN 0-39% indicates marked platelet INTERP (BEAKER) (test dysfunction empi=9997) [id number] Luis Enrique Gardner M.D. (electonic (BEAKER) (test lcmy=5116) signature) PLATELET COUNT AGG (BEAKER) 457 K/CU MM 150-450 (test agie=5788) Platelet Function Screen results may be falsely low with platelet counts<100, 000/cu mm.POCT-GLUCOSE [id number] 10:36:00 Test Item Value Reference Range Comments POC-GLUCOSE METER (BEAKER) 263 mg/dL 70-110 TESTED AT [address] (test zsed=3325) [place] [address] [id number] 07:53:00 Test Item Value Reference Range Comments POTASSIUM (BEAKER) (test nfol=549) 5.4 meq/L 3.5-5.1 Check Serum Potassium level 2 hours after oral potassium replacement completed or 30 min after intravenous potassium replacement.POCT-GLUCOSE [id number] 07:40:00 Test Item Value Reference Range Comments POC-GLUCOSE METER (BEAKER) 219 mg/dL 70-110 TESTED AT [facility] [address] [facility] (test avpd=0786) [facility] [address] TROPONIN [id number] 06:27:00 Test Item Value Reference Range Comments TROPONIN I (BEAKER) (test fzqx=218) 1.64 ng/mL 0.00-0.03 Troponin I (TnI) levels must be interpreted in the context of the presenting symptoms and the clinical findings. Elevated TnI levels indicate myocardial damage, but are not specific for ischemic heart disease. Elevated TnI levels are seen in patients with other cardiac conditions (including myocarditis and congestive heart failure), and slight TnI elevations occur in patients with other conditions, including sepsis, renal failure, acidosis, acute neurological disease, and persistent tachyarrhythmia.[id number] 06:11:00 Test Item Value Reference Range Comments MAGNESIUM (BEAKER) (test xqvk=627) 2.0 mg/dL 1.6-2.6 BASIC METABOLIC [id number] 06:11:00 Test Item Value Reference Range Comments SODIUM (BEAKER) (test 138 meq/L 136-145 vaxp=927) POTASSIUM (BEAKER) (test 5.3 meq/L 3.5-5.1 vrpi=306) CHLORIDE (BEAKER) (test 103 meq/L 98-107 eofk=898) CO2 (BEAKER) (test 29 meq/L 22-29 brrc=933) BLOOD UREA NITROGEN 17 mg/dL 7-21 (BEAKER) (test vkyo=995) CREATININE (BEAKER) (test 1.21 mg/dL 0.57-1.25 dums=174) GLUCOSE RANDOM (BEAKER) 179 mg/dL 70-105 (test bpbw=074) CALCIUM (BEAKER) (test 8.7 mg/dL 8.4-10.2 cceb=404) EGFR (BEAKER) (test 44 mL/min/1.73 sq m ESTIMATED GFR IS NOT evxq=1603) ACCURATE CREATININE CLEARANCE IN PREDICTING GLOMERULAR FILTRATION RATE. ESTIMATED GFR IS NOT APPLICABLE FOR DIALYSIS PATIENTS. [id number] 05:42:00 Test Item Value Reference Range Comments PARTIAL THROMBOPLASTIN TIME (BEAKER) (test 88.9 seconds 22.5-36.0 kifk=225) CBC (HEMOGRAM ONLY)2018-10-23 05:34:00 Test Item Value Reference Range Comments WHITE BLOOD CELL COUNT (BEAKER) (test llxn=937) 9.4 K/ L 3.5-10.5 RED BLOOD CELL COUNT (BEAKER) (test jieh=310) 2.59 M/ L 3.93-5.22 HEMOGLOBIN (BEAKER) (test budb=573) 7.4 GM/DL 11.2-15.7 HEMATOCRIT (BEAKER) (test jqbw=974) 25.1 % 34.1-44.9 MEAN CORPUSCULAR VOLUME (BEAKER) (test rngq=589) 96.9 fL 79.4-94.8 MEAN CORPUSCULAR HEMOGLOBIN (BEAKER) (test 28.6 pg 25.6-32.2 sqdl=944) MEAN CORPUSCULAR HEMOGLOBIN CONC (BEAKER) (test 29.5 GM/DL 32.2-35.5 abex=167) RED CELL DISTRIBUTION WIDTH (BEAKER) (test 13.4 % 11.7-14.4 vyof=592) PLATELET COUNT (BEAKER) (test ewdx=367) 430 K/CU MM 150-450 MEAN PLATELET VOLUME (BEAKER) (test ncfy=597) 9.8 fL 9.4-12.3 NUCLEATED RED BLOOD CELLS (BEAKER) (test 0 /100 WBC 0-0 wonn=666) TROPONIN [id number] 00:25:00 Test Item Value Reference Range Comments TROPONIN I (BEAKER) (test afiy=500) 2.26 ng/mL 0.00-0.03 Troponin I (TnI) levels must be interpreted in the context of the presenting symptoms and the clinical findings. Elevated TnI levels indicate myocardial damage, but are not specific for ischemic heart disease. Elevated TnI levels are seen in patients with other cardiac conditions (including myocarditis and congestive heart failure), and slight TnI elevations occur in patients with other conditions, including sepsis, renal failure, acidosis, acute neurological disease, and persistent tachyarrhythmia.POCT-GLUCOSE [id number] 21:40:00 Test Item Value Reference Range Comments POC-GLUCOSE METER (BEAKER) 151 mg/dL 70-110 TESTED AT [address] (test jspc=6388) [place] [id number] TROPONIN [id number] 19:24:00 Test Item Value Reference Range Comments TROPONIN I (BEAKER) (test mipm=204) 3.08 ng/mL 0.00-0.03 Troponin I (TnI) levels must be interpreted in the context of the presenting symptoms and the clinical findings. Elevated TnI levels indicate myocardial damage, but are not specific for ischemic heart disease. Elevated TnI levels are seen in patients with other cardiac conditions (including myocarditis and congestive heart failure), and slight TnI elevations occur in patients with other conditions, including sepsis, renal failure, acidosis, acute neurological disease, and persistent tachyarrhythmia.POCT-GLUCOSE [id number] 19:04:00 Test Item Value Reference Range Comments POC-GLUCOSE METER (BEAKER) 157 mg/dL 70-110 TESTED AT [address] (test fzyr=0800) [place] [id number] TROPONIN [id number] 12:49:00 Test Item Value Reference Range Comments TROPONIN I (BEAKER) (test kvwp=300) 1.81 ng/mL 0.00-0.03 Troponin I (TnI) levels must be interpreted in the context of the presenting symptoms and the clinical findings. Elevated TnI levels indicate myocardial damage, but are not specific for ischemic heart disease. Elevated TnI levels are seen in patients with other cardiac conditions (including myocarditis and congestive heart failure), and slight TnI elevations occur in patients with other conditions, including sepsis, renal failure, acidosis, acute neurological disease, and persistent tachyarrhythmia.Check Serum Potassium level 2 hours after oral potassium replacement completed or 30 min after intravenous potassium replacement.[id number] 12:38:00 Test Item Value Reference Range Comments POTASSIUM (BEAKER) (test ivwe=817) 4.7 meq/L 3.5-5.1 Check Serum Potassium level 2 hours after oral potassium replacement completed or 30 min after intravenous potassium replacement.[id number] 12:38:00 Test Item Value Reference Range Comments MAGNESIUM (BEAKER) (test drxj=618) 2.5 mg/dL 1.6-2.6 Check Serum Potassium level 2 hours after oral potassium replacement completed or 30 min after intravenous potassium replacement.POCT-GLUCOSE [id number] 12:37:00 Test Item Value Reference Range Comments POC-GLUCOSE METER (BEAKER) 161 mg/dL 70-110 TESTED AT [facility] [address] [facility] (test fpwi=3749) [facility] [address] HEMOGLOBIN AND [id number] 10:36:00 Test Item Value Reference Range Comments HEMOGLOBIN (BEAKER) (test pwxj=800) 7.6 GM/DL 11.2-15.7 HEMATOCRIT (BEAKER) (test ljvi=585) 24.9 % 34.1-44.9 POCT-GLUCOSE [id number] 07:55:00 Test Item Value Reference Range Comments POC-GLUCOSE METER (BEAKER) 296 mg/dL 70-110 TESTED AT [address] (test njnk=9855) [facility] [address] [id number] 06:42:00 Test Item Value Reference Range Comments MAGNESIUM (BEAKER) (test 1.7 mg/dL 1.6-2.6 Specimen slightly hemolyzed tmdm=992) BASIC METABOLIC [id number] 06:42:00 Test Item Value Reference Range Comments SODIUM (BEAKER) (test 137 meq/L 136-145 hebt=020) POTASSIUM (BEAKER) (test 5.1 meq/L 3.5-5.1 Specimen slightly pwji=547) hemolyzed CHLORIDE (BEAKER) (test 102 meq/L 98-107 glqb=805) CO2 (BEAKER) (test 27 meq/L 22-29 pqrf=581) BLOOD UREA NITROGEN 15 mg/dL 7-21 (BEAKER) (test idfd=282) CREATININE (BEAKER) (test 1.05 mg/dL 0.57-1.25 Specimen slightly fwau=599) hemolyzed GLUCOSE RANDOM (BEAKER) 258 mg/dL 70-105 (test zugr=933) CALCIUM (BEAKER) (test 9.0 mg/dL 8.4-10.2 nvbc=275) EGFR (BEAKER) (test 51 mL/min/1.73 sq m ESTIMATED GFR IS NOT qsil=3238) ACCURATE CREATININE CLEARANCE IN PREDICTING GLOMERULAR FILTRATION RATE. ESTIMATED GFR IS NOT APPLICABLE FOR DIALYSIS PATIENTS. [id number] 06:08:00 Test Item Value Reference Range Comments PARTIAL THROMBOPLASTIN TIME (BEAKER) (test 84.7 seconds 22.5-36.0 ektf=392) CBC (HEMOGRAM ONLY)2018-10-22 05:59:00 Test Item Value Reference Range Comments WHITE BLOOD CELL COUNT (BEAKER) (test attd=790) 10.6 K/ L 3.5-10.5 RED BLOOD CELL COUNT (BEAKER) (test nxpj=771) 2.78 M/ L 3.93-5.22 HEMOGLOBIN (BEAKER) (test qphd=067) 8.2 GM/DL 11.2-15.7 HEMATOCRIT (BEAKER) (test csrj=714) 26.3 % 34.1-44.9 MEAN CORPUSCULAR VOLUME (BEAKER) (test dihi=057) 94.6 fL 79.4-94.8 MEAN CORPUSCULAR HEMOGLOBIN (BEAKER) (test 29.5 pg 25.6-32.2 dtee=411) MEAN CORPUSCULAR HEMOGLOBIN CONC (BEAKER) (test 31.2 GM/DL 32.2-35.5 gqaw=314) RED CELL DISTRIBUTION WIDTH (BEAKER) (test 13.2 % 11.7-14.4 bfnf=267) PLATELET COUNT (BEAKER) (test truq=263) 459 K/CU MM 150-450 MEAN PLATELET VOLUME (BEAKER) (test ewht=807) 9.7 fL 9.4-12.3 NUCLEATED RED BLOOD CELLS (BEAKER) (test 0 /100 WBC 0-0 rvjr=131) TROPONIN [id number] 01:20:00 Test Item Value Reference Range Comments TROPONIN I (BEAKER) (test qfav=004) 0.35 ng/mL 0.00-0.03 Troponin I (TnI) levels must be interpreted in the context of the presenting symptoms and the clinical findings. Elevated TnI levels indicate myocardial damage, but are not specific for ischemic heart disease. Elevated TnI levels are seen in patients with other cardiac conditions (including myocarditis and congestive heart failure), and slight TnI elevations occur in patients with other conditions, including sepsis, renal failure, acidosis, acute neurological disease, and persistent tachyarrhythmia.POCT-GLUCOSE [id number] 23:31:00 Test Item Value Reference Range Comments POC-GLUCOSE METER (BEAKER) 244 mg/dL 70-110 TESTED AT [address] (test plee=4229) [place] [address] PLATELET AGGREGATION: DRUG [id number] 17:53:00 Test Item Value Reference Range Comments STRONG ADP RESULT(BEAKER) (test 0 % 70-94 klkv=7191) WEAK ADP RESULT(BEAKER) (test 5 % 60-91 pevh=7751) ARACHADONIC ACID RESULT(BEAKER) 18 % 63-89 (test nqdw=6635) PLATELET AGG DRUG INTERPRETATION Decreased response to ADP (BEAKER) (test lfep=0770) suggest a M4W08-yqjhcdtcx drug effect. PLATELET AGG DRUG INTERPRETATION Decreased response to (BEAKER) (test nlih=117116) arachidonic acid suggests aspirin-like effect. [id number]-IYFTJOYIOII-6571 (BEAKER) Luis Enrique Gardner M.D. (test tvpb=5683) (electonic signature) PLATELET COUNT AGG (BEAKER) 382 K/CU MM 150-450 (test wduz=5616) Platelet function studies by aggregation methodology on samples with platelet count <75,000/CU MMare unreliable; platelet function assessment should not be based on a single test.POCT-GLUCOSE [id number] 17:26:00 Test Item Value Reference Range Comments POC-GLUCOSE METER (BEAKER) 158 mg/dL 70-110 TESTED AT [address] (test yxff=2820) [place] [address] POCT-GLUCOSE [id number] 11:50:00 Test Item Value Reference Range Comments POC-GLUCOSE METER (BEAKER) 105 mg/dL 70-110 TESTED AT [address] (test qphh=0001) [place] [address] POCT-GLUCOSE [id number] 10:25:00 Test Item Value Reference Range Comments POC-GLUCOSE METER (BEAKER) 83 mg/dL 70-110 TESTED AT [address] (test hcxe=5989) [place] [address] POCT-GLUCOSE [id number] 08:58:00 Test Item Value Reference Range Comments POC-GLUCOSE METER (BEAKER) 130 mg/dL 70-110 TESTED AT [address] (test oclv=7350) [place] [address] POCT-GLUCOSE [id number] 08:58:00 Test Item Value Reference Range Comments POC-GLUCOSE METER (BEAKER) 49 mg/dL 70-110 TESTED AT [facility] [address] [facility] (test ueww=0013) [facility] [address] [id number] 08:45:00 Test Item Value Reference Range Comments MAGNESIUM (BEAKER) (test zxkh=195) 2.1 mg/dL 1.6-2.6 [id number] 06:59:00 Test Item Value Reference Range Comments PARTIAL THROMBOPLASTIN TIME (BEAKER) (test 85.5 seconds 22.5-36.0 zeci=838) [id number] 01:16:00 Test Item Value Reference Range Comments MAGNESIUM (BEAKER) (test ujzl=778) 2.1 mg/dL 1.6-2.6 BASIC METABOLIC [id number] 01:16:00 Test Item Value Reference Range Comments SODIUM (BEAKER) (test 136 meq/L 136-145 byud=305) POTASSIUM (BEAKER) (test 5.0 meq/L 3.5-5.1 rnrz=736) CHLORIDE (BEAKER) (test 103 meq/L 98-107 fkhn=556) CO2 (BEAKER) (test 29 meq/L 22-29 hugp=670) BLOOD UREA NITROGEN 16 mg/dL 7-21 (BEAKER) (test gbdn=529) CREATININE (BEAKER) (test 1.07 mg/dL 0.57-1.25 alti=624) GLUCOSE RANDOM (BEAKER) 125 mg/dL 70-105 (test jydi=607) CALCIUM (BEAKER) (test 8.6 mg/dL 8.4-10.2 giiq=150) EGFR (BEAKER) (test 50 mL/min/1.73 sq m ESTIMATED GFR IS NOT iowe=1921) ACCURATE CREATININE CLEARANCE IN PREDICTING GLOMERULAR FILTRATION RATE. ESTIMATED GFR IS NOT APPLICABLE FOR DIALYSIS PATIENTS. CBC (HEMOGRAM ONLY)2018-10-21 01:00:00 Test Item Value Reference Range Comments WHITE BLOOD CELL COUNT (BEAKER) (test thje=566) 6.8 K/ L 3.5-10.5 RED BLOOD CELL COUNT (BEAKER) (test gdak=007) 2.57 M/ L 3.93-5.22 HEMOGLOBIN (BEAKER) (test fdad=684) 7.4 GM/DL 11.2-15.7 HEMATOCRIT (BEAKER) (test jxgz=219) 24.3 % 34.1-44.9 MEAN CORPUSCULAR VOLUME (BEAKER) (test btzu=473) 94.6 fL 79.4-94.8 MEAN CORPUSCULAR HEMOGLOBIN (BEAKER) (test 28.8 pg 25.6-32.2 tfsq=066) MEAN CORPUSCULAR HEMOGLOBIN CONC (BEAKER) (test 30.5 GM/DL 32.2-35.5 qppp=554) RED CELL DISTRIBUTION WIDTH (BEAKER) (test 13.3 % 11.7-14.4 ikjk=420) PLATELET COUNT (BEAKER) (test zckl=972) 344 K/CU MM 150-450 MEAN PLATELET VOLUME (BEAKER) (test gwhi=012) 9.6 fL 9.4-12.3 NUCLEATED RED BLOOD CELLS (BEAKER) (test 0 /100 WBC 0-0 bapb=131) POCT-GLUCOSE [id number] 22:05:00 Test Item Value Reference Range Comments POC-GLUCOSE METER (BEAKER) 140 mg/dL 70-110 TESTED AT [address] (test bzme=2953) [place] [address] [id number] 14:34:00 Test Item Value Reference Range Comments POTASSIUM (BEAKER) (test aicd=391) 4.5 meq/L 3.5-5.1 Check Serum Potassium level 2 hours after oral potassium replacement completed or 30 min after intravenous potassium replacement.[id number] 14:34:00 Test Item Value Reference Range Comments MAGNESIUM (BEAKER) (test ytry=839) 2.3 mg/dL 1.6-2.6 Check Serum Potassium level 2 hours after oral potassium replacement completed or 30 min after intravenous potassium replacement.POCT-GLUCOSE [id number] 12:43:00 Test Item Value Reference Range Comments POC-GLUCOSE METER (BEAKER) 188 mg/dL 70-110 TESTED AT [address] (test njjk=7781) [place] [address] RAD, CHEST, 1 VIEW, NON [id number] 10:54:00Reason for exam:->SOBFINAL REPORT RAD, CHEST, 1 VIEW, NON DEPT INDICATION: SOB COMPARISON: October 16, 2018 FINDINGS: Portable frontal view of the chest. FINDINGS: Support Lines: Pacer device. Lungs and pleura: Increased interstitial opacities within the right upper and lower and left upper lung zones, of uncertain etiology but concerning for interstitial edema and/or pneumonitis. Superimposed infection may be excluded clinically. No pneumothorax.Heart and mediastinum: Stable contours. Additional findings: None. IMPRESSION: Interval worsening of bilateral interstitial opacities concerning for new interstitial edema and/or pneumonitis. Superimposed infection may be excluded clinically. Signed: Alejandra Bose Verified Date/Time: 10/20/2018 10 :54:45 Reading Location: [address] Neuro Reading Room POCT-GLUCOSE [id number] 07:49:00 Test Item Value Reference Range Comments POC-GLUCOSE METER (BEAKER) 205 mg/dL 70-110 TESTED AT [address] (test chfu=4756) [facility] [address] [id number] 06:49:00 Test Item Value Reference Range Comments MAGNESIUM (BEAKER) (test 2.0 mg/dL 1.6-2.6 Specimen slightly hemolyzed gsio=086) BASIC METABOLIC [id number] 06:49:00 Test Item Value Reference Range Comments SODIUM (BEAKER) (test 135 meq/L 136-145 muns=967) POTASSIUM (BEAKER) (test 4.7 meq/L 3.5-5.1 Specimen slightly jqmj=946) hemolyzed CHLORIDE (BEAKER) (test 103 meq/L 98-107 beyy=944) CO2 (BEAKER) (test 25 meq/L 22-29 ozns=387) BLOOD UREA NITROGEN 18 mg/dL 7-21 (BEAKER) (test awer=607) CREATININE (BEAKER) (test 1.02 mg/dL 0.57-1.25 Specimen slightly gokc=586) hemolyzed GLUCOSE RANDOM (BEAKER) 193 mg/dL 70-105 (test utmz=363) CALCIUM (BEAKER) (test 8.5 mg/dL 8.4-10.2 ubtc=287) EGFR (BEAKER) (test 53 mL/min/1.73 sq m ESTIMATED GFR IS NOT cjzz=7803) ACCURATE CREATININE CLEARANCE IN PREDICTING GLOMERULAR FILTRATION RATE. ESTIMATED GFR IS NOT APPLICABLE FOR DIALYSIS PATIENTS. [id number] 06:37:00 Test Item Value Reference Range Comments PARTIAL THROMBOPLASTIN TIME (BEAKER) (test 91.1 seconds 22.5-36.0 phqs=310) CBC (HEMOGRAM ONLY)2018-10-20 06:32:00 Test Item Value Reference Range Comments WHITE BLOOD CELL COUNT (BEAKER) (test uezp=728) 7.4 K/ L 3.5-10.5 RED BLOOD CELL COUNT (BEAKER) (test cvyy=710) 2.62 M/ L 3.93-5.22 HEMOGLOBIN (BEAKER) (test vhjw=003) 7.8 GM/DL 11.2-15.7 HEMATOCRIT (BEAKER) (test lblx=833) 24.7 % 34.1-44.9 MEAN CORPUSCULAR VOLUME (BEAKER) (test ptfy=817) 94.3 fL 79.4-94.8 MEAN CORPUSCULAR HEMOGLOBIN (BEAKER) (test 29.8 pg 25.6-32.2 bhvj=633) MEAN CORPUSCULAR HEMOGLOBIN CONC (BEAKER) (test 31.6 GM/DL 32.2-35.5 uels=247) RED CELL DISTRIBUTION WIDTH (BEAKER) (test 13.3 % 11.7-14.4 uucr=872) PLATELET COUNT (BEAKER) (test aule=518) 381 K/CU MM 150-450 MEAN PLATELET VOLUME (BEAKER) (test cici=941) 9.9 fL 9.4-12.3 NUCLEATED RED BLOOD CELLS (BEAKER) (test 0 /100 WBC 0-0 etcb=000) POCT-GLUCOSE [id number] 21:24:00 Test Item Value Reference Range Comments POC-GLUCOSE METER (BEAKER) 196 mg/dL 70-110 TESTED AT [address] (test jxim=5268) [place] [id number] POCT-GLUCOSE [id number] 17:36:00 Test Item Value Reference Range Comments POC-GLUCOSE METER (BEAKER) 136 mg/dL 70-110 TESTED AT [address] (test phfn=0478) [place] [address] [id number] 15:46:00 Test Item Value Reference Range Comments PARTIAL THROMBOPLASTIN TIME (BEAKER) (test 89.1 seconds 22.5-36.0 duwg=541) POCT-GLUCOSE [id number] 13:00:00 Test Item Value Reference Range Comments POC-GLUCOSE METER (BEAKER) 197 mg/dL 70-110 TESTED AT [address] (test hbgh=3990) [facility] [address] CT, BRAIN, WITHOUT [id number] 10:26:00FINAL REPORT CT Head without contrast CLINICAL HISTORY: Bleed while now on therapeutic AC with hep gtt TECHNIQUE: Contiguous axial CT images through the head without contrast. This exam was performed according to the departmental dose optimization program which includes automated exposure control, adjustment of the mA and/or kV according to the patient size, and/or use of an iterative reconstruction technique. COMPARISON: 10/15/2018 FINDINGS: An evolving right middle and posterior cerebral artery distribution infarct is again seen with minimal petechial hemorrhage, but no shannan hemorrhagic transformation. Mass effect narrowing the right lateral ventricle has slightly decreased, without significant midline shift. Generalized parenchymal volume loss is again noted without hydrocephalus. There are atherosclerotic calcifications of the intracranial circulation. The skull is intact. IMPRESSION: Right cerebral infarction with minimal petechial hemorrhage again seen, but no frankhemorrhagic transformation. Signed: Jaret Robbinsort Verified Date/ Time: 10/19/2018 10:26:00 Reading Location: [address] Neuro Reading Room Electronically signed by: JARET ROBBINS M.D.on 10/19/2018 10:26 AMPOCT- GLUCOSE [id number] 07:45:00 Test Item Value Reference Range Comments POC-GLUCOSE METER (BEAKER) 85 mg/dL 70-110 TESTED AT [address] (test trjm=3179) [facility] [address] [id number] 07:05:00 Test Item Value Reference Range Comments PARTIAL THROMBOPLASTIN TIME (BEAKER) (test 87.5 seconds 22.5-36.0 owyc=198) [id number] 05:08:00 Test Item Value Reference Range Comments MAGNESIUM (BEAKER) (test 2.4 mg/dL 1.6-2.6 Specimen slightly hemolyzed oczr=803) BASIC METABOLIC [id number] 05:08:00 Test Item Value Reference Range Comments SODIUM (BEAKER) (test 139 meq/L 136-145 ptka=461) POTASSIUM (BEAKER) (test 4.5 meq/L 3.5-5.1 Specimen slightly lfyr=460) hemolyzed CHLORIDE (BEAKER) (test 107 meq/L 98-107 ufhr=140) CO2 (BEAKER) (test 26 meq/L 22-29 gqyd=979) BLOOD UREA NITROGEN 15 mg/dL 7-21 (BEAKER) (test vxmc=855) CREATININE (BEAKER) (test 0.89 mg/dL 0.57-1.25 Specimen slightly cvov=982) hemolyzed GLUCOSE RANDOM (BEAKER) 81 mg/dL 70-105 (test ivwx=684) CALCIUM (BEAKER) (test 8.6 mg/dL 8.4-10.2 ecwq=373) EGFR (BEAKER) (test 62 mL/min/1.73 sq m ESTIMATED GFR IS NOT jbwd=6753) ACCURATE CREATININE CLEARANCE IN PREDICTING GLOMERULAR FILTRATION RATE. ESTIMATED GFR IS NOT APPLICABLE FOR DIALYSIS PATIENTS. CBC (HEMOGRAM ONLY)2018-10-19 04:41:00 Test Item Value Reference Range Comments WHITE BLOOD CELL COUNT (BEAKER) (test ottp=203) 7.7 K/ L 3.5-10.5 RED BLOOD CELL COUNT (BEAKER) (test ruhz=683) 2.67 M/ L 3.93-5.22 HEMOGLOBIN (BEAKER) (test ovwr=904) 7.7 GM/DL 11.2-15.7 HEMATOCRIT (BEAKER) (test qusf=924) 25.4 % 34.1-44.9 MEAN CORPUSCULAR VOLUME (BEAKER) (test rahq=329) 95.1 fL 79.4-94.8 MEAN CORPUSCULAR HEMOGLOBIN (BEAKER) (test 28.8 pg 25.6-32.2 zroj=084) MEAN CORPUSCULAR HEMOGLOBIN CONC (BEAKER) (test 30.3 GM/DL 32.2-35.5 vgnj=619) RED CELL DISTRIBUTION WIDTH (BEAKER) (test 13.4 % 11.7-14.4 agum=207) PLATELET COUNT (BEAKER) (test rajk=398) 371 K/CU MM 150-450 MEAN PLATELET VOLUME (BEAKER) (test iztr=140) 10.0 fL 9.4-12.3 NUCLEATED RED BLOOD CELLS (BEAKER) (test 0 /100 WBC 0-0 nmxo=975) [id number] 22:55:00 Test Item Value Reference Range Comments PARTIAL THROMBOPLASTIN TIME (BEAKER) (test 41.6 seconds 22.5-36.0 wzci=003) POCT-GLUCOSE [id number] 22:27:00 Test Item Value Reference Range Comments POC-GLUCOSE METER (BEAKER) 136 mg/dL 70-110 TESTED AT [address] (test mwcw=7896) [place] [id number] POCT-GLUCOSE [id number] 17:49:00 Test Item Value Reference Range Comments POC-GLUCOSE METER (BEAKER) 179 mg/dL 70-110 TESTED AT [address] (test qbqb=8335) [place] [address] [id number] 14:54:00 Test Item Value Reference Range Comments PARTIAL THROMBOPLASTIN TIME (BEAKER) (test 31.7 seconds 22.5-36.0 ofgh=590) NV, ANGIOGRAM, [id number] 14:04:00Reason for exam:->Right MCA strokeReason for exam:->Diagnostic angiogram with possible thrombectomyReason for exam:->Dr. DillonFINAL REPORT DATE: 10/08/2018 NAME: Bhanu Vela ATTENDING: Lobo Dillon MD PREOPERATIVE DIAGNOSIS: 1. Acute Ischemic Stroke: Right Carotid Terminus Occlusion Right Cervical Internal Carotid Artery Critical Stenosis POSTOPERATIVE DIAGNOSIS: 1. Acute Ischemic Stroke: Right Carotid Terminus Occlusion Right Cervical Internal Carotid Artery Critical Stenosis PROCEDURE PERFORMED: 1. Diagnostic Angiogram2. Right Cervical Internal Carotid Artery Balloon Angioplasty with proximal protection3. Right MCA Mechanical Thrombectomy with proximal balloon occlusion and flow reversal4. Rotational Flat Panel [place] CT Brain ANESTHESIA: General COMPLICATIONS: None ESTIMATED BLOOD LOSS: 100ml VESSELS STUDIED:*Right common carotid artery x 1*Right internal carotid artery x 3*Right Middle Cerebral artery x 1*Right common femoral artery x1 MATERIALS EMPLOYED:1. 8 Lithuanian short sheath 2. 5 Lithuanian 125cm diagnostic catheter3. Bentson guidewire4. Terumo 0.035 LT glidewire5. Flowgate 8F Balloon Guide Catheter6. Marksman microcatheter7. Embotrap 5mm x 30mm8. BMW Exchange Length9. Viatrac 1cxu18za balloon9. 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 Tompkins. The patient was speaking but not consentable. Efforts were made to contact the family prior to the procedure but I did not reach them as the ED nursing stated that EMS left prior to finding their number in the [employer] paperwork. Thus, the procedure was performed as an emergency. PROCEDURE:After appropriate consent was obtained, the patient was brought to the angiographic suite and cardiopulmonary monitoring was placed. The anesthesia team performed GETA. A timeout was performed. Both groins were prepped and draped in the usual sterile fashion. After administration of 10 mL of 2% lidocaine, a micropuncture needle was used to perform a single wall puncture ofthe right common femoral artery, a micropuncture sheath was inserted , and an angled DSA angiogram was performed through the sheath. Once good location of the puncture site was confirmed, a 8 Lithuanian short sheath was inserted over a Application Expertsson wire and was maintained on heparinized saline flush throughout the remainder of the procedure. Using coaxial technique, a preflushed 5 Lithuanian 125cm diagnostic glidecatheter on constant heparinized saline flush was placed through a pre-flushed and pre-prepped 8 Lithuanian Flowgate balloon guide catheter. The two catheters were inserted together and advanced over the Glidewire into the descending aorta, the Glidewire was removed, the catheter and flowgate were back bled, flushed in usual fashion and they were maintained on heparinized flushed throughout duration of their use. Using coaxial technique, the catheter was advanced into the aortic arch and with the aid ofroadmapping, digital fluoroscopy, and careful guidewire manipulation, the right common carotid and right internal carotid arteries were selectively catheterized. There was severe stenosis in the SHAYNA origin and the dx catheter was carefully advanced into the SHAYNA and a gentle dx was performed. A BMW exchange length wire was inserted and advanced to the petrous ICA. The balloon guide was inflated in the CCA and the dx catheter exchanged out and a prepped Viatrac balloon was advanced over the wire andacross the stenosis. We performed gentle angioplasty x 2 in the SHAYNA origin, backbled the flowgate and performed an angiogram via the flowgate. There was significant improvement in the antegrade flow /stenosis. We advanced the deflated flowgate over the balloon and wire into the ICA and performed a run demonstrating the ICA terminus occlusion. The balloon and BMW were removed, and the balloon guideagain back flushed, antegrade flushed and maintained on heparinized flushed throughout remainder theprocedure. Then performed intracranial images and identified the occlusion. We then inserted a preflushed Centrify microcatheter over a preshaped Synchro standard wire under roadmap guidance into the intracranial circulation. We then advanced it past the large vessel occlusion. The performed microangiograms through the microcatheter to confirm that the tip of the microcatheter was distal to the largevessel clot. Once this was confirmed, we then inserted and deployed the 5mmx33 Embotrap device across the clot. We then waited five minutes for clot integration. During the waiting period, performed and diagnostic angiogram showing modest antegrade flow through the clot filling the distal branches. Atfive minutes, the flowgate balloon was inflated until it was occlusive in the internal carotid, the assistant loan processor pulled suction through the lumen of the flowgate as we retracted the Stentriever device into the flowgate catheter to the hub. We then disconnected the hub removed the device back bled the flowgate catheter while the balloon was being deflated, and re-connected the flowgate to a clean Y-valve/ heparinized flush system. The balloon was confirmed to be deflated with live fluoroscopy, and a diagnostic angiogram of the intracranial circulation was performed. The intracranial images showed successful removal of the intracranial clot with good distal flow through the MCA and its branches. We retracted the flowgate catheter using the live fluoroscopy and puffing technique two sure there is no injury to the internal carotid artery from the flowgate balloon. None was seen. We then removed the flowgate from the circulation. To help guide decision making for possible carotid stent placement, a rotational Holly flat panel plain CT of the head was performed on the table. This demonstrated contrastleaking versus small amount of reperfusion hemorrhage in the putamen and caudate head. Given the patient had just received IV TPA and there was only 40% residual stenosis of the right ICA after angioplasty, we elected not to load the patient on a bolus dose of intra-arterial Aggrastat followed by an Aggrastat gtt which would be necessary to place an acute right ICA stent. We will plan to watch the patient overnight, gives antiplatelets when deemed safe from serial CT scans of the brain and potentially place a carotid stent related time. The femoral sheath was removed and hemostasis achieved with an8 Lithuanian Angioseal and manual compression. The patient tolerated the procedure well and was present transported from the neuro angio suite in unchanged neurological status without groin hematoma and with good distal lower extremity pulses. The patient was transferred to the neurological intensive careunit to be monitored as per protocol. FINDINGS:RIGHT COMMON FEMORAL ARTERY (DSA, PA X 1)Normal common femoral artery was puncture site above the bifurcation and below the markers of the internal ligament. RIGHT COMMON CAROTID ARTERY (DSA, PA, LATERAL, CERVICAL)The distal cervical common carotid is patent. There is severe flow limiting stenosis and delayed antegrade flow at the SHAYNA origin secondary to calcified atherosclerotic plaque. Post-balloon angioplasty, there is significantly improved antegrade flow and 40% ICA origin residual stenosis. There is an enlarged right occipital collateral anastomosis to ascending cervical branches filling the subclavian artery retrograde as there appears to be aright subclavian occlusion distal to the vertebral artery origin on the CTA. There is also feeders and prominent lower cervical vascular blush favored to represent a prominent thyroid blush filling retrograde via these collaterals with the occipital artery. RIGHT INTERNAL CAROTID ARTERY (DSA, PA, LATERALx2)Normal distal cervical, petrous, cavernous internal carotid artery with carotid terminus occlusion extending into the right MCA M1 segment secondary to acute thrombus. Post thrombectomy, there is complete resolution of the clot with physiological filling of the distal MCA branches. There are nodistal vessel cutoffs. This this is TICI 2B revascularization. No aneurysms or other vascular lesions are seen. There is no significant atherosclerosis or stenosis. The venous phase demonstrates patenttransverse and sigmoid sinuses. CT BRAIN (HOLLY ROTATIONAL x1)Holly CT is of limited resolution for detecting ischemia and non-hemorrhagic / CSF related pathologiesIntracranial hemorrhage: there is contrast staining vs reperfusion hemorrhage in the caudate head and putamen concerning for blood brain barrier breakdown. No major extravasation or ICH is identified. Brain parenchyma: No CT evidence of acute ischemia. The lewis-white interface is poorly visualized due to technique limitation. Diffuse parenchymal volume loss.Ventricles, sulci and basal cisterns: Normal for age.Midline shift: None. IMPRESSION1. Critical high grade stenosis of the right cervical internal carotid artery origin secondary toatherosclerotic plaque. Post-angioplasty, there is 40% residual stenosis but good antegrade flow. 2. Complete occlusion of the right intracranial carotid terminus and right M1. Post-revascularization,there is complete resolution of the intravascular thrombus and sikh of flow to the distal MCAbranches, representing a TICI 2B revascularization. 3. On holly CT , there is contrast staining vs modest early reperfusion hemorrhage in the right caudate head and right putamen concerning for blood brain barrier breakdown. No major extravasation, or ICH resulting in a space occupying lesion. FACULTY ATTESTATION: Lobo Jacob M.D., was present for the entirety of the procedure. I performedor directly supervised all aspects of the procedure. I performed all critical aspects of the case. Iinterpreted the images and reported the results. Signed: Lobo Dillon MDReport Verified Date/Time: 10/18/2018 14:04:16 Reading Location: [facility] Radiology Reading Room POCT- GLUCOSE [id number] 12:43:00 Test Item Value Reference Range Comments POC-GLUCOSE METER (BEAKER) 202 mg/dL 70-110 TESTED AT [address] (test mpaj=2483) [facility] [address] POCT-GLUCOSE [id number] 07:41:00 Test Item Value Reference Range Comments POC-GLUCOSE METER (BEAKER) 111 mg/dL 70-110 TESTED AT [address] (test fqzr=0060) [facility] [address] [id number] 05:02:00 Test Item Value Reference Range Comments MAGNESIUM (BEAKER) (test gmtx=993) 1.8 mg/dL 1.6-2.6 BASIC METABOLIC [id number] 05:02:00 Test Item Value Reference Range Comments SODIUM (BEAKER) (test 139 meq/L 136-145 fapz=110) POTASSIUM (BEAKER) (test 3.9 meq/L 3.5-5.1 aore=148) CHLORIDE (BEAKER) (test 107 meq/L 98-107 oxzp=265) CO2 (BEAKER) (test 27 meq/L 22-29 houp=354) BLOOD UREA NITROGEN 12 mg/dL 7-21 (BEAKER) (test juwq=714) CREATININE (BEAKER) (test 0.78 mg/dL 0.57-1.25 yqbn=755) GLUCOSE RANDOM (BEAKER) 116 mg/dL 70-105 (test mogg=566) CALCIUM (BEAKER) (test 8.6 mg/dL 8.4-10.2 gbar=068) EGFR (BEAKER) (test 72 mL/min/1.73 sq m ESTIMATED GFR IS NOT fsww=2359) ACCURATE CREATININE CLEARANCE IN PREDICTING GLOMERULAR FILTRATION RATE. ESTIMATED GFR IS NOT APPLICABLE FOR DIALYSIS PATIENTS. CBC (HEMOGRAM ONLY)2018-10-18 04:44:00 Test Item Value Reference Range Comments WHITE BLOOD CELL COUNT (BEAKER) (test kcxy=122) 8.6 K/ L 3.5-10.5 RED BLOOD CELL COUNT (BEAKER) (test rxrt=692) 3.02 M/ L 3.93-5.22 HEMOGLOBIN (BEAKER) (test snmi=124) 8.7 GM/DL 11.2-15.7 HEMATOCRIT (BEAKER) (test sehe=454) 28.0 % 34.1-44.9 MEAN CORPUSCULAR VOLUME (BEAKER) (test rlqm=458) 92.7 fL 79.4-94.8 MEAN CORPUSCULAR HEMOGLOBIN (BEAKER) (test 28.8 pg 25.6-32.2 djsc=421) MEAN CORPUSCULAR HEMOGLOBIN CONC (BEAKER) (test 31.1 GM/DL 32.2-35.5 eucz=811) RED CELL DISTRIBUTION WIDTH (BEAKER) (test 13.2 % 11.7-14.4 dcip=692) PLATELET COUNT (BEAKER) (test vpmw=406) 380 K/CU MM 150-450 MEAN PLATELET VOLUME (BEAKER) (test kjmi=662) 10.3 fL 9.4-12.3 NUCLEATED RED BLOOD CELLS (BEAKER) (test 0 /100 WBC 0-0 klpi=823) TROPONIN [id number] 02:35:00 Test Item Value Reference Range Comments TROPONIN I (BEAKER) (test lwuk=646) 1.47 ng/mL 0.00-0.03 Troponin I (TnI) levels must be interpreted in the context of the presenting symptoms and the clinical findings. Elevated TnI levels indicate myocardial damage, but are not specific for ischemic heart disease. Elevated TnI levels are seen in patients with other cardiac conditions (including myocarditis and congestive heart failure), and slight TnI elevations occur in patients with other conditions, including sepsis, renal failure, acidosis, acute neurological disease, and persistent tachyarrhythmia.POCT-GLUCOSE [id number] 21:14:00 Test Item Value Reference Range Comments POC-GLUCOSE METER (BEAKER) 86 mg/dL 70-110 TESTED AT [address] (test ybtt=0224) [place] [address] POCT-GLUCOSE [id number] 18:35:00 Test Item Value Reference Range Comments POC-GLUCOSE METER (BEAKER) 148 mg/dL 70-110 TESTED AT [address] (test qhvj=4223) [place] [address] PUL PERF IMAGING, PARTIC, [id number] 18:31:00Authorized by Dr. Morataya REPORT PROCEDURE: V/Q LUNG SCAN CPT CODE: 92753 INDICATION: acute chest pain, elevated D-dimer PROTOCOL: 10.4 mCi of Xe-133 gas was administered by inhalation. Rebreathing/washout images were obtained in the anterior and the posterior projections.4.2 mCi of Tc-99m MAA was then injected intravenously, and static perfusion images were obtained in multiple projections. FINDINGS: Ventilation : Initial tracer distribution is irregularly decreased in both lungs, worse on the left. Washout is markedly delayed bilaterally with redistribution and trapping. Perfusion: Tracer distribution is subsegmentally decreased in the mid lung bruno and nonsegmentally, irregularly decreased in both lungs, matching the ventilatory findings. IMPRESSION: 1. Low probability of acute pulmonary embolization.2. Bilateral severe parenchymal/ obstructive abnormality, worse on the left. Signed: Vivienne Cardenas MDReport Verified Date/Time: 10/17/201818:31:34 POCT-GLUCOSE [id number] 15:01:00 Test Item Value Reference Range Comments POC-GLUCOSE METER (BEAKER) 211 mg/dL 70-110 TESTED AT [facility] [address] (test tvas=6177) [place] [address] TROPONIN [id number] 11:56:00 Test Item Value Reference Range Comments TROPONIN I (BEAKER) (test bknf=952) 3.11 ng/mL 0.00-0.03 Troponin I (TnI) levels must be interpreted in the context of the presenting symptoms and the clinical findings. Elevated TnI levels indicate myocardial damage, but are not specific for ischemic heart disease. Elevated TnI levels are seen in patients with other cardiac conditions (including myocarditis and congestive heart failure), and slight TnI elevations occur in patients with other conditions, including sepsis, renal failure, acidosis, acute neurological disease, and persistent tachyarrhythmia.[id number] 11:34:00 Test Item Value Reference Range Comments PARTIAL THROMBOPLASTIN TIME (BEAKER) (test 24.8 seconds 22.5-36.0 mwtn=178) [id number] 07:25:00 Test Item Value Reference Range Comments PARTIAL THROMBOPLASTIN TIME (BEAKER) (test > seconds 22.5-36.0 ugic=886) BASIC METABOLIC [id number] 06:49:00 Test Item Value Reference Range Comments SODIUM (BEAKER) (test 135 meq/L 136-145 hfyf=600) POTASSIUM (BEAKER) (test 3.3 meq/L 3.5-5.1 odmt=984) CHLORIDE (BEAKER) (test 104 meq/L 98-107 gnuk=782) CO2 (BEAKER) (test 24 meq/L 22-29 zapj=263) BLOOD UREA NITROGEN 15 mg/dL 7-21 (BEAKER) (test usrg=521) CREATININE (BEAKER) (test 0.90 mg/dL 0.57-1.25 wtvl=851) GLUCOSE RANDOM (BEAKER) 200 mg/dL 70-105 (test bzbf=915) CALCIUM (BEAKER) (test 7.9 mg/dL 8.4-10.2 whgd=100) EGFR (BEAKER) (test 61 mL/min/1.73 sq m ESTIMATED GFR IS NOT ivff=8046) ACCURATE CREATININE CLEARANCE IN PREDICTING GLOMERULAR FILTRATION RATE. ESTIMATED GFR IS NOT APPLICABLE FOR DIALYSIS PATIENTS. [id number] 06:43:00 Test Item Value Reference Range Comments MAGNESIUM (BEAKER) (test jyuu=895) 1.7 mg/dL 1.6-2.6 TROPONIN [id number] 06:28:00 Test Item Value Reference Range Comments TROPONIN I (BEAKER) (test dwuw=862) 3.14 ng/mL 0.00-0.03 Troponin I (TnI) levels must be interpreted in the context of the presenting symptoms and the clinical findings. Elevated TnI levels indicate myocardial damage, but are not specific for ischemic heart disease. Elevated TnI levels are seen in patients with other cardiac conditions (including myocarditis and congestive heart failure), and slight TnI elevations occur in patients with other conditions, including sepsis, renal failure, acidosis, acute neurological disease, and persistent tachyarrhythmia.PLATELET [id number] 05:10:00 Test Item Value Reference Range Comments PLATELET COUNT (BEAKER) (test yxdo=451) 300 K/CU MM 150-450 LACTIC ACID, [id number] 04:59:00 Test Item Value Reference Range Comments LACTATE BLOOD VENOUS (2) (BEAKER) (test 1.6 mmol/L 0.5-2.2 ecxx=0523) [id number] 01:05:00 Test Item Value Reference Range Comments PARTIAL THROMBOPLASTIN TIME (BEAKER) (test 80.4 seconds 22.5-36.0 uggr=088) POCT-GLUCOSE [id number] 21:23:00 Test Item Value Reference Range Comments POC-GLUCOSE METER (BEAKER) 252 mg/dL 70-110 TESTED AT [address] (test gsov=5184) [facility] [address] TROPONIN [id number] 18:56:00 Test Item Value Reference Range Comments TROPONIN I (BEAKER) (test kdap=962) 0.96 ng/mL 0.00-0.03 Troponin I (TnI) levels must be interpreted in the context of the presenting symptoms and the clinical findings. Elevated TnI levels indicate myocardial damage, but are not specific for ischemic heart disease. Elevated TnI levels are seen in patients with other cardiac conditions (including myocarditis and congestive heart failure), and slight TnI elevations occur in patients with other conditions, including sepsis, renal failure, acidosis, acute neurological disease, and persistent tachyarrhythmia.[id number] 18:09:00 Test Item Value Reference Range Comments PARTIAL THROMBOPLASTIN TIME (BEAKER) (test 68.3 seconds 22.5-36.0 mzsx=836) POCT-GLUCOSE [id number] 17:28:00 Test Item Value Reference Range Comments POC-GLUCOSE METER (BEAKER) 290 mg/dL 70-110 TESTED AT [address] (test smsj=0195) [place] [address] TROPONIN [id number] 12:30:00 Test Item Value Reference Range Comments TROPONIN I (BEAKER) (test adov=684) 0.06 ng/mL 0.00-0.03 Troponin I (TnI) levels must be interpreted in the context of the presenting symptoms and the clinical findings. Elevated TnI levels indicate myocardial damage, but are not specific for ischemic heart disease. Elevated TnI levels are seen in patients with other cardiac conditions (including myocarditis and congestive heart failure), and slight TnI elevations occur in patients with other conditions, including sepsis, renal failure, acidosis, acute neurological disease, and persistent tachyarrhythmia.POCT-GLUCOSE [id number] 11:44:00 Test Item Value Reference Range Comments POC-GLUCOSE METER (BEAKER) 238 mg/dL 70-110 TESTED AT [address] (test ngvz=8559) [place] [address] RAD, CHEST, 1 VIEW, NON [id number] 10:30:00Reason for exam:->chest painShould this be performed at the bedside?->YesFINAL REPORT RAD, CHEST, 1 VIEW, NON DEPT INDICATION: chest pain COMPARISON: Prior day's exam FINDINGS: Portable frontal view of the chest. IMPRESSION: Support Lines: Stable pacer apparatus. Lungs and pleura: Increasing basilar congestion which may represent subsegmental atelectasis or worsening edema. No pneumothorax.Heart and mediastinum: Stable contours. Additional findings: None. Signed: JR Leary Robert MDReport Verified Date/Time: 10/16/2018 10:30: 06 Reading Location: [address] Neuro Reading Room [id number] 09:54:00 Test Item Value Reference Range Comments PARTIAL THROMBOPLASTIN TIME (BEAKER) (test 64.0 seconds 22.5-36.0 dgmg=820) CBC W/PLT COUNT & AUTO [id number] 09:41:00 Test Item Value Reference Range Comments WHITE BLOOD CELL COUNT (BEAKER) (test uxja=568) 8.6 K/ L 3.5-10.5 RED BLOOD CELL COUNT (BEAKER) (test qyca=177) 3.25 M/ L 3.93-5.22 HEMOGLOBIN (BEAKER) (test tucp=674) 9.4 GM/DL 11.2-15.7 HEMATOCRIT (BEAKER) (test dfiw=464) 30.2 % 34.1-44.9 MEAN CORPUSCULAR VOLUME (BEAKER) (test ajbx=622) 92.9 fL 79.4-94.8 MEAN CORPUSCULAR HEMOGLOBIN (BEAKER) (test 28.9 pg 25.6-32.2 qure=077) MEAN CORPUSCULAR HEMOGLOBIN CONC (BEAKER) (test 31.1 GM/DL 32.2-35.5 sbdp=085) RED CELL DISTRIBUTION WIDTH (BEAKER) (test 13.1 % 11.7-14.4 diwn=166) PLATELET COUNT (BEAKER) (test unhg=916) 338 K/CU MM 150-450 MEAN PLATELET VOLUME (BEAKER) (test tpsc=968) 10.7 fL 9.4-12.3 NUCLEATED RED BLOOD CELLS (BEAKER) (test 0 /100 WBC 0-0 sjwx=222) NEUTROPHILS RELATIVE PERCENT (BEAKER) (test 58 % rmii=408) LYMPHOCYTES RELATIVE PERCENT (BEAKER) (test 25 % ypbd=275) MONOCYTES RELATIVE PERCENT (BEAKER) (test 13 % gyci=845) EOSINOPHILS RELATIVE PERCENT (BEAKER) (test 3 % xyhx=592) BASOPHILS RELATIVE PERCENT (BEAKER) (test 0 % nump=924) NEUTROPHILS ABSOLUTE COUNT (BEAKER) (test 5.00 K/ L 1.56-6.13 xyhh=332) LYMPHOCYTES ABSOLUTE COUNT (BEAKER) (test 2.10 K/ L 1.18-3.74 yuvc=070) MONOCYTES ABSOLUTE COUNT (BEAKER) (test 1.12 K/ L 0.24-0.36 mgkt=383) EOSINOPHILS ABSOLUTE COUNT (BEAKER) (test 0.26 K/ L 0.04-0.36 ywmj=448) BASOPHILS ABSOLUTE COUNT (BEAKER) (test 0.03 K/ L 0.01-0.08 xnpc=818) IMMATURE GRANULOCYTES-RELATIVE PERCENT (BEAKER) 1 % 0-1 (test jaec=9219) [id number] 08:02:00 Test Item Value Reference Range Comments MAGNESIUM (BEAKER) (test 1.5 mg/dL 1.6-2.6 Specimen slightly hemolyzed cmvu=130) BASIC METABOLIC [id number] 08:02:00 Test Item Value Reference Range Comments SODIUM (BEAKER) (test 135 meq/L 136-145 tvon=723) POTASSIUM (BEAKER) (test 4.0 meq/L 3.5-5.1 Specimen slightly anfo=275) hemolyzed CHLORIDE (BEAKER) (test 106 meq/L 98-107 hcfy=453) CO2 (BEAKER) (test 20 meq/L 22-29 fulr=279) BLOOD UREA NITROGEN 16 mg/dL 7-21 (BEAKER) (test rhed=610) CREATININE (BEAKER) (test 0.98 mg/dL 0.57-1.25 Specimen slightly jkre=517) hemolyzed GLUCOSE RANDOM (BEAKER) 200 mg/dL 70-105 (test vuzw=988) CALCIUM (BEAKER) (test 8.5 mg/dL 8.4-10.2 llet=719) EGFR (BEAKER) (test 56 mL/min/1.73 sq m ESTIMATED GFR IS NOT npdp=3592) ACCURATE CREATININE CLEARANCE IN PREDICTING GLOMERULAR FILTRATION RATE. ESTIMATED GFR IS NOT APPLICABLE FOR DIALYSIS PATIENTS. POCT-GLUCOSE [id number] 06:35:00 Test Item Value Reference Range Comments POC-GLUCOSE METER (BEAKER) 225 mg/dL 70-110 TESTED AT [facility] [address] [facility] (test zdpu=9882) [facility] [address] [id number] 00:04:00 Test Item Value Reference Range Comments PARTIAL THROMBOPLASTIN TIME (BEAKER) (test 72.5 seconds 22.5-36.0 rsgp=440) 6 hours after starting heparin infusion and as indicated per sliding scalePOCT- GLUCOSE [id number] 23:27:00 Test Item Value Reference Range Comments POC-GLUCOSE METER (BEAKER) 367 mg/dL 70-110 TESTED AT [facility] [address] [facility] (test yqqf=4703) [facility] [address] POCT-GLUCOSE [id number] 22:50:00 Test Item Value Reference Range Comments POC-GLUCOSE METER (BEAKER) 364 mg/dL 70-110 TESTED AT [address] (test fjjb=1986) [facility] [address] POCT-GLUCOSE [id number] 17:33:00 Test Item Value Reference Range Comments POC-GLUCOSE METER (BEAKER) 253 mg/dL 70-110 TESTED AT [address] (test viya=9051) [facility] [address] B-TYPE NATRIURETIC FACTOR (BNP)2018-10-15 12:25:00 Test Item Value Reference Range Comments B-TYPE NATRIURETIC PEPTIDE (BEAKER) (test 756 pg/mL 0-100 nqtg=711) [id number] 12:14:00 Test Item Value Reference Range Comments PARTIAL THROMBOPLASTIN TIME (BEAKER) (test 39.3 seconds 22.5-36.0 eozz=370) Prior to initiating heparinCBC (HEMOGRAM ONLY)2018-10-15 12:01:00 Test Item Value Reference Range Comments WHITE BLOOD CELL COUNT (BEAKER) (test smkg=454) 6.8 K/ L 3.5-10.5 RED BLOOD CELL COUNT (BEAKER) (test mkop=943) 3.09 M/ L 3.93-5.22 HEMOGLOBIN (BEAKER) (test ezfw=569) 8.8 GM/DL 11.2-15.7 HEMATOCRIT (BEAKER) (test xase=476) 28.5 % 34.1-44.9 MEAN CORPUSCULAR VOLUME (BEAKER) (test ftee=927) 92.2 fL 79.4-94.8 MEAN CORPUSCULAR HEMOGLOBIN (BEAKER) (test 28.5 pg 25.6-32.2 xpmt=230) MEAN CORPUSCULAR HEMOGLOBIN CONC (BEAKER) (test 30.9 GM/DL 32.2-35.5 nxut=841) RED CELL DISTRIBUTION WIDTH (BEAKER) (test 12.9 % 11.7-14.4 tpcm=515) PLATELET COUNT (BEAKER) (test ivbh=473) 323 K/CU MM 150-450 MEAN PLATELET VOLUME (BEAKER) (test mhra=181) 10.8 fL 9.4-12.3 NUCLEATED RED BLOOD CELLS (BEAKER) (test 0 /100 WBC 0-0 xdsz=819) POCT-GLUCOSE [id number] 11:59:00 Test Item Value Reference Range Comments POC-GLUCOSE METER (BEAKER) 217 mg/dL 70-110 TESTED AT [facility] [address] [place] [address] (test otsn=8217) [facility] [address] RAD, CHEST, 1 VIEW, NON [id number] 10:45:00Reason for exam:->SOBFINAL REPORT RAD, CHEST, 1 VIEW, NON DEPT INDICATION: SOB COMPARISON: October 14, 2018 FINDINGS: Portable frontal view of the chest. IMPRESSION: Support Lines: Stable positioningof the pacer apparatus. Lungs and pleura: No new consolidation or effusion. No pneumothorax.Heart and mediastinum : Stable contours. Additional findings: None. Signed: JR Leary Robert MDReport Verified Date/Time: 10/15/2018 10:45:40 Reading Location: [address] Neuro Reading Room CT, BRAIN, WITHOUT [id number] 08:26:00FINAL REPORT CT, BRAIN, WITHOUT CONTRAST INDICATION: headache, AMS patient iss/p r MCA stroke s/p tpa thrombectomy and hemorhagic conversion, evalaute stability TECHNIQUE: Noncontrast axial imaging was obtained from the vertex to the skull base. Axial images were reconstructed using a bone algorithm. DOSE REDUCTION: Dose modulation, iterative reconstruction, and/or weight-based adjustment of the mA/kV was utilized to reduce the radiation dose to as low as reasonably achievable. COMPARISON: October 10, 2018 FINDINGS: Evolving right middle cerebral artery hemorrhagic infarct and associated edema. Mass effect creates approximately 3 mm leftward midline shift at the level of the foramen of Monro, improved from the prior examination where it measured 4 mm. Redemonstration of rightventricular effacement without entrapment. Left hemisphere is stable and unremarkable. Osseous structures are stable. IMPRESSION: Evolving right MCA infarct without interval hemorrhagic conversion ofdistal cortical regions. Slightly decreasing mass effect. Signed: JR Gibran, Mateo HERBERTeport Verified Date/Time: 10/15/2018 08:26:34 Reading Location : [facility] C013V Neuro Reading Room [id number] 06:40:00 Test Item Value Reference Range Comments MAGNESIUM (BEAKER) (test anhx=859) 1.5 mg/dL 1.6-2.6 BASIC METABOLIC [id number] 06:40:00 Test Item Value Reference Range Comments SODIUM (BEAKER) (test 139 meq/L 136-145 phro=255) POTASSIUM (BEAKER) (test 3.6 meq/L 3.5-5.1 ksok=913) CHLORIDE (BEAKER) (test 108 meq/L 98-107 gtpe=778) CO2 (BEAKER) (test 23 meq/L 22-29 vded=853) BLOOD UREA NITROGEN 11 mg/dL 7-21 (BEAKER) (test uubg=070) CREATININE (BEAKER) (test 0.76 mg/dL 0.57-1.25 vmaw=093) GLUCOSE RANDOM (BEAKER) 126 mg/dL 70-105 (test hrbq=622) CALCIUM (BEAKER) (test 8.3 mg/dL 8.4-10.2 cpnh=436) EGFR (BEAKER) (test 75 mL/min/1.73 sq m ESTIMATED GFR IS NOT svvn=1018) ACCURATE CREATININE CLEARANCE IN PREDICTING GLOMERULAR FILTRATION RATE. ESTIMATED GFR IS NOT APPLICABLE FOR DIALYSIS PATIENTS. POCT-GLUCOSE [id number] 06:34:00 Test Item Value Reference Range Comments POC-GLUCOSE METER (BEAKER) 132 mg/dL 70-110 TESTED AT [facility] [address] [facility] (test xepf=2051) [facility] [address] POCT-GLUCOSE [id number] 23:30:00 Test Item Value Reference Range Comments POC-GLUCOSE METER (BEAKER) 128 mg/dL 70-110 TESTED AT [facility] [address] [facility] (test rsqb=3632) [facility] [address] RAD, CHEST, 1 VIEW, NON [id number] 19:39:00Reason for exam:->s/p PPMShould this be performed at the bedside?->YesFINAL REPORT Portable chest. CLINICAL HISTORY: s/p PPM. COMPARISON STUDY: October 13, 2018. FINDINGS: The cardiac silhouette is unremarkable. The pulmonary parenchyma demonstrates mild interstitial markings. A left-sided pacer device is in place. No pneumothorax is seen. Degenerative changes are noted. IMPRESSION : Status post PPM with no pneumothorax. Interstitial pulmonary markings. Signed : Kenny Land MDReport Verified Date/Time: 10/14/2018 19:39:43 Reading Location: [facility] C013W Consult Reading Room POCT-GLUCOSE [id number] 17:14:00 Test Item Value Reference Range Comments POC-GLUCOSE METER (BEAKER) 85 mg/dL 70-110 TESTED AT [address] (test aewh=0102) [place] [address] POCT-GLUCOSE [id number] 16:55:00 Test Item Value Reference Range Comments POC-GLUCOSE METER (BEAKER) 74 mg/dL 70-110 TESTED AT [address] (test hylv=9740) [place] [address] POCT-GLUCOSE [id number] 11:29:00 Test Item Value Reference Range Comments POC-GLUCOSE METER (BEAKER) 74 mg/dL 70-110 TESTED AT [address] (test vdeb=8407) [place] [id number] BLOOD [id number] 08:00:00 Test Item Value Reference Range Comments CULTURE (BEAKER) (test qtgk=4261) No growth in 5 days BLOOD [id number] 08:00:00 Test Item Value Reference Range Comments CULTURE (BEAKER) (test rmle=1644) No growth in 5 days [id number] 07:19:00 Test Item Value Reference Range Comments MAGNESIUM (BEAKER) (test eyvn=439) 1.9 mg/dL 1.6-2.6 BASIC METABOLIC [id number] 07:19:00 Test Item Value Reference Range Comments SODIUM (BEAKER) (test 138 meq/L 136-145 hiwl=809) POTASSIUM (BEAKER) (test 3.3 meq/L 3.5-5.1 ymrj=189) CHLORIDE (BEAKER) (test 111 meq/L 98-107 jmzo=495) CO2 (BEAKER) (test 22 meq/L 22-29 rnux=217) BLOOD UREA NITROGEN 12 mg/dL 7-21 (BEAKER) (test wkjd=509) CREATININE (BEAKER) (test 0.75 mg/dL 0.57-1.25 aqha=642) GLUCOSE RANDOM (BEAKER) 75 mg/dL 70-105 (test llkl=463) CALCIUM (BEAKER) (test 8.2 mg/dL 8.4-10.2 ujaf=743) EGFR (BEAKER) (test 76 mL/min/1.73 sq m ESTIMATED GFR IS NOT wudy=3815) ACCURATE CREATININE CLEARANCE IN PREDICTING GLOMERULAR FILTRATION RATE. ESTIMATED GFR IS NOT APPLICABLE FOR DIALYSIS PATIENTS. POCT-GLUCOSE [id number] 05:20:00 Test Item Value Reference Range Comments POC-GLUCOSE METER (BEAKER) 85 mg/dL 70-110 TESTED AT [address] (test fsde=3763) [place] [id number] POCT-GLUCOSE [id number] 23:53:00 Test Item Value Reference Range Comments POC-GLUCOSE METER (BEAKER) 106 mg/dL 70-110 TESTED AT [address] (test xobx=8095) [place] [id number] POCT-GLUCOSE [id number] 12:27:00 Test Item Value Reference Range Comments POC-GLUCOSE METER (BEAKER) 207 mg/dL 70-110 TESTED AT [address] (test bzlz=9083) [facility] [id number] RAD, CHEST, 1 VIEW, NON [id number] 11:59:00Reason for exam:->pacer positionShould this be performed at the bedside?->YesFINAL REPORT CLINICAL HISTORY: pacer position TECHNIQUE: 1 view of the chest. COMPARISON: 10/12/2018 IMPRESSION: The right jugular pacer lead is in the SVC, approximately 7 cm above the cavoatrial junction. The left jugular line terminates near the cavoatrial junction. Mildly prominent lung markings have increased in the lung bases. Small pleural effusions cannot be excluded. The cardiomediastinal silhouette is magnified by technique. Signed: Jaret Robbinseport Verified Date/Time: 10/13/2018 11:59:01 Reading Location: [facility] Reading Room [id number] 10:00:00 Test Item Value Reference Range Comments MAGNESIUM (BEAKER) (test bnsp=083) 1.7 mg/dL 1.6-2.6 POCT-GLUCOSE [id number] 06:02:00 Test Item Value Reference Range Comments POC-GLUCOSE METER (BEAKER) 237 mg/dL 70-110 TESTED AT [facility] [address] [facility] (test jvar=2292) [facility] [address] BASIC METABOLIC [id number] 04:26:00 Test Item Value Reference Range Comments SODIUM (BEAKER) (test 143 meq/L 136-145 ijhr=948) POTASSIUM (BEAKER) (test 3.6 meq/L 3.5-5.1 tyfp=173) CHLORIDE (BEAKER) (test 116 meq/L 98-107 hyep=885) CO2 (BEAKER) (test 20 meq/L 22-29 grsk=559) BLOOD UREA NITROGEN 14 mg/dL 7-21 (BEAKER) (test drvb=327) CREATININE (BEAKER) (test 0.85 mg/dL 0.57-1.25 qnsg=053) GLUCOSE RANDOM (BEAKER) 244 mg/dL 70-105 (test iucc=348) CALCIUM (BEAKER) (test 8.3 mg/dL 8.4-10.2 cqwl=828) EGFR (BEAKER) (test 66 mL/min/1.73 sq m ESTIMATED GFR IS NOT aljq=6347) ACCURATE CREATININE CLEARANCE IN PREDICTING GLOMERULAR FILTRATION RATE. ESTIMATED GFR IS NOT APPLICABLE FOR DIALYSIS PATIENTS. CBC W/PLT COUNT & AUTO [id number] 03:49:00 Test Item Value Reference Range Comments WHITE BLOOD CELL COUNT (BEAKER) (test ccik=711) 6.5 K/ L 3.5-10.5 RED BLOOD CELL COUNT (BEAKER) (test qqgm=557) 3.07 M/ L 3.93-5.22 HEMOGLOBIN (BEAKER) (test gyyt=594) 8.9 GM/DL 11.2-15.7 HEMATOCRIT (BEAKER) (test dkxg=303) 29.1 % 34.1-44.9 MEAN CORPUSCULAR VOLUME (BEAKER) (test aobr=359) 94.8 fL 79.4-94.8 MEAN CORPUSCULAR HEMOGLOBIN (BEAKER) (test 29.0 pg 25.6-32.2 tjjq=891) MEAN CORPUSCULAR HEMOGLOBIN CONC (BEAKER) (test 30.6 GM/DL 32.2-35.5 yern=046) RED CELL DISTRIBUTION WIDTH (BEAKER) (test 13.1 % 11.7-14.4 ylai=294) PLATELET COUNT (BEAKER) (test vaqm=929) 259 K/CU MM 150-450 MEAN PLATELET VOLUME (BEAKER) (test pbin=990) 11.0 fL 9.4-12.3 NUCLEATED RED BLOOD CELLS (BEAKER) (test 0 /100 WBC 0-0 ijiu=222) NEUTROPHILS RELATIVE PERCENT (BEAKER) (test 69 % twnm=720) LYMPHOCYTES RELATIVE PERCENT (BEAKER) (test 14 % gbrm=446) MONOCYTES RELATIVE PERCENT (BEAKER) (test 13 % vglx=807) EOSINOPHILS RELATIVE PERCENT (BEAKER) (test 2 % zwwt=859) BASOPHILS RELATIVE PERCENT (BEAKER) (test 1 % ywkl=954) NEUTROPHILS ABSOLUTE COUNT (BEAKER) (test 4.46 K/ L 1.56-6.13 hfzd=536) LYMPHOCYTES ABSOLUTE COUNT (BEAKER) (test 0.93 K/ L 1.18-3.74 nmze=538) MONOCYTES ABSOLUTE COUNT (BEAKER) (test 0.83 K/ L 0.24-0.36 yrvd=447) EOSINOPHILS ABSOLUTE COUNT (BEAKER) (test 0.14 K/ L 0.04-0.36 nyah=067) BASOPHILS ABSOLUTE COUNT (BEAKER) (test 0.05 K/ L 0.01-0.08 ktmz=423) IMMATURE GRANULOCYTES-RELATIVE PERCENT (BEAKER) 1 % 0-1 (test ubue=1345) POCT-GLUCOSE [id number] 23:58:00 Test Item Value Reference Range Comments POC-GLUCOSE METER (BEAKER) 329 mg/dL 70-110 TESTED AT [facility] [address] [facility] (test jacu=0643) [facility] [address] POCT-GLUCOSE [id number] 18:14:00 Test Item Value Reference Range Comments POC-GLUCOSE METER (BEAKER) 335 mg/dL 70-110 Notified LLUVIA VERA/TESTED AT [facility] (test nosr=2741) [address] [place] [address] POCT-GLUCOSE [id number] 11:54:00 Test Item Value Reference Range Comments POC-GLUCOSE METER (BEAKER) 232 mg/dL 70-110 TESTED AT [address] (test rump=7908) [facility] [address] RAD, CHEST, 1 VIEW, NON [id number] 09:00:00Reason for exam:->Transvenous pacemakerShould this be performed at the bedside?->YesFINAL REPORT CLINICAL HISTORY: Transvenous pacemaker TECHNIQUE: 1 view of thechest. COMPARISON: 10/11/2018 IMPRESSION: The tip of the transvenous pacer lead has been retracted and now terminates near the cavoatrial junction alongside the left jugular line. There are no focal infiltrates or effusions. The cardiomediastinal silhouette is magnified by technique. Signed: Jaret Robbins [facility] Verified Date/Time: 10/12/2018 09:00:59 Reading Location: [facility] Radiology Reading Room POCT-GLUCOSE [id number] 06:03:00 Test Item Value Reference Range Comments POC-GLUCOSE METER (BEAKER) 208 mg/dL 70-110 TESTED AT [address] (test aqlp=8441) [facility] [address] BASIC METABOLIC [id number] 05:10:00 Test Item Value Reference Range Comments SODIUM (BEAKER) (test 142 meq/L 136-145 iynr=517) POTASSIUM (BEAKER) (test 3.9 meq/L 3.5-5.1 zdzn=369) CHLORIDE (BEAKER) (test 116 meq/L 98-107 xavl=951) CO2 (BEAKER) (test 17 meq/L 22-29 mwdc=216) BLOOD UREA NITROGEN 11 mg/dL 7-21 (BEAKER) (test gthk=425) CREATININE (BEAKER) (test 0.79 mg/dL 0.57-1.25 ugek=624) GLUCOSE RANDOM (BEAKER) 175 mg/dL 70-105 (test syee=050) CALCIUM (BEAKER) (test 7.9 mg/dL 8.4-10.2 thjv=323) EGFR (BEAKER) (test 71 mL/min/1.73 sq m ESTIMATED GFR IS NOT zamu=0132) ACCURATE CREATININE CLEARANCE IN PREDICTING GLOMERULAR FILTRATION RATE. ESTIMATED GFR IS NOT APPLICABLE FOR DIALYSIS PATIENTS. [id number] 04:57:00 Test Item Value Reference Range Comments MAGNESIUM (BEAKER) (test iovk=923) 1.9 mg/dL 1.6-2.6 CBC W/PLT COUNT & AUTO [id number] 04:34:00 Test Item Value Reference Range Comments WHITE BLOOD CELL COUNT (BEAKER) (test yvwq=674) 7.8 K/ L 3.5-10.5 RED BLOOD CELL COUNT (BEAKER) (test ukdt=644) 3.18 M/ L 3.93-5.22 HEMOGLOBIN (BEAKER) (test tstx=327) 9.0 GM/DL 11.2-15.7 HEMATOCRIT (BEAKER) (test nsaw=294) 30.4 % 34.1-44.9 MEAN CORPUSCULAR VOLUME (BEAKER) (test laax=701) 95.6 fL 79.4-94.8 MEAN CORPUSCULAR HEMOGLOBIN (BEAKER) (test 28.3 pg 25.6-32.2 bpkl=879) MEAN CORPUSCULAR HEMOGLOBIN CONC (BEAKER) (test 29.6 GM/DL 32.2-35.5 lgzl=082) RED CELL DISTRIBUTION WIDTH (BEAKER) (test 13.2 % 11.7-14.4 socb=852) PLATELET COUNT (BEAKER) (test oloj=312) 208 K/CU MM 150-450 MEAN PLATELET VOLUME (BEAKER) (test uhld=428) 10.8 fL 9.4-12.3 NUCLEATED RED BLOOD CELLS (BEAKER) (test 0 /100 WBC 0-0 zhit=225) NEUTROPHILS RELATIVE PERCENT (BEAKER) (test 73 % zplv=068) LYMPHOCYTES RELATIVE PERCENT (BEAKER) (test 12 % vohz=141) MONOCYTES RELATIVE PERCENT (BEAKER) (test 12 % uxkg=634) EOSINOPHILS RELATIVE PERCENT (BEAKER) (test 1 % hddb=443) BASOPHILS RELATIVE PERCENT (BEAKER) (test 1 % jilv=877) NEUTROPHILS ABSOLUTE COUNT (BEAKER) (test 5.69 K/ L 1.56-6.13 gujo=039) LYMPHOCYTES ABSOLUTE COUNT (BEAKER) (test 0.95 K/ L 1.18-3.74 swvz=123) MONOCYTES ABSOLUTE COUNT (BEAKER) (test 0.93 K/ L 0.24-0.36 jjto=939) EOSINOPHILS ABSOLUTE COUNT (BEAKER) (test 0.09 K/ L 0.04-0.36 pnyj=770) BASOPHILS ABSOLUTE COUNT (BEAKER) (test 0.06 K/ L 0.01-0.08 rzwb=031) IMMATURE GRANULOCYTES-RELATIVE PERCENT (BEAKER) 1 % 0-1 (test pfvb=9944) POCT-GLUCOSE [id number] 23:54:00 Test Item Value Reference Range Comments POC-GLUCOSE METER (BEAKER) 212 mg/dL 70-110 TESTED AT [address] (test cwup=7431) [place] [address] POCT-GLUCOSE [id number] 17:48:00 Test Item Value Reference Range Comments POC-GLUCOSE METER (BEAKER) 239 mg/dL 70-110 TESTED AT [address] (test hgla=2440) [place] [id number] SPUTUM CULTURE + GRAM [id number] 14:13:00 Test Item Value Reference Range Comments CULTURE (BEAKER) (test arwf=3068) No growth GRAM STAIN RESULT (BEAKER) (test <1+ WBCs pook=9332) GRAM STAIN RESULT (BEAKER) (test 0-5 epithelial cells honr=72811) GRAM STAIN RESULT (BEAKER) (test No organisms seen fjks=92620) [id number] 13:13:00 Test Item Value Reference Range Comments CORTISOL, TOTAL (BEAKER) (test rgwq=5523) 14.3 ug/dL 3.7-19.4 [id number] 12:49:00 Test Item Value Reference Range Comments POTASSIUM (BEAKER) (test ywbf=341) 4.0 meq/L 3.5-5.1 [id number] 12:49:00 Test Item Value Reference Range Comments MAGNESIUM (BEAKER) (test zrym=517) 2.5 mg/dL 1.6-2.6 POCT-GLUCOSE [id number] 11:22:00 Test Item Value Reference Range Comments POC-GLUCOSE METER (BEAKER) 182 mg/dL 70-110 TESTED AT [facility] [address] (test opcw=6855) [place] [address] RAD, CHEST, 1 VIEW, NON [id number] 09:51:00Reason for exam:->Temp pacemaker position.Should this be performed at the bedside?->YesFINAL REPORT CLINICAL HISTORY: Temp pacemaker position. TECHNIQUE: 1 view of the chest. COMPARISON: 10/10/2018 IMPRESSION: The ETT has been removed. The left jugular line and right jugular transvenous pacer lead appear unchanged. Mildly prominent lung markings have decreased. There is no significant pleural fluid. The cardiomediastinal silhouette is magnified by technique. Signed: Jaret Robbins [facility] Verified Date/Time: 10/11/2018 09:51: 15 Reading Location: [facility] Radiology Reading Room BASIC METABOLIC [id number] 06:48:00 Test Item Value Reference Range Comments SODIUM (BEAKER) (test 140 meq/L 136-145 gdpd=430) POTASSIUM (BEAKER) (test 3.7 meq/L 3.5-5.1 atsv=972) CHLORIDE (BEAKER) (test 117 meq/L 98-107 nyfb=828) CO2 (BEAKER) (test 16 meq/L 22-29 osum=778) BLOOD UREA NITROGEN 6 mg/dL 7-21 (BEAKER) (test djav=467) CREATININE (BEAKER) (test 0.74 mg/dL 0.57-1.25 jrbn=038) GLUCOSE RANDOM (BEAKER) 145 mg/dL 70-105 (test syes=690) CALCIUM (BEAKER) (test 7.4 mg/dL 8.4-10.2 utaz=060) EGFR (BEAKER) (test 77 mL/min/1.73 sq m ESTIMATED GFR IS NOT jsnw=5581) ACCURATE CREATININE CLEARANCE IN PREDICTING GLOMERULAR FILTRATION RATE. ESTIMATED GFR IS NOT APPLICABLE FOR DIALYSIS PATIENTS. [id number] 06:44:00 Test Item Value Reference Range Comments MAGNESIUM (BEAKER) (test ccbx=745) 2.2 mg/dL 1.6-2.6 POCT-GLUCOSE [id number] 06:10:00 Test Item Value Reference Range Comments POC-GLUCOSE METER (BEAKER) 166 mg/dL 70-110 TESTED AT [facility] [address] [facility] (test bcep=5898) [facility] [address] BLOOD GAS, [id number] 05:35:00 Test Item Value Reference Range Comments PH ARTERIAL (BEAKER) (test bqbp=299) 7.44 7.35-7.45 PCO2 ARTERIAL (BEAKER) (test ggbd=071) 28 mmHg 35-45 PO2 ARTERIAL (BEAKER) (test xzcz=821) 197 mmHg 80-90 O2 SATURATION ARTERIAL (BEAKER) (test owsh=726) 99.4 % 96.0-97.0 HCO3 ARTERIAL (BEAKER) (test rbvp=522) 19 mmol/L 21-29 BASE EXCESS ARTERIAL (BEAKER) (test qbrr=749) -4.5 mmol/L -2.0-3.0 PATIENT TEMPERATURE (BEAKER) (test ggly=2482) 37.6 C FIO2 (BEAKER) (test abtg=3288) 40.0 % CBC W/PLT COUNT & AUTO [id number] 05:28:00 Test Item Value Reference Range Comments WHITE BLOOD CELL COUNT (BEAKER) (test xqpr=603) 8.1 K/ L 3.5-10.5 RED BLOOD CELL COUNT (BEAKER) (test omfc=545) 3.19 M/ L 3.93-5.22 HEMOGLOBIN (BEAKER) (test wlpx=480) 9.2 GM/DL 11.2-15.7 HEMATOCRIT (BEAKER) (test adaa=835) 30.2 % 34.1-44.9 MEAN CORPUSCULAR VOLUME (BEAKER) (test eout=038) 94.7 fL 79.4-94.8 MEAN CORPUSCULAR HEMOGLOBIN (BEAKER) (test 28.8 pg 25.6-32.2 sucl=407) MEAN CORPUSCULAR HEMOGLOBIN CONC (BEAKER) (test 30.5 GM/DL 32.2-35.5 kqeh=287) RED CELL DISTRIBUTION WIDTH (BEAKER) (test 13.2 % 11.7-14.4 vhvz=389) PLATELET COUNT (BEAKER) (test kwqg=212) 246 K/CU MM 150-450 MEAN PLATELET VOLUME (BEAKER) (test pkdp=681) 10.8 fL 9.4-12.3 NUCLEATED RED BLOOD CELLS (BEAKER) (test 0 /100 WBC 0-0 slue=135) NEUTROPHILS RELATIVE PERCENT (BEAKER) (test 78 % tatl=048) LYMPHOCYTES RELATIVE PERCENT (BEAKER) (test 11 % cdys=946) MONOCYTES RELATIVE PERCENT (BEAKER) (test 11 % xfih=534) EOSINOPHILS RELATIVE PERCENT (BEAKER) (test 0 % gtap=225) BASOPHILS RELATIVE PERCENT (BEAKER) (test 0 % cbeh=547) NEUTROPHILS ABSOLUTE COUNT (BEAKER) (test 6.25 K/ L 1.56-6.13 mxvp=461) LYMPHOCYTES ABSOLUTE COUNT (BEAKER) (test 0.87 K/ L 1.18-3.74 phwr=936) MONOCYTES ABSOLUTE COUNT (BEAKER) (test 0.85 K/ L 0.24-0.36 reoy=159) EOSINOPHILS ABSOLUTE COUNT (BEAKER) (test 0.01 K/ L 0.04-0.36 dgnb=693) BASOPHILS ABSOLUTE COUNT (BEAKER) (test 0.03 K/ L 0.01-0.08 minc=897) IMMATURE GRANULOCYTES-RELATIVE PERCENT (BEAKER) 1 % 0-1 (test rugp=4867) CORTISOL,60 [id number] 02:44:00 Test Item Value Reference Range Comments CORTISOL BASELINE NETWORKED (BEAKER) (test 14.9 mcg/dL jfgt=5860) CORTISOL 30 MINUTE NETWORKED (BEAKER) (test 23.6 mcg/dL tsmw=3723) CORTISOL, 60 MINUTE (BEAKER) (test vmbt=8969) 32.9 ug/dL ACTH STIMULATION TEST INTERPRETATION GUIDELINES(Synonyms: Cortrosyn Test, Cosyntropin or Corticotropin Stimulation Test)Adenocorticotropic hormone (ACTH) is a tropic hormone, made in the pituitary gland, which travels trhough the bloodstream and stimulates the cortex of the adrenal glands to release cortisol. Cortisol is a primary hormone, which aids the body's metabolism of fats, carbohydrates, and protein as well as sodium and potassium regulation.ACTH Stimulation Test: Exogenous administrationof biologically active ACTH stimulates the secretion of cortisol from the adrenal gland. This test is used to evaluate adrenal function by measuring cortisol levels at baseline and at 30 and 60 minutesafter the administration of 250 micrograms of cosyntropin (Cortrosyn). Patients who have received exogenous corticosteroids immediately prior to performing the ACTH Stimulation Test will often have elevated baseline cortisol levels, which may lead to erroneous interpretation of test results. The notable exception is with dexamethasone.Normal Response: An increase in cortisol after stimulation by ACTHis normal. Post-stimulation cortisol concentration should be greater than 20 mcg/dL or the rate of rise from baseline cortisol should be greater than or equal to 9 mcg/dL.Patients with sepsis or septicshock: According to a study by Natasha et al (HARRIETT 2000,283( 8):7641-45), the ACTH Stimulation Test provides important prognostic information. This study defined 3 groups of patients with sepsis or septic shock : 1. Good Survival: Low basal cortisol (<or=34 mcg/dL) and high ACTH response (>9mcg/dL) 2. Intermediate Survival: Low basal cortisol (< 34 mcg/dL) and low response to ACTH (<or=9 mcg/dL) OR High basal cortisol (>34 mcg/dL) or high ACTH response (>9 mcg/dL) 3.Poor Survival: High basal cortisol (>34 mcg/dL) and low ACTH response (<or=9 mcg/dL) .Treatment of patients with relative adrenal dysfunction may be indicated based on test results and the clinical condition of the patient. Additional information, including treatment recommendations, is available in critically ill patients, approved by the Pharmacy, Nutrition, and Therapeutics Committee on 03/28/2004 and available through the Pharmacy Policy and Procedure Section on The Source.Do not run this test if systemic hydrocortisone, methylprednisolone, prednisolone or prednisone has been administered within the past 24 hours. Draw baseline cortisol level just prior to cosyntropin administration. Administer cosyntropin 0.25 mg diluted in 2-5 mL of normal saline slow IV Push over a period of 2 minutes. Draw serum cortisol level 30 minutes after cosyntropin administration. Draw serum cortisollevel 60 minutes after cosyntropin administration.POCT-GLUCOSE [id number] 00:24:00 Test Item Value Reference Range Comments POC-GLUCOSE METER (BEAKER) 142 mg/dL 70-110 TESTED AT [facility] [address] (test aqzy=9531) [facility] [address] [id number] 22:42:00 Test Item Value Reference Range Comments MAGNESIUM (BEAKER) (test levo=741) 2.4 mg/dL 1.6-2.6 CORTISOL,30 [id number] 22:42:00 Test Item Value Reference Range Comments CORTISOL BASELINE NETWORKED (BEAKER) (test 14.9 mcg/dL fqxe=8632) CORTISOL, 30 MINUTE (BEAKER) (test dzxg=2784) 23.6 ug/dL ACTH STIMULATION TEST INTERPRETATION GUIDELINES(Synonyms: Cortrosyn Test, Cosyntropin or Corticotropin Stimulation Test)Adenocorticotropic hormone (ACTH) is a tropic hormone, made in the pituitary gland, which travels trhough the bloodstream and stimulates the cortex of the adrenal glands to release cortisol. Cortisol is a primary hormone, which aids the body's metabolism of fats, carbohydrates, and protein as well as sodium and potassium regulation.ACTH Stimulation Test: Exogenous administrationof biologically active ACTH stimulates the secretion of cortisol from the adrenal gland. This test is used to evaluate adrenal function by measuring cortisol levels at baseline and at 30 and 60 minutesafter the administration of 250 micrograms of cosyntropin (Cortrosyn). Patients who have received exogenous corticosteroids immediately prior to performing the ACTH Stimulation Test will often have elevated baseline cortisol levels, which may lead to erroneous interpretation of test results. The notable exception is with dexamethasone.Normal Response: An increase in cortisol after stimulation by ACTHis normal. Post-stimulation cortisol concentration should be greater than 20 mcg/dL or the rate of rise from baseline cortisol should be greater than or equal to 9 mcg/dL.Patients with sepsis or septicshock: According to a study by Natasha et al (HARRIETT 2000,283( 8):1038-45), the ACTH Stimulation Test provides important prognostic information. This study defined 3 groups of patients with sepsis or septic shock : 1. Good Survival: Low basal cortisol (<or=34 mcg/dL) and high ACTH response (>9mcg/dL) 2. Intermediate Survival: Low basal cortisol (< 34 mcg/dL) and low response to ACTH (<or=9 mcg/dL) OR High basal cortisol (>34 mcg/dL) or high ACTH response (>9 mcg/dL) 3.Poor Survival: High basal cortisol (>34 mcg/dL) and low ACTH response (<or=9 mcg/dL) .Treatment of patients with relative adrenal dysfunction may be indicated based on test results and the clinical condition of the patient. Additional information, including treatment recommendations, is available in critically ill patients, approved by the Pharmacy, Nutrition, and Therapeutics Committee on 03/28/2004 and available through the Pharmacy Policy and Procedure Section on [employer] Source.Do not run this test if systemic hydrocortisone, methylprednisolone, prednisolone or prednisone has been administered within the past 24 hours. Draw baseline cortisol level just prior to cosyntropin administration. Administer cosyntropin 0.25 mg diluted in 2-5 mL of normal saline slow IV Push over a period of 2 minutes. Draw serum cortisol level 30 minutes after cosyntropin administration. Draw serum cortisollevel 60 minutes after cosyntropin administration.CORTISOL,[id number] 22:32:00 Test Item Value Reference Range Comments CORTISOL, BASELINE (SAMI) (test vhie=4487) 14.9 ug/dL ACTH STIMULATION TEST INTERPRETATION GUIDELINES(Synonyms: Cortrosyn Test, Cosyntropin or Corticotropin Stimulation Test)Adenocorticotropic hormone (ACTH) is a tropic hormone, made in the pituitary gland, which travels trhough the bloodstream and stimulates the cortex of the adrenal glands to release cortisol. Cortisol is a primary hormone, which aids the body's metabolism of fats, carbohydrates, and protein as well as sodium and potassium regulation.ACTH Stimulation Test: Exogenous administrationof biologically active ACTH stimulates the secretion of cortisol from the adrenal gland. This test is used to evaluate adrenal function by measuring cortisol levels at baseline and at 30 and 60 minutesafter the administration of 250 micrograms of cosyntropin (Cortrosyn). Patients who have received exogenous corticosteroids immediately prior to performing the ACTH Stimulation Test will often have elevated baseline cortisol levels, which may lead to erroneous interpretation of test results. The notable exception is with dexamethasone.Normal Response: An increase in cortisol after stimulation by ACTHis normal. Post-stimulation cortisol concentration should be greater than 20 mcg/dL or the rate of rise from baseline cortisol should be greater than or equal to 9 mcg/dL.Patients with sepsis or septicshock: According to a study by Natasha et al (HARRIETT 2000,283( 8):9885-45), the ACTH Stimulation Test provides important prognostic information. This study defined 3 groups of patients with sepsis or septic shock : 1. Good Survival: Low basal cortisol (<or=34 mcg/dL) and high ACTH response (>9mcg/dL) 2. Intermediate Survival: Low basal cortisol (< 34 mcg/dL) and low response to ACTH (<or=9 mcg/dL) OR High basal cortisol (>34 mcg/dL) or high ACTH response (>9 mcg/dL) 3.Poor Survival: High basal cortisol (>34 mcg/dL) and low ACTH response (<or=9 mcg/dL) .Treatment of patients with relative adrenal dysfunction may be indicated based on test results and the clinical condition of the patient. Additional information, including treatment recommendations, is available in critically ill patients, approved by the Pharmacy, Nutrition, and Therapeutics Committee on 03/28/2004 and available through the Pharmacy Policy and Procedure Section on The [employer].Do not run this test if systemic hydrocortisone, methylprednisolone, prednisolone or prednisone has been administered within the past 24 hours. Draw baseline cortisol level just prior to cosyntropin administration. Administer cosyntropin 0.25 mg diluted in 2-5 mL of normal saline slow IV Push over a period of 2 minutes. Draw serum cortisol level 30 minutes after cosyntropin administration. Draw serum cortisollevel 60 minutes after cosyntropin administration.[id number] 22:30:00 Test Item Value Reference Range Comments CORTISOL, TOTAL (BEAKER) (test lecn=5157) 15.1 ug/dL 3.7-19.4 RAD, CHEST, 1 VIEW, NON [id number] 20:50:00Reason for exam:->s/p temp wireShould this be performed at the bedside?->YesFINAL REPORT CLINICAL INDICATION: Support lines. Comparison: Same dated Please note that at the time of the original dictation, the left-sided marker was placed on the right side of the patient. The radiology director the department was notified. This may be corrected subsequent to dictation. The cardiomediastinal contours are stable. There is mild central vascular prominence and diffuse interstitial coarsening, nonspecific but possibly reflecting some combination of interstitial scarring and interstitial edema. Pneumonitis should be excluded clinically. Thereis no pneumothorax or significant pleural collection. A right IJ transvenous pacer lead has been repositioned and now overlies the expected position of the intraventricular region/right ventricle. A left IJ CVC and enteric tube are stable in position. Signed: [facility] Verified Date/Time: 10/10/2018 20:50:10 Reading Location: [address] Reading Room [id number] 15:13:00 Test Item Value Reference Range Comments MAGNESIUM (BEAKER) (test odba=042) 1.7 mg/dL 1.6-2.6 POCT-GLUCOSE [id number] 12:43:00 Test Item Value Reference Range Comments POC-GLUCOSE METER (BEAKER) 175 mg/dL 70-110 TESTED AT [address] (test rcjr=2493) [place] [address] [id number] 09:00:00 Test Item Value Reference Range Comments MAGNESIUM (BEAKER) (test 1.1 mg/dL 1.6-2.6 Specimen slightly hemolyzed tvcc=548) BLOOD GAS, [id number] 08:37:00 Test Item Value Reference Range Comments PH ARTERIAL (BEAKER) (test yezo=992) 7.39 7.35-7.45 PCO2 ARTERIAL (BEAKER) (test fgcp=762) 29 mmHg 35-45 PO2 ARTERIAL (BEAKER) (test zywc=516) 179 mmHg 80-90 O2 SATURATION ARTERIAL (BEAKER) (test fzmm=701) 99.2 % 96.0-97.0 HCO3 ARTERIAL (BEAKER) (test bbvv=252) 17 mmol/L 21-29 BASE EXCESS ARTERIAL (BEAKER) (test zwwa=056) -6.6 mmol/L -2.0-3.0 PATIENT TEMPERATURE (BEAKER) (test yvte=2826) 38.0 C FIO2 (BEAKER) (test ndzc=3553) 40.0 % POCT-GLUCOSE [id number] 06:48:00 Test Item Value Reference Range Comments POC-GLUCOSE METER (BEAKER) 230 mg/dL 70-110 TESTED AT [address] (test hpcc=9140) [place] [id number] CT, BRAIN, WITHOUT [id number] 04:06:00FINAL REPORT CT Head without contrast CLINICAL HISTORY: Stroke TECHNIQUE: Contiguous axial images through the head without contrast. This exam was performed according to the departmental dose optimization program which includes automated exposure control, adjustment of the mA and/or kV according to the patient size, and/or use of an iterative reconstruction technique. COMPARISON: CT head dated 10/09/2018. FINDINGS:Interval evolution of the right MCA territory infarction. Hyperdensity in the right basal ganglia with surrounding lucency is favored to represent hemorrhagic transformation with surrounding edema. Additionally there is petechial-like hemorrhage within the posterioraspect of the right MCA territory infarction. Persistent sulcal effacement in the posterior right MCA division. There is mass effect on the adjacent parenchyma and the right lateral ventricle. There is4 mm of leftward midline shift at the septum pellucidum, unchanged in the interval. No extra- axial hemorrhage is identified. The ventricles are unchanged in size. Basilar cisterns are patent. The skullis intact. The visualized paranasal sinuses are well-aerated. Intraorbital contents are unremarkable. IMPRESSION: Interval evolution of the right MCA territory infarction with hemorrhagic transformation in the right basal ganglia with surrounding edema and petechial like hemorrhage in the posterior aspect of the right MCA territory. Persistent sulcal effacement with mass effect on the adjacent parenchyma in the right lateral ventricle and unchanged midline shift. Signed: Veronica Malik MDReport Verified Date/Time: 10/10/2018 04:06:13 RAD, CHEST, 1 VIEW, NON [id number] 03:46:00Reason for exam:->transvenous pacer placementShould this be performed at the bedside?->YesFINAL REPORT History: Support lines Comparison: 10/08/2018 Findings: A singleview of the chest is submitted. The tip of an endotracheal tube is 4.5 cm above the meera. A left IJ CVC tip overlies the superior vena cava without associated pneumothorax or hematoma. A right IJ transvenous pacer lead terminates over the superior right atrium. The distal portion of the lead is looped in the right atrium. Repositioning may be in order. The cardiomediastinal contours are unremarkable. The previously seen diffuse interstitial opacities have partially improved, suggesting improving edema. There is no focal consolidation, large pleural effusion or acute bony abnormality. Signed: Roger Baker MDReport Verified Date /Time: 10/10/2018 03:46:49 Reading Location: [address] Reading Room TROPONIN [id number] 01:06:00 Test Item Value Reference Range Comments TROPONIN I (BEAKER) (test wjfb=332) 0.03 ng/mL 0.00-0.03 Troponin I (TnI) levels must be interpreted in the context of the presenting symptoms and the clinical findings. Elevated TnI levels indicate myocardial damage, but are not specific for ischemic heart disease. Elevated TnI levels are seen in patients with other cardiac conditions (including myocarditis and congestive heart failure), and slight TnI elevations occur in patients with other conditions, including sepsis, renal failure, acidosis, acute neurological disease, and persistent tachyarrhythmia.BASIC METABOLIC [id number] 01:05:00 Test Item Value Reference Range Comments SODIUM (BEAKER) (test 140 meq/L 136-145 tpqj=257) POTASSIUM (BEAKER) (test 4.1 meq/L 3.5-5.1 edem=698) CHLORIDE (BEAKER) (test 118 meq/L 98-107 xxrb=792) CO2 (BEAKER) (test 13 meq/L 22-29 mfoi=631) BLOOD UREA NITROGEN 9 mg/dL 7-21 (BEAKER) (test xten=578) CREATININE (BEAKER) (test 1.01 mg/dL 0.57-1.25 rdcb=486) GLUCOSE RANDOM (BEAKER) 244 mg/dL 70-105 (test abvw=650) CALCIUM (BEAKER) (test 7.0 mg/dL 8.4-10.2 ordd=109) EGFR (BEAKER) (test 54 mL/min/1.73 sq m ESTIMATED GFR IS NOT tvhz=8185) ACCURATE CREATININE CLEARANCE IN PREDICTING GLOMERULAR FILTRATION RATE. ESTIMATED GFR IS NOT APPLICABLE FOR DIALYSIS PATIENTS. CBC W/PLT COUNT & AUTO [id number] 01:00:00 Test Item Value Reference Range Comments WHITE BLOOD CELL COUNT (BEAKER) (test klyx=531) 12.2 K/ L 3.5-10.5 RED BLOOD CELL COUNT (BEAKER) (test esbo=249) 3.59 M/ L 3.93-5.22 HEMOGLOBIN (BEAKER) (test kgva=437) 10.5 GM/DL 11.2-15.7 HEMATOCRIT (BEAKER) (test snll=478) 33.6 % 34.1-44.9 MEAN CORPUSCULAR VOLUME (BEAKER) (test xjov=546) 93.6 fL 79.4-94.8 MEAN CORPUSCULAR HEMOGLOBIN (BEAKER) (test 29.2 pg 25.6-32.2 qusw=838) MEAN CORPUSCULAR HEMOGLOBIN CONC (BEAKER) (test 31.3 GM/DL 32.2-35.5 kdrg=730) RED CELL DISTRIBUTION WIDTH (BEAKER) (test 13.2 % 11.7-14.4 cksi=544) PLATELET COUNT (BEAKER) (test ydlu=891) 375 K/CU MM 150-450 MEAN PLATELET VOLUME (BEAKER) (test tkoa=673) 10.7 fL 9.4-12.3 NUCLEATED RED BLOOD CELLS (BEAKER) (test 0 /100 WBC 0-0 jcgq=302) NEUTROPHILS RELATIVE PERCENT (BEAKER) (test 74 % tvol=916) LYMPHOCYTES RELATIVE PERCENT (BEAKER) (test 13 % nzni=223) MONOCYTES RELATIVE PERCENT (BEAKER) (test 12 % puau=844) EOSINOPHILS RELATIVE PERCENT (BEAKER) (test 0 % gsdo=942) BASOPHILS RELATIVE PERCENT (BEAKER) (test 1 % gqtn=436) NEUTROPHILS ABSOLUTE COUNT (BEAKER) (test 8.97 K/ L 1.56-6.13 qxvg=339) LYMPHOCYTES ABSOLUTE COUNT (BEAKER) (test 1.57 K/ L 1.18-3.74 icut=914) MONOCYTES ABSOLUTE COUNT (BEAKER) (test 1.50 K/ L 0.24-0.36 sgfu=277) EOSINOPHILS ABSOLUTE COUNT (BEAKER) (test 0.01 K/ L 0.04-0.36 bten=258) BASOPHILS ABSOLUTE COUNT (BEAKER) (test 0.06 K/ L 0.01-0.08 vjur=011) IMMATURE GRANULOCYTES-RELATIVE PERCENT (BEAKER) 1 % 0-1 (test djkr=4015) [id number] 00:50:00 Test Item Value Reference Range Comments PROTIME (BEAKER) (test riuw=992) 16.0 seconds 11.9-14.2 INR (BEAKER) (test lbnk=797) 1.4 <=5.9 PARTIAL THROMBOPLASTIN TIME (BEAKER) (test 24.9 seconds 22.5-36.0 hfxd=472) Effective 09/14/2018: PT Reference Range ChangeNew: 11.9-14.2 Previous: 11.7- 14.7RECOMMENDED COUMADIN/WARFARIN INR THERAPY RANGESSTANDARD DOSE: 2.0-3.0 Includes: PROPHYLAXIS for venous thrombosis, systemic embolization; TREATMENT for venous thrombosis and/or pulmonary embolus.HIGH RISK: Target INR is2.5-3.5 for patients wiht mechanical heart valves.POCT-GLUCOSE [id number] 00:30:00 Test Item Value Reference Range Comments POC-GLUCOSE METER (ROCAELAKER) 259 mg/dL 70-110 TESTED AT [address] (test azaa=7954) [place] [address] POCT-GLUCOSE [id number] 18:39:00 Test Item Value Reference Range Comments POC-GLUCOSE METER (ROCAELAKER) 224 mg/dL 70-110 TESTED AT [address] (test wzfx=3571) [place] [address] TROPONIN [id number] 18:10:00 Test Item Value Reference Range Comments TROPONIN I (BEAKER) (test uzpi=834) 0.04 ng/mL 0.00-0.03 Troponin I (TnI) levels must be interpreted in the context of the presenting symptoms and the clinical findings. Elevated TnI levels indicate myocardial damage, but are not specific for ischemic heart disease. Elevated TnI levels are seen in patients with other cardiac conditions (including myocarditis and congestive heart failure), and slight TnI elevations occur in patients with other conditions, including sepsis, renal failure, acidosis, acute neurological disease, and persistent tachyarrhythmia.[id number] 16:25:00 Test Item Value Reference Range Comments POTASSIUM (BEAKER) (test wedn=539) 4.4 meq/L 3.5-5.1 Check Serum Potassium level 2 hours after oral potassium replacement completed or 30 min after intravenous potassium replacement.CT, BRAIN, WITHOUT [id number] 15:45:00FINAL REPORT CT Head without contrast CLINICAL HISTORY: Stroke TECHNIQUE: Contiguous axial CT images through the head without contrast. This exam was performed according to the departmental dose optimization program which includes automated exposure control , adjustment of the mAand/or kV according to the patient size, and/or use of an iterative reconstruction technique. COMPARISON: 10/09/2018 FINDINGS: There is increased loss of lewis-white differentiation in the right middle cerebral artery distribution, particularly the posterior division where there is new sulcal effacement. There has been partial interval resorption of contrast staining of the right basal ganglia. There is increased mass effect compressing the right lateral ventricle with new leftward midline shift of the septum pellucidum by 4 mm. There is no hydrocephalus. There are no extra-axial fluid collections. The skull is intact. The visualized paranasal sinuses are well- aerated. IMPRESSION: Since earlier today, increasingly defined acute infarction involving much of the right middle cerebral artery posterior division. There is new mass effect narrowing the right lateral ventricle with new leftward midline shift. Contrast staining of the right basal ganglia has partially resorbed. Signed: Jaret Robbins MDReport Verified Date/Time: 2018 15:45:17 Reading Location: [address] Neuro Reading Room [id number] 13:08:00 Test Item Value Reference Range Comments RPR SCREEN (Fleet Entertainment GroupAKER) (test hcfd=494) Nonreactive Nonreactive [id number] 13:04:00 Test Item Value Reference Range Comments PARTIAL THROMBOPLASTIN TIME (BEAKER) (test 27.9 seconds 22.5-36.0 xdpn=534) PROTHROMBIN [id number] 13:03:00 Test Item Value Reference Range Comments PROTIME (BEAKER) (test qspt=468) 15.7 seconds 11.9-14.2 INR (BEAKER) (test ngtz=520) 1.3 <=5.9 Effective 09/14/2018: PT Reference Range ChangeNew: 11.9-14.2 Previous: 11.7- 14.7RECOMMENDED COUMADIN/WARFARIN INR THERAPY RANGESSTANDARD DOSE: 2.0-3.0 Includes: PROPHYLAXIS for venous thrombosis, systemic embolization; TREATMENT for venous thrombosis and/or pulmonary embolus.HIGH RISK: Target INR is2.5-3.5 for patients wiht mechanical heart valves.POCT-GLUCOSE [id number] 11:40:00 Test Item Value Reference Range Comments POC-GLUCOSE METER (BEAKER) 127 mg/dL 70-110 TESTED AT [address] (test czsm=4543) [facility] [address] POCT-GLUCOSE [id number] 09:45:00 Test Item Value Reference Range Comments POC-GLUCOSE METER (BEAKER) 171 mg/dL 70-110 TESTED AT [address] (test jgui=3910) [place] [id number] TROPONIN [id number] 09:26:00 Test Item Value Reference Range Comments TROPONIN I (BEAKER) (test zeqi=698) 0.05 ng/mL 0.00-0.03 Troponin I (TnI) levels must be interpreted in the context of the presenting symptoms and the clinical findings. Elevated TnI levels indicate myocardial damage, but are not specific for ischemic heart disease. Elevated TnI levels are seen in patients with other cardiac conditions (including myocarditis and congestive heart failure), and slight TnI elevations occur in patients with other conditions, including sepsis, renal failure, acidosis, acute neurological disease, and persistent tachyarrhythmia.BLOOD GAS, [id number] 08:56:00 Test Item Value Reference Range Comments PH ARTERIAL (BEAKER) (test kkqs=663) 7.37 7.35-7.45 PCO2 ARTERIAL (BEAKER) (test ejto=638) 34 mmHg 35-45 PO2 ARTERIAL (BEAKER) (test zrgg=259) 183 mmHg 80-90 O2 SATURATION ARTERIAL (BEAKER) (test cvvc=243) 99.2 % 96.0-97.0 HCO3 ARTERIAL (BEAKER) (test gnmd=345) 19 mmol/L 21-29 BASE EXCESS ARTERIAL (BEAKER) (test ocsm=489) -5.1 mmol/L -2.0-3.0 PATIENT TEMPERATURE (BEAKER) (test ewsf=6618) 37.0 C FIO2 (BEAKER) (test ytar=4566) 40.0 % HEMOGLOBIN [id number] 08:31:00 Test Item Value Reference Range Comments HEMOGLOBIN A1C (BEAKER) (test ulfa=293) 15.0 % 4.3-6.1 POCT-GLUCOSE [id number] 08:27:00 Test Item Value Reference Range Comments POC-GLUCOSE METER (BEAKER) 205 mg/dL 70-110 TESTED AT [address] (test lavi=4926) [facility] [address] POCT-GLUCOSE [id number] 07:55:00 Test Item Value Reference Range Comments POC-GLUCOSE METER (BEAKER) 198 mg/dL 70-110 TESTED AT [address] (test doqp=5106) [facility] [address] POCT-GLUCOSE [id number] 06:17:00 Test Item Value Reference Range Comments POC-GLUCOSE METER (BEAKER) 166 mg/dL 70-110 TESTED AT [address] (test oqkz=8903) [facility] [address] POCT-GLUCOSE [id number] 06:17:00 Test Item Value Reference Range Comments POC-GLUCOSE METER (BEAKER) 164 mg/dL 70-110 TESTED AT [address] (test wfpa=1121) [facility] [address] POCT-GLUCOSE [id number] 06:17:00 Test Item Value Reference Range Comments POC-GLUCOSE METER (BEAKER) 177 mg/dL 70-110 TESTED AT [address] (test cupz=7964) [facility] [address] POCT-GLUCOSE [id number] 06:17:00 Test Item Value Reference Range Comments POC-GLUCOSE METER (BEAKER) 257 mg/dL 70-110 TESTED AT [address] (test iovx=7254) [facility] [address] VITAMIN B12 AND [id number] 05:00:00 Test Item Value Reference Range Comments VITAMIN B12 (BEAKER) (test nyin=846) 404 pg/mL 213-816 FOLATE (BEAKER) (test cdgn=173) 7.8 ng/mL >=7.0 TSH/FREE T4 IF [id number] 03:12:00 Test Item Value Reference Range Comments THYROID STIMULATING HORMONE (BEAKER) (test 2.05 uIU/mL 0.35-4.94 qesm=919) [id number] 02:43:00 Test Item Value Reference Range Comments PROCALCITONIN (BEAKER) (test ymtv=7939) < ng/mL <0.05 SEPSIS RISK (ng/mL)Low: 0.05-0.50Intermediate: 0.51-2.00High: & gt;=2.01URINALYSIS W/ REFLEX URINE [id number] 02:34:00 Test Item Value Reference Range Comments COLOR (BEAKER) (test vjhq=268) Colorless CLARITY (BEAKER) (test slyg=585) Clear SPECIFIC GRAVITY UA (BEAKER) (test wvpe=827) 1.035 1.001-1.035 PH UA (BEAKER) (test jfvj=018) 5.5 5.0-8.0 PROTEIN UA (BEAKER) (test oukz=525) 50 mg/dL Negative GLUCOSE UA (BEAKER) (test emnn=149) >1000 mg/dL Negative KETONES UA (BEAKER) (test kaki=050) Negative Negative BILIRUBIN UA (BEAKER) (test ttyt=919) Negative Negative BLOOD UA (BEAKER) (test xogc=446) Trace Negative NITRITE UA (BEAKER) (test hthr=781) Negative Negative LEUKOCYTE ESTERASE UA (BEAKER) (test umji=390) Small Negative UROBILINOGEN UA (BEAKER) (test alex=991) 0.2 mg/dL 0.2-1.0 RBC UA (BEAKER) (test mznc=033) 5 /HPF WBC UA (BEAKER) (test balv=859) 8 /HPF MUCUS (BEAKER) (test iurg=0584) Rare SQUAMOUS EPITHELIAL (BEAKER) (test pccg=557) < /HPF YEAST (BEAKER) (test rkwz=8351) Many SOURCE(BEAKER) (test qlhv=4447) [id number] 01:51:00 Test Item Value Reference Range Comments PARTIAL THROMBOPLASTIN TIME (BEAKER) (test 74.9 seconds 22.5-36.0 rpls=566) PROTHROMBIN [id number] 01:49:00 Test Item Value Reference Range Comments PROTIME (BEAKER) (test wjpj=785) 22.1 seconds 11.9-14.2 INR (BEAKER) (test yqbn=478) 2.1 <=5.9 Effective 09/14/2018: PT Reference Range ChangeNew: 11.9-14.2 Previous: 11.7- 14.7RECOMMENDED COUMADIN/WARFARIN INR THERAPY RANGESSTANDARD DOSE: 2.0-3.0 Includes: PROPHYLAXIS for venous thrombosis, systemic embolization; TREATMENT for venous thrombosis and/or pulmonary embolus.HIGH RISK: Target INR is2.5-3.5 for patients wiht mechanical heart valves.BASIC METABOLIC [id number] 01:44: 00 Test Item Value Reference Range Comments SODIUM (BEAKER) (test 138 meq/L 136-145 rszp=370) POTASSIUM (BEAKER) (test 2.7 meq/L 3.5-5.1 seuq=029) CHLORIDE (BEAKER) (test 110 meq/L 98-107 yvvs=503) CO2 (BEAKER) (test 20 meq/L 22-29 xlzf=172) BLOOD UREA NITROGEN 12 mg/dL 7-21 (BEAKER) (test dmcx=094) CREATININE (BEAKER) (test 0.98 mg/dL 0.57-1.25 yyem=714) GLUCOSE RANDOM (BEAKER) 309 mg/dL 70-105 (test amwr=101) CALCIUM (BEAKER) (test 7.1 mg/dL 8.4-10.2 svwp=088) EGFR (BEAKER) (test 56 mL/min/1.73 sq m ESTIMATED GFR IS NOT ctnm=2537) ACCURATE CREATININE CLEARANCE IN PREDICTING GLOMERULAR FILTRATION RATE. ESTIMATED GFR IS NOT APPLICABLE FOR DIALYSIS PATIENTS. CBC W/PLT COUNT & AUTO [id number] 01:34:00 Test Item Value Reference Range Comments WHITE BLOOD CELL COUNT (BEAKER) (test xcrq=483) 10.7 K/ L 3.5-10.5 RED BLOOD CELL COUNT (BEAKER) (test xeeo=512) 4.04 M/ L 3.93-5.22 HEMOGLOBIN (BEAKER) (test rkvy=204) 11.9 GM/DL 11.2-15.7 HEMATOCRIT (BEAKER) (test qilu=564) 37.0 % 34.1-44.9 MEAN CORPUSCULAR VOLUME (BEAKER) (test klfd=546) 91.6 fL 79.4-94.8 MEAN CORPUSCULAR HEMOGLOBIN (BEAKER) (test 29.5 pg 25.6-32.2 tgcr=904) MEAN CORPUSCULAR HEMOGLOBIN CONC (BEAKER) (test 32.2 GM/DL 32.2-35.5 gloi=005) RED CELL DISTRIBUTION WIDTH (BEAKER) (test 12.6 % 11.7-14.4 nsaw=689) PLATELET COUNT (BEAKER) (test uwog=521) 365 K/CU MM 150-450 MEAN PLATELET VOLUME (BEAKER) (test wrhy=234) 10.4 fL 9.4-12.3 NUCLEATED RED BLOOD CELLS (BEAKER) (test 0 /100 WBC 0-0 akyq=846) NEUTROPHILS RELATIVE PERCENT (BEAKER) (test 80 % clig=112) LYMPHOCYTES RELATIVE PERCENT (BEAKER) (test 7 % zstn=906) MONOCYTES RELATIVE PERCENT (BEAKER) (test 11 % msaj=823) EOSINOPHILS RELATIVE PERCENT (BEAKER) (test 0 % hwmn=734) BASOPHILS RELATIVE PERCENT (BEAKER) (test 0 % wxvo=754) NEUTROPHILS ABSOLUTE COUNT (BEAKER) (test 8.64 K/ L 1.56-6.13 eouf=090) LYMPHOCYTES ABSOLUTE COUNT (BEAKER) (test 0.78 K/ L 1.18-3.74 rcgs=269) MONOCYTES ABSOLUTE COUNT (BEAKER) (test 1.17 K/ L 0.24-0.36 sboo=761) EOSINOPHILS ABSOLUTE COUNT (BEAKER) (test 0.02 K/ L 0.04-0.36 gmqc=125) BASOPHILS ABSOLUTE COUNT (BEAKER) (test 0.04 K/ L 0.01-0.08 sdsl=409) IMMATURE GRANULOCYTES-RELATIVE PERCENT (BEAKER) 1 % 0-1 (test qcef=0445) TROPONIN [id number] 01:27:00 Test Item Value Reference Range Comments TROPONIN I (BEAKER) (test ibzt=564) 0.04 ng/mL 0.00-0.03 Troponin I (TnI) levels must be interpreted in the context of the presenting symptoms and the clinical findings. Elevated TnI levels indicate myocardial damage, but are not specific for ischemic heart disease. Elevated TnI levels are seen in patients with other cardiac conditions (including myocarditis and congestive heart failure), and slight TnI elevations occur in patients with other conditions, including sepsis, renal failure, acidosis, acute neurological disease, and persistent tachyarrhythmia.FastingBASIC METABOLIC [id number] 01:24:00 Test Item Value Reference Range Comments SODIUM (BEAKER) (test 138 meq/L 136-145 kjjj=928) POTASSIUM (BEAKER) (test 2.8 meq/L 3.5-5.1 liua=249) CHLORIDE (BEAKER) (test 110 meq/L 98-107 sils=967) CO2 (BEAKER) (test 19 meq/L 22-29 fdqb=896) BLOOD UREA NITROGEN 12 mg/dL 7-21 (BEAKER) (test arzx=689) CREATININE (BEAKER) (test 1.02 mg/dL 0.57-1.25 vxzp=566) GLUCOSE RANDOM (BEAKER) 317 mg/dL 70-105 (test txpf=661) CALCIUM (BEAKER) (test 7.2 mg/dL 8.4-10.2 obhy=444) EGFR (BEAKER) (test 53 mL/min/1.73 sq m ESTIMATED GFR IS NOT qtwk=6245) ACCURATE CREATININE CLEARANCE IN PREDICTING GLOMERULAR FILTRATION RATE. ESTIMATED GFR IS NOT APPLICABLE FOR DIALYSIS PATIENTS. [id number] 01:20:00 Test Item Value Reference Range Comments POTASSIUM (BEAKER) (test ssyc=219) 2.8 meq/L 3.5-5.1 FastingLIPID [id number] 01:20:00 Test Item Value Reference Range Comments TRIGLYCERIDES (BEAKER) (test sehh=369) 205 mg/dL CHOLESTEROL (BEAKER) (test uiay=357) 194 mg/dL HDL CHOLESTEROL (BEAKER) (test etdn=586) 31 mg/dL LDL CHOLESTEROL CALCULATED (BEAKER) (test 122 mg/dL gztp=310) Triglyceride Reference Range: Low Risk <150 Borderline 150- 199 High Risk 200-499 Very High Risk >=500Cholesterol Reference Range: Low Risk <200 Borderline 200-239 High Risk > 240HDL Cholesterol Reference Range: Low Risk >=60 High Risk <40LDL Cholesterol Reference Range: Optimal <100 Near Optimal 100-129 Borderline 130-159 High 160-189 Very High >=190 FastingHEPATIC FUNCTION [id number] 01:20:00 Test Item Value Reference Range Comments TOTAL PROTEIN (BEAKER) (test cpel=470) 6.2 gm/dL 6.0-8.3 ALBUMIN (BEAKER) (test nris=2652) 2.8 g/dL 3.5-5.0 BILIRUBIN TOTAL (BEAKER) (test yflx=017) 0.2 mg/dL 0.2-1.2 BILIRUBIN DIRECT (BEAKER) (test lhek=441) 0.1 mg/dL 0.1-0.5 ALKALINE PHOSPHATASE (BEAKER) (test imlj=976) 117 U/L 40-150 AST (SGOT) (BEAKER) (test cqkx=024) 13 U/L 5-34 ALT (SGPT) (BEAKER) (test addu=794) 7 U/L 6-55 [id number] 01:20:00 Test Item Value Reference Range Comments GLUCOSE RANDOM (BEAKER) (test tios=362) 317 mg/dL 70-105 FastingC-REACTIVE [id number] 01:20:00 Test Item Value Reference Range Comments C-REACTIVE PROTEIN (BEAKER) (test yfpn=879) 1.97 mg/dL 0.00-0.50 FastingLACTIC ACID, [id number] 01:14:00 Test Item Value Reference Range Comments LACTATE BLOOD VENOUS (2) 1.2 mmol/L 0.5-2.2 Specimen slightly hemolyzed (BEAKER) (test exkl=9090) LACTIC ACID, [id number] 01:14:00 Test Item Value Reference Range Comments LACTATE BLOOD VENOUS (2) 1.2 mmol/L 0.5-2.2 Specimen slightly hemolyzed (BEAKER) (test lqer=6103) POCT-GLUCOSE [id number] 00:37:00 Test Item Value Reference Range Comments POC-GLUCOSE METER (BEAKER) 283 mg/dL 70-110 TESTED AT [facility] [address] [place] [address] (test faff=1029) [facility] [address] CT, BRAIN, WITHOUT [id number] 00:33:00FINAL REPORT CT Head without contrast CLINICAL HISTORY: s/p thrombectomy, evaluate for ICH TECHNIQUE: Contiguous axial images through the head without contrast. This exam was performed according to the departmental dose optimization program which includes automated exposure control, adjustment of the mA and/or kV according to the patient size, and/or use of an iterative reconstruction technique. COMPARISON: CTA head and neck, 10/08/2018 FINDINGS:Recent contrast and sedation limits evaluation for intracranial hemorrhage. Contrast staining of the right caudate nucleus and putamen, underlying hemorrhage is difficult to exclude recommend continued close attention on follow-up imaging. Subtle cortical hyperdensity in the right superior parietal lobe may represent additional focusof contrast staining however findings are concerning for subarachnoid hemorrhage. Loss of the lewis-white matter differentiation in the right MCA territory, anterior right temporal lobe and insula suggestive of acute infarction. Generalized parenchymal volume loss with commensurate enlargement of CSF spaces and ventricles. Chronic microvascular ischemic changes.Basilar cisterns are patent. The skull is intact. The visualized paranasal sinuses are well-aerated. Intraorbital contents are unremarkable. IMPRESSION: Loss of lewis-white differentiation of the right MCA territory concerning for acute infarction, this will be further evaluated on forthcoming MRI brain. Contrast staining in the acute infarction in the right basal ganglia limits evaluation for underlying hemorrhage. Recommend close attention on follow -up imaging. Hyperdensity in the right parietal lobe as described above may represent additional foci of contrast staining however findings are concerning for trace subarachnoid hemorrhage.NOTIFICATION: The significant results of this study were discussed with and acknowledged by in houseneurology resident, by telephone on 10/09/2018 12:33 AM. Signed: Veronica Malik Verified Date/Time: 10/09/2018 00:33:32 RAD, CHEST, 1 VIEW, NON [id number] 21:56: 00Reason for exam:->NEUROLOGIC PROBLEMReason for exam:->acute stroke, post line placementShould this be performed at the bedside?->YesFINAL REPORT History: Line placement. Comparison: None. Findings: A single view of the chest is submitted. A right IJ CVC tip overlies the superior vena cava without associated pneumothorax or hematoma. The cardiomediastinal contours are unremarkable. There are nonspecific, diffusely coarsened interstitial markings, which could reflect interstitial scarring, interstitial edema or atypical infection. There is no focal consolidation, large pleural effusion or acute bony abnormality. Signed: Roger Baker Verified Date /Time: 10/08/2018 21:56:10 Reading Location: [address] Reading Room CT, CAROTID, [id number] 21:51:00Reason for exam:->NEUROLOGIC PROBLEMWhat is the patient's sedation requirement?->No SedationFINAL REPORT CLINICAL HISTORY: Stroke TECHNIQUE: Contiguous contrast- enhancedaxial images through the neck followed by axial images through the head with coronal and sagittal reformations to assess the arterial circulation. 3-D reconstructions were performed using a volume rendered technique separately on a workstation. This exam was performed according to the departmental dose optimization program which includes automated exposure control, adjustment of the mA and/or kV according to the patient size, and/or use of an iterative reconstruction technique. COMPARISON: Same day head CT. FINDINGS:Examination limited by motion artifact. Findings consistent with of acute infarction of the right basal ganglia, insula and inferior temporal lobe. Likely moderate stenosis of the origin of the left subclavian artery with multifocal stenosis of the distal left subclavian axillary artery. Moderate stenosis of the origin of the left vertebral artery which is patent throughout the remainder of its course. Severe stenosis of the origin of the right vertebral artery which is otherwise patent. Mild stenosis of the origin of the right brachiocephalic artery with severe stenosis versus focal occlusion of the right subclavian artery at the thoracic outlet. The right common carotid arteryis patent. There is mild stenosis of the origin of the left common carotid artery secondary to atherosclerosis. Severe stenosis of the origin of the right internal common carotid artery, with atherosclerotic calcifications limiting evaluation however likely 99% stenosis. The right internal carotid artery demonstrates no contrast opacification in the distal neck, just prior to the start of the petroussegment. There is severe stenosis with threadlike opacification, 99% in the proximal left internal carotid artery with poststenotic dilatation. The remainder of the cervical left internal carotid artery is patent. Atherosclerotic calcification of the left carotid siphon resulting in mild apparent supraclinoid stenosis. The intradural right internal carotid artery demonstrates no contrast opacification. The A1 segment of the right anterior cerebral artery fills via retrograde flow from the anterior to indicating artery. M1/proximal M2 segments of the right middle cerebral artery demonstrate no contrast opacification. There is scattered filling of the distal M2 segments notably the sylvian branch of the right middle cerebral artery via collateral flow . The left middle cerebral artery is patent. The left anterior cerebral and A2 right anterior cerebral arteries are patent. The anterior communicating artery is patent. The intradural vertebral and basilar arteries are patent. Bilateral posterior cerebral arteries are patent. There are dorsal spondylitic changes in the cervical spine. There arescattered subcentimeter lymph nodes in the neck. Severe paraseptal and centrilobular emphysematous changes. Motion artifact limits evaluation for suspicious pulmonary nodules. Scattered calcified granulomas. 4 mm pulmonary nodule in the right upper lobe. No pneumothorax or pleural effusion. IMPRESSION:Acute infarction of the right basal ganglia, insula and temporal lobe. Severe stenosis of the originof the bilateral internal common carotid artery, with atherosclerotic calcifications limiting evaluation however likely 99% stenosis. The right internal carotid artery demonstrates no contrast opacification in the distal neck, just prior to the start of the petrous segment through the carotid terminus which may be related to slow flow versus occlusion. There is no contrast opacification of the rightM1 and proximal M2 segments of the middle cerebral artery with scattered filling of the distal M2 segments likely via collateral flow. Moderate stenosis of the origin of the left and severe stenosis ofthe origin of the right vertebral arteries which are otherwise patent. Likely moderate stenosis of the origin of the left subclavian artery with multifocal stenosis of the distal left subclavian axillary artery. Severe stenosis versus focal occlusion of the right subclavian artery at the thoracic outlet. 4 mm pulmonary nodule in the right upper lobe. Recommend CT chest in 12 months to ensure stability. NOTIFICATION: The significant results of this study were discussed with and acknowledged by in house neurology resident, by telephone on 10/08/2018 at the time of the scan. Signed: Veronica Malik [facility] Verified Date/Time: 10/08/2018 21:51:45 . [facility], [facility] [id number] 21:51:00FINAL REPORT CLINICAL HISTORY: Stroke TECHNIQUE: Contiguous contrast-enhancedaxial images through the neck followed by axial images through the head with coronal and sagittal reformations to assess the arterial circulation. 3-D reconstructions were performed using a volume rendered technique separately on a workstation. This exam was performed according to the departmental dose optimization program which includes automated exposure control, adjustment of the mA and/or kV according to the patient size, and/or use of an iterative reconstruction technique. COMPARISON: Same day head CT. FINDINGS:Examination limited by motion artifact. Findings consistent with of acute infarction of the right basal ganglia, insula and inferior temporal lobe. Likely moderate stenosis of the origin of the left subclavian artery with multifocal stenosis of the distal left subclavian axillary artery. Moderate stenosis of the origin of the left vertebral artery which is patent throughout the remainder of its course. Severe stenosis of the origin of the right vertebral artery which is otherwise patent. Mild stenosis of the origin of the right brachiocephalic artery with severe stenosis versus focal occlusion of the right subclavian artery at the thoracic outlet. The right common carotid arteryis patent. There is mild stenosis of the origin of the left common carotid artery secondary to atherosclerosis. Severe stenosis of the origin of the right internal common carotid artery, with atherosclerotic calcifications limiting evaluation however likely 99% stenosis. The right internal carotid artery demonstrates no contrast opacification in the distal neck, just prior to the start of the petroussegment. There is severe stenosis with threadlike opacification, 99% in the proximal left internal carotid artery with poststenotic dilatation. The remainder of the cervical left internal carotid artery is patent. Atherosclerotic calcification of the left carotid siphon resulting in mild apparent supraclinoid stenosis. The intradural right internal carotid artery demonstrates no contrast opacification. The A1 segment of the right anterior cerebral artery fills via retrograde flow from the anterior to indicating artery. M1/proximal M2 segments of the right middle cerebral artery demonstrate no contrast opacification. There is scattered filling of the distal M2 segments notably the sylvian branch of the right middle cerebral artery via collateral flow . The left middle cerebral artery is patent. The left anterior cerebral and A2 right anterior cerebral arteries are patent. The anterior communicating artery is patent. The intradural vertebral and basilar arteries are patent. Bilateral posterior cerebral arteries are patent. There are dorsal spondylitic changes in the cervical spine. There arescattered subcentimeter lymph nodes in the neck. Severe paraseptal and centrilobular emphysematous changes. Motion artifact limits evaluation for suspicious pulmonary nodules. Scattered calcified granulomas. 4 mm pulmonary nodule in the right upper lobe. No pneumothorax or pleural effusion. IMPRESSION: Acute infarction of the right basal ganglia, insula and temporal lobe. Severe stenosis of the originof the bilateral internal common carotid artery, with atherosclerotic calcifications limiting evaluation however likely 99% stenosis. The right internal carotid artery demonstrates no contrast opacification in the distal neck, just prior to the start of the petrous segment through the carotid terminus which may be related to slow flow versus occlusion. There is no contrast opacification of the rightM1 and proximal M2 segments of the middle cerebral artery with scattered filling of the distal M2 segments likely via collateral flow. Moderate stenosis of the origin of the left and severe stenosis ofthe origin of the right vertebral arteries which are otherwise patent. Likely moderate stenosis of the origin of the left subclavian artery with multifocal stenosis of the distal left subclavian axillary artery. Severe stenosis versus focal occlusion of the right subclavian artery at the thoracic outlet. 4 mm pulmonary nodule in the right upper lobe. Recommend CT chest in 12 months to ensure stability. NOTIFICATION: The significant results of this study were discussed with and acknowledged by in house neurology resident, by telephone on 10/08/2018 at the time of the scan. Signed: Veronica Malik [facility] Verified Date/Time: 10/08/2018 21:51:45 BLOOD GAS, [id number] 21 :39:00 Test Item Value Reference Range Comments PH VENOUS (BEAKER) (test wnag=870) 7.30 7.32-7.42 PCO2 VENOUS (BEAKER) (test ihty=612) 45 mmHg 41-51 PO2 VENOUS (BEAKER) (test cqvr=428) 50 mmHg 25-40 O2 SATURATION VENOUS (BEAKER) (test bewa=203) 80.7 % 40.0-70.0 HCO3 VENOUS (BEAKER) (test pbgj=171) 22 mmol/L 21-29 BASE EXCESS VENOUS (BEAKER) (test hsqa=647) -4.3 mmol/L -2.0-3.0 PATIENT TEMPERATURE (BEAKER) (test cgtp=4210) 37.5 C FIO2 (BEAKER) (test xeuf=7143) 100.0 % B-TYPE NATRIURETIC FACTOR (BNP)2018-10-08 21:09:00 Test Item Value Reference Range Comments B-TYPE NATRIURETIC PEPTIDE (BEAKER) (test 247 pg/mL 0-100 yfju=511) TROPONIN [id number] 21:08:00 Test Item Value Reference Range Comments TROPONIN I (BEAKER) (test xpcr=562) 0.03 ng/mL 0.00-0.03 Troponin I (TnI) levels must be interpreted in the context of the presenting symptoms and the clinical findings. Elevated TnI levels indicate myocardial damage, but are not specific for ischemic heart disease. Elevated TnI levels are seen in patients with other cardiac conditions (including myocarditis and congestive heart failure), and slight TnI elevations occur in patients with other conditions, including sepsis, renal failure, acidosis, acute neurological disease, and persistent tachyarrhythmia.BASIC METABOLIC [id number] 21:07:00 Test Item Value Reference Range Comments SODIUM (BEAKER) (test 131 meq/L 136-145 lanb=323) POTASSIUM (BEAKER) (test 4.0 meq/L 3.5-5.1 nynd=355) CHLORIDE (BEAKER) (test 99 meq/L 98-107 gvsj=605) CO2 (BEAKER) (test 20 meq/L 22-29 hhhp=122) BLOOD UREA NITROGEN 15 mg/dL 7-21 (BEAKER) (test hhch=460) CREATININE (BEAKER) (test 1.53 mg/dL 0.57-1.25 vvfs=173) GLUCOSE RANDOM (BEAKER) 652 mg/dL 70-105 (test zfuj=344) CALCIUM (BEAKER) (test 9.0 mg/dL 8.4-10.2 fzfm=047) EGFR (BEAKER) (test mL/min/1.73 sq m INSUFFICIENT CLINICAL DATA xxbe=0850) TO CALCULATE ESTIMATED GFR. [id number] 21:03:00 Test Item Value Reference Range Comments PHOSPHORUS (BEAKER) (test whxb=467) 3.1 mg/dL 2.3-4.7 [id number] 21:03:00 Test Item Value Reference Range Comments MAGNESIUM (BEAKER) (test pmvq=079) 1.6 mg/dL 1.6-2.6 HEPATIC FUNCTION [id number] 21:03:00 Test Item Value Reference Range Comments TOTAL PROTEIN (BEAKER) (test gebz=793) 7.7 gm/dL 6.0-8.3 ALBUMIN (BEAKER) (test ladi=5576) 3.4 g/dL 3.5-5.0 BILIRUBIN TOTAL (BEAKER) (test mtjw=637) 0.4 mg/dL 0.2-1.2 BILIRUBIN DIRECT (BEAKER) (test kegn=096) 0.2 mg/dL 0.1-0.5 ALKALINE PHOSPHATASE (BEAKER) (test llvh=788) 153 U/L 40-150 AST (SGOT) (BEAKER) (test qtjw=393) 12 U/L 5-34 ALT (SGPT) (BEAKER) (test zwhy=319) 8 U/L 6-55 CREATINE KINASE (CK)2018-10-08 21:03:00 Test Item Value Reference Range Comments CREATINE KINASE TOTAL (BEAKER) (test mwee=973) 22 U/L 29-200 [id number] 20:47:00 Test Item Value Reference Range Comments PROTIME (BEAKER) (test pgfc=374) 14.9 seconds 11.9-14.2 INR (BEAKER) (test phhf=641) 1.2 <=5.9 PARTIAL THROMBOPLASTIN TIME (BEAKER) (test 29.2 seconds 22.5-36.0 aafn=321) Effective 09/14/2018: PT Reference Range ChangeNew: 11.9-14.2 Previous: 11.7- 14.7RECOMMENDED COUMADIN/WARFARIN INR THERAPY RANGESSTANDARD DOSE: 2.0-3.0 Includes: PROPHYLAXIS for venous thrombosis, systemic embolization; TREATMENT for venous thrombosis and/or pulmonary embolus.HIGH RISK: Target INR is2.5-3.5 for patients wiht mechanical heart valves.CBC W/PLT COUNT & AUTO [id number] 20:35:00 Test Item Value Reference Range Comments WHITE BLOOD CELL COUNT (BEAKER) (test iwrt=235) 7.2 K/ L 3.5-10.5 RED BLOOD CELL COUNT (BEAKER) (test mrpx=037) 4.40 M/ L 3.93-5.22 HEMOGLOBIN (BEAKER) (test ihjb=629) 12.6 GM/DL 11.2-15.7 HEMATOCRIT (BEAKER) (test xuip=184) 39.0 % 34.1-44.9 MEAN CORPUSCULAR VOLUME (BEAKER) (test yqhx=805) 88.6 fL 79.4-94.8 MEAN CORPUSCULAR HEMOGLOBIN (BEAKER) (test 28.6 pg 25.6-32.2 nynj=072) MEAN CORPUSCULAR HEMOGLOBIN CONC (BEAKER) (test 32.3 GM/DL 32.2-35.5 wqde=003) RED CELL DISTRIBUTION WIDTH (BEAKER) (test 12.6 % 11.7-14.4 srjw=522) PLATELET COUNT (BEAKER) (test xbxj=035) 366 K/CU MM 150-450 MEAN PLATELET VOLUME (BEAKER) (test ejww=237) 10.6 fL 9.4-12.3 NUCLEATED RED BLOOD CELLS (BEAKER) (test 0 /100 WBC 0-0 ragv=335) NEUTROPHILS RELATIVE PERCENT (BEAKER) (test 65 % llwa=921) LYMPHOCYTES RELATIVE PERCENT (BEAKER) (test 19 % wrcc=263) MONOCYTES RELATIVE PERCENT (BEAKER) (test 13 % kwkb=952) EOSINOPHILS RELATIVE PERCENT (BEAKER) (test 2 % axtz=424) BASOPHILS RELATIVE PERCENT (BEAKER) (test 1 % juqb=082) NEUTROPHILS ABSOLUTE COUNT (BEAKER) (test 4.72 K/ L 1.56-6.13 qotn=516) LYMPHOCYTES ABSOLUTE COUNT (BEAKER) (test 1.34 K/ L 1.18-3.74 ejug=177) MONOCYTES ABSOLUTE COUNT (BEAKER) (test 0.91 K/ L 0.24-0.36 mmyh=141) EOSINOPHILS ABSOLUTE COUNT (BEAKER) (test 0.12 K/ L 0.04-0.36 fkdl=970) BASOPHILS ABSOLUTE COUNT (BEAKER) (test 0.05 K/ L 0.01-0.08 lyci=110) IMMATURE GRANULOCYTES-RELATIVE PERCENT (BEAKER) 1 % 0-1 (test zwst=0568) POCT-GLUCOSE [id number] 20:12:00 Test Item Value Reference Range Comments POC-GLUCOSE METER (BEAKER) 488 mg/dL 70-110 TESTED AT [facility] [address] [facility] (test auiv=3949) [facility] [address] CT, BRAIN/STROKE [id number] 20:09:00Reason for exam:->strokeWhat is the patient's sedation requirement?->No SedationFINAL REPORT CLINICAL HISTORY: Stroke like symptoms COMPARISON: None Multiple axial images of the brain were performed without IV contrast. This exam was performed according to our departmental dose-optimization program, which includes automated exposure control, adjustment of the mA and/or kV according to patient size and/or use of the iterative reconstruction technique. Images were performed within 24 hours of arrival at the facility. The examination is slightly limited by patient motion. Intracranial hemorrhage: None. Brain parenchyma: No CT evidence of acute ischemia. The lewis-white interface is maintained. Diffuse parenchymal volume loss. Scattered subcortical and periventricular non-specific white matter hypodensities suggestive of microangiopathy. Ventricles, sulci and basal cisterns: Normal for age. Extra- axial spaces: Normal. Midline shift: None. Visualized vasculature: Atherosclerotic calcifications. Cranium: No significant findings. Skullbase: No significant findings. Paranasal sinuses: No significant findings. IMPRESSION: No definite acute intracranial abnormality. There is no mass lesion, intracranial hemorrhage or CT evidence of acute stroke. Microvascular and involutional changes. Please note that CT is insensitive in the detection of acute ischemia. Findings were discussed with Dr. Avila at 2010 hours on the date of the examination. Signed: Roger [facility] Verified Date/Time: 20:09:27 Reading Location: [address] Reading Room
[2018-11-18 14:22] LABS: Basophils % 1.4 % (0-1.3); Hematocrit 30.1 % (36.0-45.0); Lymphocytes % 24.9 % (15.3-44.8); RBC Red Blood Cell Count 3.36 M/uL (3.86-4.86)
[2018-11-18 14:27] LABS: Protime INR 1.34
[2018-11-18 14:43] LABS: ALT/SGPT 21 U/L (12-78); AST/SGOT 22 U/L (15-37); Albumin 2.6 g/dL (3.4-5.0); Alkaline Phosphatase 153 U/L (45-117); BUN Blood Urea Nitrogen 22 mg/dL (7-18); Bicarbonate 27 mmol/L (21-32); Bilirubin Direct 0.1 mg/dL (0-0.2); Bilirubin Total 0.4 mg/dL (0.2-1.0); Glucose Level 133 mg/dL (74-106); Magnesium 2.2 mg/dL (1.8-2.4); NT PRO-BNP 6619 pg/mL (<125); Protein, Total 7.8 g/dL (6.4-8.2); Sodium Level 143 mmol/L (136-145); Troponin (Emerg Dept Use Only) < 0.02 ng/mL (0.0-0.045)
--- NOTE | 2018-11-18 15:19 | RAD REPORT ---
EXAM DESCRIPTION: US - UPPER EXTREMITY VENOUS UNILATE - 11/18/2018 3:13 pm CLINICAL HISTORY: Right arm pain and swelling COMPARISON: None. TECHNIQUE: Real-time sonographic evaluation of the right upper extremity deep venous systems was per formed. FINDINGS: Normal compressibility, flow augmentation, phasic flow and spontaneous flow are identified in the right upper extremity deep venous system. No intraluminal filling defects seen. Internal jugu lar and subclavian veins are normal as well. IMPRESSION: No DVT in the right upper extremity.
--- NOTE | 2018-11-18 15:50 | RAD REPORT ---
EXAM DESCRIPTION: CT - Head C Spine Mason Em - 11/18/2018 3:20 pm CLINICAL HISTORY: Recent CVA, fall, declining state, head, neck, chest and abdomen pain COMPARISON: None. TECHNIQUE: Axial [address] head images were obtained. Axial [address] cervical spine images were obtaine d with sagittal and coronal reconstruction images reviewed. During dynamic enhancement of 100mL non-i onic contrast, axial 5 mm images of the chest, abdomen and pelvis were obtained. All CT scans are performed using dose optimization technique as appropriate and may include automated exposure control or mA/KV adjustment according to patient size. FINDINGS: A large area of diminished attenuation involves the right occipital lobe in the posterior aspect of the right temporal lobe. Decreased attenuation extends into the internal capsule on the rig ht, the external capsule and the lentiform nucleus. No midline shift. There is mild localized edema b ut no significant effacement of a major ventricle or cistern. The lewis matter- white matter different iation is lost in this area of CVA. Provided history details recent CVA but is not further descriptio n. Current finding is consistent with a subacute infarction. No hemorrhagic transformation. Extent of prior CVA is not known. Current findings could show some progression along the boundaries. Has a baseline the patient has mild to moderate atrophy and chronic ischemic change. Mastoid air cell s and paranasal sinuses are clear. No skull fracture. Cervical bodies are normal in height. There is slight retrolisthesis of the C3 and C4 bodies relative to C2 and C5. C4-5 and posterior C5-6 disc space narrowing seen with posterior endplate spurring. No other alignment abnormalities. No fracture or acute vertebral body finding. Facet joint degenerative change present. Central canal detail is inherently limited. Concerns for traumatic disc herniation o r traumatic cord injury can be further addressed with MR imaging. CT chest imaging shows no post traumatic chest injury. Patient has substantial underlying emphysema c hange. Bilateral lower lobe airspace opacities are present in addition to the interstitial fibrotic t hickening. This is in part atelectasis. Infiltrate is suspected as well and this may well be aspirati on pneumonia given the recent CVA. No mediastinal hematoma and the aorta and pulmonary arteries are u nremarkable. No chest will mass or abnormal axillary finding. No displaced rib fracture or other sign ificant bony finding. Small pericardial effusion is present. CT abdomen and pelvis show no injury to solid abdominal viscera. Gallbladder is absent. No biliary tr ee dilatation. No bowel injury or significant finding. No free air, free fluid or abnormal stranding. No pyelonephritis or acute renal parenchymal process. Acute bladder process is not suspected. Uterus , ovaries and adnexa without suspicious findings. Bony degenerative changes are present without acute finding. IMPRESSION: Subacute right occipital and posterior right temporal lobe CVA with extension into the i nternal capsule, external capsule and lentiform nucleus. History indicates recent CVA but no images a re available to evaluate for any possible extension. There is no hemorrhagic transformation, hematoma formation or definitive new acute infarction. Cervical spine degenerative change without acute finding. Bilateral posterior lower lobe airspace opacification believed to be a combination of infiltrate and atelectasis. Aspiration pneumonia is certainly possible given the CVA history. No post traumatic injuries to the chest. No pyelonephritis present. No acute GI or process. No evidence for an abdominal or pelvic infectio us process or other acute finding.
[2018-11-18] MEDS ORDERED: ACETAMINOPHEN 325 MG TABLET ONE (16:39)
--- NOTE | 2018-11-18 18:03 | ER ---
Nurse's Notes [facility] Name: Tab Hanley Age: 73 yrs Sex: Female : 1945 Arrival Date: 11/18/2018 Time: 13:07 Bed 14 Private MD: Diagnosis: Weakness;Poor Appetite;Pneumonia, unspecified organism Presentation: 11/18 13:08 Presenting complaint: EMS states: [facility] personnel report "She's not talking or jl7 eating as much as normal.". Transition of care: patient was not received from another setting of care. Onset of symptoms was November 18, 2018. Risk Assessment: Do you want to hurt yourself or someone else? Patient reports no desire to harm self or others. Care prior to arrival: None. 13:08 Method Of Arrival: EMS: [facility] jl7 13:08 Acuity: ELIER 3 jl7 14:22 Initial Sepsis Screen: Does the patient meet any 2 criteria? No. Patient's initial jl7 sepsis screen is negative. Does the patient have a suspected source of infection? No. Patient's initial sepsis screen is negative. Triage Assessment: 13:13 General: Appears in no apparent distress. uncomfortable, Behavior is cooperative. Pain: jl7 Denies pain. EENT: No signs and/or symptoms were reported regarding the EENT system. Neuro: Level of Consciousness is awake, alert, obeys commands, Oriented to person. Cardiovascular: Patient's skin is warm and dry. Respiratory: Airway is patent Respiratory effort is even, unlabored, Respiratory pattern is regular, symmetrical. Derm: Skin is pink, warm \\T\\ dry. Musculoskeletal: Left sided deficits from CVA. Historical: - Allergies: 13:13 No Known Allergies; jl7 - Home Meds: 13:13 atorvastatin 80 mg Oral tab 1 tab once daily [Active]; gabapentin 100 mg Oral cap jl7 [Active]; carvedilol 6.25 mg Oral tab 1 tab every 12 hours [Active]; apixaban Oral [Active]; clopidogrel 75 mg Oral tab 1 tab once daily [Active]; isosorbide mononitrate 30 mg Oral Tb24 1 tab once daily [Active]; fluoxetine 10 mg Oral cap 1 caps once daily [Active]; famotidine 20 mg Oral tab [Active]; Insulin Glargine Sub-Q [Active]; - PMHx: 13:13 Depression; Diabetes - IDDM; GERD; Hyperlipidemia; Hypertension; CVA; jl7 - Immunization history:: Adult Immunizations up to date. - Social history:: Smoking status: unknown. - Ebola Screening: : No symptoms or risks identified at this time. Screenin:16 Abuse screen: Denies threats or abuse. Denies injuries from another. Nutritional jl7 screening: No deficits noted. Tuberculosis screening: No symptoms or risk factors identified. 14:23 Fall Risk No fall in past 12 months (0 pts). Secondary diagnosis (15 points) CVA, IV jl7 access (20 points). Ambulatory Aid- None/Bed Rest/Nurse Assist (0 pts). Gait- Normal/Bed Rest/Wheelchair (0 pts) Mental Status- Overestimates/Forgets Limitations (15 pts.). Total Trevino Fall Scale indicates High Risk Score (45 or more points). Fall prevention measures have been instituted. Side Rails Up X 2 Placed Close to Nursing Station Frequent Obs/Assessments Occuring As available patient and family educated on Fall Prevention Program and Strategies. Assessment: 13:16 General: See triage assessment. jl7 14:30 Reassessment: Patient appears in no apparent distress at this time. No changes from jl7 previously documented assessment. Patient and/or family updated on plan of care and expected duration. Pain level reassessed. 15:30 Reassessment: Patient appears in no apparent distress at this time. No changes from jl7 previously documented assessment. Patient and/or family updated on plan of care and expected duration. Pain level reassessed. Family at bedside. 16:30 Reassessment: Patient appears in no apparent distress at this time. No changes from jl7 previously documented assessment. Patient and/or family updated on plan of care and expected duration. Pain level reassessed. 16:40 Reassessment: Pt c/o VERDUZCO, requesting Tylenol, ERD notified, See MAR for orders. jl7 17:30 Reassessment: Patient appears in no apparent distress at this time. Patient and/or jl7 family updated on plan of care and expected duration. Pain level reassessed. Family remains at bedside Patient states symptoms have improved. Vital Signs: 13:13 BP 101 / 65; Pulse 88; Resp 18 S; Temp 98.6(A); Pulse Ox 100% ; Pain 0/10; jl7 14:22 BP 115 / 77; Pulse 85; Resp 15 S; Pulse Ox 96% on R/A; jl7 17:30 BP 109 / 75; Pulse 83; Resp 16 S; Pulse Ox 97% on R/A; jl7 ED Course: 13:07 Patient arrived in ED. jl7 13:10 Triage completed. jl7 13:13 Arm band placed on left wrist. jl7 13:16 Patient has correct armband on for positive identification. Bed in low position. Call jl7 light in reach. Side rails up X2. procurement engineer on. Pulse ox on. NIBP on. Warm blanket given. 13:17 EKG done, by denture laboratory technician. reviewed by Pio Velazquez MD. at1 13:25 Jagruti Pierce, LLUVIA is Primary Nurse. jl7 13:29 Pio Velazquez MD is Attending Physician. kdr 13:30 Served as a lead php developer during rectal exam. jl7 13:55 Initial lab(s) drawn, by mt, sent to lab. T\\T\\S collected, blood band applied to patient. jl7 Inserted saline lock: 22 gauge in right antecubital area, using aseptic technique. Blood collected. 13:58 Radiology exam delayed due to lab results not completed at this time. (BUN/Creatinine). vm2 15:13 UPPER EXTREMITY VENOUS UNILATE In Process Unspecified. EDMS 15:15 Note: iv blew on test, started a 24g diffusics in rt forearm area. Patient moved to CT via stretcher. 15:20 CT Traumagram (Head C Spine CAP W Con) In Process Unspecified. EDMS 15:20 Inserted saline lock: 24 gauge in right forearm, using aseptic technique. ,using jl7 aseptic technique. Inserted by Yari gi physician. 18:30 IV discontinued, intact, bleeding controlled, No redness/swelling at site. Pressure jl7 dressing applied. Administered Medications: 16:45 Drug: Tylenol 650 mg Route: PO; jl7 17:15 Follow up: Response: No adverse reaction; Pain is decreased jl7 18:10 Drug: Rocephin - (cefTRIAXone) 1 grams Route: IVPB; Infused Over: 30 mins; Site: left jl7 forearm; 18:13 Follow up: Response: No adverse reaction; IV Status: Completed infusion jl7 Point of Care Testing: Blood Glucose: 13:25 Blood Glucose: 160 mg/dL; jlAntonia Ranges: Outcome: 18:02 Discharge ordered by . itz 18:45 Discharged to long term. Report called to Transported to [facility] by [facility] 18:45 Condition: stable 18:45 Discharge instructions given to patient, family, long term, Instructed on discharge instructions, follow up and referral plans. medication usage, Demonstrated understanding of instructions, follow-up care, medications, Prescriptions given X 2. 19:18 Patient left the ED. festus Signatures: Dispatcher [employer] EDMS Pio Velazquez MD MD kdr Jones, Vibha Mcelroy, chief general pediatric clinic EKG Tat1 Jagruti Pierce, RN RN jl7 Naheed Ruvalcaba 2
--- NOTE | 2018-11-18 18:04 | EDPHYS ---
Physician Documentation [facility] Name: Tab Hanley Age: 73 yrs Sex: Female : 1945 Arrival Date: 11/18/2018 Time: 13:07 Bed 14 Private MD: ED Physician Pio Velazquez HPI: 11/18 13:38 This 73 yrs old Female presents to ER via EMS with complaints of Altered Mental Status. snw 13:38 The patient presents with decreased mental status. Onset: The symptoms/episode snw began/occurred gradually. Possible causes: CVA or TIA, recent CVA. Associated signs and symptoms: The patient has no apparent associated signs or symptoms. Current symptoms: In the emergency department the patient's symptoms have improved, mildly. It is unknown whether or not the patient has had similar symptoms in the past. The patient has been recently seen by a physician: as noted. Historical: - Allergies: 13:13 No Known Allergies; jl7 - Home Meds: 13:13 atorvastatin 80 mg Oral tab 1 tab once daily [Active]; gabapentin 100 mg Oral cap jl7 [Active]; carvedilol 6.25 mg Oral tab 1 tab every 12 hours [Active]; apixaban Oral [Active]; clopidogrel 75 mg Oral tab 1 tab once daily [Active]; isosorbide mononitrate 30 mg Oral Tb24 1 tab once daily [Active]; fluoxetine 10 mg Oral cap 1 caps once daily [Active]; famotidine 20 mg Oral tab [Active]; Insulin Glargine Sub-Q [Active]; - PMHx: 13:13 Depression; Diabetes - IDDM; GERD; Hyperlipidemia; Hypertension; CVA; jl7 - Immunization history:: Adult Immunizations up to date. - Social history:: Smoking status: unknown. - Ebola Screening: : No symptoms or risks identified at this time. ROS: 13:37 Constitutional: Negative for fever, chills, and weight loss, Eyes: Negative for injury, snw pain, redness, and discharge, ENT: Negative for injury, pain, and discharge, Neck: Negative for injury, pain, and swelling, Cardiovascular: Negative for chest pain, palpitations, and edema, Respiratory: Negative for shortness of breath, cough, wheezing, and pleuritic chest pain, Abdomen/GI: Negative for abdominal pain, nausea, vomiting, diarrhea, and constipation, Back: Negative for injury and pain, : Negative for injury, bleeding, discharge, and swelling, MS/Extremity: Negative for injury and deformity, Skin: Negative for injury, rash, and discoloration, Psych: Negative for depression, anxiety, suicide ideation, homicidal ideation, and hallucinations. 13:37 Neuro: Positive for "not talking as much". Exam: 13:34 Head/Face: Normocephalic, atraumatic. Eyes: Pupils equal round and reactive to light, snw extra-ocular motions intact. Lids and lashes normal. Conjunctiva and sclera are non-icteric and not injected. Cornea within normal limits. Periorbital areas with no swelling, redness, or edema. 13:34 Neck: Trachea midline, no thyromegaly or masses palpated, and no cervical lymphadenopathy. Supple, full range of motion without nuchal rigidity, or vertebral point tenderness. No Meningismus. Chest/axilla: Normal chest wall appearance and motion. Nontender with no deformity. No lesions are appreciated. 13:34 Respiratory: Lungs have equal breath sounds bilaterally, clear to auscultation and percussion. No rales, rhonchi or wheezes noted. No increased work of breathing, no retractions or nasal flaring. 13:34 Back: No spinal tenderness. No costovertebral tenderness. Full range of motion. Skin: Warm, dry with normal turgor. Normal color with no rashes, no lesions, and no evidence of cellulitis. MS/ Extremity: Pulses equal, no cyanosis. Neurovascular intact. Full, normal range of motion. Psych: Awake, alert, with orientation to person, place and time. Behavior, mood, and affect are within normal limits. 13:34 Constitutional: The patient appears alert, awake, listless. 13:34 ENT: Mouth: Oral mucosa: dry, dried blood noted in mouth and circumorally, Voice: no acute changes. 13:34 Cardiovascular: Rate: normal, Rhythm: regular, Pulses: no pulse deficits are appreciated, Heart sounds: murmur, systolic, Edema: left arm with significant edema. 13:34 Abdomen/GI: Inspection: abdomen appears normal, Bowel sounds: hyperactive, in all quadrants, Palpation: abdomen is soft and non-tender, Rectal exam: Stool: guaiac positive, green, mucoid, the exam is chaperoned by the nurse. 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 seizure activity, is not displayed by the patient. Vital Signs: 13:13 BP 101 / 65; Pulse 88; Resp 18 S; Temp 98.6(A); Pulse Ox 100% ; Pain 0/10; jl7 14:22 BP 115 / 77; Pulse 85; Resp 15 S; Pulse Ox 96% on R/A; jl7 17:30 BP 109 / 75; Pulse 83; Resp 16 S; Pulse Ox 97% on R/A; jl7 MDM: 18:02 Patient medically screened. kdr 19:19 Data reviewed: vital signs, nurses notes, lab test result(s), radiologic studies. kdr Counseling: I had a detailed discussion with the patient and/or guardian regarding: the historical points, exam findings, and any diagnostic results supporting the discharge/admit diagnosis, lab results, radiology results, the need for outpatient follow up. 11/18 13:33 Order name: Basic Metabolic Panel; Complete Time: 15:09 snw 11/18 13:33 Order name: CBC with Diff; Complete Time: 15:09 snw 11/18 13:33 Order name: LFT's; Complete Time: 15:09 snw 11/18 13:33 Order name: Magnesium; Complete Time: 15:09 snw 11/18 13:33 Order name: NT PRO-BNP; Complete Time: 15:09 snw 11/18 13:33 Order name: PT-INR; Complete Time: 15:09 snw 11/18 13:33 Order name: Troponin (emerg Dept Use Only); Complete Time: 15:09 snw 11/18 13:33 Order name: CT Traumagram (Head C Spine CAP W Con); Complete Time: 17:35 snw 11/18 13:33 Order name: TS; Complete Time: 15:09 snw 11/18 14:14 Order name: UPPER EXTREMITY VENOUS UNILATE; Complete Time: 15:32 EDMS 11/18 15:11 Order name: ABO/RH no charge; Complete Time: 15:32 EDMS 11/18 13:33 Order name: EKG; Complete Time: 13:34 snw 11/18 13:33 Order name: Cardiac monitoring; Complete Time: 14:21 snw 11/18 13:33 Order name: EKG - Nurse/Tech; Complete Time: 14:21 snw 11/18 13:33 Order name: IV Saline Lock; Complete Time: 14:20 snw 11/18 13:33 Order name: Labs collected and sent; Complete Time: 14:20 snw 11/18 13:33 Order name: O2 Per Protocol; Complete Time: 14:20 snw 11/18 13:33 Order name: O2 Sat Monitoring; Complete Time: 14:20 snw Administered Medications: 16:45 Drug: Tylenol 650 mg Route: PO; jl7 17:15 Follow up: Response: No adverse reaction; Pain is decreased jl7 18:10 Drug: Rocephin - (cefTRIAXone) 1 grams Route: IVPB; Infused Over: 30 mins; Site: left jl7 forearm; 18:13 Follow up: Response: No adverse reaction; IV Status: Completed infusion jl7 Point of Care Testing: Blood Glucose: 13:25 Blood Glucose: 160 mg/dL; jl7 Ranges: Critical Glucose Levels:Adult <50 mg/dl or >400 mg/dl <40 mg/dl or >180 mg/dl Disposition: 18:39 Co-signature as Attending Physician, Pio Velazquez MD I agree with the assessment and kdr plan of care. Disposition: 11/18/18 18:02 Discharged to Home. Impression: Weakness, Poor Appetite, Pneumonia, unspecified organism. - Condition is Stable. - Discharge Instructions: Fatigue, Community-Acquired Pneumonia, Adult, [id number], Weakness, [id number]. - Prescriptions for Zithromax 200 mg/5 mL Oral suspension for reconstitution - take 10 milliliter by ORAL route once daily for 5 days; 50 milliliter. Albuterol Sulfate 2.5 mg /3 mL (0.083 %) Inhalation Solution for Nebulization - inhale 2 unit by NEBULIZATION route every 4-6 hours As needed; 2 box. - Medication Reconciliation Form, Thank You Letter, Antibiotic Education, SBAR form form. - Follow up: Private Physician; When: 1 - 2 days; Reason: If symptoms return, Further diagnostic work-up, Recheck today's complaints, Continuance of care, Re-evaluation by your physician. - Problem is an acute exacerbation. - Symptoms have improved. Signatures: Dispatcher [employer] [facility] Pio Velazquez MD MD kdr Katarzyna Orozco, MAINOR-C OFFSET PLATE PREPARATION SUPERVISOR-Jagruti Ortega, RN RN jl7 Corrections: (The following items were deleted from the chart) 14:12 13:34 Extremity Venous Uni [id number] ordered. [facility] 18:03 18:02 11/18/2018 18:02 Discharged to Home. Impression: Weakness; Poor Appetite. kdr Condition is Stable. Forms are Medication Reconciliation Form, Thank You Letter, Antibiotic Education, Prescription Opioid Use. Follow up: Private Physician; When: 1 - 2 days; Reason: If symptoms return, Further diagnostic work-up, Recheck today's complaints, Continuance of care, Re-evaluation by your physician. Problem is an acute exacerbation. Symptoms have improved. kdr 19:18 18:03 11/18/2018 18:02 Discharged to Home. Impression: Weakness; Poor Appetite; jl7 Pneumonia, unspecified organism. Condition is Stable. Forms are Medication Reconciliation Form, Thank You Letter, Antibiotic Education, Prescription Opioid Use. Follow up: Private Physician; When: 1 - 2 days; Reason: If symptoms return, Further diagnostic work-up, Recheck today's complaints, Continuance of care, Re-evaluation by your physician. Problem is an acute exacerbation. Symptoms have improved. kdr
[2018-11-18] MEDS ORDERED: CEFTRIAXONE/SWI 1gm 1 GM/10 ML SYR ONE (18:09)
--- NOTE | 2018-11-19 06:49 | EKG ---
Test Date: 2018-11-18 Test Time: 13:05:38 Aerospace Technician: TERELL MEASUREMENT RESULTS: Intervals: Rate: 90 CO: 176 QRSD: 172 QT: 446 QTc: 545 [place]: P: 55 CO: 176 QRS: -54 T: 104 INTERPRETIVE STATEMENTS: Atrial-sensed ventricular-paced rhythm Abnormal ECG Compared to ECG 11/16/2018 09:50:41 Sinus rhythm no longer present Electronically Signed On 11-19-18 06:46:17 CDT by Bassam Oconnell
== END 2018-11-18 19:18 | disposition home or self-care (01) ==
LOC: ER 12:57
DX: J18.9 Pneumonia, unspecified organism (principal); R53.1 Weakness; R63.0 Anorexia; F32.9 Major depressive disorder, single episode, unspecified; E11.9 Type 2 diabetes mellitus without complications; E78.5 Hyperlipidemia, unspecified; I10 Essential (primary) hypertension; Z86.73 Personal history of transient ischemic attack (TIA), and cerebral infarction without residual deficits; Z79.4 Long term (current) use of insulin
CPT/HCPCS: 36415; 70450; 71260; 72125; 74177; 80048; 80076; 82962; 83735; 83880; 84484; 85025; 85610; 86850; 86900; 86901; 93005; 93971; 96374; 99285; J0696; Q9967

== ENCOUNTER 2018-11-20 12:10 | Observation (INO) | payer OTHER, SELFPAY ==
[2018-11-20] MEDS ORDERED: PIPER/TAZO/NS 3.375gm 3.375 GM/100 ML BAG ONE ×2 (12:45→13:09)
[2018-11-20] MEDS ORDERED: NA CHLORIDE 0.9% 1,000 ML ONE (12:45)
--- OUTSIDE RECORDS SUMMARY | 2018-11-20 12:59 | XMS REPORT ---
:1945 [facility] [address] [place] [address] Care Team Providers Name Role Phone OSCAR COSTA Unavailable Unavailable Problems This patient has no known problems. Allergies, Adverse Reactions, Alerts This patient has no known allergies or adverse reactions. Medications This patient has no known medications. Results Test Description Test Time Test Comments Text Results Atomic Results Result Comments BLOOD CULTURE 2018-11-16 20:01:00 Test Item Value Reference Range Comments CULTURE (BEAKER) (test tmhx=7280) No growth in 5 days BLOOD [id number] 20:01:00 Test Item Value Reference Range Comments CULTURE (BEAKER) (test mhoe=7331) No growth in 5 days BLOOD [id number] 10:37:00 Test Item Value Reference Range Comments CULTURE (BEAKER) From Aerobic Bottle Only (test fybx=7053) Coagulase negative Staphylococcus GRAM STAIN RESULT From aerobic bottle (BEAKER) (test only: gram positive gnsx=8072) cocci in clusters BLOOD [id number] 10:36:00 Test Item Value Reference Range Comments CULTURE (BEAKER) From Aerobic Bottle Only (test kyul=7949) Coagulase negative Staphylococcus GRAM STAIN RESULT From aerobic bottle (BEAKER) (test only: gram positive qpxl=8714) cocci in clusters POCT-GLUCOSE [id number] 12:32:00 Test Item Value Reference Range Comments POC-GLUCOSE METER (BEAKER) 87 mg/dL 70-110 TESTED AT [facility] [address] [facility] (test eykn=0178) [facility] [address] POCT-GLUCOSE [id number] 21:28:00 Test Item Value Reference Range Comments POC-GLUCOSE METER (BEAKER) 100 mg/dL 70-110 TESTED AT [facility] [address] [facility] (test cgur=5756) [facility] [address] POCT-GLUCOSE [id number] 21:01:00 Test Item Value Reference Range Comments POC-GLUCOSE METER (BEAKER) 98 mg/dL 70-110 TESTED AT [facility] [address] [facility] (test vvpx=6393) [facility] [address] VANCOMYCIN LEVEL, [id number] 13:29:00 Test Item Value Reference Range Comments VANCOMYCIN TROUGH (BEAKER) (test hzbu=075) 14.1 ug/mL 10.0-20.0 POCT-GLUCOSE [id number] 12:34:00 Test Item Value Reference Range Comments POC-GLUCOSE METER (BEAKER) 113 mg/dL 70-110 TESTED AT [facility] [address] [facility] (test umxb=5686) [facility] [address] [id number] 06:25:00 Test Item Value Reference Range Comments MAGNESIUM (BEAKER) (test kboy=531) 1.8 mg/dL 1.6-2.6 BASIC METABOLIC [id number] 06:25:00 Test Item Value Reference Range Comments SODIUM (BEAKER) (test 140 meq/L 136-145 ybou=746) POTASSIUM (BEAKER) (test 3.8 meq/L 3.5-5.1 crim=348) CHLORIDE (BEAKER) (test 110 meq/L 98-107 hbis=527) CO2 (BEAKER) (test 27 meq/L 22-29 njhi=925) BLOOD UREA NITROGEN 16 mg/dL 7-21 (BEAKER) (test eijq=341) CREATININE (BEAKER) (test 0.90 mg/dL 0.57-1.25 aizl=149) GLUCOSE RANDOM (BEAKER) 106 mg/dL 70-105 (test zgbz=638) CALCIUM (BEAKER) (test 8.1 mg/dL 8.4-10.2 gpqj=198) EGFR (BEAKER) (test 61 mL/min/1.73 sq m ESTIMATED GFR IS NOT ujki=3142) ACCURATE CREATININE CLEARANCE IN PREDICTING GLOMERULAR FILTRATION RATE. ESTIMATED GFR IS NOT APPLICABLE FOR DIALYSIS PATIENTS. CBC (HEMOGRAM ONLY)2018-11-14 05:35:00 Test Item Value Reference Range Comments WHITE BLOOD CELL COUNT (BEAKER) (test yyad=973) 6.3 K/ L 3.5-10.5 RED BLOOD CELL COUNT (BEAKER) (test ajkz=031) 2.54 M/ L 3.93-5.22 HEMOGLOBIN (BEAKER) (test dtty=292) 7.2 GM/DL 11.2-15.7 HEMATOCRIT (BEAKER) (test doqn=746) 24.2 % 34.1-44.9 MEAN CORPUSCULAR VOLUME (BEAKER) (test kogb=625) 95.3 fL 79.4-94.8 MEAN CORPUSCULAR HEMOGLOBIN (BEAKER) (test 28.3 pg 25.6-32.2 vrpp=749) MEAN CORPUSCULAR HEMOGLOBIN CONC (BEAKER) (test 29.8 GM/DL 32.2-35.5 xxbn=846) RED CELL DISTRIBUTION WIDTH (BEAKER) (test 15.0 % 11.7-14.4 vlik=684) PLATELET COUNT (BEAKER) (test ygky=023) 362 K/CU MM 150-450 MEAN PLATELET VOLUME (BEAKER) (test dcrm=173) 9.6 fL 9.4-12.3 NUCLEATED RED BLOOD CELLS (BEAKER) (test 0 /100 WBC 0-0 uqxv=745) POCT-GLUCOSE [id number] 21:52:00 Test Item Value Reference Range Comments POC-GLUCOSE METER (BEAKER) 221 mg/dL 70-110 TESTED AT [address] (test fwkn=7860) [place] [address] POCT-GLUCOSE [id number] 16:58:00 Test Item Value Reference Range Comments POC-GLUCOSE METER (BEAKER) 190 mg/dL 70-110 TESTED AT [address] (test ryhv=2994) [place] [address] POCT-GLUCOSE [id number] 16:58:00 Test Item Value Reference Range Comments POC-GLUCOSE METER (BEAKER) 167 mg/dL 70-110 TESTED AT [address] (test ulrb=0904) [place] [address] [id number] 13:24:00 Test Item Value Reference Range Comments PREALBUMIN (BEAKER) (test aaay=306) 15 mg/dL 14-45 VANCOMYCIN LEVEL, [id number] 13:21:00 Test Item Value Reference Range Comments VANCOMYCIN TROUGH (BEAKER) (test guow=258) 22.5 ug/mL 10.0-20.0 CT, CTANGIO [id number] 11:52:00FINAL REPORT CT, CTANGIO BRAIN, CT, CAROTID, [...] is preserved perfusion of the proximal right REED PRESS FEEDER segments. The contralateral side is unremarkable.Venous opacification: [...] present. No apical pneumothorax. 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 Lesser involvement [...] Verified Date/ Time: 11/13/2018 11:52:12 Reading Location: [address] Neuro Reading Room CT, CAROTID, [id number] 11:52:00FINAL REPORT CT, CTANGIO BRAIN, CT, CAROTID, [...] is preserved perfusion of the proximal right REED PRESS FEEDER segments. The contralateral side is unremarkable.Venous opacification: [...] present. No apical pneumothorax. 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 Lesser involvement [...] patent communicating vessels. Signed: JR Leary [facility] Verified Date/ Time: 11/13/2018 11:52:12 Reading Location: [facility] C0[facility] Neuro Reading Room BASIC METABOLIC [id number] 07:49:00 Test Item Value Reference Range Comments SODIUM (BEAKER) (test 140 meq/L 136-145 ylqj=560) POTASSIUM (BEAKER) (test 4.0 meq/L 3.5-5.1 xpkf=818) CHLORIDE (BEAKER) (test 110 meq/L 98-107 ztfw=830) CO2 (BEAKER) (test 25 meq/L 22-29 ttlh=374) BLOOD UREA NITROGEN 11 mg/dL 7-21 (BEAKER) (test huvc=362) CREATININE (BEAKER) (test 0.92 mg/dL 0.57-1.25 kuuh=088) GLUCOSE RANDOM (BEAKER) 116 mg/dL 70-105 (test yacg=794) CALCIUM (BEAKER) (test 7.9 mg/dL 8.4-10.2 dlpk=873) EGFR (BEAKER) (test 60 mL/min/1.73 sq m ESTIMATED GFR IS NOT qctu=4093) ACCURATE CREATININE CLEARANCE IN PREDICTING GLOMERULAR FILTRATION RATE. ESTIMATED GFR IS NOT APPLICABLE FOR DIALYSIS PATIENTS. [id number] 07:47:00 Test Item Value Reference Range Comments MAGNESIUM (BEAKER) (test hrwa=582) 1.8 mg/dL 1.6-2.6 POCT-GLUCOSE [id number] 07:34:00 Test Item Value Reference Range Comments POC-GLUCOSE METER (BEAKER) 121 mg/dL 70-110 TESTED AT [facility] [address] [facility] (test litk=1261) [facility] [address] CBC (HEMOGRAM ONLY)2018-11-13 05:12:00 Test Item Value Reference Range Comments WHITE BLOOD CELL COUNT (BEAKER) (test naqj=066) 5.7 K/ L 3.5-10.5 RED BLOOD CELL COUNT (BEAKER) (test ekbs=904) 2.52 M/ L 3.93-5.22 HEMOGLOBIN (BEAKER) (test nxkh=021) 7.4 GM/DL 11.2-15.7 HEMATOCRIT (BEAKER) (test unpp=352) 24.1 % 34.1-44.9 MEAN CORPUSCULAR VOLUME (BEAKER) (test zbbk=018) 95.6 fL 79.4-94.8 MEAN CORPUSCULAR HEMOGLOBIN (BEAKER) (test 29.4 pg 25.6-32.2 ruxv=485) MEAN CORPUSCULAR HEMOGLOBIN CONC (BEAKER) (test 30.7 GM/DL 32.2-35.5 xjrz=836) RED CELL DISTRIBUTION WIDTH (BEAKER) (test 15.0 % 11.7-14.4 ixtd=977) PLATELET COUNT (BEAKER) (test vavd=970) 342 K/CU MM 150-450 MEAN PLATELET VOLUME (BEAKER) (test frua=615) 9.7 fL 9.4-12.3 NUCLEATED RED BLOOD CELLS (BEAKER) (test 0 /100 WBC 0-0 jaqt=959) POCT-GLUCOSE [id number] 22:19:00 Test Item Value Reference Range Comments POC-GLUCOSE METER (BEAKER) 158 mg/dL 70-110 TESTED AT [address] (test iqih=8872) [facility] [address] POCT-GLUCOSE [id number] 17:24:00 Test Item Value Reference Range Comments POC-GLUCOSE METER (BEAKER) 135 mg/dL 70-110 TESTED AT [address] (test bjwv=5857) [facility] [address] POCT-GLUCOSE [id number] 12:54:00 Test Item Value Reference Range Comments POC-GLUCOSE METER (BEAKER) 159 mg/dL 70-110 TESTED AT [address] (test kejm=8438) [facility] [address] POCT-GLUCOSE [id number] 07:55:00 Test Item Value Reference Range Comments POC-GLUCOSE METER (BEAKER) 110 mg/dL 70-110 TESTED AT [address] (test wmju=1396) [facility] [address] [id number] 06:07:00 Test Item Value Reference Range Comments MAGNESIUM (BEAKER) (test olge=531) 1.8 mg/dL 1.6-2.6 BASIC METABOLIC [id number] 06:07:00 Test Item Value Reference Range Comments SODIUM (BEAKER) (test 140 meq/L 136-145 tkif=904) POTASSIUM (BEAKER) (test 3.4 meq/L 3.5-5.1 uyjh=244) CHLORIDE (BEAKER) (test 110 meq/L 98-107 ohxh=948) CO2 (BEAKER) (test 25 meq/L 22-29 cpcv=260) BLOOD UREA NITROGEN 8 mg/dL 7-21 (BEAKER) (test yocx=127) CREATININE (BEAKER) (test 0.81 mg/dL 0.57-1.25 jxrd=409) GLUCOSE RANDOM (BEAKER) 89 mg/dL 70-105 (test ycml=835) CALCIUM (BEAKER) (test 8.2 mg/dL 8.4-10.2 zznv=993) EGFR (BEAKER) (test 69 mL/min/1.73 sq m ESTIMATED GFR IS NOT bvpr=7791) ACCURATE CREATININE CLEARANCE IN PREDICTING GLOMERULAR FILTRATION RATE. ESTIMATED GFR IS NOT APPLICABLE FOR DIALYSIS PATIENTS. CBC (HEMOGRAM ONLY)2018-11-12 05:20:00 Test Item Value Reference Range Comments WHITE BLOOD CELL COUNT (BEAKER) (test mikc=221) 6.1 K/ L 3.5-10.5 RED BLOOD CELL COUNT (BEAKER) (test fkhb=261) 2.71 M/ L 3.93-5.22 HEMOGLOBIN (BEAKER) (test otdn=030) 7.9 GM/DL 11.2-15.7 HEMATOCRIT (BEAKER) (test fvor=179) 25.1 % 34.1-44.9 MEAN CORPUSCULAR VOLUME (BEAKER) (test btiw=977) 92.6 fL 79.4-94.8 MEAN CORPUSCULAR HEMOGLOBIN (BEAKER) (test 29.2 pg 25.6-32.2 nlth=811) MEAN CORPUSCULAR HEMOGLOBIN CONC (BEAKER) (test 31.5 GM/DL 32.2-35.5 ximw=512) RED CELL DISTRIBUTION WIDTH (BEAKER) (test 14.9 % 11.7-14.4 ynjx=529) PLATELET COUNT (BEAKER) (test ehok=573) 375 K/CU MM 150-450 MEAN PLATELET VOLUME (BEAKER) (test vtww=238) 9.6 fL 9.4-12.3 NUCLEATED RED BLOOD CELLS (BEAKER) (test 0 /100 WBC 0-0 iwga=616) RAD, CHEST, 1 VIEW, NON [id number] 23:49:00Reason for exam:-> cracklesShould this be performed [...] MDReport Verified Date/Time: 2018 23:49:52 Reading Location: [facility] B1 C013W Consult Reading Room POCT- GLUCOSE [id number] 22:44:00 Test Item Value Reference Range Comments POC-GLUCOSE METER (BEAKER) 169 mg/dL 70-110 TESTED AT [facility] [address] [facility] (test hhty=1128) [facility] [address] POCT-GLUCOSE [id number] 18:45:00 Test Item Value Reference Range Comments POC-GLUCOSE METER (BEAKER) 233 mg/dL 70-110 TESTED AT [facility] [address] [facility] (test sdvh=9522) [facility] [address] BLOOD CULTURE IDENTIFICATION [id number] 15:21:00 Test Item Value Reference Range Comments LISTERIA MONOCYTOGENES (test Not detected Not detected gnve=0265978) STAPHYLOCOCCUS (test Detected Not detected Coagulase negative Staph ldet=9670235) species (CoNS)- methicillin resistantFirst-line therapy: Vancomycin MecA DETECTED Possible contamination. The likelihood of pathogenicity is increased if the organism is observed in multiple blood cultures obtained from separate venipunctures. Reference Range: Not Detected STAPHYLOCOCCUS AUREUS (test Not detected Not detected fwax=1497991) STREPTOCOCCUS (test Not detected Not detected cbje=1414897) STREPTOCOCCUS AGALACTIAE (GROUP Not detected Not detected B) (test yzsg=7727413) STREPTOCOCCUS PNEUMONIAE (test Not detected Not detected qyhk=0990814) STREPTOCOCCUS PYOGENES (GROUP Not detected Not detected A) (test rnwu=3845108) ACINETOBACTER BAUMANNII (test Not detected Not detected twch=2380642) HAEMOPHILUS INFLUENZAE (test Not detected Not detected kbjt=3677048) NEISSERIA MENINGITIDIS (test Not detected Not detected httk=8124453) ENTEROBACTERIACEAE (test Not detected Not detected ygtc=6362242) ENTEROBACTER CLOACOE COMPLEX Not detected Not detected (test hodd=0452011) KLEBSIELLA OXYTOCA (test Not detected Not detected xbeg=8403568) KLEBSIELLA PNEUMONIAE (test Not detected Not detected rwng=5417) PROTEUS (test ywul=7945852) Not detected Not detected SERRATIA MARCESCENS (test Not detected Not detected ggnj=7289363) HAIR ALBICANS (test Not detected Not detected lvol=3270054) HAIR GLABRATA (test Not detected Not detected asou=0774316) HAIR KRUSEI (test Not detected Not detected nnzg=7827497) HAIR PARAPSILOSIS (test Not detected Not detected iygz=5693089) HAIR TROPICALIS (test Not detected Not detected bown=7943133) ESCHERICHIA COLI (test Not detected Not detected bbvc=0739959) METHICILLIN-RESISTANCE GENE Detected Not detected (test rgrf=6066702) VANCOMYCIN-RESISTANCE GENE Not detected (test slrv=7950712) CARBAPENEM-RESISTANCE GENE Not detected (test chyh=5766518) ENTEROCOCCUS-BEAKER (test Not detected Not detected xyic=3616031) PSEUDOMONAS AERUGINOSA-BEAKER Not detected Not detected (test nllk=1081553) Other bacteria and resistance markers not targeted by this PCR panel cannot be excluded; therefore clinical correlation and follow up of serology, culture results, and other molecular studies is required. The results are not intended to be used as the sole means for clinical diagnosis or patient management decisions. This sample was tested at the [facility] using the Rhaps[employer] Blood Culture ID Panel. It is FDA cleared and has been verified and approved by the [facility] for clinical use. This laboratory is CLIA-certified and College ofAmerican Pathologists (CAP)-accredited to perform high complexity testing.VANCOMYCIN LEVEL, [id number] 12:54:00 Test Item Value Reference Range Comments VANCOMYCIN TROUGH (AKER) (test dfle=893) 2.2 ug/mL 10.0-20.0 POCT-GLUCOSE [id number] 12:32:00 Test Item Value Reference Range Comments POC-GLUCOSE METER (BEAKER) 199 mg/dL 70-110 TESTED AT [facility] [address] (test xjcj=5951) [facility] [address] [id number] 12:30:00 Test Item Value Reference Range Comments PROCALCITONIN (BEAKER) (test qjvz=0664) 0.17 ng/mL <0.05 SEPSIS RISK (ng/mL)Low: 0.05-0.50Intermediate: 0.51-2.00High: & gt;=2.01LACTIC ACID, [id number] 11:55:00 Test Item Value Reference Range Comments LACTATE BLOOD VENOUS (2) (BEAKER) (test 1.8 mmol/L 0.5-2.2 nbmv=6692) POCT-GLUCOSE [id number] 07:47:00 Test Item Value Reference Range Comments POC-GLUCOSE METER (BEAKER) 110 mg/dL 70-110 TESTED AT [facility] [address] (test byij=4029) [facility] [address] [id number] 07:22:00 Test Item Value Reference Range Comments MAGNESIUM (BEAKER) (test horm=739) 1.9 mg/dL 1.6-2.6 BASIC METABOLIC [id number] 07:22:00 Test Item Value Reference Range Comments SODIUM (BEAKER) (test 139 meq/L 136-145 hfec=533) POTASSIUM (BEAKER) (test 3.3 meq/L 3.5-5.1 nixm=186) CHLORIDE (BEAKER) (test 108 meq/L 98-107 oayn=587) CO2 (BEAKER) (test 25 meq/L 22-29 kjtf=279) BLOOD UREA NITROGEN 10 mg/dL 7-21 (BEAKER) (test krdg=801) CREATININE (BEAKER) (test 0.95 mg/dL 0.57-1.25 xpni=646) GLUCOSE RANDOM (BEAKER) 89 mg/dL 70-105 (test otyk=462) CALCIUM (BEAKER) (test 8.1 mg/dL 8.4-10.2 ikig=483) EGFR (BEAKER) (test 58 mL/min/1.73 sq m ESTIMATED GFR IS NOT negg=5333) ACCURATE CREATININE CLEARANCE IN PREDICTING GLOMERULAR FILTRATION RATE. ESTIMATED GFR IS NOT APPLICABLE FOR DIALYSIS PATIENTS. CBC (HEMOGRAM ONLY)2018-11-11 06:56:00 Test Item Value Reference Range Comments WHITE BLOOD CELL COUNT (BEAKER) (test oxze=036) 5.9 K/ L 3.5-10.5 RED BLOOD CELL COUNT (BEAKER) (test jtmm=440) 2.60 M/ L 3.93-5.22 HEMOGLOBIN (BEAKER) (test kcgr=695) 7.5 GM/DL 11.2-15.7 HEMATOCRIT (BEAKER) (test lexp=805) 24.3 % 34.1-44.9 MEAN CORPUSCULAR VOLUME (BEAKER) (test renb=040) 93.5 fL 79.4-94.8 MEAN CORPUSCULAR HEMOGLOBIN (BEAKER) (test 28.8 pg 25.6-32.2 mtqn=809) MEAN CORPUSCULAR HEMOGLOBIN CONC (BEAKER) (test 30.9 GM/DL 32.2-35.5 ljic=091) RED CELL DISTRIBUTION WIDTH (BEAKER) (test 14.7 % 11.7-14.4 uoaq=547) PLATELET COUNT (BEAKER) (test eiiu=243) 338 K/CU MM 150-450 MEAN PLATELET VOLUME (BEAKER) (test bkjm=797) 10.1 fL 9.4-12.3 NUCLEATED RED BLOOD CELLS (BEAKER) (test 0 /100 WBC 0-0 krpc=747) POCT-GLUCOSE [id number] 21:00:00 Test Item Value Reference Range Comments POC-GLUCOSE METER (BEAKER) 202 mg/dL 70-110 TESTED AT [facility] [address] [facility] (test myqu=0749) [facility] [address] URINALYSIS W/ REFLEX URINE [id number] 18:44:00 Test Item Value Reference Range Comments COLOR (BEAKER) (test xtew=905) Yellow CLARITY (BEAKER) (test cytw=652) Cloudy SPECIFIC GRAVITY UA (BEAKER) (test ydgz=215) 1.011 1.001-1.035 PH UA (BEAKER) (test wyth=354) 6.0 5.0-8.0 PROTEIN UA (BEAKER) (test ywcz=606) 100 mg/dL Negative GLUCOSE UA (BEAKER) (test txzv=385) Negative Negative KETONES UA (BEAKER) (test csrp=497) Negative Negative BILIRUBIN UA (BEAKER) (test unbp=155) Negative Negative BLOOD UA (BEAKER) (test lumj=896) Small Negative NITRITE UA (BEAKER) (test hkni=668) Negative Negative LEUKOCYTE ESTERASE UA (BEAKER) (test itqn=084) Large Negative UROBILINOGEN UA (BEAKER) (test hrmn=415) 0.2 mg/dL 0.2-1.0 RBC UA (BEAKER) (test ddhd=515) 33 /HPF WBC UA (BEAKER) (test rszj=715) 357 /HPF MUCUS (BEAKER) (test clky=9548) Rare YEAST (BEAKER) (test mfse=9127) Many SOURCE(BEAKER) (test xgkt=2675) POCT-GLUCOSE [id number] 18:37:00 Test Item Value Reference Range Comments POC-GLUCOSE METER (BEAKER) 218 mg/dL 70-110 TESTED AT [facility] [address] [facility] (test yloq=3955) [facility] [address] POCT-GLUCOSE [id number] 17:16:00 Test Item Value Reference Range Comments POC-GLUCOSE METER (BEAKER) 216 mg/dL 70-110 TESTED AT [address] (test ixve=7578) [facility] [address] POCT-GLUCOSE [id number] 08:55:00 Test Item Value Reference Range Comments POC-GLUCOSE METER (BEAKER) 212 mg/dL 70-110 TESTED AT [address] (test himj=5705) [facility] [address] [id number] 06:55:00 Test Item Value Reference Range Comments MAGNESIUM (BEAKER) (test hsgj=470) 1.4 mg/dL 1.6-2.6 BASIC METABOLIC [id number] 06:55:00 Test Item Value Reference Range Comments SODIUM (BEAKER) (test 137 meq/L 136-145 oyzl=484) POTASSIUM (BEAKER) (test 3.5 meq/L 3.5-5.1 mwpo=249) CHLORIDE (BEAKER) (test 107 meq/L 98-107 izrb=074) CO2 (BEAKER) (test 24 meq/L 22-29 svvw=502) BLOOD UREA NITROGEN 12 mg/dL 7-21 (BEAKER) (test lnad=546) CREATININE (BEAKER) (test 0.89 mg/dL 0.57-1.25 rwbc=942) GLUCOSE RANDOM (BEAKER) 141 mg/dL 70-105 (test zodz=967) CALCIUM (BEAKER) (test 8.3 mg/dL 8.4-10.2 xuri=609) EGFR (BEAKER) (test 62 mL/min/1.73 sq m ESTIMATED GFR IS NOT ombe=7069) ACCURATE CREATININE CLEARANCE IN PREDICTING GLOMERULAR FILTRATION RATE. ESTIMATED GFR IS NOT APPLICABLE FOR DIALYSIS PATIENTS. CBC (HEMOGRAM ONLY)2018-11-10 05:57:00 Test Item Value Reference Range Comments WHITE BLOOD CELL COUNT (BEAKER) (test bcbi=469) 7.4 K/ L 3.5-10.5 RED BLOOD CELL COUNT (BEAKER) (test anml=580) 2.78 M/ L 3.93-5.22 HEMOGLOBIN (BEAKER) (test ycck=430) 8.0 GM/DL 11.2-15.7 HEMATOCRIT (BEAKER) (test vfdt=558) 25.9 % 34.1-44.9 MEAN CORPUSCULAR VOLUME (BEAKER) (test jwip=089) 93.2 fL 79.4-94.8 MEAN CORPUSCULAR HEMOGLOBIN (BEAKER) (test 28.8 pg 25.6-32.2 kyaj=544) MEAN CORPUSCULAR HEMOGLOBIN CONC (BEAKER) (test 30.9 GM/DL 32.2-35.5 keou=499) RED CELL DISTRIBUTION WIDTH (BEAKER) (test 14.6 % 11.7-14.4 viee=313) PLATELET COUNT (BEAKER) (test aunk=883) 331 K/CU MM 150-450 MEAN PLATELET VOLUME (BEAKER) (test tmdu=074) 10.0 fL 9.4-12.3 NUCLEATED RED BLOOD CELLS (BEAKER) (test 0 /100 WBC 0-0 xzeb=775) POCT-GLUCOSE [id number] 21:26:00 Test Item Value Reference Range Comments POC-GLUCOSE METER (BEAKER) 213 mg/dL 70-110 TESTED AT [address] (test cbwm=0015) [place] [address] POCT-GLUCOSE [id number] 17:27:00 Test Item Value Reference Range Comments POC-GLUCOSE METER (BEAKER) 185 mg/dL 70-110 TESTED AT [address] (test yrsx=4815) [place] [address] POCT-GLUCOSE [id number] 13:24:00 Test Item Value Reference Range Comments POC-GLUCOSE METER (BEAKER) 135 mg/dL 70-110 TESTED AT [address] (test pytr=6598) [place] [address] BLOOD [id number] 10:55:00 Test Item Value Reference Range Comments CULTURE (BEAKER) From Aerobic And Anaerobic (test frzb=1900) Bottles Same organism has been isolated from cultures(s) of the same body site and collection date. Repeat identification and susceptibility testing performed only after consultation with the clinical microbiology laboratory.Refer to previous culture ofProteus mirabilis GRAM STAIN RESULT From aerobic and (BEAKER) (test anaerobic bottles: ubbc=4616) gram negative rods BLOOD [id number] 10:54:00 Test Item Value Reference Range Comments CULTURE (BEAKER) (test PROTEUS MIRABILIS From Aerobic And ojsw=7492) Anaerobic Bottles Proteus mirabilis Amikacin (test code=1) [...] STAIN RESULT (BEAKER) From aerobic and (test yqoe=3333) anaerobic bottles: gram negative rods BLOOD CULTURE IDENTIFICATION [id number] 10:54:00 Test Item Value Reference Range Comments LISTERIA MONOCYTOGENES Not detected Not detected (test haho=[id number]) STAPHYLOCOCCUS (test Not detected Not detected ssvt=[id number]) STAPHYLOCOCCUS AUREUS Not detected Not detected (test kpnh=9933773) STREPTOCOCCUS (test Not detected Not detected qylc=8526151) STREPTOCOCCUS AGALACTIAE Not detected Not detected (GROUP B) (test fyyc=5219032) STREPTOCOCCUS PNEUMONIAE Not detected Not detected (test lhfv=2882574) STREPTOCOCCUS PYOGENES Not detected Not detected (GROUP A) (test imig=0934062) ACINETOBACTER BAUMANNII Not detected Not detected (test naar=2293771) HAEMOPHILUS INFLUENZAE Not detected Not detected (test worc=4077125) NEISSERIA MENINGITIDIS Not detected Not detected (test iqxw=2323657) ENTEROBACTERIACEAE (test Detected Not detected gxuf=2540878) ENTEROBACTER CLOACOE Not detected Not detected COMPLEX (test zojr=9019104) KLEBSIELLA OXYTOCA (test Not detected Not detected yrso=4066169) KLEBSIELLA PNEUMONIAE Not detected Not detected (test dubt=6047) PROTEUS (test Detected Not detected Proteus speciesKPC not detected ulen=[id number]) (a carbapenamase gene)First-line therapy: Cefepime or MeropenemDe-escalate based on susceptibilitiesReference Range: Not Detected SERRATIA MARCESCENS (test Not detected Not detected cvlo=5252531) HAIR ALBICANS (test Not detected Not detected hveu=6305813) HAIR GLABRATA (test Not detected Not detected napc=4228415) HAIR KRUSEI (test Not detected Not detected qyyi=6711824) HAIR PARAPSILOSIS Not detected Not detected (test phkt=4864365) HAIR TROPICALIS (test Not detected Not detected uzed=9256819) ESCHERICHIA COLI (test Not detected Not detected yphw=4249881) METHICILLIN-RESISTANCE Not detected GENE (test jnmm=0990441) VANCOMYCIN-RESISTANCE Not detected GENE (test vptw=0181761) CARBAPENEM-RESISTANCE Not detected Not detected GENE (test thdk=5259678) ENTEROCOCCUS-BEAKER (test Not detected Not detected pfhb=9193299) PSEUDOMONAS Not detected Not detected AERUGINOSA-BEAKER (test ilza=2027471) Other bacteria and resistance markers not targeted by this PCR panel cannot be excluded; therefore clinical correlation and follow up of serology, culture results, and other molecular studies is required. The results are not intended to be used as the sole means for clinical diagnosis or patient management decisions. This sample was tested at the [facility] using the [employer] Blood Culture ID Panel. It is FDA cleared and has been verified and approved by the [facility] for clinical use. This laboratory is CLIA-certified and College ofAmerican [employer] (CAP)-accredited to perform high complexity testing.POCT-GLUCOSE [id number] 08:40:00 Test Item Value Reference Range Comments POC-GLUCOSE METER (BEAKER) 110 mg/dL 70-110 TESTED AT [facility] [address] (test azgk=2235) [facility] [address] [id number] 05:26:00 Test Item Value Reference Range Comments MAGNESIUM (BEAKER) (test jynq=039) 1.6 mg/dL 1.6-2.6 BASIC METABOLIC [id number] 05:26:00 Test Item Value Reference Range Comments SODIUM (BEAKER) (test 140 meq/L 136-145 koag=014) POTASSIUM (BEAKER) (test 3.6 meq/L 3.5-5.1 syaq=925) CHLORIDE (BEAKER) (test 111 meq/L 98-107 snjw=070) CO2 (BEAKER) (test 25 meq/L 22-29 ngwi=767) BLOOD UREA NITROGEN 13 mg/dL 7-21 (BEAKER) (test hqcc=681) CREATININE (BEAKER) (test 0.83 mg/dL 0.57-1.25 ftwf=401) GLUCOSE RANDOM (BEAKER) 84 mg/dL 70-105 (test wwer=571) CALCIUM (BEAKER) (test 8.3 mg/dL 8.4-10.2 geio=063) EGFR (BEAKER) (test 67 mL/min/1.73 sq m ESTIMATED GFR IS NOT djmy=6997) ACCURATE CREATININE CLEARANCE IN PREDICTING GLOMERULAR FILTRATION RATE. ESTIMATED GFR IS NOT APPLICABLE FOR DIALYSIS PATIENTS. CBC (HEMOGRAM ONLY)2018-11-09 04:53:00 Test Item Value Reference Range Comments WHITE BLOOD CELL COUNT (BEAKER) (test nboj=181) 6.2 K/ L 3.5-10.5 RED BLOOD CELL COUNT (BEAKER) (test tnnp=109) 2.71 M/ L 3.93-5.22 HEMOGLOBIN (BEAKER) (test fvbj=331) 7.8 GM/DL 11.2-15.7 HEMATOCRIT (BEAKER) (test cfry=059) 25.9 % 34.1-44.9 MEAN CORPUSCULAR VOLUME (BEAKER) (test wxgj=119) 95.6 fL 79.4-94.8 MEAN CORPUSCULAR HEMOGLOBIN (BEAKER) (test 28.8 pg 25.6-32.2 mthh=729) MEAN CORPUSCULAR HEMOGLOBIN CONC (BEAKER) (test 30.1 GM/DL 32.2-35.5 kwmd=271) RED CELL DISTRIBUTION WIDTH (BEAKER) (test 14.7 % 11.7-14.4 kzsi=422) PLATELET COUNT (BEAKER) (test bytf=152) 307 K/CU MM 150-450 MEAN PLATELET VOLUME (BEAKER) (test fbxq=259) 9.8 fL 9.4-12.3 NUCLEATED RED BLOOD CELLS (BEAKER) (test 0 /100 WBC 0-0 yyaf=788) POCT-GLUCOSE [id number] 20:45:00 Test Item Value Reference Range Comments POC-GLUCOSE METER (BEAKER) 207 mg/dL 70-110 TESTED AT [facility] [address] [facility] (test nfqj=4326) [facility] [address] POCT-GLUCOSE [id number] 19:02:00 Test Item Value Reference Range Comments POC-GLUCOSE METER (BEAKER) 296 mg/dL 70-110 TESTED AT [facility] [address] [facility] (test vsto=2630) [facility] [address] POCT-GLUCOSE [id number] 12:32:00 Test Item Value Reference Range Comments POC-GLUCOSE METER (BEAKER) 291 mg/dL 70-110 TESTED AT [address] (test vriv=5356) [facility] [address] POCT-GLUCOSE [id number] 08:34:00 Test Item Value Reference Range Comments POC-GLUCOSE METER (BEAKER) 261 mg/dL 70-110 TESTED AT [address] (test moiw=2093) [place] [address] [id number] 07:19:00 Test Item Value Reference Range Comments MAGNESIUM (BEAKER) (test lvwu=027) 1.8 mg/dL 1.6-2.6 BASIC METABOLIC [id number] 07:19:00 Test Item Value Reference Range Comments SODIUM (BEAKER) (test 138 meq/L 136-145 yppf=152) POTASSIUM (BEAKER) (test 3.9 meq/L 3.5-5.1 ymqt=050) CHLORIDE (BEAKER) (test 110 meq/L 98-107 uqmn=033) CO2 (BEAKER) (test 22 meq/L 22-29 rczs=399) BLOOD UREA NITROGEN 15 mg/dL 7-21 (BEAKER) (test pbsb=383) CREATININE (BEAKER) (test 0.97 mg/dL 0.57-1.25 uloq=365) GLUCOSE RANDOM (BEAKER) 182 mg/dL 70-105 (test asxp=369) CALCIUM (BEAKER) (test 8.6 mg/dL 8.4-10.2 lhtu=860) EGFR (BEAKER) (test 56 mL/min/1.73 sq m ESTIMATED GFR IS NOT cytn=7387) ACCURATE CREATININE CLEARANCE IN PREDICTING GLOMERULAR FILTRATION RATE. ESTIMATED GFR IS NOT APPLICABLE FOR DIALYSIS PATIENTS. CBC (HEMOGRAM ONLY)2018-11-08 06:06:00 Test Item Value Reference Range Comments WHITE BLOOD CELL COUNT (BEAKER) (test rttl=216) 8.5 K/ L 3.5-10.5 RED BLOOD CELL COUNT (BEAKER) (test dpyz=465) 2.93 M/ L 3.93-5.22 HEMOGLOBIN (BEAKER) (test wwie=001) 8.6 GM/DL 11.2-15.7 HEMATOCRIT (BEAKER) (test cksx=822) 28.0 % 34.1-44.9 MEAN CORPUSCULAR VOLUME (BEAKER) (test toyq=154) 95.6 fL 79.4-94.8 MEAN CORPUSCULAR HEMOGLOBIN (BEAKER) (test 29.4 pg 25.6-32.2 vykg=596) MEAN CORPUSCULAR HEMOGLOBIN CONC (BEAKER) (test 30.7 GM/DL 32.2-35.5 bmjp=032) RED CELL DISTRIBUTION WIDTH (BEAKER) (test 15.1 % 11.7-14.4 llxt=259) PLATELET COUNT (BEAKER) (test ctzu=446) 355 K/CU MM 150-450 MEAN PLATELET VOLUME (BEAKER) (test kddv=500) 9.8 fL 9.4-12.3 NUCLEATED RED BLOOD CELLS (BEAKER) (test 0 /100 WBC 0-0 lsyu=764) POCT-GLUCOSE [id number] 20:44:00 Test Item Value Reference Range Comments POC-GLUCOSE METER (BEAKER) 160 mg/dL 70-110 TESTED AT [address] (test pwoc=0587) [facility] [address] POCT-GLUCOSE [id number] 18:16:00 Test Item Value Reference Range Comments POC-GLUCOSE METER (BEAKER) 196 mg/dL 70-110 TESTED AT [address] (test olws=3446) [facility] [address] RAD, ABDOMEN/KUB, 1 VIEW [id number] 14:24:00Reason for exam:->feeding tubeFINAL REPORT RAD, ABDOMEN/KUB, [...] MDReport Verified Date/Time: 11/07/2018 14:24:41 Reading Location: [facility] C013W Consult Reading Room POCT-GLUCOSE [id number] 12:35:00 Test Item Value Reference Range Comments POC-GLUCOSE METER (BEAKER) 185 mg/dL 70-110 TESTED AT [facility] [address] (test ftft=5315) [facility] [address] [id number] 06:03:00 Test Item Value Reference Range Comments MAGNESIUM (BEAKER) (test snwj=512) 2.2 mg/dL 1.6-2.6 BASIC METABOLIC [id number] 06:03:00 Test Item Value Reference Range Comments SODIUM (BEAKER) (test 138 meq/L 136-145 pcoh=277) POTASSIUM (BEAKER) (test 4.0 meq/L 3.5-5.1 qrlw=191) CHLORIDE (BEAKER) (test 110 meq/L 98-107 yeln=990) CO2 (BEAKER) (test 24 meq/L 22-29 phsp=894) BLOOD UREA NITROGEN 16 mg/dL 7-21 (BEAKER) (test cpol=982) CREATININE (BEAKER) (test 0.94 mg/dL 0.57-1.25 rsnz=844) GLUCOSE RANDOM (BEAKER) 115 mg/dL 70-105 (test irlp=900) CALCIUM (BEAKER) (test 8.4 mg/dL 8.4-10.2 psrd=500) EGFR (BEAKER) (test 58 mL/min/1.73 sq m ESTIMATED GFR IS NOT itll=0292) ACCURATE CREATININE CLEARANCE IN PREDICTING GLOMERULAR FILTRATION RATE. ESTIMATED GFR IS NOT APPLICABLE FOR DIALYSIS PATIENTS. [id number] 05:51:00 Test Item Value Reference Range Comments PROTIME (BEAKER) (test dwbv=231) 18.3 seconds 11.9-14.2 INR (BEAKER) (test dubt=959) 1.6 <=5.9 PARTIAL THROMBOPLASTIN TIME (BEAKER) (test 29.8 seconds 22.5-36.0 vazy=849) Effective 09/14/2018: PT Reference Range ChangeNew: 11.9-14.2 Previous: 11.7- 14.7RECOMMENDED COUMADIN/WARFARIN INR THERAPY RANGESSTANDARD DOSE: 2.0-3.0 Includes: PROPHYLAXIS for venous thrombosis, systemic embolization; TREATMENT for venous thrombosis and/or pulmonary embolus.HIGH RISK: Target INR is2.5-3.5 for patients wiht mechanical heart valves.CBC (HEMOGRAM ONLY)2018-11-07 05:29:00 Test Item Value Reference Range Comments WHITE BLOOD CELL COUNT (BEAKER) (test ioza=421) 7.7 K/ L 3.5-10.5 RED BLOOD CELL COUNT (BEAKER) (test lkim=025) 2.85 M/ L 3.93-5.22 HEMOGLOBIN (BEAKER) (test qcqd=521) 8.2 GM/DL 11.2-15.7 HEMATOCRIT (BEAKER) (test zfmb=087) 27.1 % 34.1-44.9 MEAN CORPUSCULAR VOLUME (BEAKER) (test dzlk=112) 95.1 fL 79.4-94.8 MEAN CORPUSCULAR HEMOGLOBIN (BEAKER) (test 28.8 pg 25.6-32.2 llbm=442) MEAN CORPUSCULAR HEMOGLOBIN CONC (BEAKER) (test 30.3 GM/DL 32.2-35.5 lrbw=806) RED CELL DISTRIBUTION WIDTH (BEAKER) (test 15.1 % 11.7-14.4 sdsd=226) PLATELET COUNT (BEAKER) (test axot=267) 334 K/CU MM 150-450 MEAN PLATELET VOLUME (BEAKER) (test fnii=871) 10.1 fL 9.4-12.3 NUCLEATED RED BLOOD CELLS (BEAKER) (test 0 /100 WBC 0-0 rnuj=736) TROPONIN [id number] 00:59:00 Test Item Value Reference Range Comments TROPONIN I (BEAKER) (test vpom=550) 0.08 ng/mL 0.00-0.03 Troponin I (TnI) levels [...] acidosis, acute neurological disease, and persistent tachyarrhythmia.POCT-GLUCOSE [id number] 20:54:00 Test Item Value Reference Range Comments POC-GLUCOSE METER (BEAKER) 115 mg/dL 70-110 TESTED AT [place] [id number] [facility] (test xkig=3736) [place] [id number] POCT-GLUCOSE [id number] 20:41:00 Test Item Value Reference Range Comments POC-GLUCOSE METER (BEAKER) 182 mg/dL 70-110 TESTED AT [address] (test bavk=7062) [place] [address] RAD, CHEST, 1 VIEW, NON [id number] 18:32:00Reason for exam:-> dyspneaShould this be performed at the bedside?->YesFINAL REPORT AP chest HISTORY: Dyspnea. COMPARISON: 11/02/2017. IMPRESSION: Left AICD. Stable cardiac silhouette. Coarse interstitial markings similar to previous. Small effusionsappear improved from previous. No pneumothorax. Signed : Raquel Maria MDReport Verified Date/Time: 11/06/2018 18:32:43 Reading Location: [address] Consult Reading Room POCT-GLUCOSE [id number] 18:16:00 Test Item Value Reference Range Comments POC-GLUCOSE METER (BEAKER) 174 mg/dL 70-110 TESTED AT [address] (test pwfn=2459) [place] [address] URINALYSIS W/ REFLEX URINE [id number] 17:44:00 Test Item Value Reference Range Comments COLOR (BEAKER) (test jkab=514) Yellow CLARITY (BEAKER) (test aomz=372) Hazy SPECIFIC GRAVITY UA (BEAKER) (test 1.010 1.001-1.035 hjss=663) PH UA (BEAKER) (test nhnw=104) 6.5 5.0-8.0 PROTEIN UA (BEAKER) (test jbhm=796) 200 mg/dL Negative GLUCOSE UA (BEAKER) (test umax=394) Negative Negative KETONES UA (BEAKER) (test cslp=007) Negative Negative BILIRUBIN UA (BEAKER) (test zjwn=516) Negative Negative BLOOD UA (BEAKER) (test ekqb=420) Trace Negative NITRITE UA (BEAKER) (test ystf=650) Negative Negative LEUKOCYTE ESTERASE UA (BEAKER) (test Large Negative ldty=656) UROBILINOGEN UA (BEAKER) (test xduk=869) 0.2 mg/dL 0.2-1.0 RBC UA (BEAKER) (test ocai=975) 7 /HPF WBC UA (BEAKER) (test wdgt=379) 258 /HPF WBC CLUMPS PRESENT YEAST (BEAKER) (test cgrf=8668) Few SOURCE(BEAKER) (test ewco=8260) TROPONIN [id number] 16:50:00 Test Item Value Reference Range Comments TROPONIN I (BEAKER) (test hxxg=404) 0.08 ng/mL 0.00-0.03 Troponin I (TnI) levels [...] acute neurological disease, and persistent tachyarrhythmia.POCT-LACTIC ACID, [id number] 15:55 :00 Test Item Value Reference Range Comments POC-LACTIC ACID, VENOUS 1.2 mmol/L 0.9-1.7 TESTED AT [facility] [address] (BEAKER) (test jmdd=5059) [facility] [address] CT, BRAIN/STROKE [id number] 15:32:00FINAL REPORT CT Head without contrast CLINICAL [...] infarction is recommended. 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 The findings were discussed with the stroke neurologist at 3:30 PM Signed: Jaret Robbins Verified Date/Time: 11/06/2018 15:32:51 Reading Location: [facility] C013V Neuro Reading Room POCT-GLUCOSE [id number] 12:49:00 Test Item Value Reference Range Comments POC-GLUCOSE METER (BEAKER) 199 mg/dL 70-110 TESTED AT [facility] [address] [facility] (test occs=8062) [facility] [address] POCT-GLUCOSE [id number] 10:14:00 Test Item Value Reference Range Comments POC-GLUCOSE METER (BEAKER) 182 mg/dL 70-110 TESTED AT [address] (test rprc=3113) [facility] [address] [id number] 06:57:00 Test Item Value Reference Range Comments MAGNESIUM (BEAKER) (test kxob=093) 1.6 mg/dL 1.6-2.6 BASIC METABOLIC [id number] 06:57:00 Test Item Value Reference Range Comments SODIUM (BEAKER) (test 141 meq/L 136-145 xtrx=254) POTASSIUM (BEAKER) (test 3.6 meq/L 3.5-5.1 zpsm=795) CHLORIDE (BEAKER) (test 109 meq/L 98-107 weiv=198) CO2 (BEAKER) (test 27 meq/L 22-29 rxtt=264) BLOOD UREA NITROGEN 18 mg/dL 7-21 (BEAKER) (test dole=188) CREATININE (BEAKER) (test 0.96 mg/dL 0.57-1.25 mklg=268) GLUCOSE RANDOM (BEAKER) 149 mg/dL 70-105 (test beay=022) CALCIUM (BEAKER) (test 8.6 mg/dL 8.4-10.2 klha=605) EGFR (BEAKER) (test 57 mL/min/1.73 sq m ESTIMATED GFR IS NOT fdvt=4843) ACCURATE CREATININE CLEARANCE IN PREDICTING GLOMERULAR FILTRATION RATE. ESTIMATED GFR IS NOT APPLICABLE FOR DIALYSIS PATIENTS. CBC (HEMOGRAM ONLY)2018-11-06 05:47:00 Test Item Value Reference Range Comments WHITE BLOOD CELL COUNT (BEAKER) (test xgql=976) 7.1 K/ L 3.5-10.5 RED BLOOD CELL COUNT (BEAKER) (test iqsn=182) 2.99 M/ L 3.93-5.22 HEMOGLOBIN (BEAKER) (test bkkx=067) 8.8 GM/DL 11.2-15.7 HEMATOCRIT (BEAKER) (test ovus=281) 28.5 % 34.1-44.9 MEAN CORPUSCULAR VOLUME (BEAKER) (test xtuh=242) 95.3 fL 79.4-94.8 MEAN CORPUSCULAR HEMOGLOBIN (BEAKER) (test 29.4 pg 25.6-32.2 kfha=258) MEAN CORPUSCULAR HEMOGLOBIN CONC (BEAKER) (test 30.9 GM/DL 32.2-35.5 lsmk=974) RED CELL DISTRIBUTION WIDTH (BEAKER) (test 14.8 % 11.7-14.4 bqkv=633) PLATELET COUNT (BEAKER) (test xiuj=689) 330 K/CU MM 150-450 MEAN PLATELET VOLUME (BEAKER) (test ujbf=748) 10.0 fL 9.4-12.3 NUCLEATED RED BLOOD CELLS (BEAKER) (test 0 /100 WBC 0-0 dikq=017) POCT-GLUCOSE [id number] 21:14:00 Test Item Value Reference Range Comments POC-GLUCOSE METER (BEAKER) 190 mg/dL 70-110 TESTED AT [address] (test wcsi=4785) [place] [address] POCT-GLUCOSE [id number] 18:18:00 Test Item Value Reference Range Comments POC-GLUCOSE METER (BEAKER) 206 mg/dL 70-110 TESTED AT [address] (test psfc=3212) [place] [id number] POCT-GLUCOSE [id number] 12:54:00 Test Item Value Reference Range Comments POC-GLUCOSE METER (BEAKER) 167 mg/dL 70-110 TESTED AT [address] (test tujd=0512) [place] [address] VITAMIN D, [id number] 08:40:00 Test Item Value Reference Range Comments VITAMIN D 25-OH (BEAKER) (test chmt=4975) 6.4 ng/mL 6.6-49.9 Effective 01/27/2017: Reference Range ChangeNew: 6.6-49.9 ng/mL Previous: 13.0 -47.8 ng/mLRecommended Vitamin D Target Range: 30.0-40.0 ng/mLPOCT-GLUCOSE [id number] 08:10:00 Test Item Value Reference Range Comments POC-GLUCOSE METER (BEAKER) 155 mg/dL 70-110 TESTED AT [facility] [address] [facility] (test ernb=0714) [facility] [address] [id number] 07:35:00 Test Item Value Reference Range Comments FERRITIN (BEAKER) (test ksie=039) 355 ng/mL 5-275 VITAMIN B12 AND [id number] 07:35:00 Test Item Value Reference Range Comments VITAMIN B12 (BEAKER) (test irsf=528) 420 pg/mL 213-816 FOLATE (BEAKER) (test dkaa=492) 6.7 ng/mL >=7.0 IRON, TIBC, % SAT. (WITHOUT FERRITIN)2018-11-05 06:59:00 Test Item Value Reference Range Comments IRON (BEAKER) (test hjll=073) 28.0 ug/dL 40.0-160.0 TOTAL IRON BINDING CAPACITY (BEAKER) (test 194 ug/dL 250-450 fnhb=734) IRON % SATURATION (2) (BEAKER) (test ujex=6599) 14 % 20-55 [id number] 06:38:00 Test Item Value Reference Range Comments MAGNESIUM (BEAKER) (test vdap=119) 1.6 mg/dL 1.6-2.6 BASIC METABOLIC [id number] 06:38:00 Test Item Value Reference Range Comments SODIUM (BEAKER) (test 138 meq/L 136-145 hksu=724) POTASSIUM (BEAKER) (test 3.9 meq/L 3.5-5.1 jaev=304) CHLORIDE (BEAKER) (test 105 meq/L 98-107 wwsl=623) CO2 (BEAKER) (test 27 meq/L 22-29 jnot=683) BLOOD UREA NITROGEN 18 mg/dL 7-21 (BEAKER) (test cbre=715) CREATININE (BEAKER) (test 1.00 mg/dL 0.57-1.25 jhdr=841) GLUCOSE RANDOM (BEAKER) 131 mg/dL 70-105 (test nujt=080) CALCIUM (BEAKER) (test 8.7 mg/dL 8.4-10.2 eqdc=667) EGFR (BEAKER) (test 54 mL/min/1.73 sq m ESTIMATED GFR IS NOT gyis=6034) ACCURATE CREATININE CLEARANCE IN PREDICTING GLOMERULAR FILTRATION RATE. ESTIMATED GFR IS NOT APPLICABLE FOR DIALYSIS PATIENTS. CBC (HEMOGRAM ONLY)2018-11-05 05:52:00 Test Item Value Reference Range Comments WHITE BLOOD CELL COUNT (BEAKER) (test ssde=326) 7.3 K/ L 3.5-10.5 RED BLOOD CELL COUNT (BEAKER) (test vvpa=137) 3.09 M/ L 3.93-5.22 HEMOGLOBIN (BEAKER) (test spxg=517) 9.0 GM/DL 11.2-15.7 HEMATOCRIT (BEAKER) (test ihdw=775) 29.5 % 34.1-44.9 MEAN CORPUSCULAR VOLUME (BEAKER) (test crnv=084) 95.5 fL 79.4-94.8 MEAN CORPUSCULAR HEMOGLOBIN (BEAKER) (test 29.1 pg 25.6-32.2 fnmk=720) MEAN CORPUSCULAR HEMOGLOBIN CONC (BEAKER) (test 30.5 GM/DL 32.2-35.5 zvhu=715) RED CELL DISTRIBUTION WIDTH (BEAKER) (test 14.8 % 11.7-14.4 lzxl=993) PLATELET COUNT (BEAKER) (test ypqm=521) 353 K/CU MM 150-450 MEAN PLATELET VOLUME (BEAKER) (test cssh=697) 9.9 fL 9.4-12.3 NUCLEATED RED BLOOD CELLS (BEAKER) (test 0 /100 WBC 0-0 iscq=265) POCT-GLUCOSE [id number] 21:02:00 Test Item Value Reference Range Comments POC-GLUCOSE METER (BEAKER) 149 mg/dL 70-110 TESTED AT [address] (test zicg=0853) [facility] [address] POCT-GLUCOSE [id number] 19:17:00 Test Item Value Reference Range Comments POC-GLUCOSE METER (BEAKER) 142 mg/dL 70-110 TESTED AT [address] (test ronb=9442) [facility] [address] [id number] 13:41:00 Test Item Value Reference Range Comments ALBUMIN (BEAKER) (test youf=1557) 2.6 g/dL 3.5-5.0 POCT-GLUCOSE [id number] 11:23:00 Test Item Value Reference Range Comments POC-GLUCOSE METER (BEAKER) 202 mg/dL 70-110 TESTED AT [facility] [address] [facility] (test jcod=8778) [facility] [address] [id number] 08:46:00 Test Item Value Reference Range Comments MAGNESIUM (BEAKER) (test oafk=931) 1.6 mg/dL 1.6-2.6 BASIC METABOLIC [id number] 08:46:00 Test Item Value Reference Range Comments SODIUM (BEAKER) (test 135 meq/L 136-145 jhoi=558) POTASSIUM (BEAKER) (test 3.7 meq/L 3.5-5.1 mtik=862) CHLORIDE (BEAKER) (test 103 meq/L 98-107 xqtc=653) CO2 (BEAKER) (test 26 meq/L 22-29 yyug=209) BLOOD UREA NITROGEN 15 mg/dL 7-21 (BEAKER) (test sykv=441) CREATININE (BEAKER) (test 0.85 mg/dL 0.57-1.25 utdm=042) GLUCOSE RANDOM (BEAKER) 193 mg/dL 70-105 (test usce=516) CALCIUM (BEAKER) (test 8.5 mg/dL 8.4-10.2 evzu=650) EGFR (BEAKER) (test 66 mL/min/1.73 sq m ESTIMATED GFR IS NOT rolo=7840) ACCURATE CREATININE CLEARANCE IN PREDICTING GLOMERULAR FILTRATION RATE. ESTIMATED GFR IS NOT APPLICABLE FOR DIALYSIS PATIENTS. CBC (HEMOGRAM ONLY)2018-11-04 06:41:00 Test Item Value Reference Range Comments WHITE BLOOD CELL COUNT (BEAKER) (test xvii=029) 8.9 K/ L 3.5-10.5 RED BLOOD CELL COUNT (BEAKER) (test athw=915) 3.24 M/ L 3.93-5.22 HEMOGLOBIN (BEAKER) (test mfvk=414) 9.4 GM/DL 11.2-15.7 HEMATOCRIT (BEAKER) (test dulz=173) 29.6 % 34.1-44.9 MEAN CORPUSCULAR VOLUME (BEAKER) (test yruj=997) 91.4 fL 79.4-94.8 MEAN CORPUSCULAR HEMOGLOBIN (BEAKER) (test 29.0 pg 25.6-32.2 wxth=694) MEAN CORPUSCULAR HEMOGLOBIN CONC (BEAKER) (test 31.8 GM/DL 32.2-35.5 zdcr=897) RED CELL DISTRIBUTION WIDTH (BEAKER) (test 14.8 % 11.7-14.4 ffif=840) PLATELET COUNT (BEAKER) (test etgd=726) 373 K/CU MM 150-450 MEAN PLATELET VOLUME (BEAKER) (test mhmw=526) 9.9 fL 9.4-12.3 NUCLEATED RED BLOOD CELLS (BEAKER) (test 0 /100 WBC 0-0 ndiq=954) POCT-GLUCOSE [id number] 22:15:00 Test Item Value Reference Range Comments POC-GLUCOSE METER (BEAKER) 263 mg/dL 70-110 TESTED AT [address] (test dzrw=7946) [place] [id number] POCT-GLUCOSE [id number] 18:35:00 Test Item Value Reference Range Comments POC-GLUCOSE METER (BEAKER) 338 mg/dL 70-110 TESTED AT [address] (test pokv=7335) [place] [address] [id number] 08:26:00 Test Item Value Reference Range Comments MAGNESIUM (BEAKER) (test ypxf=172) 1.5 mg/dL 1.6-2.6 BASIC METABOLIC [id number] 08:26:00 Test Item Value Reference Range Comments SODIUM (BEAKER) (test 136 meq/L 136-145 kjlk=424) POTASSIUM (BEAKER) (test 3.8 meq/L 3.5-5.1 zueo=156) CHLORIDE (BEAKER) (test 104 meq/L 98-107 cboy=282) CO2 (BEAKER) (test 25 meq/L 22-29 elvy=627) BLOOD UREA NITROGEN 10 mg/dL 7-21 (BEAKER) (test imgz=909) CREATININE (BEAKER) (test 0.83 mg/dL 0.57-1.25 wqtk=348) GLUCOSE RANDOM (BEAKER) 129 mg/dL 70-105 (test zlex=261) CALCIUM (BEAKER) (test 8.8 mg/dL 8.4-10.2 qeqv=701) EGFR (BEAKER) (test 67 mL/min/1.73 sq m ESTIMATED GFR IS NOT vyhw=3295) ACCURATE CREATININE CLEARANCE IN PREDICTING GLOMERULAR FILTRATION RATE. ESTIMATED GFR IS NOT APPLICABLE FOR DIALYSIS PATIENTS. TROPONIN [id number] 08:23:00 Test Item Value Reference Range Comments TROPONIN I (BEAKER) (test dfyu=858) 0.24 ng/mL 0.00-0.03 Troponin I (TnI) levels [...] acidosis, acute neurological disease, and persistent tachyarrhythmia.POCT-GLUCOSE [id number] 07:59:00 Test Item Value Reference Range Comments POC-GLUCOSE METER (BEAKER) 134 mg/dL 70-110 TESTED AT [facility] [address] [facility] (test dzpf=9497) [facility] [address] CBC (HEMOGRAM ONLY)2018-11-03 07:16:00 Test Item Value Reference Range Comments WHITE BLOOD CELL COUNT (BEAKER) (test siti=713) 8.4 K/ L 3.5-10.5 RED BLOOD CELL COUNT (BEAKER) (test irud=073) 3.21 M/ L 3.93-5.22 HEMOGLOBIN (BEAKER) (test whir=559) 9.4 GM/DL 11.2-15.7 HEMATOCRIT (BEAKER) (test bpli=854) 29.9 % 34.1-44.9 MEAN CORPUSCULAR VOLUME (BEAKER) (test lneq=280) 93.1 fL 79.4-94.8 MEAN CORPUSCULAR HEMOGLOBIN (BEAKER) (test 29.3 pg 25.6-32.2 wgzh=134) MEAN CORPUSCULAR HEMOGLOBIN CONC (BEAKER) (test 31.4 GM/DL 32.2-35.5 mpxc=078) RED CELL DISTRIBUTION WIDTH (BEAKER) (test 14.7 % 11.7-14.4 jaeq=131) PLATELET COUNT (BEAKER) (test rvbu=555) 337 K/CU MM 150-450 MEAN PLATELET VOLUME (BEAKER) (test vbxq=421) 9.8 fL 9.4-12.3 NUCLEATED RED BLOOD CELLS (BEAKER) (test 0 /100 WBC 0-0 ijhg=392) POCT-GLUCOSE [id number] 22:53:00 Test Item Value Reference Range Comments POC-GLUCOSE METER (BEAKER) 142 mg/dL 70-110 TESTED AT [address] (test aoby=1732) [place] [address] TROPONIN [id number] 18:57:00 Test Item Value Reference Range Comments TROPONIN I (BEAKER) (test wecu=152) 0.28 ng/mL 0.00-0.03 Troponin I (TnI) levels [...] acidosis, acute neurological disease, and persistent tachyarrhythmia.POCT-GLUCOSE [id number] 18:42:00 Test Item Value Reference Range Comments POC-GLUCOSE METER (BEAKER) 125 mg/dL 70-110 TESTED AT [address] (test ssxt=9554) [place] [address] POCT-GLUCOSE [id number] 15:04:00 Test Item Value Reference Range Comments POC-GLUCOSE METER (BEAKER) 120 mg/dL 70-110 TESTED AT [address] (test opiq=4704) [place] [address] TROPONIN [id number] 11:37:00 Test Item Value Reference Range Comments TROPONIN I (BEAKER) (test dzdu=640) 0.26 ng/mL 0.00-0.03 Troponin I (TnI) levels [...] and persistent tachyarrhythmia.RAD, CHEST, 1 VIEW, NON [id number] 11:31:00Reason for exam:->chest painShould this be performed at the bedside?- >YesFINAL REPORT Chest, portable AP view History: Chest pain Comparison: 10/25/2018 IMPRESSION: The cardiothoracic stable. 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 Right operation PICCtip terminates at the cavoatrial junction. Bibasilar atelectasis is present. No new consolidation, pleural effusion, or pneumothorax. Signed: Oscar Lyons MDReport Verified Date/Time: 11/02/2018 11:31:36 Reading Location: [facility] Radiology Reading Room POCT-GLUCOSE [id number] 09:33:00 Test Item Value Reference Range Comments POC-GLUCOSE METER (ROCAELAKER) 155 mg/dL 70-110 TESTED AT [address] (test opoq=6562) [facility] [address] [place], ANGIOGRAM, [id number] 08:35:00Reason for exam:->Diagnostic Angiogram and Possible Carotid Stent PlacmentFINAL REPORT DATE OF PROCEDURE: 10/26/2018 SURGEON: Lobo Dillon M.D. ABSTRACT CLERK: Felicity Curiel MD PREOPERATIVE DIAGNOSIS: Left and [...] 2*Right common femoral artery x1 MATERIALS EMPLOYED:*6 Danish shuttle sheath *5 Danish 130cm diagnostic catheter*Flexor Shuttle guiding cathter*Synchro Glidewire*Amplatz Super Stiff guidewire*ALBERTO II catheter* 5F Flush Contra catheter*Synchro Standard, exchange length*Spyder 6mm distal protection device*Viatrac 14 Plus 4x20mm balloon*Precise Pro 6 x 30mm stent*6 Danish Mynxgrip closure device INDICATIONS: The patient is [...] good location the puncture site, a 6 Danish shuttle sheath was advanced over an exchange length Synchro Glidewire into the mid thoracic aorta, the inner stylette and wire were removed, the catheter back bled , flushed in usual fashion and it was maintained on heparinized flushed throughout remainder the procedure. Using coaxial technique, a pre-flushed 4 Danish Berenstein catheter on constant heparinized saline flush [...] and intracranial ICA angiograms through the 6 Danish sheath. ENDOVASCULAR INTERVENTION: A Weight-based heparin bolus [...] procedure well and was transported from the [facility] in unchanged neurological status, without groin hematoma [...] MDReport Verified Date/Time: 11/02/2018 08:35:28 Reading Location: [facility] Y026 Neuro [facility] [id number] 07:55:00 Test Item Value Reference Range Comments MAGNESIUM (BEAKER) (test wepi=086) 1.6 mg/dL 1.6-2.6 BASIC METABOLIC [id number] 07:55:00 Test Item Value Reference Range Comments SODIUM (BEAKER) (test 137 meq/L 136-145 kdei=241) POTASSIUM (BEAKER) (test 4.0 meq/L 3.5-5.1 rrde=906) CHLORIDE (BEAKER) (test 105 meq/L 98-107 sbty=475) CO2 (BEAKER) (test 25 meq/L 22-29 vvpt=076) BLOOD UREA NITROGEN 9 mg/dL 7-21 (BEAKER) (test johe=677) CREATININE (BEAKER) (test 0.79 mg/dL 0.57-1.25 knsf=735) GLUCOSE RANDOM (BEAKER) 141 mg/dL 70-105 (test czgf=773) CALCIUM (BEAKER) (test 8.6 mg/dL 8.4-10.2 vxyb=481) EGFR (BEAKER) (test 71 mL/min/1.73 sq m ESTIMATED GFR IS NOT noth=4595) ACCURATE CREATININE CLEARANCE IN PREDICTING GLOMERULAR FILTRATION RATE. ESTIMATED GFR IS NOT APPLICABLE FOR DIALYSIS PATIENTS. TROPONIN [id number] 07:21:00 Test Item Value Reference Range Comments TROPONIN I (BEAKER) (test ymcu=117) 0.21 ng/mL 0.00-0.03 Troponin I (TnI) levels [...] Comments WHITE BLOOD CELL COUNT (BEAKER) (test msij=164) 7.8 K/ L 3.5-10.5 RED BLOOD CELL COUNT (BEAKER) (test uftg=361) 3.22 M/ L 3.93-5.22 HEMOGLOBIN (BEAKER) (test zsud=167) 9.3 GM/DL 11.2-15.7 HEMATOCRIT (BEAKER) (test sglr=511) 30.3 % 34.1-44.9 MEAN CORPUSCULAR VOLUME (BEAKER) (test vgjz=066) 94.1 fL 79.4-94.8 MEAN CORPUSCULAR HEMOGLOBIN (BEAKER) (test 28.9 pg 25.6-32.2 wptf=516) MEAN CORPUSCULAR HEMOGLOBIN CONC (BEAKER) (test 30.7 GM/DL 32.2-35.5 yldl=902) RED CELL DISTRIBUTION WIDTH (BEAKER) (test 14.8 % 11.7-14.4 uyyc=878) PLATELET COUNT (BEAKER) (test rnmq=590) 342 K/CU MM 150-450 MEAN PLATELET VOLUME (BEAKER) (test xazt=791) 10.0 fL 9.4-12.3 NUCLEATED RED BLOOD CELLS (BEAKER) (test 0 /100 WBC 0-0 bdnf=976) POCT-GLUCOSE [id number] 21:32:00 Test Item Value Reference Range Comments POC-GLUCOSE METER (BEAKER) 137 mg/dL 70-110 TESTED AT [address] (test hgfy=1009) [place] [address] TROPONIN [id number] 18:48:00 Test Item Value Reference Range Comments TROPONIN I (BEAKER) (test dtlu=788) 0.34 ng/mL 0.00-0.03 Troponin I (TnI) levels [...] acidosis, acute neurological disease, and persistent tachyarrhythmia.POCT-GLUCOSE [id number] 17:34:00 Test Item Value Reference Range Comments POC-GLUCOSE METER (BEAKER) 108 mg/dL 70-110 TESTED AT [address] (test avsk=4504) [place] [address] POCT-GLUCOSE [id number] 12:55:00 Test Item Value Reference Range Comments POC-GLUCOSE METER (BEAKER) 190 mg/dL 70-110 TESTED AT [address] (test kpss=3850) [place] [address] POCT-GLUCOSE [id number] 09:07:00 Test Item Value Reference Range Comments POC-GLUCOSE METER (BEAKER) 199 mg/dL 70-110 TESTED AT [address] (test zgtw=4284) [place] [address] TROPONIN [id number] 08:04:00 Test Item Value Reference Range Comments TROPONIN I (BEAKER) (test elxh=803) 0.37 ng/mL 0.00-0.03 Troponin I (TnI) levels [...] failure, acidosis, acute neurological disease, and persistent tachyarrhythmia.[id number] 07:14:00 Test Item Value Reference Range Comments MAGNESIUM (BEAKER) (test mkow=792) 1.8 mg/dL 1.6-2.6 BASIC METABOLIC [id number] 07:14:00 Test Item Value Reference Range Comments SODIUM (BEAKER) (test 139 meq/L 136-145 agpi=987) POTASSIUM (BEAKER) (test 4.0 meq/L 3.5-5.1 lbtw=676) CHLORIDE (BEAKER) (test 107 meq/L 98-107 hjao=927) CO2 (BEAKER) (test 27 meq/L 22-29 vofc=333) BLOOD UREA NITROGEN 11 mg/dL 7-21 (BEAKER) (test vhlq=522) CREATININE (BEAKER) (test 0.76 mg/dL 0.57-1.25 iwai=296) GLUCOSE RANDOM (BEAKER) 97 mg/dL 70-105 (test owkk=445) CALCIUM (BEAKER) (test 8.4 mg/dL 8.4-10.2 unyz=526) EGFR (BEAKER) (test 75 mL/min/1.73 sq m ESTIMATED GFR IS NOT xjxa=6923) ACCURATE CREATININE CLEARANCE IN PREDICTING GLOMERULAR FILTRATION RATE. ESTIMATED GFR IS NOT APPLICABLE FOR DIALYSIS PATIENTS. [id number] 07:02:00 Test Item Value Reference Range Comments PARTIAL THROMBOPLASTIN TIME (BEAKER) (test 78.2 seconds 22.5-36.0 ufoo=010) CBC (HEMOGRAM ONLY)2018-11-01 06:38:00 Test Item Value Reference Range Comments WHITE BLOOD CELL COUNT (BEAKER) (test bktv=468) 8.0 K/ L 3.5-10.5 RED BLOOD CELL COUNT (BEAKER) (test kbqx=971) 3.02 M/ L 3.93-5.22 HEMOGLOBIN (BEAKER) (test lwra=290) 8.8 GM/DL 11.2-15.7 HEMATOCRIT (BEAKER) (test glic=744) 28.3 % 34.1-44.9 MEAN CORPUSCULAR VOLUME (BEAKER) (test gjbt=823) 93.7 fL 79.4-94.8 MEAN CORPUSCULAR HEMOGLOBIN (BEAKER) (test 29.1 pg 25.6-32.2 cwhc=819) MEAN CORPUSCULAR HEMOGLOBIN CONC (BEAKER) (test 31.1 GM/DL 32.2-35.5 skxg=760) RED CELL DISTRIBUTION WIDTH (BEAKER) (test 14.9 % 11.7-14.4 ybia=226) PLATELET COUNT (BEAKER) (test roar=363) 336 K/CU MM 150-450 MEAN PLATELET VOLUME (BEAKER) (test fzhh=835) 10.1 fL 9.4-12.3 NUCLEATED RED BLOOD CELLS (BEAKER) (test 0 /100 WBC 0-0 xsdj=053) [id number] 01:43:00 Test Item Value Reference Range Comments PARTIAL THROMBOPLASTIN TIME (BEAKER) (test 71.9 seconds 22.5-36.0 ckgi=415) TROPONIN [id number] 00:57:00 Test Item Value Reference Range Comments TROPONIN I (BEAKER) (test iljh=334) 0.44 ng/mL 0.00-0.03 Troponin I (TnI) levels [...] acidosis, acute neurological disease, and persistent tachyarrhythmia.POCT-GLUCOSE [id number] 22:19:00 Test Item Value Reference Range Comments POC-GLUCOSE METER (BEAKER) 307 mg/dL 70-110 Notified LLUVIA VERA/TESTED AT [facility] (test vtak=4107) [address] [facility] [address] PLATE[place] [id number] 18:57:00 Test Item Value Reference Range Comments PLATELET COUNT (BEAKER) (test ldqi=131) 311 K/CU MM 150-450 [id number] 17:43:00 Test Item Value Reference Range Comments PARTIAL THROMBOPLASTIN TIME (BEAKER) (test 46.3 seconds 22.5-36.0 kuur=497) TROPONIN [id number] 17:01:00 Test Item Value Reference Range Comments TROPONIN I (BEAKER) (test nrgb=256) 0.75 ng/mL 0.00-0.03 Troponin I (TnI) levels [...] failure, acidosis, acute neurological disease, and persistent tachyarrhythmia.[id number] 16:43:00 Test Item Value Reference Range Comments PARTIAL THROMBOPLASTIN TIME (BEAKER) (test 140.2 seconds 22.5-36.0 nrgy=580) POCT-GLUCOSE [id number] 12:30:00 Test Item Value Reference Range Comments POC-GLUCOSE METER (BEAKER) 173 mg/dL 70-110 TESTED AT [facility] [address] [place] [address] (test zeqc=4408) [facility] [address] TROPONIN [id number] 11:16:00 Test Item Value Reference Range Comments TROPONIN I (BEAKER) (test xjtg=623) 0.84 ng/mL 0.00-0.03 Troponin I (TnI) levels [...] failure, acidosis, acute neurological disease, and persistent tachyarrhythmia.[id number] 10:46:00 Test Item Value Reference Range Comments MAGNESIUM (BEAKER) (test uyky=377) 2.2 mg/dL 1.6-2.6 [id number] 10:38:00 Test Item Value Reference Range Comments PARTIAL THROMBOPLASTIN TIME (BEAKER) (test 65.3 seconds 22.5-36.0 eutw=384) HEMOGLOBIN AND [id number] 10:34:00 Test Item Value Reference Range Comments HEMOGLOBIN (BEAKER) (test wgjp=875) 8.7 GM/DL 11.2-15.7 HEMATOCRIT (BEAKER) (test jtrw=720) 28.4 % 34.1-44.9 POCT-GLUCOSE [id number] 08:38:00 Test Item Value Reference Range Comments POC-GLUCOSE METER (BEAKER) 205 mg/dL 70-110 TESTED AT [facility] [address] (test ntjv=7070) [place] [address] TROPONIN [id number] 05:22:00 Test Item Value Reference Range Comments TROPONIN I (BEAKER) (test lzeg=457) 0.50 ng/mL 0.00-0.03 Troponin I (TnI) levels [...] failure, acidosis, acute neurological disease, and persistent tachyarrhythmia.[id number] 05:07:00 Test Item Value Reference Range Comments MAGNESIUM (BEAKER) (test qofn=396) 1.7 mg/dL 1.6-2.6 BASIC METABOLIC [id number] 05:07:00 Test Item Value Reference Range Comments SODIUM (BEAKER) (test 139 meq/L 136-145 bwoz=650) POTASSIUM (BEAKER) (test 4.1 meq/L 3.5-5.1 rpam=849) CHLORIDE (BEAKER) (test 108 meq/L 98-107 sfbs=526) CO2 (BEAKER) (test 26 meq/L 22-29 gyzg=262) BLOOD UREA NITROGEN 11 mg/dL 7-21 (BEAKER) (test jwgl=534) CREATININE (BEAKER) (test 0.79 mg/dL 0.57-1.25 qibc=861) GLUCOSE RANDOM (BEAKER) 190 mg/dL 70-105 (test zgll=089) CALCIUM (BEAKER) (test 8.0 mg/dL 8.4-10.2 bsfw=457) EGFR (BEAKER) (test 71 mL/min/1.73 sq m ESTIMATED GFR IS NOT mttn=7765) ACCURATE CREATININE CLEARANCE IN PREDICTING GLOMERULAR FILTRATION RATE. ESTIMATED GFR IS NOT APPLICABLE FOR DIALYSIS PATIENTS. [id number] 04:42:00 Test Item Value Reference Range Comments PARTIAL THROMBOPLASTIN TIME (BEAKER) (test 76.0 seconds 22.5-36.0 pcus=777) CBC (HEMOGRAM ONLY)2018-10-31 04:35:00 Test Item Value Reference Range Comments WHITE BLOOD CELL COUNT (BEAKER) (test uspd=683) 7.8 K/ L 3.5-10.5 RED BLOOD CELL COUNT (BEAKER) (test luwe=745) 2.88 M/ L 3.93-5.22 HEMOGLOBIN (BEAKER) (test uuax=014) 8.4 GM/DL 11.2-15.7 HEMATOCRIT (BEAKER) (test oswf=912) 27.2 % 34.1-44.9 MEAN CORPUSCULAR VOLUME (BEAKER) (test bfif=513) 94.4 fL 79.4-94.8 MEAN CORPUSCULAR HEMOGLOBIN (BEAKER) (test 29.2 pg 25.6-32.2 zzap=852) MEAN CORPUSCULAR HEMOGLOBIN CONC (BEAKER) (test 30.9 GM/DL 32.2-35.5 cobm=026) RED CELL DISTRIBUTION WIDTH (BEAKER) (test 15.0 % 11.7-14.4 nihb=394) PLATELET COUNT (BEAKER) (test sqbc=716) 302 K/CU MM 150-450 MEAN PLATELET VOLUME (BEAKER) (test jlij=998) 9.9 fL 9.4-12.3 NUCLEATED RED BLOOD CELLS (BEAKER) (test 0 /100 WBC 0-0 azvr=873) TROPONIN [id number] 22:57:00 Test Item Value Reference Range Comments TROPONIN I (BEAKER) (test qtud=004) 0.15 ng/mL 0.00-0.03 Troponin I (TnI) levels [...] failure, acidosis, acute neurological disease, and persistent tachyarrhythmia.[id number] 22:43:00 Test Item Value Reference Range Comments PROTIME (BEAKER) (test eiwo=137) 13.6 seconds 11.9-14.2 INR (BEAKER) (test jrbs=699) 1.1 <=5.9 PARTIAL THROMBOPLASTIN TIME (BEAKER) (test 63.6 seconds 22.5-36.0 nqto=770) Effective 09/14/2018: PT Reference Range ChangeNew: 11.9-14.2 Previous: 11.7- 14.7RECOMMENDED COUMADIN/WARFARIN INR THERAPY RANGESSTANDARD DOSE: 2.0-3.0 Includes: PROPHYLAXIS for venous thrombosis, systemic embolization; TREATMENT for venous thrombosis and/or pulmonary embolus.HIGH RISK: Target INR is2.5-3.5 for patients wiht mechanical heart valves.HEMOGLOBIN AND [id number] 22 :33:00 Test Item Value Reference Range Comments HEMOGLOBIN (BEAKER) (test ztdl=730) 9.5 GM/DL 11.2-15.7 HEMATOCRIT (BEAKER) (test gshl=396) 30.3 % 34.1-44.9 POCT-GLUCOSE [id number] 22:12:00 Test Item Value Reference Range Comments POC-GLUCOSE METER (BEAKER) 278 mg/dL 70-110 TESTED AT [address] (test btag=7016) [facility] [address] POCT-GLUCOSE [id number] 17:26:00 Test Item Value Reference Range Comments POC-GLUCOSE METER (BEAKER) 203 mg/dL 70-110 TESTED AT [address] (test qgas=1370) [facility] [address] [id number] 16:36:00 Test Item Value Reference Range Comments PROTIME (BEAKER) (test rfyi=785) 14.8 seconds 11.9-14.2 INR (BEAKER) (test hwzd=263) 1.2 <=5.9 PARTIAL THROMBOPLASTIN TIME (BEAKER) (test 106.3 seconds 22.5-36.0 vqrw=945) Effective 09/14/2018: PT Reference Range ChangeNew: 11.9-14.2 Previous: 11.7- 14.7RECOMMENDED COUMADIN/WARFARIN INR THERAPY RANGESSTANDARD DOSE: 2.0-3.0 Includes: PROPHYLAXIS for venous thrombosis, systemic embolization; TREATMENT for venous thrombosis and/or pulmonary embolus.HIGH RISK: Target INR is2.5-3.5 for patients wiht mechanical heart valves.HEMOGLOBIN AND [id number] 16 :13:00 Test Item Value Reference Range Comments HEMOGLOBIN (BEAKER) (test lxye=745) 8.8 GM/DL 11.2-15.7 HEMATOCRIT (BEAKER) (test fgok=399) 28.4 % 34.1-44.9 OCCULT BLOOD, [id number] 15:13:00 Test Item Value Reference Range Comments FECAL OCCULT BLOOD (BEAKER) (test bxfy=330) Negative Negative POCT-GLUCOSE [id number] 11:31:00 Test Item Value Reference Range Comments POC-GLUCOSE METER (BEAKER) 185 mg/dL 70-110 TESTED AT [facility] [address] [facility] (test iqoo=1988) [facility] [address] [id number] 09:25:00 Test Item Value Reference Range Comments MAGNESIUM (BEAKER) (test igty=238) 2.1 mg/dL 1.6-2.6 [id number] 09:21:00 Test Item Value Reference Range Comments PROTIME (BEAKER) (test snyx=516) 13.8 seconds 11.9-14.2 INR (BEAKER) (test upae=588) 1.1 <=5.9 PARTIAL THROMBOPLASTIN TIME (BEAKER) (test 69.6 seconds 22.5-36.0 lljq=158) Effective 09/14/2018: PT Reference Range ChangeNew: 11.9-14.2 Previous: 11.7- 14.7RECOMMENDED COUMADIN/WARFARIN INR THERAPY RANGESSTANDARD DOSE: 2.0-3.0 Includes: PROPHYLAXIS for venous thrombosis, systemic embolization; TREATMENT for venous thrombosis and/or pulmonary embolus.HIGH RISK: Target INR is2.5-3.5 for patients wiht mechanical heart valves.HEMOGLOBIN AND [id number] 09 :17:00 Test Item Value Reference Range Comments HEMOGLOBIN (BEAKER) (test oygc=823) 8.8 GM/DL 11.2-15.7 HEMATOCRIT (BEAKER) (test guxo=968) 28.2 % 34.1-44.9 OCCULT BLOOD, [id number] 08:28:00 Test Item Value Reference Range Comments FECAL OCCULT BLOOD (BEAKER) (test mykr=953) Negative Negative POCT-GLUCOSE [id number] 08:02:00 Test Item Value Reference Range Comments POC-GLUCOSE METER (BEAKER) 94 mg/dL 70-110 TESTED AT [facility] [address] (test vndl=0705) [facility] [address] [id number] 03:04:00 Test Item Value Reference Range Comments MAGNESIUM (BEAKER) (test kvqt=559) 1.6 mg/dL 1.6-2.6 BASIC METABOLIC [id number] 03:04:00 Test Item Value Reference Range Comments SODIUM (BEAKER) (test 138 meq/L 136-145 wscx=116) POTASSIUM (BEAKER) (test 3.9 meq/L 3.5-5.1 sizu=684) CHLORIDE (BEAKER) (test 109 meq/L 98-107 akau=490) CO2 (BEAKER) (test 25 meq/L 22-29 ahnk=106) BLOOD UREA NITROGEN 11 mg/dL 7-21 (BEAKER) (test xeis=019) CREATININE (BEAKER) (test 0.77 mg/dL 0.57-1.25 nxwo=053) GLUCOSE RANDOM (BEAKER) 107 mg/dL 70-105 (test nmaj=632) CALCIUM (BEAKER) (test 8.1 mg/dL 8.4-10.2 adtl=567) EGFR (BEAKER) (test 73 mL/min/1.73 sq m ESTIMATED GFR IS NOT jvbv=1986) ACCURATE CREATININE CLEARANCE IN PREDICTING GLOMERULAR FILTRATION RATE. ESTIMATED GFR IS NOT APPLICABLE FOR DIALYSIS PATIENTS. [id number] 02:35:00 Test Item Value Reference Range Comments PARTIAL THROMBOPLASTIN TIME (BEAKER) (test 80.4 seconds 22.5-36.0 tjmu=279) CBC (HEMOGRAM ONLY)2018-10-30 02:23:00 Test Item Value Reference Range Comments WHITE BLOOD CELL COUNT (BEAKER) (test ther=062) 7.2 K/ L 3.5-10.5 RED BLOOD CELL COUNT (BEAKER) (test jjfl=474) 2.88 M/ L 3.93-5.22 HEMOGLOBIN (BEAKER) (test deqm=669) 8.4 GM/DL 11.2-15.7 HEMATOCRIT (BEAKER) (test paqp=334) 26.8 % 34.1-44.9 MEAN CORPUSCULAR VOLUME (BEAKER) (test jyqa=613) 93.1 fL 79.4-94.8 MEAN CORPUSCULAR HEMOGLOBIN (BEAKER) (test 29.2 pg 25.6-32.2 wvcz=305) MEAN CORPUSCULAR HEMOGLOBIN CONC (BEAKER) (test 31.3 GM/DL 32.2-35.5 uyld=706) RED CELL DISTRIBUTION WIDTH (BEAKER) (test 15.4 % 11.7-14.4 uncr=274) PLATELET COUNT (BEAKER) (test dtnv=234) 310 K/CU MM 150-450 MEAN PLATELET VOLUME (BEAKER) (test zmiu=428) 9.4 fL 9.4-12.3 NUCLEATED RED BLOOD CELLS (BEAKER) (test 0 /100 WBC 0-0 xnte=099) CT, BRAIN, WITHOUT [id number] 02:05:00FINAL REPORT EXAM: CT head without contrast. [...] with evolving acute right MCA and right REED PRESS FEEDER territory infarcts. 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 No acute intracranial hemorrhage, midline shift or hydrocephalus. Signed: Kane Beck Verified Date/Time : 10/30/2018 02:05:43 [id number] 01:04:00 Test Item Value Reference Range Comments PARTIAL THROMBOPLASTIN TIME (BEAKER) (test 116.1 seconds 22.5-36.0 dnix=250) [id number] 22:08:00 Test Item Value Reference Range Comments PARTIAL THROMBOPLASTIN TIME (BEAKER) (test 127.2 seconds 22.5-36.0 tgxa=775) HEMOGLOBIN AND [id number] 21:39:00 Test Item Value Reference Range Comments HEMOGLOBIN (BEAKER) (test zhuh=614) 9.0 GM/DL 11.2-15.7 HEMATOCRIT (BEAKER) (test rdqz=427) 28.7 % 34.1-44.9 HEMOGLOBIN AND [id number] 18:45:00 Test Item Value Reference Range Comments HEMOGLOBIN (BEAKER) (test pirt=098) 9.2 GM/DL 11.2-15.7 HEMATOCRIT (BEAKER) (test pbqz=706) 29.7 % 34.1-44.9 POCT-GLUCOSE [id number] 18:27:00 Test Item Value Reference Range Comments POC-GLUCOSE METER (BEAKER) 224 mg/dL 70-110 TESTED AT [address] (test jzmw=8360) [place] [address] [id number] 16:04:00 Test Item Value Reference Range Comments PARTIAL THROMBOPLASTIN TIME (BEAKER) (test 68.7 seconds 22.5-36.0 nkgn=943) [id number] 14:22:00 Test Item Value Reference Range Comments PARTIAL THROMBOPLASTIN TIME (BEAKER) (test 195.5 seconds 22.5-36.0 zlmf=574) HEMOGLOBIN AND [id number] 13:11:00 Test Item Value Reference Range Comments HEMOGLOBIN (BEAKER) (test jtvt=606) 8.8 GM/DL 11.2-15.7 HEMATOCRIT (BEAKER) (test aqva=513) 29.8 % 34.1-44.9 POCT-GLUCOSE [id number] 12:17:00 Test Item Value Reference Range Comments POC-GLUCOSE METER (BEAKER) 196 mg/dL 70-110 TESTED AT [address] (test olqw=2214) [place] [address] [id number] 06:21:00 Test Item Value Reference Range Comments MAGNESIUM (BEAKER) (test wxio=108) 1.9 mg/dL 1.6-2.6 BASIC METABOLIC [id number] 06:21:00 Test Item Value Reference Range Comments SODIUM (BEAKER) (test 139 meq/L 136-145 ziwh=674) POTASSIUM (BEAKER) (test 3.7 meq/L 3.5-5.1 djhz=655) CHLORIDE (BEAKER) (test 109 meq/L 98-107 npcj=968) CO2 (BEAKER) (test 24 meq/L 22-29 scss=977) BLOOD UREA NITROGEN 13 mg/dL 7-21 (BEAKER) (test uwbv=376) CREATININE (BEAKER) (test 0.81 mg/dL 0.57-1.25 nxmk=675) GLUCOSE RANDOM (BEAKER) 117 mg/dL 70-105 (test osyo=372) CALCIUM (BEAKER) (test 8.3 mg/dL 8.4-10.2 pafc=085) EGFR (BEAKER) (test 69 mL/min/1.73 sq m ESTIMATED GFR IS NOT pdud=0948) ACCURATE CREATININE CLEARANCE IN PREDICTING GLOMERULAR FILTRATION RATE. ESTIMATED GFR IS NOT APPLICABLE FOR DIALYSIS PATIENTS. [id number] 05:56:00 Test Item Value Reference Range Comments PARTIAL THROMBOPLASTIN TIME (BEAKER) (test 73.1 seconds 22.5-36.0 otmb=164) CBC (HEMOGRAM ONLY)2018-10-29 05:36:00 Test Item Value Reference Range Comments WHITE BLOOD CELL COUNT (BEAKER) (test sxgr=063) 8.2 K/ L 3.5-10.5 RED BLOOD CELL COUNT (BEAKER) (test swkh=790) 2.97 M/ L 3.93-5.22 HEMOGLOBIN (BEAKER) (test gbyq=189) 8.7 GM/DL 11.2-15.7 HEMATOCRIT (BEAKER) (test opfm=207) 28.2 % 34.1-44.9 MEAN CORPUSCULAR VOLUME (BEAKER) (test cxfy=547) 94.9 fL 79.4-94.8 MEAN CORPUSCULAR HEMOGLOBIN (BEAKER) (test 29.3 pg 25.6-32.2 vezw=243) MEAN CORPUSCULAR HEMOGLOBIN CONC (BEAKER) (test 30.9 GM/DL 32.2-35.5 xbrh=737) RED CELL DISTRIBUTION WIDTH (BEAKER) (test 15.9 % 11.7-14.4 ycbg=593) PLATELET COUNT (BEAKER) (test rmlk=453) 333 K/CU MM 150-450 MEAN PLATELET VOLUME (BEAKER) (test quch=003) 9.9 fL 9.4-12.3 NUCLEATED RED BLOOD CELLS (BEAKER) (test 0 /100 WBC 0-0 jkgt=680) POCT-GLUCOSE [id number] 22:41:00 Test Item Value Reference Range Comments POC-GLUCOSE METER (BEAKER) 139 mg/dL 70-110 TESTED AT [facility] [address] [facility] (test mjxq=5835) [facility] [address] HEMOGLOBIN AND [id number] 21:49:00 Test Item Value Reference Range Comments HEMOGLOBIN (BEAKER) (test flge=552) 8.4 GM/DL 11.2-15.7 HEMATOCRIT (BEAKER) (test zbei=428) 26.7 % 34.1-44.9 CT, [id number] 21:47:00FINAL REPORT CT abdomen and pelvis, 10/28/2018 [...] no evidence of retroperitoneal adenopathy Signed: Jamila [facility]aint [facility] Verified Date/Time: 10/28/2018 21:47:43 Reading Location : [facility] B1 [id number] Consult Reading Room POCT-GLUCOSE [id number] 17:56:00 Test Item Value Reference Range Comments POC-GLUCOSE METER (BEAKER) 196 mg/dL 70-110 TESTED AT [address] (test tdla=7601) [facility] [id number] CBC (HEMOGRAM ONLY)2018-10-28 17:24:00 Test Item Value Reference Range Comments WHITE BLOOD CELL COUNT (BEAKER) (test rmnh=371) 10.1 K/ L 3.5-10.5 RED BLOOD CELL COUNT (BEAKER) (test rckr=853) 2.98 M/ L 3.93-5.22 HEMOGLOBIN (BEAKER) (test nzxj=395) 8.6 GM/DL 11.2-15.7 HEMATOCRIT (BEAKER) (test zaqr=304) 28.0 % 34.1-44.9 MEAN CORPUSCULAR VOLUME (BEAKER) (test hcpx=023) 94.0 fL 79.4-94.8 MEAN CORPUSCULAR HEMOGLOBIN (BEAKER) (test 28.9 pg 25.6-32.2 ypse=607) MEAN CORPUSCULAR HEMOGLOBIN CONC (BEAKER) (test 30.7 GM/DL 32.2-35.5 vbpa=818) RED CELL DISTRIBUTION WIDTH (BEAKER) (test 15.9 % 11.7-14.4 wbux=357) PLATELET COUNT (BEAKER) (test coim=781) 410 K/CU MM 150-450 MEAN PLATELET VOLUME (BEAKER) (test sams=003) 9.5 fL 9.4-12.3 NUCLEATED RED BLOOD CELLS (BEAKER) (test 0 /100 WBC 0-0 fnof=376) [id number] 17:16:00 Test Item Value Reference Range Comments PARTIAL THROMBOPLASTIN TIME (BEAKER) (test 28.2 seconds 22.5-36.0 usch=096) Prior to initiating heparinPOCT-GLUCOSE [id number] 07:57:00 Test Item Value Reference Range Comments POC-GLUCOSE METER (BEAKER) 199 mg/dL 70-110 TESTED AT [address] (test byrx=8178) [facility] [address] [id number] 04:40:00 Test Item Value Reference Range Comments MAGNESIUM (BEAKER) (test jyoz=774) 2.0 mg/dL 1.6-2.6 BASIC METABOLIC [id number] 04:40:00 Test Item Value Reference Range Comments SODIUM (BEAKER) (test 142 meq/L 136-145 jfvf=875) POTASSIUM (BEAKER) (test 3.9 meq/L 3.5-5.1 qstg=653) CHLORIDE (BEAKER) (test 113 meq/L 98-107 tzin=135) CO2 (BEAKER) (test 23 meq/L 22-29 umza=935) BLOOD UREA NITROGEN 15 mg/dL 7-21 (BEAKER) (test rbto=634) CREATININE (BEAKER) (test 0.86 mg/dL 0.57-1.25 veno=708) GLUCOSE RANDOM (BEAKER) 171 mg/dL 70-105 (test qfhi=560) CALCIUM (BEAKER) (test 8.1 mg/dL 8.4-10.2 sumg=319) EGFR (BEAKER) (test 65 mL/min/1.73 sq m ESTIMATED GFR IS NOT iwap=3643) ACCURATE CREATININE CLEARANCE IN PREDICTING GLOMERULAR FILTRATION RATE. ESTIMATED GFR IS NOT APPLICABLE FOR DIALYSIS PATIENTS. CBC (HEMOGRAM ONLY)2018-10-28 04:36:00 Test Item Value Reference Range Comments WHITE BLOOD CELL COUNT (BEAKER) (test ncpr=988) 12.3 K/ L 3.5-10.5 RED BLOOD CELL COUNT (BEAKER) (test kvip=286) 2.35 M/ L 3.93-5.22 HEMOGLOBIN (BEAKER) (test ypmk=103) 6.8 GM/DL 11.2-15.7 HEMATOCRIT (BEAKER) (test vbgd=275) 23.0 % 34.1-44.9 MEAN CORPUSCULAR VOLUME (BEAKER) (test bhak=544) 97.9 fL 79.4-94.8 MEAN CORPUSCULAR HEMOGLOBIN (BEAKER) (test 28.9 pg 25.6-32.2 wzdl=942) MEAN CORPUSCULAR HEMOGLOBIN CONC (BEAKER) (test 29.6 GM/DL 32.2-35.5 wfbf=131) RED CELL DISTRIBUTION WIDTH (BEAKER) (test 14.8 % 11.7-14.4 ecje=036) PLATELET COUNT (BEAKER) (test qalq=692) 353 K/CU MM 150-450 MEAN PLATELET VOLUME (BEAKER) (test bxyx=622) 9.6 fL 9.4-12.3 NUCLEATED RED BLOOD CELLS (BEAKER) (test 0 /100 WBC 0-0 enzq=755) POCT-GLUCOSE [id number] 22:07:00 Test Item Value Reference Range Comments POC-GLUCOSE METER (BEAKER) 223 mg/dL 70-110 TESTED AT [address] (test lwdl=3438) [place] [address] POCT-GLUCOSE [id number] 16:51:00 Test Item Value Reference Range Comments POC-GLUCOSE METER (BEAKER) 234 mg/dL 70-110 TESTED AT [address] (test lxqa=1496) [place] [address] POCT-GLUCOSE [id number] 14:05:00 Test Item Value Reference Range Comments POC-GLUCOSE METER (BEAKER) 250 mg/dL 70-110 TESTED AT [address] (test hyfy=9818) [place] [address] TROPONIN [id number] 14:00:00 Test Item Value Reference Range Comments TROPONIN I (BEAKER) (test hpdh=936) 0.47 ng/mL 0.00-0.03 Troponin I (TnI) levels [...] acute neurological disease, and persistent tachyarrhythmia.POCT-P2Y12 PLATELET [id number] 13:28:00 Test Item Value Reference Range Comments POC-P2Y12 PLATELET AGG (BEAKER) (test rzlz=6318) 142 PRU RANGE INFORMATION: PRU reference range is 194-418. Post Drug Results: Lower PRU levels are associated with expected antiplatelet effect. Values may be below the stated reference range above. The post-drug PRU values reported in the [employer] P2Y12 package insert are [id number].CT, BRAIN, WITHOUT [id number] 11:44:00FINAL REPORT CT Head without contrast CLINICAL [...] MDReport Verified Date/Time: 10/27/2018 11:44:04 Reading Location: [address] Neuro Reading Room TROPONIN [id number] 10:05:00 Test Item Value Reference Range Comments TROPONIN I (BEAKER) (test fktr=394) 0.53 ng/mL 0.00-0.03 Troponin I (TnI) levels [...] failure, acidosis, acute neurological disease, and persistent tachyarrhythmia.[id number] 04:30:00 Test Item Value Reference Range Comments PARTIAL THROMBOPLASTIN TIME (BEAKER) (test 30.8 seconds 22.5-36.0 uwvv=785) 6 hours after starting heparin infusion and as indicated per sliding scaleBASI METABOLIC [id number] 04:24:00 Test Item Value Reference Range Comments SODIUM (BEAKER) (test 143 meq/L 136-145 kron=162) POTASSIUM (BEAKER) (test 3.9 meq/L 3.5-5.1 bjcu=720) CHLORIDE (BEAKER) (test 112 meq/L 98-107 bpuo=999) CO2 (BEAKER) (test 21 meq/L 22-29 jyof=811) BLOOD UREA NITROGEN 14 mg/dL 7-21 (BEAKER) (test sjeo=286) CREATININE (BEAKER) (test 0.86 mg/dL 0.57-1.25 mixq=984) GLUCOSE RANDOM (BEAKER) 168 mg/dL 70-105 (test lgbu=908) CALCIUM (BEAKER) (test 7.7 mg/dL 8.4-10.2 gdgb=382) EGFR (BEAKER) (test 65 mL/min/1.73 sq m ESTIMATED GFR IS NOT uwwd=4647) ACCURATE CREATININE CLEARANCE IN PREDICTING GLOMERULAR FILTRATION RATE. ESTIMATED GFR IS NOT APPLICABLE FOR DIALYSIS PATIENTS. [id number] 04:23:00 Test Item Value Reference Range Comments MAGNESIUM (BEAKER) (test njlw=225) 1.8 mg/dL 1.6-2.6 CBC (HEMOGRAM ONLY)2018-10-27 04:00:00 Test Item Value Reference Range Comments WHITE BLOOD CELL COUNT (BEAKER) (test pydk=495) 16.2 K/ L 3.5-10.5 RED BLOOD CELL COUNT (BEAKER) (test hcne=819) 2.64 M/ L 3.93-5.22 HEMOGLOBIN (BEAKER) (test wxzb=126) 7.8 GM/DL 11.2-15.7 HEMATOCRIT (BEAKER) (test innw=455) 25.7 % 34.1-44.9 MEAN CORPUSCULAR VOLUME (BEAKER) (test odkd=534) 97.3 fL 79.4-94.8 MEAN CORPUSCULAR HEMOGLOBIN (BEAKER) (test 29.5 pg 25.6-32.2 cubv=320) MEAN CORPUSCULAR HEMOGLOBIN CONC (BEAKER) (test 30.4 GM/DL 32.2-35.5 tiev=127) RED CELL DISTRIBUTION WIDTH (BEAKER) (test 14.6 % 11.7-14.4 twgb=376) PLATELET COUNT (BEAKER) (test pzbx=156) 430 K/CU MM 150-450 MEAN PLATELET VOLUME (BEAKER) (test xwcq=808) 9.7 fL 9.4-12.3 NUCLEATED RED BLOOD CELLS (BEAKER) (test 0 /100 WBC 0-0 yycd=152) POCT-GLUCOSE [id number] 00:53:00 Test Item Value Reference Range Comments POC-GLUCOSE METER (BEAKER) 154 mg/dL 70-110 TESTED AT [address] (test xvcz=2393) [place] [id number] 21:42:00 Test Item Value Reference Range Comments ACTIVATED CLOTTING TIME 241 sec TESTED AT [address] (BEAKER) (test nntn=592) [place] [id number] BLOOD GAS, [id number] 21:42:00 Test Item Value Reference Range Comments PH ARTERIAL (BEAKER) (test bcod=003) 7.45 7.35-7.45 PCO2 ARTERIAL (BEAKER) (test iuku=199) 39 mm Hg 35-45 PO2 ARTERIAL (BEAKER) (test oiqm=863) 133 mm Hg 80-90 O2 SATURATION ARTERIAL (BEAKER) (test gzaa=762) 98.8 % 96.0-97.0 HCO3 ARTERIAL (BEAKER) (test mgzd=319) 27 mmol/L 21-29 BASE EXCESS ARTERIAL (BEAKER) (test irqn=919) 2.3 mmol/L -2.0-3.0 SODIUM NA-STAT [id number] 21:42:00 Test Item Value Reference Range Comments SODIUM (BEAKER) (test vhjg=331) 138 meq/L 135-148 POTASSIUM-STAT [id number] 21:42:00 Test Item Value Reference Range Comments POTASSIUM (BEAKER) (test elcq=161) 3.7 meq/L 3.6-5.5 GLUCOSE-STAT [id number] 21:42:00 Test Item Value Reference Range Comments GLUCOSE RANDOM (BEAKER) (test ptyd=517) 129 mg/dL 70-110 HGB/HCT (H&H) - STAT [id number] 21:42:00 Test Item Value Reference Range Comments HEMOGLOBIN (BEAKER) (test tvin=574) 9.5 GM/DL 12.0-15.0 HEMATOCRIT (BEAKER) (test auid=945) 28.0 % 36.0-45.0 POCT-GLUCOSE [id number] 17:26:00 Test Item Value Reference Range Comments POC-GLUCOSE METER (BEAKER) 147 mg/dL 70-110 TESTED AT [address] (test zkrj=2316) [place] [id number] CT, BRAIN, WITHOUT [id number] 15:43:00FINAL REPORT CT Head without contrast CLINICAL [...] MDReport Verified Date/Time: 10/26/2018 15:43:56 Reading Location: [address] Neuro Reading RoomElectronically signed by: JARET ROBBINS M.D. on 01/2019 03:43 PMPROTHROMBIN TIME/[id number] 13:31:00 Test Item Value Reference Range Comments PROTIME (BEAKER) (test yiqe=041) 13.4 seconds 11.9-14.2 INR (BEAKER) (test ummn=730) 1.1 <=5.9 Effective 09/14/2018: PT Reference Range ChangeNew: 11.9-14.2 Previous: 11.7- 14.7RECOMMENDED COUMADIN/WARFARIN INR THERAPY RANGESSTANDARD DOSE: 2.0-3.0 Includes: PROPHYLAXIS for venous thrombosis, systemic embolization; TREATMENT for venous thrombosis and/or pulmonary embolus.HIGH RISK: Target INR is2.5-3.5 for patients wiht mechanical heart valves.POCT-GLUCOSE [id number] 12:14:00 Test Item Value Reference Range Comments POC-GLUCOSE METER (BEAKER) 264 mg/dL 70-110 TESTED AT [facility] [address] (test nhpi=9612) [facility] [address] POCT-GLUCOSE [id number] 07:52:00 Test Item Value Reference Range Comments POC-GLUCOSE METER (BEAKER) 247 mg/dL 70-110 TESTED AT [facility] [address] (test uqte=2676) [place] [address] [id number] 05:38:00 Test Item Value Reference Range Comments MAGNESIUM (BEAKER) (test ndib=250) 1.9 mg/dL 1.6-2.6 BASIC METABOLIC [id number] 05:38:00 Test Item Value Reference Range Comments SODIUM (BEAKER) (test 138 meq/L 136-145 acwx=020) POTASSIUM (BEAKER) (test 4.2 meq/L 3.5-5.1 pooe=653) CHLORIDE (BEAKER) (test 103 meq/L 98-107 moni=144) CO2 (BEAKER) (test 26 meq/L 22-29 tcex=506) BLOOD UREA NITROGEN 15 mg/dL 7-21 (BEAKER) (test azzr=958) CREATININE (BEAKER) (test 1.06 mg/dL 0.57-1.25 zpwh=318) GLUCOSE RANDOM (BEAKER) 227 mg/dL 70-105 (test mxtk=459) CALCIUM (BEAKER) (test 9.0 mg/dL 8.4-10.2 mtty=198) EGFR (BEAKER) (test 51 mL/min/1.73 sq m ESTIMATED GFR IS NOT uijg=7906) ACCURATE CREATININE CLEARANCE IN PREDICTING GLOMERULAR FILTRATION RATE. ESTIMATED GFR IS NOT APPLICABLE FOR DIALYSIS PATIENTS. CBC (HEMOGRAM ONLY)2018-10-26 05:27:00 Test Item Value Reference Range Comments WHITE BLOOD CELL COUNT (BEAKER) (test waws=856) 14.3 K/ L 3.5-10.5 RED BLOOD CELL COUNT (BEAKER) (test eeyk=770) 3.25 M/ L 3.93-5.22 HEMOGLOBIN (BEAKER) (test ukes=774) 9.4 GM/DL 11.2-15.7 HEMATOCRIT (BEAKER) (test kmww=695) 30.7 % 34.1-44.9 MEAN CORPUSCULAR VOLUME (BEAKER) (test qhsa=594) 94.5 fL 79.4-94.8 MEAN CORPUSCULAR HEMOGLOBIN (BEAKER) (test 28.9 pg 25.6-32.2 qmcx=208) MEAN CORPUSCULAR HEMOGLOBIN CONC (BEAKER) (test 30.6 GM/DL 32.2-35.5 ilzw=875) RED CELL DISTRIBUTION WIDTH (BEAKER) (test 14.4 % 11.7-14.4 pyvs=605) PLATELET COUNT (BEAKER) (test eyio=857) 501 K/CU MM 150-450 MEAN PLATELET VOLUME (BEAKER) (test xgin=534) 9.9 fL 9.4-12.3 NUCLEATED RED BLOOD CELLS (BEAKER) (test 0 /100 WBC 0-0 sqfm=143) [id number] 02:31:00 Test Item Value Reference Range Comments PARTIAL THROMBOPLASTIN TIME (BEAKER) (test 58.6 seconds 22.5-36.0 vcrn=667) POCT-GLUCOSE [id number] 22:21:00 Test Item Value Reference Range Comments POC-GLUCOSE METER (BEAKER) 277 mg/dL 70-110 TESTED AT [address] (test ypac=1649) [facility] [address] RAD, CHEST, 1 VIEW, NON [id number] 19:48:00Reason for exam:->Right UE PICC placementShould this [...] MDReport Verified Date/Time: 10/25/2018 19:48:53 Reading Location: [address] Consult Reading Room [id number] 19:08:00 Test Item Value Reference Range Comments PARTIAL THROMBOPLASTIN TIME (BEAKER) (test 30.7 seconds 22.5-36.0 gbgw=222) Prior to initiating heparinCBC (HEMOGRAM ONLY)2018-10-25 18:57:00 Test Item Value Reference Range Comments WHITE BLOOD CELL COUNT (BEAKER) (test cqiw=281) 9.7 K/ L 3.5-10.5 RED BLOOD CELL COUNT (BEAKER) (test dfeu=034) 3.23 M/ L 3.93-5.22 HEMOGLOBIN (BEAKER) (test qgxa=978) 9.5 GM/DL 11.2-15.7 HEMATOCRIT (BEAKER) (test bdol=464) 30.6 % 34.1-44.9 MEAN CORPUSCULAR VOLUME (BEAKER) (test welu=259) 94.7 fL 79.4-94.8 MEAN CORPUSCULAR HEMOGLOBIN (BEAKER) (test 29.4 pg 25.6-32.2 eted=480) MEAN CORPUSCULAR HEMOGLOBIN CONC (BEAKER) (test 31.0 GM/DL 32.2-35.5 unrc=617) RED CELL DISTRIBUTION WIDTH (BEAKER) (test 14.5 % 11.7-14.4 seio=200) PLATELET COUNT (BEAKER) (test vmzf=984) 497 K/CU MM 150-450 MEAN PLATELET VOLUME (BEAKER) (test bdpp=008) 9.2 fL 9.4-12.3 NUCLEATED RED BLOOD CELLS (BEAKER) (test 0 /100 WBC 0-0 aqui=928) POCT-GLUCOSE [id number] 18:52:00 Test Item Value Reference Range Comments POC-GLUCOSE METER (BEAKER) 122 mg/dL 70-110 TESTED AT [address] (test vlpy=7359) [place] [id number] POCT-GLUCOSE [id number] 11:57:00 Test Item Value Reference Range Comments POC-GLUCOSE METER (BEAKER) 252 mg/dL 70-110 TESTED AT [address] (test lqyt=3830) [place] [address] POCT-GLUCOSE [id number] 07:44:00 Test Item Value Reference Range Comments POC-GLUCOSE METER (BEAKER) 201 mg/dL 70-110 TESTED AT [address] (test fjnk=4201) [place] [id number] BASIC METABOLIC [id number] 05:57:00 Test Item Value Reference Range Comments SODIUM (BEAKER) (test 138 meq/L 136-145 vlcj=043) POTASSIUM (BEAKER) (test 4.6 meq/L 3.5-5.1 iqbs=012) CHLORIDE (BEAKER) (test 103 meq/L 98-107 ejzl=983) CO2 (BEAKER) (test 27 meq/L 22-29 rpbv=234) BLOOD UREA NITROGEN 15 mg/dL 7-21 (BEAKER) (test dhtd=280) CREATININE (BEAKER) (test 1.13 mg/dL 0.57-1.25 fpms=962) GLUCOSE RANDOM (BEAKER) 158 mg/dL 70-105 (test qmdj=821) CALCIUM (BEAKER) (test 9.1 mg/dL 8.4-10.2 lfrk=487) EGFR (BEAKER) (test 47 mL/min/1.73 sq m ESTIMATED GFR IS NOT zzsd=0034) ACCURATE CREATININE CLEARANCE IN PREDICTING GLOMERULAR FILTRATION RATE. ESTIMATED GFR IS NOT APPLICABLE FOR DIALYSIS PATIENTS. [id number] 05:54:00 Test Item Value Reference Range Comments MAGNESIUM (BEAKER) (test viwz=723) 2.1 mg/dL 1.6-2.6 CBC (HEMOGRAM ONLY)2018-10-25 04:46:00 Test Item Value Reference Range Comments WHITE BLOOD CELL COUNT (BEAKER) (test vstc=360) 9.4 K/ L 3.5-10.5 RED BLOOD CELL COUNT (BEAKER) (test nbfx=851) 3.08 M/ L 3.93-5.22 HEMOGLOBIN (BEAKER) (test vgtz=176) 9.0 GM/DL 11.2-15.7 HEMATOCRIT (BEAKER) (test teog=494) 29.0 % 34.1-44.9 MEAN CORPUSCULAR VOLUME (BEAKER) (test lqny=747) 94.2 fL 79.4-94.8 MEAN CORPUSCULAR HEMOGLOBIN (BEAKER) (test 29.2 pg 25.6-32.2 kiji=281) MEAN CORPUSCULAR HEMOGLOBIN CONC (BEAKER) (test 31.0 GM/DL 32.2-35.5 tgmo=356) RED CELL DISTRIBUTION WIDTH (BEAKER) (test 14.6 % 11.7-14.4 vrju=451) PLATELET COUNT (BEAKER) (test bwjh=011) 459 K/CU MM 150-450 MEAN PLATELET VOLUME (BEAKER) (test vvet=855) 9.6 fL 9.4-12.3 NUCLEATED RED BLOOD CELLS (BEAKER) (test 0 /100 WBC 0-0 rexb=411) POCT-GLUCOSE [id number] 21:47:00 Test Item Value Reference Range Comments POC-GLUCOSE METER (BEAKER) 188 mg/dL 70-110 TESTED AT [address] (test yuzd=9894) [place] [address] POCT-GLUCOSE [id number] 17:18:00 Test Item Value Reference Range Comments POC-GLUCOSE METER (BEAKER) 83 mg/dL 70-110 TESTED AT [address] (test kutw=8329) [place] [address] POCT-GLUCOSE [id number] 12:07:00 Test Item Value Reference Range Comments POC-GLUCOSE METER (BEAKER) 209 mg/dL 70-110 TESTED AT [address] (test mpsv=6642) [place] [address] RAD, CHEST, 1 VIEW, NON [id number] 10:18:00Reason for exam:->SOBShould this be performed at [...] Verified Date/Time : 10/24/2018 10:18:27 Reading Location: [facility] Radiology Reading Room POCT- GLUCOSE [id number] 08:09:00 Test Item Value Reference Range Comments POC-GLUCOSE METER (BEAKER) 197 mg/dL 70-110 TESTED AT [address] (test nsxx=1240) [place] [address] POCT-GLUCOSE [id number] 06:17:00 Test Item Value Reference Range Comments POC-GLUCOSE METER (BEAKER) 179 mg/dL 70-110 TESTED AT [address] (test htbk=6899) [place] [id number] BASIC METABOLIC [id number] 06:11:00 Test Item Value Reference Range Comments SODIUM (BEAKER) (test 140 meq/L 136-145 qoie=344) POTASSIUM (BEAKER) (test 3.7 meq/L 3.5-5.1 tuve=351) CHLORIDE (BEAKER) (test 111 meq/L 98-107 xegx=626) CO2 (BEAKER) (test 23 meq/L 22-29 peak=324) BLOOD UREA NITROGEN 15 mg/dL 7-21 (BEAKER) (test lmnk=689) CREATININE (BEAKER) (test 0.85 mg/dL 0.57-1.25 zaci=798) GLUCOSE RANDOM (BEAKER) 133 mg/dL 70-105 (test heba=103) CALCIUM (BEAKER) (test 6.9 mg/dL 8.4-10.2 zjzi=087) EGFR (BEAKER) (test 66 mL/min/1.73 sq m ESTIMATED GFR IS NOT dart=7155) ACCURATE CREATININE CLEARANCE IN PREDICTING GLOMERULAR FILTRATION RATE. ESTIMATED GFR IS NOT APPLICABLE FOR DIALYSIS PATIENTS. [id number] 05:25:00 Test Item Value Reference Range Comments MAGNESIUM (BEAKER) (test urut=904) 1.7 mg/dL 1.6-2.6 [id number] 04:33:00 Test Item Value Reference Range Comments PARTIAL THROMBOPLASTIN TIME (BEAKER) (test 72.9 seconds 22.5-36.0 njod=541) CBC (HEMOGRAM ONLY)2018-10-24 04:10:00 Test Item Value Reference Range Comments WHITE BLOOD CELL COUNT (BEAKER) (test yolu=538) 10.6 K/ L 3.5-10.5 RED BLOOD CELL COUNT (BEAKER) (test seqq=712) 3.25 M/ L 3.93-5.22 HEMOGLOBIN (BEAKER) (test ikvp=103) 9.6 GM/DL 11.2-15.7 HEMATOCRIT (BEAKER) (test tpth=423) 30.3 % 34.1-44.9 MEAN CORPUSCULAR VOLUME (BEAKER) (test botu=113) 93.2 fL 79.4-94.8 MEAN CORPUSCULAR HEMOGLOBIN (BEAKER) (test 29.5 pg 25.6-32.2 lyqx=870) MEAN CORPUSCULAR HEMOGLOBIN CONC (BEAKER) (test 31.7 GM/DL 32.2-35.5 iubc=287) RED CELL DISTRIBUTION WIDTH (BEAKER) (test 14.9 % 11.7-14.4 biju=165) PLATELET COUNT (BEAKER) (test huue=371) 485 K/CU MM 150-450 MEAN PLATELET VOLUME (BEAKER) (test puht=489) 9.5 fL 9.4-12.3 NUCLEATED RED BLOOD CELLS (BEAKER) (test 0 /100 WBC 0-0 rykm=657) POCT-GLUCOSE [id number] 18:15:00 Test Item Value Reference Range Comments POC-GLUCOSE METER (BEAKER) 145 mg/dL 70-110 TESTED AT [facility] [address] [facility] (test gfsh=6206) [facility] [address] BASIC METABOLIC [id number] 16:22:00 Test Item Value Reference Range Comments SODIUM (BEAKER) (test 140 meq/L 136-145 lrwc=441) POTASSIUM (BEAKER) (test 5.0 meq/L 3.5-5.1 Specimen slightly yurl=467) hemolyzed CHLORIDE (BEAKER) (test 101 meq/L 98-107 kqts=886) CO2 (BEAKER) (test 31 meq/L 22-29 dccd=189) BLOOD UREA NITROGEN 17 mg/dL 7-21 (BEAKER) (test oizd=579) CREATININE (BEAKER) (test 1.16 mg/dL 0.57-1.25 Specimen slightly dmmo=575) hemolyzed GLUCOSE RANDOM (BEAKER) 119 mg/dL 70-105 (test nsgs=591) CALCIUM (BEAKER) (test 9.1 mg/dL 8.4-10.2 ggoi=475) EGFR (BEAKER) (test 46 mL/min/1.73 sq m ESTIMATED GFR IS NOT eave=8143) ACCURATE CREATININE CLEARANCE IN PREDICTING GLOMERULAR FILTRATION RATE. ESTIMATED GFR IS NOT APPLICABLE FOR DIALYSIS PATIENTS. To be drawn at the same time as post transfusion CBCCBC (HEMOGRAM ONLY) 16:09:00 Test Item Value Reference Range Comments WHITE BLOOD CELL COUNT (BEAKER) (test gkkx=091) 10.7 K/ L 3.5-10.5 RED BLOOD CELL COUNT (BEAKER) (test xkjc=989) 3.10 M/ L 3.93-5.22 HEMOGLOBIN (BEAKER) (test hzwu=972) 9.1 GM/DL 11.2-15.7 HEMATOCRIT (BEAKER) (test chpx=248) 28.7 % 34.1-44.9 MEAN CORPUSCULAR VOLUME (BEAKER) (test yblc=964) 92.6 fL 79.4-94.8 MEAN CORPUSCULAR HEMOGLOBIN (BEAKER) (test 29.4 pg 25.6-32.2 vmck=452) MEAN CORPUSCULAR HEMOGLOBIN CONC (BEAKER) (test 31.7 GM/DL 32.2-35.5 pbdc=339) RED CELL DISTRIBUTION WIDTH (BEAKER) (test 14.2 % 11.7-14.4 jfmd=082) PLATELET COUNT (BEAKER) (test yfcc=416) 462 K/CU MM 150-450 MEAN PLATELET VOLUME (BEAKER) (test yndr=270) 9.6 fL 9.4-12.3 NUCLEATED RED BLOOD CELLS (BEAKER) (test 0 /100 WBC 0-0 furo=681) POCT-GLUCOSE [id number] 12:23:00 Test Item Value Reference Range Comments POC-GLUCOSE METER (BEAKER) 214 mg/dL 70-110 TESTED AT [address] (test eoty=6915) [place] [address] PLATELET AGGREGATION: FUNCTION [id number] 10:50:00 Test Item Value Reference Range Comments WEAK ADP RESULT(BEAKER) (test 16 % 60-91 ueau=2291) PLATELET FUNCTION SCREEN 0-39% indicates marked platelet INTERP (BEAKER) (test dysfunction shrl=5496) [id number] Luis Enrique Gardner M.D. (electonic (BEAKER) (test cstw=4119) signature) PLATELET COUNT AGG (BEAKER) 457 K/CU MM 150-450 (test agsm=3579) Platelet Function Screen results may be falsely low with platelet counts<100, 000/cu mm.POCT-GLUCOSE [id number] 10:36:00 Test Item Value Reference Range Comments POC-GLUCOSE METER (BEAKER) 263 mg/dL 70-110 TESTED AT [address] (test acwi=1546) [place] [address] [id number] 07:53:00 Test Item Value Reference Range Comments POTASSIUM (BEAKER) (test fvue=749) 5.4 meq/L 3.5-5.1 Check Serum Potassium level 2 hours after oral potassium replacement completed or 30 min after intravenous potassium replacement.POCT-GLUCOSE [id number] 07:40:00 Test Item Value Reference Range Comments POC-GLUCOSE METER (BEAKER) 219 mg/dL 70-110 TESTED AT [facility] [address] [facility] (test gojb=8823) [facility] [address] TROPONIN [id number] 06:27:00 Test Item Value Reference Range Comments TROPONIN I (BEAKER) (test evlx=729) 1.64 ng/mL 0.00-0.03 Troponin I (TnI) levels [...] failure, acidosis, acute neurological disease, and persistent tachyarrhythmia.[id number] 06:11:00 Test Item Value Reference Range Comments MAGNESIUM (BEAKER) (test fpsm=930) 2.0 mg/dL 1.6-2.6 BASIC METABOLIC [id number] 06:11:00 Test Item Value Reference Range Comments SODIUM (BEAKER) (test 138 meq/L 136-145 lgyp=369) POTASSIUM (BEAKER) (test 5.3 meq/L 3.5-5.1 yhnr=209) CHLORIDE (BEAKER) (test 103 meq/L 98-107 mkzk=776) CO2 (BEAKER) (test 29 meq/L 22-29 xwvd=644) BLOOD UREA NITROGEN 17 mg/dL 7-21 (BEAKER) (test ucja=211) CREATININE (BEAKER) (test 1.21 mg/dL 0.57-1.25 rviv=414) GLUCOSE RANDOM (BEAKER) 179 mg/dL 70-105 (test kwkg=297) CALCIUM (BEAKER) (test 8.7 mg/dL 8.4-10.2 ritc=952) EGFR (BEAKER) (test 44 mL/min/1.73 sq m ESTIMATED GFR IS NOT tcxn=3716) ACCURATE CREATININE CLEARANCE IN PREDICTING GLOMERULAR FILTRATION RATE. ESTIMATED GFR IS NOT APPLICABLE FOR DIALYSIS PATIENTS. [id number] 05:42:00 Test Item Value Reference Range Comments PARTIAL THROMBOPLASTIN TIME (BEAKER) (test 88.9 seconds 22.5-36.0 fgos=740) CBC (HEMOGRAM ONLY)2018-10-23 05:34:00 Test Item Value Reference Range Comments WHITE BLOOD CELL COUNT (BEAKER) (test yhjg=198) 9.4 K/ L 3.5-10.5 RED BLOOD CELL COUNT (BEAKER) (test fsbc=887) 2.59 M/ L 3.93-5.22 HEMOGLOBIN (BEAKER) (test mumr=201) 7.4 GM/DL 11.2-15.7 HEMATOCRIT (BEAKER) (test gjhq=818) 25.1 % 34.1-44.9 MEAN CORPUSCULAR VOLUME (BEAKER) (test pmpi=166) 96.9 fL 79.4-94.8 MEAN CORPUSCULAR HEMOGLOBIN (BEAKER) (test 28.6 pg 25.6-32.2 gwle=374) MEAN CORPUSCULAR HEMOGLOBIN CONC (BEAKER) (test 29.5 GM/DL 32.2-35.5 ejke=257) RED CELL DISTRIBUTION WIDTH (BEAKER) (test 13.4 % 11.7-14.4 bcpr=947) PLATELET COUNT (BEAKER) (test hlib=532) 430 K/CU MM 150-450 MEAN PLATELET VOLUME (BEAKER) (test ubsw=407) 9.8 fL 9.4-12.3 NUCLEATED RED BLOOD CELLS (BEAKER) (test 0 /100 WBC 0-0 dcis=773) TROPONIN [id number] 00:25:00 Test Item Value Reference Range Comments TROPONIN I (BEAKER) (test lkra=450) 2.26 ng/mL 0.00-0.03 Troponin I (TnI) levels [...] acidosis, acute neurological disease, and persistent tachyarrhythmia.POCT-GLUCOSE [id number] 21:40:00 Test Item Value Reference Range Comments POC-GLUCOSE METER (BEAKER) 151 mg/dL 70-110 TESTED AT [address] (test gznv=7084) [place] [address] TROPONIN [id number] 19:24:00 Test Item Value Reference Range Comments TROPONIN I (BEAKER) (test zngo=565) 3.08 ng/mL 0.00-0.03 Troponin I (TnI) levels [...] acidosis, acute neurological disease, and persistent tachyarrhythmia.POCT-GLUCOSE [id number] 19:04:00 Test Item Value Reference Range Comments POC-GLUCOSE METER (BEAKER) 157 mg/dL 70-110 TESTED AT [address] (test jpaa=8935) [place] [address] TROPONIN [id number] 12:49:00 Test Item Value Reference Range Comments TROPONIN I (BEAKER) (test xcca=956) 1.81 ng/mL 0.00-0.03 Troponin I (TnI) levels [...] completed or 30 min after intravenous potassium replacement.[id number] 12:38:00 Test Item Value Reference Range Comments POTASSIUM (BEAKER) (test fwsx=404) 4.7 meq/L 3.5-5.1 Check Serum Potassium level 2 hours after oral potassium replacement completed or 30 min after intravenous potassium replacement.[id number] 12:38:00 Test Item Value Reference Range Comments MAGNESIUM (BEAKER) (test mizm=789) 2.5 mg/dL 1.6-2.6 Check Serum Potassium level 2 hours after oral potassium replacement completed or 30 min after intravenous potassium replacement.POCT-GLUCOSE [id number] 12:37:00 Test Item Value Reference Range Comments POC-GLUCOSE METER (BEAKER) 161 mg/dL 70-110 TESTED AT [facility] [address] [facility] (test ygpr=4148) [facility] [address] HEMOGLOBIN AND [id number] 10:36:00 Test Item Value Reference Range Comments HEMOGLOBIN (BEAKER) (test evsi=395) 7.6 GM/DL 11.2-15.7 HEMATOCRIT (BEAKER) (test yztd=863) 24.9 % 34.1-44.9 POCT-GLUCOSE [id number] 07:55:00 Test Item Value Reference Range Comments POC-GLUCOSE METER (BEAKER) 296 mg/dL 70-110 TESTED AT [address] (test pbzj=7887) [facility] [address] [id number] 06:42:00 Test Item Value Reference Range Comments MAGNESIUM (BEAKER) (test 1.7 mg/dL 1.6-2.6 Specimen slightly hemolyzed kljy=436) BASIC METABOLIC [id number] 06:42:00 Test Item Value Reference Range Comments SODIUM (BEAKER) (test 137 meq/L 136-145 ebgc=155) POTASSIUM (BEAKER) (test 5.1 meq/L 3.5-5.1 Specimen slightly yyyb=548) hemolyzed CHLORIDE (BEAKER) (test 102 meq/L 98-107 hdbr=173) CO2 (BEAKER) (test 27 meq/L 22-29 eppa=878) BLOOD UREA NITROGEN 15 mg/dL 7-21 (BEAKER) (test thif=262) CREATININE (BEAKER) (test 1.05 mg/dL 0.57-1.25 Specimen slightly pyon=532) hemolyzed GLUCOSE RANDOM (BEAKER) 258 mg/dL 70-105 (test jszx=628) CALCIUM (BEAKER) (test 9.0 mg/dL 8.4-10.2 ghdv=183) EGFR (BEAKER) (test 51 mL/min/1.73 sq m ESTIMATED GFR IS NOT piwr=7591) ACCURATE CREATININE CLEARANCE IN PREDICTING GLOMERULAR FILTRATION RATE. ESTIMATED GFR IS NOT APPLICABLE FOR DIALYSIS PATIENTS. [id number] 06:08:00 Test Item Value Reference Range Comments PARTIAL THROMBOPLASTIN TIME (BEAKER) (test 84.7 seconds 22.5-36.0 nrsl=296) CBC (HEMOGRAM ONLY)2018-10-22 05:59:00 Test Item Value Reference Range Comments WHITE BLOOD CELL COUNT (BEAKER) (test icod=062) 10.6 K/ L 3.5-10.5 RED BLOOD CELL COUNT (BEAKER) (test mnal=984) 2.78 M/ L 3.93-5.22 HEMOGLOBIN (BEAKER) (test dupt=595) 8.2 GM/DL 11.2-15.7 HEMATOCRIT (BEAKER) (test egmo=377) 26.3 % 34.1-44.9 MEAN CORPUSCULAR VOLUME (BEAKER) (test kqqx=565) 94.6 fL 79.4-94.8 MEAN CORPUSCULAR HEMOGLOBIN (BEAKER) (test 29.5 pg 25.6-32.2 ibur=883) MEAN CORPUSCULAR HEMOGLOBIN CONC (BEAKER) (test 31.2 GM/DL 32.2-35.5 fvie=136) RED CELL DISTRIBUTION WIDTH (BEAKER) (test 13.2 % 11.7-14.4 qies=250) PLATELET COUNT (BEAKER) (test owqz=007) 459 K/CU MM 150-450 MEAN PLATELET VOLUME (BEAKER) (test grtu=985) 9.7 fL 9.4-12.3 NUCLEATED RED BLOOD CELLS (BEAKER) (test 0 /100 WBC 0-0 idfj=412) TROPONIN [id number] 01:20:00 Test Item Value Reference Range Comments TROPONIN I (BEAKER) (test rjbo=126) 0.35 ng/mL 0.00-0.03 Troponin I (TnI) levels [...] acidosis, acute neurological disease, and persistent tachyarrhythmia.POCT-GLUCOSE [id number] 23:31:00 Test Item Value Reference Range Comments POC-GLUCOSE METER (BEAKER) 244 mg/dL 70-110 TESTED AT [address] (test wohk=0323) [place] [address] PLATELET AGGREGATION: DRUG [id number] 17:53:00 Test Item Value Reference Range Comments STRONG ADP RESULT(BEAKER) (test 0 % 70-94 wyil=9155) WEAK ADP RESULT(BEAKER) (test 5 % 60-91 uutx=8495) ARACHADONIC ACID RESULT(BEAKER) 18 % 63-89 (test yjwx=7770) PLATELET AGG DRUG INTERPRETATION Decreased response to ADP (BEAKER) (test eiea=1818) suggest a M3G50-uniugynie drug effect. PLATELET AGG DRUG INTERPRETATION Decreased response to (BEAKER) (test tbgo=373669) arachidonic acid suggests aspirin-like effect. [id number] (BEAKER) Luis Enrique Gardner M.D. (test fmab=6795) (electonic signature) PLATELET COUNT AGG (BEAKER) 382 K/CU MM 150-450 (test qtfv=0035) Platelet function studies by aggregation methodology on samples with platelet count <75,000/CU MMare unreliable; platelet function assessment should not be based on a single test.POCT-GLUCOSE [id number] 17:26:00 Test Item Value Reference Range Comments POC-GLUCOSE METER (BEAKER) 158 mg/dL 70-110 TESTED AT [address] (test ykwb=3851) [place] [address] POCT-GLUCOSE [id number] 11:50:00 Test Item Value Reference Range Comments POC-GLUCOSE METER (BEAKER) 105 mg/dL 70-110 TESTED AT [address] (test ibtp=0214) [place] [address] POCT-GLUCOSE [id number] 10:25:00 Test Item Value Reference Range Comments POC-GLUCOSE METER (BEAKER) 83 mg/dL 70-110 TESTED AT [address] (test hicz=4508) [place] [address] POCT-GLUCOSE [id number] 08:58:00 Test Item Value Reference Range Comments POC-GLUCOSE METER (BEAKER) 130 mg/dL 70-110 TESTED AT [address] (test vnjc=0260) [place] [address] POCT-GLUCOSE [id number] 08:58:00 Test Item Value Reference Range Comments POC-GLUCOSE METER (BEAKER) 49 mg/dL 70-110 TESTED AT [facility] [address] [facility] (test jxuo=8018) [facility] [address] [id number] 08:45:00 Test Item Value Reference Range Comments MAGNESIUM (BEAKER) (test jhwl=795) 2.1 mg/dL 1.6-2.6 [id number] 06:59:00 Test Item Value Reference Range Comments PARTIAL THROMBOPLASTIN TIME (BEAKER) (test 85.5 seconds 22.5-36.0 lqoi=661) [id number] 01:16:00 Test Item Value Reference Range Comments MAGNESIUM (BEAKER) (test camq=194) 2.1 mg/dL 1.6-2.6 BASIC METABOLIC [id number] 01:16:00 Test Item Value Reference Range Comments SODIUM (BEAKER) (test 136 meq/L 136-145 fzus=033) POTASSIUM (BEAKER) (test 5.0 meq/L 3.5-5.1 qpem=110) CHLORIDE (BEAKER) (test 103 meq/L 98-107 xypi=447) CO2 (BEAKER) (test 29 meq/L 22-29 niec=185) BLOOD UREA NITROGEN 16 mg/dL 7-21 (BEAKER) (test pgai=749) CREATININE (BEAKER) (test 1.07 mg/dL 0.57-1.25 lwmo=145) GLUCOSE RANDOM (BEAKER) 125 mg/dL 70-105 (test xhrt=773) CALCIUM (BEAKER) (test 8.6 mg/dL 8.4-10.2 mrbe=221) EGFR (BEAKER) (test 50 mL/min/1.73 sq m ESTIMATED GFR IS NOT heil=7440) ACCURATE CREATININE CLEARANCE IN PREDICTING GLOMERULAR FILTRATION RATE. ESTIMATED GFR IS NOT APPLICABLE FOR DIALYSIS PATIENTS. CBC (HEMOGRAM ONLY)2018-10-21 01:00:00 Test Item Value Reference Range Comments WHITE BLOOD CELL COUNT (BEAKER) (test bfkx=957) 6.8 K/ L 3.5-10.5 RED BLOOD CELL COUNT (BEAKER) (test enca=751) 2.57 M/ L 3.93-5.22 HEMOGLOBIN (BEAKER) (test gkrs=876) 7.4 GM/DL 11.2-15.7 HEMATOCRIT (BEAKER) (test putq=689) 24.3 % 34.1-44.9 MEAN CORPUSCULAR VOLUME (BEAKER) (test lhvi=300) 94.6 fL 79.4-94.8 MEAN CORPUSCULAR HEMOGLOBIN (BEAKER) (test 28.8 pg 25.6-32.2 hmmw=992) MEAN CORPUSCULAR HEMOGLOBIN CONC (BEAKER) (test 30.5 GM/DL 32.2-35.5 jxws=021) RED CELL DISTRIBUTION WIDTH (BEAKER) (test 13.3 % 11.7-14.4 dihl=846) PLATELET COUNT (BEAKER) (test mrbk=291) 344 K/CU MM 150-450 MEAN PLATELET VOLUME (BEAKER) (test kwhe=878) 9.6 fL 9.4-12.3 NUCLEATED RED BLOOD CELLS (BEAKER) (test 0 /100 WBC 0-0 nvyl=264) POCT-GLUCOSE [id number] 22:05:00 Test Item Value Reference Range Comments POC-GLUCOSE METER (BEAKER) 140 mg/dL 70-110 TESTED AT [address] (test hdxs=9725) [place] [address] [id number] 14:34:00 Test Item Value Reference Range Comments POTASSIUM (BEAKER) (test hkvy=920) 4.5 meq/L 3.5-5.1 Check Serum Potassium level 2 hours after oral potassium replacement completed or 30 min after intravenous potassium replacement.[id number] 14:34:00 Test Item Value Reference Range Comments MAGNESIUM (BEAKER) (test fjiy=127) 2.3 mg/dL 1.6-2.6 Check Serum Potassium level 2 hours after oral potassium replacement completed or 30 min after intravenous potassium replacement.POCT-GLUCOSE [id number] 12:43:00 Test Item Value Reference Range Comments POC-GLUCOSE METER (BEAKER) 188 mg/dL 70-110 TESTED AT [address] (test ektz=1474) [place] [address] RAD, CHEST, 1 VIEW, NON [id number] 10:54:00Reason for exam:->SOBFINAL REPORT RAD, CHEST, 1 [...] Verified Date/Time: 10/20/2018 10 :54:45 Reading Location: [address] Neuro Reading Room POCT-GLUCOSE [id number] 07:49:00 Test Item Value Reference Range Comments POC-GLUCOSE METER (BEAKER) 205 mg/dL 70-110 TESTED AT [address] (test dmqe=6885) [facility] [address] [id number] 06:49:00 Test Item Value Reference Range Comments MAGNESIUM (BEAKER) (test 2.0 mg/dL 1.6-2.6 Specimen slightly hemolyzed ivar=680) BASIC METABOLIC [id number] 06:49:00 Test Item Value Reference Range Comments SODIUM (BEAKER) (test 135 meq/L 136-145 tfpq=357) POTASSIUM (BEAKER) (test 4.7 meq/L 3.5-5.1 Specimen slightly udin=034) hemolyzed CHLORIDE (BEAKER) (test 103 meq/L 98-107 rkxc=982) CO2 (BEAKER) (test 25 meq/L 22-29 dmlm=951) BLOOD UREA NITROGEN 18 mg/dL 7-21 (BEAKER) (test dqjx=675) CREATININE (BEAKER) (test 1.02 mg/dL 0.57-1.25 Specimen slightly bdsw=113) hemolyzed GLUCOSE RANDOM (BEAKER) 193 mg/dL 70-105 (test huqa=544) CALCIUM (BEAKER) (test 8.5 mg/dL 8.4-10.2 tyep=164) EGFR (BEAKER) (test 53 mL/min/1.73 sq m ESTIMATED GFR IS NOT yzya=5215) ACCURATE CREATININE CLEARANCE IN PREDICTING GLOMERULAR FILTRATION RATE. ESTIMATED GFR IS NOT APPLICABLE FOR DIALYSIS PATIENTS. [id number] 06:37:00 Test Item Value Reference Range Comments PARTIAL THROMBOPLASTIN TIME (BEAKER) (test 91.1 seconds 22.5-36.0 yrpr=467) CBC (HEMOGRAM ONLY)2018-10-20 06:32:00 Test Item Value Reference Range Comments WHITE BLOOD CELL COUNT (BEAKER) (test hatd=651) 7.4 K/ L 3.5-10.5 RED BLOOD CELL COUNT (BEAKER) (test ubhp=500) 2.62 M/ L 3.93-5.22 HEMOGLOBIN (BEAKER) (test taxz=066) 7.8 GM/DL 11.2-15.7 HEMATOCRIT (BEAKER) (test nzqe=414) 24.7 % 34.1-44.9 MEAN CORPUSCULAR VOLUME (BEAKER) (test rhkp=822) 94.3 fL 79.4-94.8 MEAN CORPUSCULAR HEMOGLOBIN (BEAKER) (test 29.8 pg 25.6-32.2 uncg=270) MEAN CORPUSCULAR HEMOGLOBIN CONC (BEAKER) (test 31.6 GM/DL 32.2-35.5 qwrp=465) RED CELL DISTRIBUTION WIDTH (BEAKER) (test 13.3 % 11.7-14.4 uwpm=637) PLATELET COUNT (BEAKER) (test ypam=333) 381 K/CU MM 150-450 MEAN PLATELET VOLUME (BEAKER) (test mqxb=990) 9.9 fL 9.4-12.3 NUCLEATED RED BLOOD CELLS (BEAKER) (test 0 /100 WBC 0-0 svxp=365) POCT-GLUCOSE [id number] 21:24:00 Test Item Value Reference Range Comments POC-GLUCOSE METER (BEAKER) 196 mg/dL 70-110 TESTED AT [address] (test yijj=2414) [place] [id number] POCT-GLUCOSE [id number] 17:36:00 Test Item Value Reference Range Comments POC-GLUCOSE METER (BEAKER) 136 mg/dL 70-110 TESTED AT [address] (test ddgw=2681) [place] [address] [id number] 15:46:00 Test Item Value Reference Range Comments PARTIAL THROMBOPLASTIN TIME (BEAKER) (test 89.1 seconds 22.5-36.0 drtm=590) POCT-GLUCOSE [id number] 13:00:00 Test Item Value Reference Range Comments POC-GLUCOSE METER (BEAKER) 197 mg/dL 70-110 TESTED AT [address] (test kzam=6296) [facility] [address] CT, BRAIN, WITHOUT [id number] 10:26:00FINAL REPORT CT Head without contrast CLINICAL [...] Verified Date/ Time: 10/19/2018 10:26:00 Reading Location: [address] Neuro Reading Room Electronically signed by: JARET ROBBINS M.D.on 10/19/2018 10:26 AMPOCT- GLUCOSE [id number] 07:45:00 Test Item Value Reference Range Comments POC-GLUCOSE METER (BEAKER) 85 mg/dL 70-110 TESTED AT [address] (test iwkf=0035) [facility] [address] [id number] 07:05:00 Test Item Value Reference Range Comments PARTIAL THROMBOPLASTIN TIME (BEAKER) (test 87.5 seconds 22.5-36.0 oxfi=986) [id number] 05:08:00 Test Item Value Reference Range Comments MAGNESIUM (BEAKER) (test 2.4 mg/dL 1.6-2.6 Specimen slightly hemolyzed swgk=835) BASIC METABOLIC [id number] 05:08:00 Test Item Value Reference Range Comments SODIUM (BEAKER) (test 139 meq/L 136-145 hpxi=288) POTASSIUM (BEAKER) (test 4.5 meq/L 3.5-5.1 Specimen slightly widk=296) hemolyzed CHLORIDE (BEAKER) (test 107 meq/L 98-107 fsxz=234) CO2 (BEAKER) (test 26 meq/L 22-29 toul=480) BLOOD UREA NITROGEN 15 mg/dL 7-21 (BEAKER) (test oegg=446) CREATININE (BEAKER) (test 0.89 mg/dL 0.57-1.25 Specimen slightly vfxv=933) hemolyzed GLUCOSE RANDOM (BEAKER) 81 mg/dL 70-105 (test gvll=772) CALCIUM (BEAKER) (test 8.6 mg/dL 8.4-10.2 jqcs=614) EGFR (BEAKER) (test 62 mL/min/1.73 sq m ESTIMATED GFR IS NOT gyif=6316) ACCURATE CREATININE CLEARANCE IN PREDICTING GLOMERULAR FILTRATION RATE. ESTIMATED GFR IS NOT APPLICABLE FOR DIALYSIS PATIENTS. CBC (HEMOGRAM ONLY)2018-10-19 04:41:00 Test Item Value Reference Range Comments WHITE BLOOD CELL COUNT (BEAKER) (test bhqn=949) 7.7 K/ L 3.5-10.5 RED BLOOD CELL COUNT (BEAKER) (test wtaf=577) 2.67 M/ L 3.93-5.22 HEMOGLOBIN (BEAKER) (test uzoa=782) 7.7 GM/DL 11.2-15.7 HEMATOCRIT (BEAKER) (test dajw=657) 25.4 % 34.1-44.9 MEAN CORPUSCULAR VOLUME (BEAKER) (test lujs=498) 95.1 fL 79.4-94.8 MEAN CORPUSCULAR HEMOGLOBIN (BEAKER) (test 28.8 pg 25.6-32.2 ukuq=741) MEAN CORPUSCULAR HEMOGLOBIN CONC (BEAKER) (test 30.3 GM/DL 32.2-35.5 mgsf=488) RED CELL DISTRIBUTION WIDTH (BEAKER) (test 13.4 % 11.7-14.4 bdqc=555) PLATELET COUNT (BEAKER) (test erjn=361) 371 K/CU MM 150-450 MEAN PLATELET VOLUME (BEAKER) (test kljo=330) 10.0 fL 9.4-12.3 NUCLEATED RED BLOOD CELLS (BEAKER) (test 0 /100 WBC 0-0 yogz=727) [id number] 22:55:00 Test Item Value Reference Range Comments PARTIAL THROMBOPLASTIN TIME (BEAKER) (test 41.6 seconds 22.5-36.0 htze=991) POCT-GLUCOSE [id number] 22:27:00 Test Item Value Reference Range Comments POC-GLUCOSE METER (BEAKER) 136 mg/dL 70-110 TESTED AT [address] (test lxga=7339) [place] [id number] POCT-GLUCOSE [id number] 17:49:00 Test Item Value Reference Range Comments POC-GLUCOSE METER (BEAKER) 179 mg/dL 70-110 TESTED AT [address] (test mwdl=3872) [place] [address] [id number] 14:54:00 Test Item Value Reference Range Comments PARTIAL THROMBOPLASTIN TIME (BEAKER) (test 31.7 seconds 22.5-36.0 jeaq=689) NV, ANGIOGRAM, [id number] 14:04:00Reason for exam:->Right MCA strokeReason for exam:->Diagnostic [...] common femoral artery x1 MATERIALS EMPLOYED:1. 8 Danish short sheath 2. 5 Danish 125cm diagnostic catheter3. Bentson guidewire4. Terumo 0.035 LT glidewire5. Flowgate 8F Balloon Guide Catheter6. Marksman microcatheter7. Embotrap 5mm x 30mm8. BMW Exchange Length9. Viatrac 0sqm00xn balloon9. 8 Danish Angioseal device INDICATIONS:The patient is a 73 [...] the puncture site was confirmed, a 8 Danish short sheath was inserted over a Jaschason wire and was maintained on heparinized saline flush throughout the remainder of the procedure. Using coaxial technique, a preflushed 5 Danish 125cm diagnostic glidecatheter on constant heparinized saline flush was placed through a pre-flushed and pre-prepped 8 Danish Flowgate balloon guide catheter. The two catheters [...] the occlusion. We then inserted a preflushed [email or web address] microcatheter over a preshaped Synchro standard wire [...] was occlusive in the internal carotid, the senior sales assistant pulled suction through the lumen of the [...] was removed and hemostasis achieved with an8 Danish Angioseal and manual compression. The patient tolerated [...] complete resolution of the intravascular thrombus and christian of flow to the distal MCAbranches, representing [...] MDReport Verified Date/Time: 10/18/2018 14:04:16 Reading Location: [facility] Radiology Reading Room POCT- GLUCOSE [id number] 12:43:00 Test Item Value Reference Range Comments POC-GLUCOSE METER (BEAKER) 202 mg/dL 70-110 TESTED AT [address] (test zmuq=1858) [facility] [address] POCT-GLUCOSE [id number] 07:41:00 Test Item Value Reference Range Comments POC-GLUCOSE METER (BEAKER) 111 mg/dL 70-110 TESTED AT [address] (test azjz=6287) [facility] [address] [id number] 05:02:00 Test Item Value Reference Range Comments MAGNESIUM (BEAKER) (test pxno=791) 1.8 mg/dL 1.6-2.6 BASIC METABOLIC [id number] 05:02:00 Test Item Value Reference Range Comments SODIUM (BEAKER) (test 139 meq/L 136-145 blgo=427) POTASSIUM (BEAKER) (test 3.9 meq/L 3.5-5.1 pbbs=720) CHLORIDE (BEAKER) (test 107 meq/L 98-107 owlm=723) CO2 (BEAKER) (test 27 meq/L 22-29 bwsw=662) BLOOD UREA NITROGEN 12 mg/dL 7-21 (BEAKER) (test ktuf=714) CREATININE (BEAKER) (test 0.78 mg/dL 0.57-1.25 zogl=971) GLUCOSE RANDOM (BEAKER) 116 mg/dL 70-105 (test krgw=520) CALCIUM (BEAKER) (test 8.6 mg/dL 8.4-10.2 buqs=810) EGFR (BEAKER) (test 72 mL/min/1.73 sq m ESTIMATED GFR IS NOT wodm=7092) ACCURATE CREATININE CLEARANCE IN PREDICTING GLOMERULAR FILTRATION RATE. ESTIMATED GFR IS NOT APPLICABLE FOR DIALYSIS PATIENTS. CBC (HEMOGRAM ONLY)2018-10-18 04:44:00 Test Item Value Reference Range Comments WHITE BLOOD CELL COUNT (BEAKER) (test mgzn=436) 8.6 K/ L 3.5-10.5 RED BLOOD CELL COUNT (BEAKER) (test jreo=163) 3.02 M/ L 3.93-5.22 HEMOGLOBIN (BEAKER) (test dazv=310) 8.7 GM/DL 11.2-15.7 HEMATOCRIT (BEAKER) (test gqpj=882) 28.0 % 34.1-44.9 MEAN CORPUSCULAR VOLUME (BEAKER) (test ewol=848) 92.7 fL 79.4-94.8 MEAN CORPUSCULAR HEMOGLOBIN (BEAKER) (test 28.8 pg 25.6-32.2 ygjn=193) MEAN CORPUSCULAR HEMOGLOBIN CONC (BEAKER) (test 31.1 GM/DL 32.2-35.5 wdbl=084) RED CELL DISTRIBUTION WIDTH (BEAKER) (test 13.2 % 11.7-14.4 ppme=153) PLATELET COUNT (BEAKER) (test rdsv=389) 380 K/CU MM 150-450 MEAN PLATELET VOLUME (BEAKER) (test occe=276) 10.3 fL 9.4-12.3 NUCLEATED RED BLOOD CELLS (BEAKER) (test 0 /100 WBC 0-0 hhvh=271) TROPONIN [id number] 02:35:00 Test Item Value Reference Range Comments TROPONIN I (BEAKER) (test jgfb=352) 1.47 ng/mL 0.00-0.03 Troponin I (TnI) levels [...] acidosis, acute neurological disease, and persistent tachyarrhythmia.POCT-GLUCOSE [id number] 21:14:00 Test Item Value Reference Range Comments POC-GLUCOSE METER (BEAKER) 86 mg/dL 70-110 TESTED AT [address] (test mqvu=0386) [place] [address] POCT-GLUCOSE [id number] 18:35:00 Test Item Value Reference Range Comments POC-GLUCOSE METER (BEAKER) 148 mg/dL 70-110 TESTED AT [address] (test oojl=3294) [place] [address] PUL PERF IMAGING, PARTIC, [id number] 18:31:00Authorized by Dr. Morataya REPORT PROCEDURE: V/Q LUNG SCAN CPT CODE: 56082 INDICATION: acute chest pain, elevated D-dimer PROTOCOL: [...] Vivienne Cardenas MDReport Verified Date/Time: 10/17/201818:31:34 POCT-GLUCOSE [id number] 15:01:00 Test Item Value Reference Range Comments POC-GLUCOSE METER (BEAKER) 211 mg/dL 70-110 TESTED AT [facility] [address] (test ivpl=9133) [place] [address] TROPONIN [id number] 11:56:00 Test Item Value Reference Range Comments TROPONIN I (BEAKER) (test hxxf=435) 3.11 ng/mL 0.00-0.03 Troponin I (TnI) levels [...] failure, acidosis, acute neurological disease, and persistent tachyarrhythmia.[id number] 11:34:00 Test Item Value Reference Range Comments PARTIAL THROMBOPLASTIN TIME (BEAKER) (test 24.8 seconds 22.5-36.0 achc=269) [id number] 07:25:00 Test Item Value Reference Range Comments PARTIAL THROMBOPLASTIN TIME (BEAKER) (test > seconds 22.5-36.0 pgem=491) BASIC METABOLIC [id number] 06:49:00 Test Item Value Reference Range Comments SODIUM (BEAKER) (test 135 meq/L 136-145 zeck=848) POTASSIUM (BEAKER) (test 3.3 meq/L 3.5-5.1 czsa=196) CHLORIDE (BEAKER) (test 104 meq/L 98-107 tuci=013) CO2 (BEAKER) (test 24 meq/L 22-29 rnvo=378) BLOOD UREA NITROGEN 15 mg/dL 7-21 (BEAKER) (test tpzk=636) CREATININE (BEAKER) (test 0.90 mg/dL 0.57-1.25 xvit=194) GLUCOSE RANDOM (BEAKER) 200 mg/dL 70-105 (test ycnf=287) CALCIUM (BEAKER) (test 7.9 mg/dL 8.4-10.2 tphx=484) EGFR (BEAKER) (test 61 mL/min/1.73 sq m ESTIMATED GFR IS NOT dvhf=6002) ACCURATE CREATININE CLEARANCE IN PREDICTING GLOMERULAR FILTRATION RATE. ESTIMATED GFR IS NOT APPLICABLE FOR DIALYSIS PATIENTS. [id number] 06:43:00 Test Item Value Reference Range Comments MAGNESIUM (BEAKER) (test qqjh=089) 1.7 mg/dL 1.6-2.6 TROPONIN [id number] 06:28:00 Test Item Value Reference Range Comments TROPONIN I (BEAKER) (test jjlj=239) 3.14 ng/mL 0.00-0.03 Troponin I (TnI) levels [...] acidosis, acute neurological disease, and persistent tachyarrhythmia.PLATELET [id number] 05:10:00 Test Item Value Reference Range Comments PLATELET COUNT (BEAKER) (test ypvz=135) 300 K/CU MM 150-450 LACTIC ACID, [id number] 04:59:00 Test Item Value Reference Range Comments LACTATE BLOOD VENOUS (2) (BEAKER) (test 1.6 mmol/L 0.5-2.2 lrbd=5349) [id number] 01:05:00 Test Item Value Reference Range Comments PARTIAL THROMBOPLASTIN TIME (BEAKER) (test 80.4 seconds 22.5-36.0 ftye=744) POCT-GLUCOSE [id number] 21:23:00 Test Item Value Reference Range Comments POC-GLUCOSE METER (BEAKER) 252 mg/dL 70-110 TESTED AT [address] (test pgbg=2311) [facility] [address] TROPONIN [id number] 18:56:00 Test Item Value Reference Range Comments TROPONIN I (BEAKER) (test yyml=054) 0.96 ng/mL 0.00-0.03 Troponin I (TnI) levels [...] failure, acidosis, acute neurological disease, and persistent tachyarrhythmia.[id number] 18:09:00 Test Item Value Reference Range Comments PARTIAL THROMBOPLASTIN TIME (BEAKER) (test 68.3 seconds 22.5-36.0 bfbw=721) POCT-GLUCOSE [id number] 17:28:00 Test Item Value Reference Range Comments POC-GLUCOSE METER (BEAKER) 290 mg/dL 70-110 TESTED AT [address] (test gbvf=4292) [place] [address] TROPONIN [id number] 12:30:00 Test Item Value Reference Range Comments TROPONIN I (BEAKER) (test oigg=775) 0.06 ng/mL 0.00-0.03 Troponin I (TnI) levels [...] acidosis, acute neurological disease, and persistent tachyarrhythmia.POCT-GLUCOSE [id number] 11:44:00 Test Item Value Reference Range Comments POC-GLUCOSE METER (BEAKER) 238 mg/dL 70-110 TESTED AT [address] (test mwgi=4920) [place] [address] RAD, CHEST, 1 VIEW, NON [id number] 10:30:00Reason for exam:->chest painShould this be performed [...] Verified Date/Time: 10/16/2018 10:30: 06 Reading Location: [address] Neuro Reading Room [id number] 09:54:00 Test Item Value Reference Range Comments PARTIAL THROMBOPLASTIN TIME (BEAKER) (test 64.0 seconds 22.5-36.0 visz=127) CBC W/PLT COUNT & AUTO [id number] 09:41:00 Test Item Value Reference Range Comments WHITE BLOOD CELL COUNT (BEAKER) (test ouvb=871) 8.6 K/ L 3.5-10.5 RED BLOOD CELL COUNT (BEAKER) (test vysk=332) 3.25 M/ L 3.93-5.22 HEMOGLOBIN (BEAKER) (test onhm=210) 9.4 GM/DL 11.2-15.7 HEMATOCRIT (BEAKER) (test tpot=759) 30.2 % 34.1-44.9 MEAN CORPUSCULAR VOLUME (BEAKER) (test evnq=620) 92.9 fL 79.4-94.8 MEAN CORPUSCULAR HEMOGLOBIN (BEAKER) (test 28.9 pg 25.6-32.2 ndid=142) MEAN CORPUSCULAR HEMOGLOBIN CONC (BEAKER) (test 31.1 GM/DL 32.2-35.5 jhmp=003) RED CELL DISTRIBUTION WIDTH (BEAKER) (test 13.1 % 11.7-14.4 mpzk=798) PLATELET COUNT (BEAKER) (test kinw=130) 338 K/CU MM 150-450 MEAN PLATELET VOLUME (BEAKER) (test gddc=851) 10.7 fL 9.4-12.3 NUCLEATED RED BLOOD CELLS (BEAKER) (test 0 /100 WBC 0-0 awnt=527) NEUTROPHILS RELATIVE PERCENT (BEAKER) (test 58 % yjxb=227) LYMPHOCYTES RELATIVE PERCENT (BEAKER) (test 25 % keqe=587) MONOCYTES RELATIVE PERCENT (BEAKER) (test 13 % tkvp=014) EOSINOPHILS RELATIVE PERCENT (BEAKER) (test 3 % vifp=147) BASOPHILS RELATIVE PERCENT (BEAKER) (test 0 % hocl=924) NEUTROPHILS ABSOLUTE COUNT (BEAKER) (test 5.00 K/ L 1.56-6.13 kvfc=260) LYMPHOCYTES ABSOLUTE COUNT (BEAKER) (test 2.10 K/ L 1.18-3.74 lnjt=216) MONOCYTES ABSOLUTE COUNT (BEAKER) (test 1.12 K/ L 0.24-0.36 kyth=033) EOSINOPHILS ABSOLUTE COUNT (BEAKER) (test 0.26 K/ L 0.04-0.36 hbvz=273) BASOPHILS ABSOLUTE COUNT (BEAKER) (test 0.03 K/ L 0.01-0.08 ikzm=618) IMMATURE GRANULOCYTES-RELATIVE PERCENT (BEAKER) 1 % 0-1 (test hljy=2901) [id number] 08:02:00 Test Item Value Reference Range Comments MAGNESIUM (BEAKER) (test 1.5 mg/dL 1.6-2.6 Specimen slightly hemolyzed vsxf=155) BASIC METABOLIC [id number] 08:02:00 Test Item Value Reference Range Comments SODIUM (BEAKER) (test 135 meq/L 136-145 eqhj=759) POTASSIUM (BEAKER) (test 4.0 meq/L 3.5-5.1 Specimen slightly xrlo=200) hemolyzed CHLORIDE (BEAKER) (test 106 meq/L 98-107 andy=318) CO2 (BEAKER) (test 20 meq/L 22-29 zpnp=224) BLOOD UREA NITROGEN 16 mg/dL 7-21 (BEAKER) (test sibp=165) CREATININE (BEAKER) (test 0.98 mg/dL 0.57-1.25 Specimen slightly ichv=176) hemolyzed GLUCOSE RANDOM (BEAKER) 200 mg/dL 70-105 (test fvnm=808) CALCIUM (BEAKER) (test 8.5 mg/dL 8.4-10.2 ylez=010) EGFR (BEAKER) (test 56 mL/min/1.73 sq m ESTIMATED GFR IS NOT xqwj=1625) ACCURATE CREATININE CLEARANCE IN PREDICTING GLOMERULAR FILTRATION RATE. ESTIMATED GFR IS NOT APPLICABLE FOR DIALYSIS PATIENTS. POCT-GLUCOSE [id number] 06:35:00 Test Item Value Reference Range Comments POC-GLUCOSE METER (BEAKER) 225 mg/dL 70-110 TESTED AT [facility] [address] [facility] (test qswx=0568) [facility] [address] [id number] 00:04:00 Test Item Value Reference Range Comments PARTIAL THROMBOPLASTIN TIME (BEAKER) (test 72.5 seconds 22.5-36.0 bpwo=458) 6 hours after starting heparin infusion and as indicated per sliding scalePOCT- GLUCOSE [id number] 23:27:00 Test Item Value Reference Range Comments POC-GLUCOSE METER (BEAKER) 367 mg/dL 70-110 TESTED AT [facility] [address] [facility] (test iycr=0591) [facility] [address] POCT-GLUCOSE [id number] 22:50:00 Test Item Value Reference Range Comments POC-GLUCOSE METER (BEAKER) 364 mg/dL 70-110 TESTED AT [address] (test xaif=2883) [facility] [address] POCT-GLUCOSE [id number] 17:33:00 Test Item Value Reference Range Comments POC-GLUCOSE METER (BEAKER) 253 mg/dL 70-110 TESTED AT [address] (test lhzd=9109) [facility] [address] B-TYPE NATRIURETIC FACTOR (BNP)2018-10-15 12:25:00 Test Item Value Reference Range Comments B-TYPE NATRIURETIC PEPTIDE (BEAKER) (test 756 pg/mL 0-100 nwrh=149) [id number] 12:14:00 Test Item Value Reference Range Comments PARTIAL THROMBOPLASTIN TIME (BEAKER) (test 39.3 seconds 22.5-36.0 edyq=107) Prior to initiating heparinCBC (HEMOGRAM ONLY)2018-10-15 12:01:00 Test Item Value Reference Range Comments WHITE BLOOD CELL COUNT (BEAKER) (test tdfi=258) 6.8 K/ L 3.5-10.5 RED BLOOD CELL COUNT (BEAKER) (test xqhl=042) 3.09 M/ L 3.93-5.22 HEMOGLOBIN (BEAKER) (test ljjl=937) 8.8 GM/DL 11.2-15.7 HEMATOCRIT (BEAKER) (test vnnq=173) 28.5 % 34.1-44.9 MEAN CORPUSCULAR VOLUME (BEAKER) (test qrxs=184) 92.2 fL 79.4-94.8 MEAN CORPUSCULAR HEMOGLOBIN (BEAKER) (test 28.5 pg 25.6-32.2 aytk=581) MEAN CORPUSCULAR HEMOGLOBIN CONC (BEAKER) (test 30.9 GM/DL 32.2-35.5 mxko=895) RED CELL DISTRIBUTION WIDTH (BEAKER) (test 12.9 % 11.7-14.4 jkjn=148) PLATELET COUNT (BEAKER) (test vkrp=508) 323 K/CU MM 150-450 MEAN PLATELET VOLUME (BEAKER) (test dnwd=905) 10.8 fL 9.4-12.3 NUCLEATED RED BLOOD CELLS (BEAKER) (test 0 /100 WBC 0-0 aakr=800) POCT-GLUCOSE [id number] 11:59:00 Test Item Value Reference Range Comments POC-GLUCOSE METER (BEAKER) 217 mg/dL 70-110 TESTED AT [facility] [address] [place] [address] (test miob=6649) [facility] [address] RAD, CHEST, 1 VIEW, NON [id number] 10:45:00Reason for exam:->SOBFINAL REPORT RAD, CHEST, 1 VIEW, NON DEPT INDICATION: SOB COMPARISON: October 14, 2018 FINDINGS: Portable frontal view of the chest. IMPRESSION: Support Lines: Stable positioningof the pacer apparatus. Lungs and pleura: No new consolidation or effusion. No pneumothorax.Heart and mediastinum : Stable contours. Additional findings: None. Signed: JR Leary Robert MDReport Verified Date/Time: 10/15/2018 10:45:40 Reading Location: [address] Neuro Reading Room CT, BRAIN, WITHOUT [id number] 08:26:00FINAL REPORT CT, BRAIN, WITHOUT CONTRAST INDICATION: [...] Verified Date/Time: 10/15/2018 08:26:34 Reading Location : [facility] C013V Neuro Reading Room [id number] 06:40:00 Test Item Value Reference Range Comments MAGNESIUM (BEAKER) (test lprn=536) 1.5 mg/dL 1.6-2.6 BASIC METABOLIC [id number] 06:40:00 Test Item Value Reference Range Comments SODIUM (BEAKER) (test 139 meq/L 136-145 ubkc=568) POTASSIUM (BEAKER) (test 3.6 meq/L 3.5-5.1 fomk=369) CHLORIDE (BEAKER) (test 108 meq/L 98-107 sfdu=706) CO2 (BEAKER) (test 23 meq/L 22-29 nhuo=347) BLOOD UREA NITROGEN 11 mg/dL 7-21 (BEAKER) (test zwgb=152) CREATININE (BEAKER) (test 0.76 mg/dL 0.57-1.25 bgoj=638) GLUCOSE RANDOM (BEAKER) 126 mg/dL 70-105 (test vuut=163) CALCIUM (BEAKER) (test 8.3 mg/dL 8.4-10.2 wjpd=556) EGFR (BEAKER) (test 75 mL/min/1.73 sq m ESTIMATED GFR IS NOT tcmq=0445) ACCURATE CREATININE CLEARANCE IN PREDICTING GLOMERULAR FILTRATION RATE. ESTIMATED GFR IS NOT APPLICABLE FOR DIALYSIS PATIENTS. POCT-GLUCOSE [id number] 06:34:00 Test Item Value Reference Range Comments POC-GLUCOSE METER (BEAKER) 132 mg/dL 70-110 TESTED AT [facility] [address] [facility] (test skpp=4658) [facility] [address] POCT-GLUCOSE [id number] 23:30:00 Test Item Value Reference Range Comments POC-GLUCOSE METER (BEAKER) 128 mg/dL 70-110 TESTED AT [facility] [address] [facility] (test zsyz=3161) [facility] [address] RAD, CHEST, 1 VIEW, NON [id number] 19:39:00Reason for exam:->s/p PPMShould this be performed [...] MDReport Verified Date/Time: 10/14/2018 19:39:43 Reading Location: [facility] [id number] Consult Reading Room POCT-GLUCOSE [id number] 17:14:00 Test Item Value Reference Range Comments POC-GLUCOSE METER (BEAKER) 85 mg/dL 70-110 TESTED AT [address] (test cmwo=4012) [place] [address] POCT-GLUCOSE [id number] 16:55:00 Test Item Value Reference Range Comments POC-GLUCOSE METER (BEAKER) 74 mg/dL 70-110 TESTED AT [address] (test cyxz=2379) [place] [address] POCT-GLUCOSE [id number] 11:29:00 Test Item Value Reference Range Comments POC-GLUCOSE METER (BEAKER) 74 mg/dL 70-110 TESTED AT [address] (test jgxe=6943) [place] [id number] BLOOD [id number] 08:00:00 Test Item Value Reference Range Comments CULTURE (BEAKER) (test iwwh=2643) No growth in 5 days BLOOD [id number] 08:00:00 Test Item Value Reference Range Comments CULTURE (BEAKER) (test bvak=3684) No growth in 5 days [id number] 07:19:00 Test Item Value Reference Range Comments MAGNESIUM (BEAKER) (test uugn=590) 1.9 mg/dL 1.6-2.6 BASIC METABOLIC [id number] 07:19:00 Test Item Value Reference Range Comments SODIUM (BEAKER) (test 138 meq/L 136-145 nyrz=214) POTASSIUM (BEAKER) (test 3.3 meq/L 3.5-5.1 mcht=101) CHLORIDE (BEAKER) (test 111 meq/L 98-107 bkvl=896) CO2 (BEAKER) (test 22 meq/L 22-29 nzzj=093) BLOOD UREA NITROGEN 12 mg/dL 7-21 (BEAKER) (test rkil=527) CREATININE (BEAKER) (test 0.75 mg/dL 0.57-1.25 euze=281) GLUCOSE RANDOM (BEAKER) 75 mg/dL 70-105 (test yoqk=088) CALCIUM (BEAKER) (test 8.2 mg/dL 8.4-10.2 mdqp=572) EGFR (BEAKER) (test 76 mL/min/1.73 sq m ESTIMATED GFR IS NOT djwt=3993) ACCURATE CREATININE CLEARANCE IN PREDICTING GLOMERULAR FILTRATION RATE. ESTIMATED GFR IS NOT APPLICABLE FOR DIALYSIS PATIENTS. POCT-GLUCOSE [id number] 05:20:00 Test Item Value Reference Range Comments POC-GLUCOSE METER (BEAKER) 85 mg/dL 70-110 TESTED AT [address] (test cpdh=9297) [place] [id number] POCT-GLUCOSE [id number] 23:53:00 Test Item Value Reference Range Comments POC-GLUCOSE METER (BEAKER) 106 mg/dL 70-110 TESTED AT [address] (test wpfc=9365) [place] [id number] POCT-GLUCOSE [id number] 12:27:00 Test Item Value Reference Range Comments POC-GLUCOSE METER (BEAKER) 207 mg/dL 70-110 TESTED AT [address] (test zyqk=5690) [facility] [address] RAD, CHEST, 1 VIEW, NON [id number] 11:59:00Reason for exam:->pacer positionShould this be performed [...] Reading Location: [facility] Reading Room [id number] 10:00:00 Test Item Value Reference Range Comments MAGNESIUM (BEAKER) (test mqfq=419) 1.7 mg/dL 1.6-2.6 POCT-GLUCOSE [id number] 06:02:00 Test Item Value Reference Range Comments POC-GLUCOSE METER (BEAKER) 237 mg/dL 70-110 TESTED AT [facility] [address] [facility] (test dqvj=1475) [facility] [address] BASIC METABOLIC [id number] 04:26:00 Test Item Value Reference Range Comments SODIUM (BEAKER) (test 143 meq/L 136-145 xvib=193) POTASSIUM (BEAKER) (test 3.6 meq/L 3.5-5.1 lcim=205) CHLORIDE (BEAKER) (test 116 meq/L 98-107 aswb=613) CO2 (BEAKER) (test 20 meq/L 22-29 apqv=363) BLOOD UREA NITROGEN 14 mg/dL 7-21 (BEAKER) (test dhqk=913) CREATININE (BEAKER) (test 0.85 mg/dL 0.57-1.25 qnld=361) GLUCOSE RANDOM (BEAKER) 244 mg/dL 70-105 (test wybs=809) CALCIUM (BEAKER) (test 8.3 mg/dL 8.4-10.2 wvhk=112) EGFR (BEAKER) (test 66 mL/min/1.73 sq m ESTIMATED GFR IS NOT elgz=3044) ACCURATE CREATININE CLEARANCE IN PREDICTING GLOMERULAR FILTRATION RATE. ESTIMATED GFR IS NOT APPLICABLE FOR DIALYSIS PATIENTS. CBC W/PLT COUNT & AUTO [id number] 03:49:00 Test Item Value Reference Range Comments WHITE BLOOD CELL COUNT (BEAKER) (test eixm=106) 6.5 K/ L 3.5-10.5 RED BLOOD CELL COUNT (BEAKER) (test zhze=204) 3.07 M/ L 3.93-5.22 HEMOGLOBIN (BEAKER) (test lpyp=811) 8.9 GM/DL 11.2-15.7 HEMATOCRIT (BEAKER) (test fble=989) 29.1 % 34.1-44.9 MEAN CORPUSCULAR VOLUME (BEAKER) (test cwpc=580) 94.8 fL 79.4-94.8 MEAN CORPUSCULAR HEMOGLOBIN (BEAKER) (test 29.0 pg 25.6-32.2 pgte=976) MEAN CORPUSCULAR HEMOGLOBIN CONC (BEAKER) (test 30.6 GM/DL 32.2-35.5 lhhk=543) RED CELL DISTRIBUTION WIDTH (BEAKER) (test 13.1 % 11.7-14.4 wbbu=516) PLATELET COUNT (BEAKER) (test lcho=683) 259 K/CU MM 150-450 MEAN PLATELET VOLUME (BEAKER) (test wjqb=050) 11.0 fL 9.4-12.3 NUCLEATED RED BLOOD CELLS (BEAKER) (test 0 /100 WBC 0-0 krcw=968) NEUTROPHILS RELATIVE PERCENT (BEAKER) (test 69 % hjqv=618) LYMPHOCYTES RELATIVE PERCENT (BEAKER) (test 14 % byhe=160) MONOCYTES RELATIVE PERCENT (BEAKER) (test 13 % utip=441) EOSINOPHILS RELATIVE PERCENT (BEAKER) (test 2 % mdyc=414) BASOPHILS RELATIVE PERCENT (BEAKER) (test 1 % jnza=419) NEUTROPHILS ABSOLUTE COUNT (BEAKER) (test 4.46 K/ L 1.56-6.13 ojpd=142) LYMPHOCYTES ABSOLUTE COUNT (BEAKER) (test 0.93 K/ L 1.18-3.74 skoq=152) MONOCYTES ABSOLUTE COUNT (BEAKER) (test 0.83 K/ L 0.24-0.36 vkdq=107) EOSINOPHILS ABSOLUTE COUNT (BEAKER) (test 0.14 K/ L 0.04-0.36 wjmn=654) BASOPHILS ABSOLUTE COUNT (BEAKER) (test 0.05 K/ L 0.01-0.08 otmw=432) IMMATURE GRANULOCYTES-RELATIVE PERCENT (BEAKER) 1 % 0-1 (test gnjb=4584) POCT-GLUCOSE [id number] 23:58:00 Test Item Value Reference Range Comments POC-GLUCOSE METER (BEAKER) 329 mg/dL 70-110 TESTED AT [facility] [address] [facility] (test luei=5232) [facility] [address] POCT-GLUCOSE [id number] 18:14:00 Test Item Value Reference Range Comments POC-GLUCOSE METER (BEAKER) 335 mg/dL 70-110 Notified LLUVIA VERA/TESTED AT [facility] (test mpkc=5119) [address] [place] [address] POCT-GLUCOSE [id number] 11:54:00 Test Item Value Reference Range Comments POC-GLUCOSE METER (BEAKER) 232 mg/dL 70-110 TESTED AT [address] (test yrzj=6734) [facility] [address] RAD, CHEST, 1 VIEW, NON [id number] 09:00:00Reason for exam:->Transvenous pacemakerShould this be performed at the bedside?->YesFINAL REPORT CLINICAL HISTORY: Transvenous pacemaker TECHNIQUE: 1 view of thechest. COMPARISON: 10/11/2018 IMPRESSION: The tip of the transvenous pacer lead has been retracted and now terminates near the cavoatrial junction alongside the left jugular line. There are no focal infiltrates or effusions. The cardiomediastinal silhouette is magnified by technique. Signed: Jaret Robbins [facility] Verified Date/Time: 10/12/2018 09:00:59 Reading Location: [facility] Radiology Reading Room POCT-GLUCOSE [id number] 06:03:00 Test Item Value Reference Range Comments POC-GLUCOSE METER (BEAKER) 208 mg/dL 70-110 TESTED AT [address] (test rruf=4079) [facility] [address] BASIC METABOLIC [id number] 05:10:00 Test Item Value Reference Range Comments SODIUM (BEAKER) (test 142 meq/L 136-145 xvgi=140) POTASSIUM (BEAKER) (test 3.9 meq/L 3.5-5.1 koqr=490) CHLORIDE (BEAKER) (test 116 meq/L 98-107 lerd=122) CO2 (BEAKER) (test 17 meq/L 22-29 wfjl=097) BLOOD UREA NITROGEN 11 mg/dL 7-21 (BEAKER) (test tkgw=900) CREATININE (BEAKER) (test 0.79 mg/dL 0.57-1.25 jcvu=312) GLUCOSE RANDOM (BEAKER) 175 mg/dL 70-105 (test nxwk=622) CALCIUM (BEAKER) (test 7.9 mg/dL 8.4-10.2 wuwa=111) EGFR (BEAKER) (test 71 mL/min/1.73 sq m ESTIMATED GFR IS NOT atyn=8648) ACCURATE CREATININE CLEARANCE IN PREDICTING GLOMERULAR FILTRATION RATE. ESTIMATED GFR IS NOT APPLICABLE FOR DIALYSIS PATIENTS. [id number] 04:57:00 Test Item Value Reference Range Comments MAGNESIUM (BEAKER) (test mflg=193) 1.9 mg/dL 1.6-2.6 CBC W/PLT COUNT & AUTO [id number] 04:34:00 Test Item Value Reference Range Comments WHITE BLOOD CELL COUNT (BEAKER) (test enpc=685) 7.8 K/ L 3.5-10.5 RED BLOOD CELL COUNT (BEAKER) (test xuzh=571) 3.18 M/ L 3.93-5.22 HEMOGLOBIN (BEAKER) (test kmbm=056) 9.0 GM/DL 11.2-15.7 HEMATOCRIT (BEAKER) (test jvjx=393) 30.4 % 34.1-44.9 MEAN CORPUSCULAR VOLUME (BEAKER) (test lvej=684) 95.6 fL 79.4-94.8 MEAN CORPUSCULAR HEMOGLOBIN (BEAKER) (test 28.3 pg 25.6-32.2 xtbv=313) MEAN CORPUSCULAR HEMOGLOBIN CONC (BEAKER) (test 29.6 GM/DL 32.2-35.5 gyvi=028) RED CELL DISTRIBUTION WIDTH (BEAKER) (test 13.2 % 11.7-14.4 objh=081) PLATELET COUNT (BEAKER) (test neui=710) 208 K/CU MM 150-450 MEAN PLATELET VOLUME (BEAKER) (test ztet=172) 10.8 fL 9.4-12.3 NUCLEATED RED BLOOD CELLS (BEAKER) (test 0 /100 WBC 0-0 gxed=873) NEUTROPHILS RELATIVE PERCENT (BEAKER) (test 73 % dtir=306) LYMPHOCYTES RELATIVE PERCENT (BEAKER) (test 12 % aacg=927) MONOCYTES RELATIVE PERCENT (BEAKER) (test 12 % xfiy=139) EOSINOPHILS RELATIVE PERCENT (BEAKER) (test 1 % nmap=428) BASOPHILS RELATIVE PERCENT (BEAKER) (test 1 % vjpt=956) NEUTROPHILS ABSOLUTE COUNT (BEAKER) (test 5.69 K/ L 1.56-6.13 zkjo=111) LYMPHOCYTES ABSOLUTE COUNT (BEAKER) (test 0.95 K/ L 1.18-3.74 akbq=657) MONOCYTES ABSOLUTE COUNT (BEAKER) (test 0.93 K/ L 0.24-0.36 cymt=767) EOSINOPHILS ABSOLUTE COUNT (BEAKER) (test 0.09 K/ L 0.04-0.36 vlrg=792) BASOPHILS ABSOLUTE COUNT (BEAKER) (test 0.06 K/ L 0.01-0.08 ppwp=028) IMMATURE GRANULOCYTES-RELATIVE PERCENT (BEAKER) 1 % 0-1 (test zrbh=1472) POCT-GLUCOSE [id number] 23:54:00 Test Item Value Reference Range Comments POC-GLUCOSE METER (BEAKER) 212 mg/dL 70-110 TESTED AT [address] (test hclc=3493) [place] [address] POCT-GLUCOSE [id number] 17:48:00 Test Item Value Reference Range Comments POC-GLUCOSE METER (BEAKER) 239 mg/dL 70-110 TESTED AT [address] (test jvsh=2012) [place] [id number] SPUTUM CULTURE + GRAM [id number] 14:13:00 Test Item Value Reference Range Comments CULTURE (BEAKER) (test skad=6998) No growth GRAM STAIN RESULT (BEAKER) (test <1+ WBCs zsyw=1574) GRAM STAIN RESULT (BEAKER) (test 0-5 epithelial cells dwqd=92513) GRAM STAIN RESULT (BEAKER) (test No organisms seen gtsu=38328) [id number] 13:13:00 Test Item Value Reference Range Comments CORTISOL, TOTAL (BEAKER) (test digo=2885) 14.3 ug/dL 3.7-19.4 [id number] 12:49:00 Test Item Value Reference Range Comments POTASSIUM (BEAKER) (test sdkq=684) 4.0 meq/L 3.5-5.1 [id number] 12:49:00 Test Item Value Reference Range Comments MAGNESIUM (BEAKER) (test wose=287) 2.5 mg/dL 1.6-2.6 POCT-GLUCOSE [id number] 11:22:00 Test Item Value Reference Range Comments POC-GLUCOSE METER (BEAKER) 182 mg/dL 70-110 TESTED AT [facility] [address] (test dauu=1096) [place] [address] RAD, CHEST, 1 VIEW, NON [id number] 09:51:00Reason for exam:->Temp pacemaker position.Should this be [...] Verified Date/Time: 10/11/2018 09:51: 15 Reading Location: [facility] Radiology Reading Room BASIC METABOLIC [id number] 06:48:00 Test Item Value Reference Range Comments SODIUM (BEAKER) (test 140 meq/L 136-145 ydta=075) POTASSIUM (BEAKER) (test 3.7 meq/L 3.5-5.1 kppp=466) CHLORIDE (BEAKER) (test 117 meq/L 98-107 danp=161) CO2 (BEAKER) (test 16 meq/L 22-29 goks=849) BLOOD UREA NITROGEN 6 mg/dL 7-21 (BEAKER) (test hglj=678) CREATININE (BEAKER) (test 0.74 mg/dL 0.57-1.25 gshb=635) GLUCOSE RANDOM (BEAKER) 145 mg/dL 70-105 (test xhvj=853) CALCIUM (BEAKER) (test 7.4 mg/dL 8.4-10.2 vhiq=522) EGFR (BEAKER) (test 77 mL/min/1.73 sq m ESTIMATED GFR IS NOT ojku=6985) ACCURATE CREATININE CLEARANCE IN PREDICTING GLOMERULAR FILTRATION RATE. ESTIMATED GFR IS NOT APPLICABLE FOR DIALYSIS PATIENTS. [id number] 06:44:00 Test Item Value Reference Range Comments MAGNESIUM (BEAKER) (test qohv=417) 2.2 mg/dL 1.6-2.6 POCT-GLUCOSE [id number] 06:10:00 Test Item Value Reference Range Comments POC-GLUCOSE METER (BEAKER) 166 mg/dL 70-110 TESTED AT [facility] [address] [facility] (test ydhg=3498) [facility] [address] BLOOD GAS, [id number] 05:35:00 Test Item Value Reference Range Comments PH ARTERIAL (BEAKER) (test dvbr=477) 7.44 7.35-7.45 PCO2 ARTERIAL (BEAKER) (test kcjd=925) 28 mmHg 35-45 PO2 ARTERIAL (BEAKER) (test ybxo=533) 197 mmHg 80-90 O2 SATURATION ARTERIAL (BEAKER) (test wlui=229) 99.4 % 96.0-97.0 HCO3 ARTERIAL (BEAKER) (test vwjm=418) 19 mmol/L 21-29 BASE EXCESS ARTERIAL (BEAKER) (test jhdt=883) -4.5 mmol/L -2.0-3.0 PATIENT TEMPERATURE (BEAKER) (test rlkf=1981) 37.6 C FIO2 (BEAKER) (test myvm=3711) 40.0 % CBC W/PLT COUNT & AUTO [id number] 05:28:00 Test Item Value Reference Range Comments WHITE BLOOD CELL COUNT (BEAKER) (test nhpw=258) 8.1 K/ L 3.5-10.5 RED BLOOD CELL COUNT (BEAKER) (test ifzi=839) 3.19 M/ L 3.93-5.22 HEMOGLOBIN (BEAKER) (test ewri=875) 9.2 GM/DL 11.2-15.7 HEMATOCRIT (BEAKER) (test wtkb=025) 30.2 % 34.1-44.9 MEAN CORPUSCULAR VOLUME (BEAKER) (test dbzr=724) 94.7 fL 79.4-94.8 MEAN CORPUSCULAR HEMOGLOBIN (BEAKER) (test 28.8 pg 25.6-32.2 vthz=928) MEAN CORPUSCULAR HEMOGLOBIN CONC (BEAKER) (test 30.5 GM/DL 32.2-35.5 hepp=394) RED CELL DISTRIBUTION WIDTH (BEAKER) (test 13.2 % 11.7-14.4 umyj=482) PLATELET COUNT (BEAKER) (test pohh=638) 246 K/CU MM 150-450 MEAN PLATELET VOLUME (BEAKER) (test wjkn=090) 10.8 fL 9.4-12.3 NUCLEATED RED BLOOD CELLS (BEAKER) (test 0 /100 WBC 0-0 ofyb=872) NEUTROPHILS RELATIVE PERCENT (BEAKER) (test 78 % cxdm=202) LYMPHOCYTES RELATIVE PERCENT (BEAKER) (test 11 % okeo=688) MONOCYTES RELATIVE PERCENT (BEAKER) (test 11 % zlhe=684) EOSINOPHILS RELATIVE PERCENT (BEAKER) (test 0 % ugqt=978) BASOPHILS RELATIVE PERCENT (BEAKER) (test 0 % kijx=516) NEUTROPHILS ABSOLUTE COUNT (BEAKER) (test 6.25 K/ L 1.56-6.13 ynnn=249) LYMPHOCYTES ABSOLUTE COUNT (BEAKER) (test 0.87 K/ L 1.18-3.74 vdwp=552) MONOCYTES ABSOLUTE COUNT (BEAKER) (test 0.85 K/ L 0.24-0.36 icat=766) EOSINOPHILS ABSOLUTE COUNT (BEAKER) (test 0.01 K/ L 0.04-0.36 yfvi=547) BASOPHILS ABSOLUTE COUNT (BEAKER) (test 0.03 K/ L 0.01-0.08 zzkk=688) IMMATURE GRANULOCYTES-RELATIVE PERCENT (BEAKER) 1 % 0-1 (test wsye=1319) CORTISOL,60 [id number] 02:44:00 Test Item Value Reference Range Comments CORTISOL BASELINE NETWORKED (BEAKER) (test 14.9 mcg/dL olzt=8216) CORTISOL 30 MINUTE NETWORKED (BEAKER) (test 23.6 mcg/dL tols=0107) CORTISOL, 60 MINUTE (BEAKER) (test bfki=2171) 32.9 ug/dL ACTH STIMULATION TEST INTERPRETATION GUIDELINES(Synonyms: [...] study by Natasha et al (HARRIETT 2000,283( 8):3989-45), the ACTH Stimulation Test provides important prognostic [...] serum cortisollevel 60 minutes after cosyntropin administration.POCT-GLUCOSE [id number] 00:24:00 Test Item Value Reference Range Comments POC-GLUCOSE METER (BEAKER) 142 mg/dL 70-110 TESTED AT [facility] [address] (test etla=7643) [facility] [address] [id number] 22:42:00 Test Item Value Reference Range Comments MAGNESIUM (BEAKER) (test njny=680) 2.4 mg/dL 1.6-2.6 CORTISOL,30 [id number] 22:42:00 Test Item Value Reference Range Comments CORTISOL BASELINE NETWORKED (BEAKER) (test 14.9 mcg/dL jbgb=7774) CORTISOL, 30 MINUTE (BEAKER) (test dank=2566) 23.6 ug/dL ACTH STIMULATION TEST INTERPRETATION GUIDELINES(Synonyms: [...] Draw serum cortisollevel 60 minutes after cosyntropin administration.CORTISOL,[id number] 22:32:00 Test Item Value Reference Range Comments CORTISOL, BASELINE (SAMI) (test grwq=4910) 14.9 ug/dL ACTH STIMULATION TEST INTERPRETATION GUIDELINES(Synonyms: [...] study by Natasha et al (HARRIETT 2000,283( 8):9821-45), the ACTH Stimulation Test provides important prognostic [...] Draw serum cortisollevel 60 minutes after cosyntropin administration.[id number] 22:30:00 Test Item Value Reference Range Comments CORTISOL, TOTAL (BEAKER) (test rpsb=9805) 15.1 ug/dL 3.7-19.4 RAD, CHEST, 1 VIEW, NON [id number] 20:50:00Reason for exam:->s/p temp wireShould this be performed at the bedside?->YesFINAL REPORT CLINICAL INDICATION: Support lines. Comparison: Same dated Please note that at the time of the original dictation, the left-sided marker was placed on the right side of the patient. The radiology specialist the department was notified. This may be [...] Bakerort Verified Date/Time: 10/10/2018 20:50:10 Reading Location: [address] Reading Room [id number] 15:13:00 Test Item Value Reference Range Comments MAGNESIUM (BEAKER) (test dbve=436) 1.7 mg/dL 1.6-2.6 POCT-GLUCOSE [id number] 12:43:00 Test Item Value Reference Range Comments POC-GLUCOSE METER (BEAKER) 175 mg/dL 70-110 TESTED AT [address] (test hynh=2730) [place] [address] [id number] 09:00:00 Test Item Value Reference Range Comments MAGNESIUM (BEAKER) (test 1.1 mg/dL 1.6-2.6 Specimen slightly hemolyzed bplo=405) BLOOD GAS, [id number] 08:37:00 Test Item Value Reference Range Comments PH ARTERIAL (BEAKER) (test znhr=511) 7.39 7.35-7.45 PCO2 ARTERIAL (BEAKER) (test mghz=261) 29 mmHg 35-45 PO2 ARTERIAL (BEAKER) (test svxh=246) 179 mmHg 80-90 O2 SATURATION ARTERIAL (BEAKER) (test ggsn=209) 99.2 % 96.0-97.0 HCO3 ARTERIAL (BEAKER) (test ssxx=560) 17 mmol/L 21-29 BASE EXCESS ARTERIAL (BEAKER) (test fvyy=645) -6.6 mmol/L -2.0-3.0 PATIENT TEMPERATURE (BEAKER) (test sxri=1368) 38.0 C FIO2 (BEAKER) (test fqon=7399) 40.0 % POCT-GLUCOSE [id number] 06:48:00 Test Item Value Reference Range Comments POC-GLUCOSE METER (BEAKER) 230 mg/dL 70-110 TESTED AT [address] (test fwxl=9460) [place] [id number] CT, BRAIN, WITHOUT [id number] 04:06:00FINAL REPORT CT Head without contrast CLINICAL [...] 10/10/2018 04:06:13 RAD, CHEST, 1 VIEW, NON [id number] 03:46:00Reason for exam:->transvenous pacer placementShould this be [...] Verified Date /Time: 10/10/2018 03:46:49 Reading Location: [address] Reading Room TROPONIN [id number] 01:06:00 Test Item Value Reference Range Comments TROPONIN I (BEAKER) (test wlsh=992) 0.03 ng/mL 0.00-0.03 Troponin I (TnI) levels [...] acute neurological disease, and persistent tachyarrhythmia.BASIC METABOLIC [id number] 01:05:00 Test Item Value Reference Range Comments SODIUM (BEAKER) (test 140 meq/L 136-145 qtqy=329) POTASSIUM (BEAKER) (test 4.1 meq/L 3.5-5.1 klpn=886) CHLORIDE (BEAKER) (test 118 meq/L 98-107 ewhb=303) CO2 (BEAKER) (test 13 meq/L 22-29 zhnx=470) BLOOD UREA NITROGEN 9 mg/dL 7-21 (BEAKER) (test iwct=221) CREATININE (BEAKER) (test 1.01 mg/dL 0.57-1.25 dqoj=311) GLUCOSE RANDOM (BEAKER) 244 mg/dL 70-105 (test xlpm=420) CALCIUM (BEAKER) (test 7.0 mg/dL 8.4-10.2 mivp=631) EGFR (BEAKER) (test 54 mL/min/1.73 sq m ESTIMATED GFR IS NOT nprl=5957) ACCURATE CREATININE CLEARANCE IN PREDICTING GLOMERULAR FILTRATION RATE. ESTIMATED GFR IS NOT APPLICABLE FOR DIALYSIS PATIENTS. CBC W/PLT COUNT & AUTO [id number] 01:00:00 Test Item Value Reference Range Comments WHITE BLOOD CELL COUNT (BEAKER) (test vgsx=447) 12.2 K/ L 3.5-10.5 RED BLOOD CELL COUNT (BEAKER) (test pgvz=459) 3.59 M/ L 3.93-5.22 HEMOGLOBIN (BEAKER) (test ufsg=978) 10.5 GM/DL 11.2-15.7 HEMATOCRIT (BEAKER) (test ppqz=619) 33.6 % 34.1-44.9 MEAN CORPUSCULAR VOLUME (BEAKER) (test ewsl=866) 93.6 fL 79.4-94.8 MEAN CORPUSCULAR HEMOGLOBIN (BEAKER) (test 29.2 pg 25.6-32.2 nows=448) MEAN CORPUSCULAR HEMOGLOBIN CONC (BEAKER) (test 31.3 GM/DL 32.2-35.5 ifeh=408) RED CELL DISTRIBUTION WIDTH (BEAKER) (test 13.2 % 11.7-14.4 wmrl=218) PLATELET COUNT (BEAKER) (test haoe=536) 375 K/CU MM 150-450 MEAN PLATELET VOLUME (BEAKER) (test lyyn=418) 10.7 fL 9.4-12.3 NUCLEATED RED BLOOD CELLS (BEAKER) (test 0 /100 WBC 0-0 yivu=893) NEUTROPHILS RELATIVE PERCENT (BEAKER) (test 74 % qiwe=186) LYMPHOCYTES RELATIVE PERCENT (BEAKER) (test 13 % npab=660) MONOCYTES RELATIVE PERCENT (BEAKER) (test 12 % zxxw=850) EOSINOPHILS RELATIVE PERCENT (BEAKER) (test 0 % lhjg=798) BASOPHILS RELATIVE PERCENT (BEAKER) (test 1 % oqmu=835) NEUTROPHILS ABSOLUTE COUNT (BEAKER) (test 8.97 K/ L 1.56-6.13 fjon=551) LYMPHOCYTES ABSOLUTE COUNT (BEAKER) (test 1.57 K/ L 1.18-3.74 hchs=515) MONOCYTES ABSOLUTE COUNT (BEAKER) (test 1.50 K/ L 0.24-0.36 xgkc=086) EOSINOPHILS ABSOLUTE COUNT (BEAKER) (test 0.01 K/ L 0.04-0.36 asjd=087) BASOPHILS ABSOLUTE COUNT (BEAKER) (test 0.06 K/ L 0.01-0.08 jajt=182) IMMATURE GRANULOCYTES-RELATIVE PERCENT (BEAKER) 1 % 0-1 (test asjc=8259) PT/[id number] 00:50:00 Test Item Value Reference Range Comments PROTIME (BEAKER) (test svnj=015) 16.0 seconds 11.9-14.2 INR (BEAKER) (test pckc=538) 1.4 <=5.9 PARTIAL THROMBOPLASTIN TIME (BEAKER) (test 24.9 seconds 22.5-36.0 reox=459) Effective 09/14/2018: PT Reference Range ChangeNew: 11.9-14.2 Previous: 11.7- 14.7RECOMMENDED COUMADIN/WARFARIN INR THERAPY RANGESSTANDARD DOSE: 2.0-3.0 Includes: PROPHYLAXIS for venous thrombosis, systemic embolization; TREATMENT for venous thrombosis and/or pulmonary embolus.HIGH RISK: Target INR is2.5-3.5 for patients wiht mechanical heart valves.POCT-GLUCOSE [id number] 00:30:00 Test Item Value Reference Range Comments POC-GLUCOSE METER (ROCAELAKER) 259 mg/dL 70-110 TESTED AT [address] (test mqjt=1999) [place] [address] POCT-GLUCOSE [id number] 18:39:00 Test Item Value Reference Range Comments POC-GLUCOSE METER (ROCAELAKER) 224 mg/dL 70-110 TESTED AT [address] (test ufpl=2477) [place] [address] TROPONIN [id number] 18:10:00 Test Item Value Reference Range Comments TROPONIN I (BEAKER) (test loyy=562) 0.04 ng/mL 0.00-0.03 Troponin I (TnI) levels [...] failure, acidosis, acute neurological disease, and persistent tachyarrhythmia.[id number] 16:25:00 Test Item Value Reference Range Comments POTASSIUM (BEAKER) (test psjm=440) 4.4 meq/L 3.5-5.1 Check Serum Potassium level 2 hours after oral potassium replacement completed or 30 min after intravenous potassium replacement.CT, BRAIN, WITHOUT [id number] 15:45:00FINAL REPORT CT Head without contrast CLINICAL [...] MDReport Verified Date/Time: 2018 15:45:17 Reading Location: [address] Neuro Reading Room [id number] 13:08:00 Test Item Value Reference Range Comments RPR SCREEN (ComfywareAKER) (test zwwy=075) Nonreactive Nonreactive [id number] 13:04:00 Test Item Value Reference Range Comments PARTIAL THROMBOPLASTIN TIME (BEAKER) (test 27.9 seconds 22.5-36.0 ebhh=976) PROTHROMBIN TIME/[id number] 13:03:00 Test Item Value Reference Range Comments PROTIME (BEAKER) (test jnmc=497) 15.7 seconds 11.9-14.2 INR (BEAKER) (test ggyl=462) 1.3 <=5.9 Effective 09/14/2018: PT Reference Range ChangeNew: 11.9-14.2 Previous: 11.7- 14.7RECOMMENDED COUMADIN/WARFARIN INR THERAPY RANGESSTANDARD DOSE: 2.0-3.0 Includes: PROPHYLAXIS for venous thrombosis, systemic embolization; TREATMENT for venous thrombosis and/or pulmonary embolus.HIGH RISK: Target INR is2.5-3.5 for patients wiht mechanical heart valves.POCT-GLUCOSE [id number] 11:40:00 Test Item Value Reference Range Comments POC-GLUCOSE METER (BEAKER) 127 mg/dL 70-110 TESTED AT [address] (test qryd=9315) [facility] [address] POCT-GLUCOSE [id number] 09:45:00 Test Item Value Reference Range Comments POC-GLUCOSE METER (BEAKER) 171 mg/dL 70-110 TESTED AT [address] (test bknz=2459) [place] [id number] TROPONIN [id number] 09:26:00 Test Item Value Reference Range Comments TROPONIN I (BEAKER) (test ghgd=827) 0.05 ng/mL 0.00-0.03 Troponin I (TnI) levels [...] acute neurological disease, and persistent tachyarrhythmia.BLOOD GAS, [id number] 08:56:00 Test Item Value Reference Range Comments PH ARTERIAL (BEAKER) (test rthc=657) 7.37 7.35-7.45 PCO2 ARTERIAL (BEAKER) (test xebw=486) 34 mmHg 35-45 PO2 ARTERIAL (BEAKER) (test pqin=600) 183 mmHg 80-90 O2 SATURATION ARTERIAL (BEAKER) (test ygyp=314) 99.2 % 96.0-97.0 HCO3 ARTERIAL (BEAKER) (test mnbw=802) 19 mmol/L 21-29 BASE EXCESS ARTERIAL (BEAKER) (test jhqq=642) -5.1 mmol/L -2.0-3.0 PATIENT TEMPERATURE (BEAKER) (test ejqu=2968) 37.0 C FIO2 (BEAKER) (test cylb=0243) 40.0 % HEMOGLOBIN [id number] 08:31:00 Test Item Value Reference Range Comments HEMOGLOBIN A1C (BEAKER) (test ckwv=643) 15.0 % 4.3-6.1 POCT-GLUCOSE [id number] 08:27:00 Test Item Value Reference Range Comments POC-GLUCOSE METER (BEAKER) 205 mg/dL 70-110 TESTED AT [address] (test tcop=0569) [facility] [address] POCT-GLUCOSE [id number] 07:55:00 Test Item Value Reference Range Comments POC-GLUCOSE METER (BEAKER) 198 mg/dL 70-110 TESTED AT [address] (test adgu=4532) [facility] [address] POCT-GLUCOSE [id number] 06:17:00 Test Item Value Reference Range Comments POC-GLUCOSE METER (BEAKER) 166 mg/dL 70-110 TESTED AT [address] (test gppq=6554) [facility] [address] POCT-GLUCOSE [id number] 06:17:00 Test Item Value Reference Range Comments POC-GLUCOSE METER (BEAKER) 164 mg/dL 70-110 TESTED AT [address] (test rrfg=9469) [facility] [address] POCT-GLUCOSE [id number] 06:17:00 Test Item Value Reference Range Comments POC-GLUCOSE METER (BEAKER) 177 mg/dL 70-110 TESTED AT [address] (test nyck=2555) [facility] [address] POCT-GLUCOSE [id number] 06:17:00 Test Item Value Reference Range Comments POC-GLUCOSE METER (BEAKER) 257 mg/dL 70-110 TESTED AT [address] (test gyxo=4689) [facility] [address] VITAMIN B12 AND [id number] 05:00:00 Test Item Value Reference Range Comments VITAMIN B12 (BEAKER) (test qnga=913) 404 pg/mL 213-816 FOLATE (BEAKER) (test hona=684) 7.8 ng/mL >=7.0 TSH/FREE T4 IF [id number] 03:12:00 Test Item Value Reference Range Comments THYROID STIMULATING HORMONE (BEAKER) (test 2.05 uIU/mL 0.35-4.94 tcvb=908) [id number] 02:43:00 Test Item Value Reference Range Comments PROCALCITONIN (BEAKER) (test fsln=6903) < ng/mL <0.05 SEPSIS RISK (ng/mL)Low: 0.05-0.50Intermediate: 0.51-2.00High: & gt;=2.01URINALYSIS W/ REFLEX URINE [id number] 02:34:00 Test Item Value Reference Range Comments COLOR (BEAKER) (test lpzf=450) Colorless CLARITY (BEAKER) (test gbil=433) Clear SPECIFIC GRAVITY UA (BEAKER) (test rgfd=721) 1.035 1.001-1.035 PH UA (BEAKER) (test pbdq=544) 5.5 5.0-8.0 PROTEIN UA (BEAKER) (test bbte=664) 50 mg/dL Negative GLUCOSE UA (BEAKER) (test wmyz=873) >1000 mg/dL Negative KETONES UA (BEAKER) (test wyaw=244) Negative Negative BILIRUBIN UA (BEAKER) (test yfcz=505) Negative Negative BLOOD UA (BEAKER) (test sujz=325) Trace Negative NITRITE UA (BEAKER) (test nbxg=136) Negative Negative LEUKOCYTE ESTERASE UA (BEAKER) (test houz=384) Small Negative UROBILINOGEN UA (BEAKER) (test swvm=820) 0.2 mg/dL 0.2-1.0 RBC UA (BEAKER) (test hbtz=423) 5 /HPF WBC UA (BEAKER) (test ozxx=591) 8 /HPF MUCUS (BEAKER) (test mmfb=6874) Rare SQUAMOUS EPITHELIAL (BEAKER) (test opoh=509) < /HPF YEAST (BEAKER) (test qqjw=6110) Many SOURCE(BEAKER) (test pzbq=9131) [id number] 01:51:00 Test Item Value Reference Range Comments PARTIAL THROMBOPLASTIN TIME (BEAKER) (test 74.9 seconds 22.5-36.0 ktue=451) PROTHROMBIN [id number] 01:49:00 Test Item Value Reference Range Comments PROTIME (BEAKER) (test fciq=107) 22.1 seconds 11.9-14.2 INR (BEAKER) (test ekvy=325) 2.1 <=5.9 Effective 09/14/2018: PT Reference Range ChangeNew: 11.9-14.2 Previous: 11.7- 14.7RECOMMENDED COUMADIN/WARFARIN INR THERAPY RANGESSTANDARD DOSE: 2.0-3.0 Includes: PROPHYLAXIS for venous thrombosis, systemic embolization; TREATMENT for venous thrombosis and/or pulmonary embolus.HIGH RISK: Target INR is2.5-3.5 for patients wiht mechanical heart valves.BASIC METABOLIC [id number] 01:44: 00 Test Item Value Reference Range Comments SODIUM (BEAKER) (test 138 meq/L 136-145 gphm=655) POTASSIUM (BEAKER) (test 2.7 meq/L 3.5-5.1 zfdy=863) CHLORIDE (BEAKER) (test 110 meq/L 98-107 becl=002) CO2 (BEAKER) (test 20 meq/L 22-29 naqt=862) BLOOD UREA NITROGEN 12 mg/dL 7-21 (BEAKER) (test rulb=611) CREATININE (BEAKER) (test 0.98 mg/dL 0.57-1.25 wuin=225) GLUCOSE RANDOM (BEAKER) 309 mg/dL 70-105 (test qthm=000) CALCIUM (BEAKER) (test 7.1 mg/dL 8.4-10.2 zswc=378) EGFR (BEAKER) (test 56 mL/min/1.73 sq m ESTIMATED GFR IS NOT rove=2058) ACCURATE CREATININE CLEARANCE IN PREDICTING GLOMERULAR FILTRATION RATE. ESTIMATED GFR IS NOT APPLICABLE FOR DIALYSIS PATIENTS. CBC W/PLT COUNT & AUTO [id number] 01:34:00 Test Item Value Reference Range Comments WHITE BLOOD CELL COUNT (BEAKER) (test fjzq=253) 10.7 K/ L 3.5-10.5 RED BLOOD CELL COUNT (BEAKER) (test kywl=055) 4.04 M/ L 3.93-5.22 HEMOGLOBIN (BEAKER) (test watr=452) 11.9 GM/DL 11.2-15.7 HEMATOCRIT (BEAKER) (test edki=210) 37.0 % 34.1-44.9 MEAN CORPUSCULAR VOLUME (BEAKER) (test dfdc=381) 91.6 fL 79.4-94.8 MEAN CORPUSCULAR HEMOGLOBIN (BEAKER) (test 29.5 pg 25.6-32.2 trbb=906) MEAN CORPUSCULAR HEMOGLOBIN CONC (BEAKER) (test 32.2 GM/DL 32.2-35.5 rlpc=518) RED CELL DISTRIBUTION WIDTH (BEAKER) (test 12.6 % 11.7-14.4 xesn=248) PLATELET COUNT (BEAKER) (test gksa=263) 365 K/CU MM 150-450 MEAN PLATELET VOLUME (BEAKER) (test xazb=998) 10.4 fL 9.4-12.3 NUCLEATED RED BLOOD CELLS (BEAKER) (test 0 /100 WBC 0-0 tuoa=120) NEUTROPHILS RELATIVE PERCENT (BEAKER) (test 80 % ynwa=646) LYMPHOCYTES RELATIVE PERCENT (BEAKER) (test 7 % ajic=527) MONOCYTES RELATIVE PERCENT (BEAKER) (test 11 % uijk=376) EOSINOPHILS RELATIVE PERCENT (BEAKER) (test 0 % yjvn=735) BASOPHILS RELATIVE PERCENT (BEAKER) (test 0 % pipr=204) NEUTROPHILS ABSOLUTE COUNT (BEAKER) (test 8.64 K/ L 1.56-6.13 wwro=279) LYMPHOCYTES ABSOLUTE COUNT (BEAKER) (test 0.78 K/ L 1.18-3.74 ljwq=623) MONOCYTES ABSOLUTE COUNT (BEAKER) (test 1.17 K/ L 0.24-0.36 lqtb=019) EOSINOPHILS ABSOLUTE COUNT (BEAKER) (test 0.02 K/ L 0.04-0.36 zncm=395) BASOPHILS ABSOLUTE COUNT (BEAKER) (test 0.04 K/ L 0.01-0.08 lilp=955) IMMATURE GRANULOCYTES-RELATIVE PERCENT (BEAKER) 1 % 0-1 (test rlyx=8775) TROPONIN [id number] 01:27:00 Test Item Value Reference Range Comments TROPONIN I (BEAKER) (test bnhr=545) 0.04 ng/mL 0.00-0.03 Troponin I (TnI) levels [...] acute neurological disease, and persistent tachyarrhythmia.FastingBASIC METABOLIC [id number] 01:24:00 Test Item Value Reference Range Comments SODIUM (BEAKER) (test 138 meq/L 136-145 axoc=556) POTASSIUM (BEAKER) (test 2.8 meq/L 3.5-5.1 anlq=269) CHLORIDE (BEAKER) (test 110 meq/L 98-107 qouh=221) CO2 (BEAKER) (test 19 meq/L 22-29 aeur=241) BLOOD UREA NITROGEN 12 mg/dL 7-21 (BEAKER) (test wmlz=208) CREATININE (BEAKER) (test 1.02 mg/dL 0.57-1.25 laqp=783) GLUCOSE RANDOM (BEAKER) 317 mg/dL 70-105 (test qqvv=964) CALCIUM (BEAKER) (test 7.2 mg/dL 8.4-10.2 hpnl=910) EGFR (BEAKER) (test 53 mL/min/1.73 sq m ESTIMATED GFR IS NOT bcce=6491) ACCURATE CREATININE CLEARANCE IN PREDICTING GLOMERULAR FILTRATION RATE. ESTIMATED GFR IS NOT APPLICABLE FOR DIALYSIS PATIENTS. [id number] 01:20:00 Test Item Value Reference Range Comments POTASSIUM (BEAKER) (test oafo=929) 2.8 meq/L 3.5-5.1 FastingLIPID [id number] 01:20:00 Test Item Value Reference Range Comments TRIGLYCERIDES (BEAKER) (test xrhi=835) 205 mg/dL CHOLESTEROL (BEAKER) (test tazs=089) 194 mg/dL HDL CHOLESTEROL (BEAKER) (test djvq=188) 31 mg/dL LDL CHOLESTEROL CALCULATED (BEAKER) (test 122 mg/dL kget=021) Triglyceride Reference Range: Low Risk <150 Borderline 150- 199 High Risk 200-499 Very High Risk >=500Cholesterol Reference Range: Low Risk <200 Borderline 200-239 High Risk > 240HDL Cholesterol Reference Range: Low Risk >=60 High Risk <40LDL Cholesterol Reference Range: Optimal <100 Near Optimal 100-129 Borderline 130-159 High 160-189 Very High >=190 FastingHEPATIC FUNCTION [id number] 01:20:00 Test Item Value Reference Range Comments TOTAL PROTEIN (BEAKER) (test okpn=153) 6.2 gm/dL 6.0-8.3 ALBUMIN (BEAKER) (test swmu=0755) 2.8 g/dL 3.5-5.0 BILIRUBIN TOTAL (BEAKER) (test ixoj=302) 0.2 mg/dL 0.2-1.2 BILIRUBIN DIRECT (BEAKER) (test luln=881) 0.1 mg/dL 0.1-0.5 ALKALINE PHOSPHATASE (BEAKER) (test cncv=148) 117 U/L 40-150 AST (SGOT) (BEAKER) (test qxvo=885) 13 U/L 5-34 ALT (SGPT) (BEAKER) (test aotd=372) 7 U/L 6-55 [id number] 01:20:00 Test Item Value Reference Range Comments GLUCOSE RANDOM (BEAKER) (test vsdi=741) 317 mg/dL 70-105 FastingC-REACTIVE [id number] 01:20:00 Test Item Value Reference Range Comments C-REACTIVE PROTEIN (BEAKER) (test dhya=920) 1.97 mg/dL 0.00-0.50 FastingLACTIC ACID, [id number] 01:14:00 Test Item Value Reference Range Comments LACTATE BLOOD VENOUS (2) 1.2 mmol/L 0.5-2.2 Specimen slightly hemolyzed (BEAKER) (test teva=5881) LACTIC ACID, [id number] 01:14:00 Test Item Value Reference Range Comments LACTATE BLOOD VENOUS (2) 1.2 mmol/L 0.5-2.2 Specimen slightly hemolyzed (BEAKER) (test wrhj=2050) POCT-GLUCOSE [id number] 00:37:00 Test Item Value Reference Range Comments POC-GLUCOSE METER (BEAKER) 283 mg/dL 70-110 TESTED AT [facility] [address] [place] [address] (test oifh=4157) [facility] [address] CT, BRAIN, WITHOUT [id number] 00:33:00FINAL REPORT CT Head without contrast CLINICAL [...] 10/09/2018 00:33:32 RAD, CHEST, 1 VIEW, NON [id number] 21:56: 00Reason for exam:->NEUROLOGIC PROBLEMReason for exam:->acute [...] Verified Date /Time: 10/08/2018 21:56:10 Reading Location: [address] [place], CAROT[place], [id number] 21:51:00Reason for exam:->NEUROLOGIC PROBLEMWhat is the patient's [...] time of the scan. Signed: Veronica Malik [facility] Verified Date/Time: 10/08/2018 21:51:45 [facility] [id number] 21:51:00FINAL REPORT CLINICAL HISTORY: Stroke TECHNIQUE: Contiguous [...] time of the scan. Signed: Veronica Malik [facility] Verified Date/Time: 10/08/2018 21:51:45 BLOOD GAS, [id number] 21 :39:00 Test Item Value Reference Range Comments PH VENOUS (BEAKER) (test lyvy=605) 7.30 7.32-7.42 PCO2 VENOUS (BEAKER) (test shna=762) 45 mmHg 41-51 PO2 VENOUS (BEAKER) (test lpgb=006) 50 mmHg 25-40 O2 SATURATION VENOUS (BEAKER) (test ceih=045) 80.7 % 40.0-70.0 HCO3 VENOUS (BEAKER) (test tevd=604) 22 mmol/L 21-29 BASE EXCESS VENOUS (BEAKER) (test uulw=453) -4.3 mmol/L -2.0-3.0 PATIENT TEMPERATURE (BEAKER) (test oxvq=1197) 37.5 C FIO2 (BEAKER) (test aomk=9217) 100.0 % B-TYPE NATRIURETIC FACTOR (BNP)2018-10-08 21:09:00 Test Item Value Reference Range Comments B-TYPE NATRIURETIC PEPTIDE (BEAKER) (test 247 pg/mL 0-100 tbpb=199) TROPONIN [id number] 21:08:00 Test Item Value Reference Range Comments TROPONIN I (BEAKER) (test zxjg=367) 0.03 ng/mL 0.00-0.03 Troponin I (TnI) levels [...] acute neurological disease, and persistent tachyarrhythmia.BASIC METABOLIC [id number] 21:07:00 Test Item Value Reference Range Comments SODIUM (BEAKER) (test 131 meq/L 136-145 zelt=911) POTASSIUM (BEAKER) (test 4.0 meq/L 3.5-5.1 eidp=195) CHLORIDE (BEAKER) (test 99 meq/L 98-107 nnwo=498) CO2 (BEAKER) (test 20 meq/L 22-29 thho=756) BLOOD UREA NITROGEN 15 mg/dL 7-21 (BEAKER) (test yirz=290) CREATININE (BEAKER) (test 1.53 mg/dL 0.57-1.25 hhiz=715) GLUCOSE RANDOM (BEAKER) 652 mg/dL 70-105 (test vkeu=173) CALCIUM (BEAKER) (test 9.0 mg/dL 8.4-10.2 ijhr=182) EGFR (BEAKER) (test mL/min/1.73 sq m INSUFFICIENT CLINICAL DATA loix=8815) TO CALCULATE ESTIMATED GFR. [id number] 21:03:00 Test Item Value Reference Range Comments PHOSPHORUS (BEAKER) (test ehti=338) 3.1 mg/dL 2.3-4.7 [id number] 21:03:00 Test Item Value Reference Range Comments MAGNESIUM (BEAKER) (test gsyj=603) 1.6 mg/dL 1.6-2.6 HEPATIC FUNCTION [id number] 21:03:00 Test Item Value Reference Range Comments TOTAL PROTEIN (BEAKER) (test wdxh=704) 7.7 gm/dL 6.0-8.3 ALBUMIN (BEAKER) (test xoyi=8754) 3.4 g/dL 3.5-5.0 BILIRUBIN TOTAL (BEAKER) (test qowi=803) 0.4 mg/dL 0.2-1.2 BILIRUBIN DIRECT (BEAKER) (test gyzq=940) 0.2 mg/dL 0.1-0.5 ALKALINE PHOSPHATASE (BEAKER) (test nrmk=074) 153 U/L 40-150 AST (SGOT) (BEAKER) (test qgyb=392) 12 U/L 5-34 ALT (SGPT) (BEAKER) (test fpxr=145) 8 U/L 6-55 CREATINE KINASE (CK)2018-10-08 21:03:00 Test Item Value Reference Range Comments CREATINE KINASE TOTAL (BEAKER) (test jbzk=559) 22 U/L 29-200 [id number] 20:47:00 Test Item Value Reference Range Comments PROTIME (BEAKER) (test fbul=493) 14.9 seconds 11.9-14.2 INR (BEAKER) (test aruu=395) 1.2 <=5.9 PARTIAL THROMBOPLASTIN TIME (BEAKER) (test 29.2 seconds 22.5-36.0 adih=041) Effective 09/14/2018: PT Reference Range ChangeNew: 11.9-14.2 Previous: 11.7- 14.7RECOMMENDED COUMADIN/WARFARIN INR THERAPY RANGESSTANDARD DOSE: 2.0-3.0 Includes: PROPHYLAXIS for venous thrombosis, systemic embolization; TREATMENT for venous thrombosis and/or pulmonary embolus.HIGH RISK: Target INR is2.5-3.5 for patients wiht mechanical heart valves.CBC W/PLT COUNT & AUTO [id number] 20:35:00 Test Item Value Reference Range Comments WHITE BLOOD CELL COUNT (BEAKER) (test zvxv=168) 7.2 K/ L 3.5-10.5 RED BLOOD CELL COUNT (BEAKER) (test uuji=280) 4.40 M/ L 3.93-5.22 HEMOGLOBIN (BEAKER) (test vstx=479) 12.6 GM/DL 11.2-15.7 HEMATOCRIT (BEAKER) (test fufx=793) 39.0 % 34.1-44.9 MEAN CORPUSCULAR VOLUME (BEAKER) (test icuv=048) 88.6 fL 79.4-94.8 MEAN CORPUSCULAR HEMOGLOBIN (BEAKER) (test 28.6 pg 25.6-32.2 kgfb=667) MEAN CORPUSCULAR HEMOGLOBIN CONC (BEAKER) (test 32.3 GM/DL 32.2-35.5 gzxo=509) RED CELL DISTRIBUTION WIDTH (BEAKER) (test 12.6 % 11.7-14.4 rmvu=334) PLATELET COUNT (BEAKER) (test iqcy=560) 366 K/CU MM 150-450 MEAN PLATELET VOLUME (BEAKER) (test mtkl=194) 10.6 fL 9.4-12.3 NUCLEATED RED BLOOD CELLS (BEAKER) (test 0 /100 WBC 0-0 oqpq=717) NEUTROPHILS RELATIVE PERCENT (BEAKER) (test 65 % gteg=000) LYMPHOCYTES RELATIVE PERCENT (BEAKER) (test 19 % kpto=532) MONOCYTES RELATIVE PERCENT (BEAKER) (test 13 % gryw=163) EOSINOPHILS RELATIVE PERCENT (BEAKER) (test 2 % kcpl=126) BASOPHILS RELATIVE PERCENT (BEAKER) (test 1 % fqor=583) NEUTROPHILS ABSOLUTE COUNT (BEAKER) (test 4.72 K/ L 1.56-6.13 aajw=569) LYMPHOCYTES ABSOLUTE COUNT (BEAKER) (test 1.34 K/ L 1.18-3.74 rrfo=272) MONOCYTES ABSOLUTE COUNT (BEAKER) (test 0.91 K/ L 0.24-0.36 wtka=946) EOSINOPHILS ABSOLUTE COUNT (BEAKER) (test 0.12 K/ L 0.04-0.36 shvf=714) BASOPHILS ABSOLUTE COUNT (BEAKER) (test 0.05 K/ L 0.01-0.08 avee=608) IMMATURE GRANULOCYTES-RELATIVE PERCENT (BEAKER) 1 % 0-1 (test xive=4068) POCT-GLUCOSE [id number] 20:12:00 Test Item Value Reference Range Comments POC-GLUCOSE METER (BEAKER) 488 mg/dL 70-110 TESTED AT [facility] [address] [facility] (test zulo=6673) [facility] [address] [address], BRAIN/STROKE [id number] 20:09:00Reason for exam:->strokeWhat is the patient's sedation [...] [facility] Verified Date/Time: 20:09:27 Reading Location: [address] Reading Room
[2018-11-20] MEDS ORDERED: ONDANSETRON 4 MG/2 ML VIAL ONE (13:09)
[2018-11-20 15:12] LABS: Absolute Lymphocytes (CBC) 1.1 K/uL (0.7-4.9); Basophils % 0.7 % (0-1.3); Hematocrit 29.3 % (36.0-45.0); RBC Red Blood Cell Count 3.24 M/uL (3.86-4.86)
[2018-11-20 15:29] LABS: Protime INR 1.38
--- NOTE | 2018-11-20 15:30 | ER ---
Nurse's Notes [facility] Name: Tab Hanley Age: 73 yrs Sex: Female : 1945 Arrival Date: 11/20/2018 Time: 12:11 Bed 4 Private MD: Diagnosis: Hypotension, unspecified;Bibasilar pneumonia;Failed outpatient therapy for pneumonia;Dehydration;Urinary tract infection, site not specified Presentation: 11/20 12:22 Presenting complaint: EMS states: CALLED TO [facility] FOR AMS, 60 SYSTOLIC ON bp SCENE. Transition of care: patient was received from another setting of care (long-term care facility), [facility]. Onset of symptoms is unknown. Risk Assessment: Do you want to hurt yourself or someone else? Patient reports no desire to harm self or others. Initial Sepsis Screen: Does the patient meet any 2 criteria? Altered Mental Status. No. Patient's initial sepsis screen is negative. Does the patient have a suspected source of infection? No. Patient's initial sepsis screen is negative. Care prior to arrival: IV initiated. 20 GA, in the left forearm, Glucose check: 150. 12:22 Method Of Arrival: EMS: [facility] bp 12:22 Acuity: ELIER 2 bp Triage Assessment: 12:24 General: Appears in no apparent distress. comfortable, Behavior is flat, listless. bp Pain: Unable to use pain scale. Does not appear to understand pain scale. EENT: No deficits noted. 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 Cardiovascular: Rhythm is sinus rhythm. Respiratory: Airway is patent Respiratory effort is even, unlabored, Respiratory pattern is regular, symmetrical. GI: No signs and/or symptoms were reported involving the gastrointestinal system. : No signs and/or symptoms were reported regarding the genitourinary system. Derm: No deficits noted. Musculoskeletal: No deficits noted. Historical: - Allergies: 12:24 No Known Allergies; bp - Home Meds: 16:42 apixaban Oral [Active]; atorvastatin 80 mg Oral tab 1 tab once daily [Active]; bp carvedilol 6.25 mg Oral tab 1 tab every 12 hours [Active]; clopidogrel 75 mg Oral tab 1 tab once daily [Active]; isosorbide mononitrate 30 mg Oral Tb24 1 tab once daily [Active]; Insulin Glargine Sub-Q [Active]; gabapentin 100 mg Oral cap [Active]; fluoxetine 10 mg Oral cap 1 caps once daily [Active]; famotidine 20 mg Oral tab [Active]; - PMHx: 12:24 CVA; Diabetes - IDDM; GERD; Hypertension; Hyperlipidemia; Depression; bp - Immunization history:: Adult Immunizations up to date. - Social history:: Smoking status: Patient/guardian denies using tobacco. - Ebola Screening: : No symptoms or risks identified at this time. - History obtained from: EMS. - Unable to obtain history due to: altered mental status. Screenin:24 Abuse screen: Denies threats or abuse. Denies injuries from another. Nutritional bp screening: No deficits noted. Tuberculosis screening: No symptoms or risk factors identified. Fall Risk None identified. Assessment: 12:28 General: SEE TRIAGE NOTE. bp 13:06 Reassessment: UNABLE TO OBTAIN BLOOD SPECIMEN, MX ATTEMPTS BY MX STAFF, PHLEBOTOMY AT bp B/S. PT VOMITING. MD AWARE. 14:15 Reassessment: STILL UNABLE TO OBTAIN PIV, PT UNCOOPERATIVE WITH U/S PIV PLACEMENT. bp 14:54 Reassessment: MD AT B/S FOR U/S IV PLACEMENT. bp 15:27 Reassessment: PT CLEANED OF FECAL INCONTINENCE, ADMIT IN PROCESS. bp 16:01 Reassessment: PT RETURNED FROM CT. ADMIT IN PROCESS. bp Vital Signs: 12:24 BP 89 / 69; Pulse 92; Resp 18; Temp 97.7; Pulse Ox 93% on R/A; Weight 72.57 kg; bp 13:07 BP 117 / 95; Pulse 94; Resp 15; Pulse Ox 90% ; bp 14:15 BP 102 / 76; Pulse 87; Resp 19; Pulse Ox 93% ; bp 15:26 BP 129 / 75; Pulse 89; Resp 12; Pulse Ox 95% ; bp 16:02 BP 132 / 83; Pulse 83; Resp 15; Pulse Ox 96% ; bp ED Course: 12:11 Patient arrived in ED. rn 12:11 Surya Ortiz MD is Attending Physician. rn 12:22 Gilbert Montaño, LLUVIA is Primary Nurse. bp 12:23 Triage completed. bp 12:24 Arm band placed on right wrist. bp 12:24 Patient has correct armband on for positive identification. Placed in gown. Bed in low bp position. Call light in reach. Side rails up X2. security monitor on. Pulse ox on. NIBP on. 12:27 Maintain EMS IV. Dressing intact. Good blood return noted. Site clean \T\ dry. Gauge \T\ bp site: 20 GAUGE LEFT AC. Inserted saline lock: 22 gauge in right forearm, using aseptic technique. 12:33 Radiology exam delayed due to NURSE TO CALL WHEN PT IS READY. PT GETTING CATH AND IV. mw3 12:54 Radiology exam delayed due to filomena to call when pts ready for ct scan. mw3 13:18 Chest Single View XRAY In Process Unspecified. EDMS 14:13 Radiology exam delayed due to nurse Vibha to call when pt ready. mw3 15:29 Shefali Rodriguez MD is Hospitalizing Provider. rn 15:43 Urine collected: Peterson catheter specimen, cloudy. dh3 15:47 CT Head Brain wo Cont In Process Unspecified. EDMS 15:47 CT completed. Patient tolerated procedure well. Patient moved back from CT. mw3 16:40 No provider procedures requiring assistance completed. Patient admitted, IV remains in bp place. Administered Medications: 12:16 CANCELLED (Duplicate Order): NS 0.9% 500 ml IV at bolus once rn 12:53 Drug: NS 0.9% 1000 ml Route: IV; Rate: 1000 ml; Site: left forearm; iw 16:44 Follow up: IV Status: Completed infusion; IV Intake: 1000ml bp 13:12 Drug: Zofran 4 mg Route: IVP; Site: right forearm; bp 14:21 Follow up: Response: No adverse reaction bp 14:22 Drug: Zosyn 3.375 grams Route: IVPB; Infused Over: 60 mins; Site: left forearm; bp 16:43 Follow up: IV Status: Completed infusion; IV Intake: 100ml bp Intake: 16:43 IV: 100ml; Total: 100ml. bp 16:44 IV: 1000ml; Total: 1100ml. bp Outcome: 15:29 Decision to Hospitalize by Provider. rn 16:43 Admitted to Med/surg accompanied by tech, via stretcher, room 203, with chart, Report bp called to TRUDI TEIXEIRA 16:43 Condition: stable 16:43 Instructed on the need for admit. 16:45 Patient left the ED. bp Signatures: Dispatcher [employer] Filomena Dale, RN RN iw Surya Ortiz MD MD rn Charlie, Michelle 3 Gilbert Montaño RN RN bp Yadav, Sadie 3
--- NOTE | 2018-11-20 15:31 | EDPHYS ---
Physician Documentation [facility] Name: Tab Hanley Age: 73 yrs Sex: Female : 1945 Arrival Date: 11/20/2018 Time: 12:11 Bed 4 Private MD: ED Physician Surya Ortiz HPI: 11/20 12:21 This 73 yrs old Female presents to ER via Unassigned with complaints of low rn blood pressure, AMS. 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 Glucose normal per EMS.. Onset: The symptoms/episode began/occurred at an unknown time. Severity of symptoms: At their worst the symptoms were moderate in the emergency department the symptoms are unchanged. It is unknown whether or not the patient has had similar symptoms in the past. The patient has been recently seen at the [facility] Emergency Department. Historical: - Allergies: 12:24 No Known Allergies; bp - Home Meds: 16:42 apixaban Oral [Active]; atorvastatin 80 mg Oral tab 1 tab once daily [Active]; bp carvedilol 6.25 mg Oral tab 1 tab every 12 hours [Active]; clopidogrel 75 mg Oral tab 1 tab once daily [Active]; isosorbide mononitrate 30 mg Oral Tb24 1 tab once daily [Active]; Insulin Glargine Sub-Q [Active]; gabapentin 100 mg Oral cap [Active]; fluoxetine 10 mg Oral cap 1 caps once daily [Active]; famotidine 20 mg Oral tab [Active]; - PMHx: 12:24 CVA; Diabetes - IDDM; GERD; Hypertension; Hyperlipidemia; Depression; bp - Immunization history:: Adult Immunizations up to date. - Social history:: Smoking status: Patient/guardian denies using tobacco. - Ebola Screening: : No symptoms or risks identified at this time. - History obtained from: EMS. - Unable to obtain history due to: altered mental status. ROS: 12:21 Unable to obtain ROS due to altered mental status. rn Exam: 12:21 Constitutional: This is a well developed, well nourished patient who is awake, alert, rn slow to respond, pale Head/Face: Normocephalic, atraumatic. ENT: dry MM, no stridor Cardiovascular: Regular rate and rhythm. No pulse deficits. Respiratory: + coarse bilateral breath sounds, diminished on left Abdomen/GI: soft, non-tender MS/ Extremity: Pulses equal, no cyanosis. Neuro: Slow to respond but answers some questions, + left sided hemiplegia, resists with RUE/RLE. 12:25 ECG was reviewed by the Attending Physician. rn Vital Signs: 12:24 BP 89 / 69; Pulse 92; Resp 18; Temp 97.7; Pulse Ox 93% on R/A; Weight 72.57 kg; bp 13:07 BP 117 / 95; Pulse 94; Resp 15; Pulse Ox 90% ; bp 14:15 BP 102 / 76; Pulse 87; Resp 19; Pulse Ox 93% ; bp 15:26 BP 129 / 75; Pulse 89; Resp 12; Pulse Ox 95% ; bp 16:02 BP 132 / 83; Pulse 83; Resp 15; Pulse Ox 96% ; bp Procedures: 14:59 Peripheral line: by aseptic technique a peripheral line was placed in the left rn antecubital vein, Using ultrasound guidance, blood sent, but unable to flush. Line pulled. MDM: 12:12 Patient medically screened. rn 13:19 ED course: IMproved BP, difficult to obtain blood, has 2 peripheral IVs, no indication rn for emergent central line at this point.. 15:27 Differential Diagnosis sepsis, pneumonia, dehydration, UTI, hypotension. Data reviewed: rn vital signs, nurses notes, lab test result(s), EKG, radiologic studies, CT scan, plain films, and as a result, I will admit patient. Counseling: I had a detailed discussion with the patient and/or guardian regarding: the historical points, exam findings, and any diagnostic results supporting the discharge/admit diagnosis, lab results, radiology results, the need for further work-up and treatment in the hospital. Response to treatment: the patient's symptoms have mildly improved after treatment, and as a result, I will admit patient. Admission orders: after a detailed discussion of the patient's condition and case, the admit orders are written by me. ED course: Pt improved BP, got blood sent, admitted to Dr. Rodriguez for abx, fluid resuscitation, and further care. Stable h/h, updated family with care plan.. 11/20 12:14 Order name: Basic Metabolic Panel; Complete Time: 16:12 rn 11/20 12:14 Order name: Blood Culture Adult (2) rn 11/20 12:14 Order name: CBC with Diff; Complete Time: 15:22 rn 11/20 12:14 Order name: Lactate; Complete Time: 16:12 rn 11/20 12:14 Order name: LFT's; Complete Time: 16:12 rn 11/20 12:14 Order name: Lipase; Complete Time: 16:12 rn 11/20 12:14 Order name: Procalcitonin; Complete Time: 16:12 rn 11/20 12:14 Order name: Protime (+inr); Complete Time: 16:12 rn 11/20 12:14 Order name: Ptt, Activated; Complete Time: 16:12 rn 11/20 12:14 Order name: Troponin (emerg Dept Use Only); Complete Time: 16:12 rn 11/20 12:14 Order name: Urine Microscopic Only 11/20 12:14 Order name: Urine Culture 11/20 15:34 Order name: Stool Culture 11/20 15:49 Order name: Urine Dipstick--Ancillary (enter results) 11/20 12:14 Order name: Chest Single View XRAY; Complete Time: 16:12 rn 11/20 12:14 Order name: Accucheck; Complete Time: 12:31 rn 11/20 12:14 Order name: Cardiac monitoring; Complete Time: 12:30 rn 11/20 12:14 Order name: EKG - Nurse/Tech; Complete Time: 12:30 rn 11/20 12:14 Order name: IV Saline Lock - Large Bore; Complete Time: 12:30 rn 11/20 12:14 Order name: Labs collected and sent; Complete Time: 12:29 rn 11/20 12:14 Order name: O2 Per Protocol; Complete Time: 12:52 rn 11/20 12:14 Order name: O2 Sat Monitoring; Complete Time: 12:52 rn 11/20 12:14 Order name: Urine Dipstick-Ancillary (obtain specimen); Complete Time: 15:43 rn 11/20 12:14 Order name: CT Head Brain wo Cont; Complete Time: 16:12 rn EC:25 Rate is 94 beats/min. Rhythm is regular. WA interval is normal. T waves are Normal. No rn ST changes noted. Clinical impression: Electronic pacemaker, no acute ischemia. Interpreted by me. Reviewed by me. Administered Medications: 12:16 CANCELLED (Duplicate Order): NS 0.9% 500 ml IV at bolus once rn 12:53 Drug: NS 0.9% 1000 ml Route: IV; Rate: 1000 ml; Site: left forearm; iw 16:44 Follow up: IV Status: Completed infusion; IV Intake: 1000ml bp 13:12 Drug: Zofran 4 mg Route: IVP; Site: right forearm; bp 14:21 Follow up: Response: No adverse reaction bp 14:22 Drug: Zosyn 3.375 grams Route: IVPB; Infused Over: 60 mins; Site: left forearm; bp 16:43 Follow up: IV Status: Completed infusion; IV Intake: 100ml bp Disposition: 11/20/18 15:29 Hospitalization ordered by Shefali Rodriguez for Inpatient Admission. Preliminary diagnosis are Hypotension, unspecified, Bibasilar pneumonia, Failed outpatient therapy for pneumonia, Dehydration, Urinary tract infection, site not specified. - Bed requested for Telemetry/MedSurg (Inpatient). - Status is Inpatient Admission. bp - Condition is Stable. - Problem is new. - Symptoms have improved. UTI on Admission? Yes Signatures: Dispatcher [employer] EDMS Sharri Parnell Diana, RN RN dw Williams, Irene, RN RN iw Nieto, Roman, MD MD rn Peltier, Brian, RN RN bp Corrections: (The following items were deleted from the chart) 12:16 12:14 NS 0.9% 500 ml IV at bolus once ordered. rn rn 14:22 12:49 Labs - recollect needed ordered. bd bp 15:30 15:29 Hospitalization Ordered by Shefali Rodriguez MD for Inpatient Admission. Preliminary rn diagnosis is Hypotension, unspecified; Bibasilar pneumonia; Failed outpatient therapy for pneumonia. Bed requested for Telemetry/MedSurg (Inpatient). Status is Inpatient Admission. Condition is Stable. Problem is new. Symptoms have improved. UTI on Admission? No. rn 16:18 15:30 11/20/2018 15:29 Hospitalization Ordered by Shefali Rodriguez MD for Inpatient dw Admission. Preliminary diagnosis is Hypotension, unspecified; Bibasilar pneumonia; Failed outpatient therapy for pneumonia; Dehydration. Bed requested for Telemetry/MedSurg (Inpatient). Status is Inpatient Admission. Condition is Stable. Problem is new. Symptoms have improved. UTI on Admission? No. rn 16:31 16:18 11/20/2018 15:29 Hospitalization Ordered by Shefali Rodriguez MD for Inpatient rn admit. Preliminary diagnosis is Hypotension, unspecified; Bibasilar pneumonia; Failed outpatient therapy for pneumonia; Dehydration. Bed requested for Telemetry/MedSurg (Inpatient). Status is Inpatient Admission. Condition is Stable. Problem is new. Symptoms have improved. UTI on Admission? No. dw 16:45 16:31 11/20/2018 15:29 Hospitalization Ordered by Shefali Rodriguez MD for Inpatient bp Admission. Preliminary diagnosis is Hypotension, unspecified; Bibasilar pneumonia; Failed outpatient therapy for pneumonia; Dehydration; Urinary tract infection, site not specified. Bed requested for Telemetry/MedSurg (Inpatient). Status is Inpatient Admission. Condition is Stable. Problem is new. Symptoms have improved. UTI on Admission? Yes. rn
--- NOTE | 2018-11-20 15:33 | RAD REPORT ---
EXAM DESCRIPTION: RAD - Chest Single View - 11/20/2018 1:18 pm CLINICAL HISTORY: Pneumonia, altered mental status, hypotensive COMPARISON: None. TECHNIQUE: AP portable chest image was obtained 1300 hours . FINDINGS: No focal mass or consolidation. Interstitial markings are prominent. The baseline for the patient is unknown. Interstitial edema or infiltrate are certainly possible. Heart size is upper norm al. Vasculature is mildly prominent. Pacemaker is in place via left subclavian approach. Trachea is m idline. No measurable pleural effusion and no pneumothorax. No acute bony abnormality seen. No acute aortic findings suspected. IMPRESSION: Heart, vasculature and lung markings are all mildly prominent with baseline for the kendal ent unknown. No focal consolidation identified to localize a pneumonia. An interstitial pneumonia would be possibl e. Mild failure/ volume overload also considerations.
[2018-11-20 15:37] LABS: ALT/SGPT 17 U/L (12-78); AST/SGOT 21 U/L (15-37); Albumin 2.1 g/dL (3.4-5.0); Alkaline Phosphatase 128 U/L (45-117); BUN Blood Urea Nitrogen 18 mg/dL (7-18); Bicarbonate 20 mmol/L (21-32); Bilirubin Direct 0.1 mg/dL (0-0.2); Bilirubin Total 0.4 mg/dL (0.2-1.0); Glucose Level 137 mg/dL (74-106); Lipase 69 U/L (73-393); Potassium 3.4 mmol/L (3.5-5.1); Protein, Total 7.3 g/dL (6.4-8.2); Sodium Level 151 mmol/L (136-145); Troponin (Emerg Dept Use Only) < 0.02 ng/mL (0.0-0.045)
--- NOTE | 2018-11-20 16:09 | RAD REPORT ---
EXAM DESCRIPTION: CT - Head Brain Wo Cont - 11/20/2018 3:47 pm CLINICAL HISTORY: Altered mental status, hypotension, CVA, left-sided paralysis COMPARISON: CT head November 18 TECHNIQUE: Axial 5 mm thick images of the head were obtained without IV contrast. All CT scans are performed using dose optimization technique as appropriate and may include automated exposure control or mA/KV adjustment according to patient size. FINDINGS: No intracranial hemorrhage, mass, edema or shift of mid-line structures. No new infarction changes are present. Patient has a large subacute CVA involving the right occipital lobe and posteri or right temporal lobe. There is extension into the right-sided basal ganglia and external capsule. T he infarction pattern matches the November 18 study. No progression of the extension and no hemorrhagi c transformation. Underlying atrophy and chronic ischemic change again noted. No abnormal extra-axial fluid collections. Ventricles are in proportion to the volume loss. No new edema or mass effect. Mastoid air cells and visualized portions of the paranasal sinuses are clear. No acute bony findings. IMPRESSION: No hemorrhage or acute intracranial finding. The patient has known subacute CVA in the right occipital lobe, posterior temporal lobe and right bas al ganglia not clearly different from prior imaging.
[2018-11-20 16:22] LABS: Urine Bacteria 20-50 /HPF (<20); Urine Culture Reflex Order NOT NEEDED; Urine Yeast PRESENT (NONE SEEN)
--- NOTE | 2018-11-20 16:32 | P.HP ---
Certification for Inpatient Patient admitted to: Observation With expected LOS: <2 Midnights Patient will require the following post-hospital care: None Practitioner: I am a practitioner with admitting privileges, knowledge of patient current condition, hospital course, and medical plan of care. Services: Services provided to patient in accordance with Admission requirements found in Title 42 Section 412.3 of the Code of Federal Regulations Patient History Date of Service: 11/20/18 Primary Care Provider: [facility] Reason for admission: AMS History of Present Illness: 73 F with pmhx HTN, DM, CVA, Pacemaker placement who presented to the ED from [facility] for AMS and poor appetite. Pt was recently admitted to the [facility] for Right sided CVA and was DC after a long course hospital Stay for CVA. Pt does have left sided weakness and dysphagia from it. Family at bedside states she has not been able to eat or drink anything for past couple of weeks and has been declining. Thus [facility] decided to put her in the hospital for further care. In the ER pt was found to have Dehydration, and AMS and thus was admitted to the hospital for further care. Allergies No Known Allergies Allergy (Unverified 11/20/18 17:00) Home medications list reviewed: Yes - Past Medical/Surgical History Has patient received pneumonia vaccine in the past: No Diabetic: Yes -: HTN -: DM -: HLP -: CAD -: Right Sided CVA with Left sided Def -: Carotid Stenosis Past Surgical History: Unable to obtain - Family History Family History: Reviewed- Non-Contributory - Social History Smoking Status: Former smoker Counseled patient to stop smoking for: less than 10 minutes Smoking therapy provided: Yes Patient receptive to therapy: No Alcohol use: No CD- Drugs: No Caffeine use: No Place of Residence: Home Review of Systems 10-point ROS is otherwise unremarkable Physical Examination - Physical Exam General: Alert, In no apparent distress, Oriented x2, Demented Respiratory: Clear to auscultation bilaterally, Normal air movement Cardiovascular: Regular rate/rhythm, Normal S1 S2 Gastrointestinal: Normal bowel sounds, No tenderness Musculoskeletal: No swelling, No contractures Integumentary: No rashes Neurological: Abnormal speech, Abnormal strength, Abnormal tone, Dementia Lymphatics: No axilla or inguinal lymphadenopathy - Studies Laboratory Data (last 24 hrs) 11/20/18 15:00: PT 16.1 H, INR 1.38, APTT 31.8 11/20/18 15:00: WBC 8.1, Hgb 9.5 L, Hct 29.3 L, Plt Count 433 H 11/20/18 12:14: Sodium 151 H, Potassium 3.4 L, BUN 18, Creatinine 0.97, Glucose 137 H, Total Bilirubin 0.4, AST 21, ALT 17, Alkaline Phosphatase 128 H, Lipase 69 L Assessment and Plan - Problems (Diagnosis) (1) Altered mental status Current Visit: Yes Status: Acute Plan: AMS most likely 2.2 to Hypotension 2.2 to hypovolemia -Currently AAOx2. Baseline with AAOx 2 since Last CVA -Head CT with no new changes. Subacute Right sided CVA involving Occupital Lobe , basal Ganglia and temporal lobe -IV fluids for Hypotension -Monitor closely Qualifiers: Altered mental status type: transient alteration of awareness Qualified Code(s): R40.4 - Transient alteration of awareness (2) Dehydration Current Visit: Yes Status: Acute Plan: Dehydration most likely 2.2 to Poor Appetite 2.2 to dysphagia -IV d5w at 50ml/hr -Speech therapy consulted. Awaiting Reccs -Will monitor closely (3) CVA (cerebral vascular accident) Current Visit: Yes Status: Acute Plan: Pt with Subacute CVA. Was seen in on 10/09/18 for acute CVA -Head CT today with Subacute CVA - Right sided CVA involving Occupital Lobe, basal Ganglia and temporal lobe -Left Sided Weakness and Dysphagia 2.2 to CVA -ASA, Lipitor and Plavix Qualifiers: CVA mechanism: occlusion Precerebral and cerebral artery: middle cerebral artery Laterality of affected vessel: right Qualified Code(s): I63.511 - Cerebral infarction due to unspecified occlusion or stenosis of right middle cerebral artery (4) HTN (hypertension) Current Visit: Yes Status: Chronic Plan: Restart Home medication Qualifiers: Hypertension type: essential hypertension Qualified Code(s): I10 - Essential (primary) hypertension (5) Diabetes Current Visit: Yes Status: Chronic Plan: Type 2 DM - ISS And accuchecks Qualifiers: Diabetes mellitus type: type 2 Diabetes mellitus termination clerk insulin use: without detention use Diabetes mellitus complication status: without complication Qualified Code(s): E11.9 - Type 2 diabetes mellitus without complications (6) Hyperlipidemia Current Visit: Yes Status: Chronic Qualifiers: Hyperlipidemia type: mixed hyperlipidemia Qualified Code(s): E78.2 - Mixed hyperlipidemia (7) Carotid disease, bilateral Current Visit: Yes Status: Chronic Qualifiers: Carotid artery disease type: stenosis Qualified Code(s): I65.23 - Occlusion and stenosis of bilateral carotid arteries - Plan Admit to Med surg for AMS and hypotension. Will start on IV d5w and speech therapy consult to assess for dysphagia Discharge Plan: Home Plan to discharge in: Greater than 2 days - Advance Directives Does patient have a Living Will: No Does patient have a Durable POA for Healthcare: No - Code Status/Comfort Care Code Status Assessed: Yes Critical Care: No
[2018-11-20 16:55] LABS: Urine Blood 2+ (NEG); Urine Glucose NEGATIVE (NEG); Urine Protein 3+ (NEG); Urine Specific Gravity 1.025 (1.005-1.030); Urine pH 5.5 (5.0-7.0)
[2018-11-20] MEDS ORDERED: ALBUTEROL 2.5 MG/3 ML NEB SOL NEB PRN (17:00)
[2018-11-20] MEDS ORDERED: INSULIN -REGULAR HUMAN 50 UNIT/0.5 ML ML SQ SCH (17:00)
[2018-11-20] MEDS ORDERED: IPRATROPIUM BROM 0.5MG/2.5ML NEB PRN (17:00)
[2018-11-20] MEDS: ENOXAPARIN 40 MG/0.4 ML SQ SCH (18:17)
[2018-11-20] MEDS: CEFTRIAXONE/SWI 1gm 1 GM/10 ML SYR IVP SCH (18:17)
[2018-11-20] MEDS: D5W 1,000 ML IV SCH (18:17)
[2018-11-20] MEDS: INSULIN -REGULAR HUMAN 50 UNIT/0.5 ML ML SQ SCH ×2 (20:00→23:59)
[2018-11-21 06:13] LABS: Bilirubin Total 0.3 mg/dL (0.2-1.0); Protein, Total 6.3 g/dL (6.4-8.2)
[2018-11-21] MEDS: INSULIN -REGULAR HUMAN 50 UNIT/0.5 ML ML SQ SCH ×3 (06:17→17:12)
[2018-11-21 06:24] LABS: Absolute Lymphocytes (CBC) 1.4 K/uL (0.7-4.9); Basophils % 0.9 % (0-1.3); Hematocrit 43.1 % (36.0-45.0); Lymphocytes % 20.9 % (15.3-44.8); MPV 8.6 fL (7.6-11.3); RBC Red Blood Cell Count 4.74 M/uL (3.86-4.86)
--- NOTE | 2018-11-21 07:49 | EKG ---
Test Date: 2018-11-20 Test Time: 12:20:14 Field Application Engineer: BP MEASUREMENT RESULTS: Intervals: Rate: 94 DC: 178 QRSD: 164 QT: 448 QTc: 560 [place]: P: 58 DC: 178 QRS: -68 T: 104 INTERPRETIVE STATEMENTS: Atrial-sensed ventricular-paced rhythm Compared to ECG 11/18/2018 13:05:38 no significant change from previous ECG Electronically Signed On 11-21-18 07:48:52 CDT by Rikki Briggs
[2018-11-21] MEDS: CEFTRIAXONE/SWI 1gm 1 GM/10 ML SYR IVP SCH (08:56)
[2018-11-21] MEDS: ENOXAPARIN 40 MG/0.4 ML SQ SCH (08:56)
[2018-11-21] MEDS ORDERED: ALBUTEROL 2.5 MG/3 ML NEB SOL IH PRN (09:50)
[2018-11-21] MEDS ORDERED: HOME MED 1 EA UNK (Ipratropium/Albuterol Sulfate [Iprat-Albut 0.5-3(2.5) Mg/3 Ml] 1 VIAL) IH PRN (09:50)
--- NOTE | 2018-11-21 10:37 | P.PN ---
Subjective Date of Service: 11/21/18 Primary Care Provider: Vincent RUBIO Chief Complaint: AMS Review of Systems 10-point ROS is otherwise unremarkable Physical Examination - Vital Signs Temperature: 97 F Blood Pressure: 108/66 Pulse: 89 Respirations: 18 Pulse Ox (%): 91 - Physical Exam General: Alert, Demented HEENT: Atraumatic, PERRLA, EOMI Neck: Supple, JVD not distended Respiratory: Normal air movement, Expiratory wheezes, Inspiratory wheezes Cardiovascular: Regular rate/rhythm, Normal S1 S2 Gastrointestinal: Normal bowel sounds, No tenderness Musculoskeletal: No tenderness Integumentary: No rashes Neurological: Abnormal speech, Abnormal tone, Abnormal affect Lymphatics: No axilla or inguinal lymphadenopathy - Studies Laboratory Data (last 24 hrs) 11/20/18 15:00: PT 16.1 H, INR 1.38, APTT 31.8 11/20/18 15:00: WBC 8.1, Hgb 9.5 L, Hct 29.3 L, Plt Count 433 H 11/20/18 12:14: Sodium 151 H, Potassium 3.4 L, BUN 18, Creatinine 0.97, Glucose 137 H, Total Bilirubin 0.4, AST 21, ALT 17, Alkaline Phosphatase 128 H, Lipase 69 L Microbiology Data (last 24 hrs): 11/20/18 15:00 Blood - Blood Anaerobic Blood Culture - Final 11/20/18 12:54 Blood - Blood Anaerobic Blood Culture - Final Medications List Reviewed: Yes Assessment And Plan - Current Problems (Diagnosis) (1) Altered mental status Current Visit: Yes Status: Acute Plan: AMS most likely 2.2 to Hypotension 2.2 to hypovolemia -Currently AAOx2. Baseline with AAOx 2 since Last CVA -Head CT with no new changes. Subacute Right sided CVA involving Occupital Lobe , basal Ganglia and temporal lobe -IV fluids for Hypotension -Monitor closely Qualifiers: Altered mental status type: transient alteration of awareness Qualified Code(s): R40.4 - Transient alteration of awareness (2) Dehydration Current Visit: Yes Status: Acute Plan: Dehydration most likely 2.2 to Poor Appetite 2.2 to dysphagia -IV d5w at 50ml/hr -Speech therapy consulted. Awaiting Reccs -Will monitor closely (3) CVA (cerebral vascular accident) Current Visit: Yes Status: Acute Plan: Pt with Subacute CVA. Was seen in on 10/09/18 for acute CVA . Patient with poor prognosis -Head CT today with Subacute CVA - Right sided CVA involving Occupital Lobe, basal Ganglia and temporal lobe -Left Sided Weakness and Dysphagia 2.2 to CVA -ASA, Lipitor and Plavix -detailed discussion with family yesterday regarding patient's poor prognosis given the extensive nature of her CVA. Son is in agreement to hospice care if no changes in her status in the next 24-48 hr. Qualifiers: CVA mechanism: occlusion Precerebral and cerebral artery: middle cerebral artery Laterality of affected vessel: right Qualified Code(s): I63.511 - Cerebral infarction due to unspecified occlusion or stenosis of right middle cerebral artery (4) HTN (hypertension) Current Visit: Yes Status: Chronic Plan: Restart Home medication Qualifiers: Hypertension type: essential hypertension Qualified Code(s): I10 - Essential (primary) hypertension (5) Diabetes Current Visit: Yes Status: Chronic Plan: Type 2 DM - ISS And accuchecks Qualifiers: Diabetes mellitus type: type 2 Diabetes mellitus keno terminal operator insulin use: without keno terminal operator use Diabetes mellitus complication status: without complication Qualified Code(s): E11.9 - Type 2 diabetes mellitus without complications (6) Hyperlipidemia Current Visit: Yes Status: Chronic Qualifiers: Hyperlipidemia type: mixed hyperlipidemia Qualified Code(s): E78.2 - Mixed hyperlipidemia (7) Carotid disease, bilateral Current Visit: Yes Status: Chronic Qualifiers: Carotid artery disease type: stenosis Qualified Code(s): I65.23 - Occlusion and stenosis of bilateral carotid arteries - Plan Pending clinical improvement at this time. Will await speech therapy recommendations for further evaluation. Will continue with D5 W her in the hospital. Case management has been consulted for possible hospice set up. Patient's family member has agreed to sign up with [facility] hospice Discharge Plan: Other Plan to discharge in: 48 Hours - Code Status/Comfort Care Code Status Assessed: Yes Critical Care: No
--- NOTE | 2018-11-21 12:19 | CON ---
History Of Present Illness: Ms. Hanley is in the hospital because of altered mental status, confusio n. She had a stroke about a month and a half ago. Has been obtunded since then. Apparently before she was DNR, a pacemaker was placed, so it was probably in late September this year. I am asked to evalua te the pacemaker. We do not have any information on it other than what we can see from telemetry and EKGs. We can see it is in the left subclavian area, left pectoral area. The wound is well healed. There is no evidence of infection or hematoma there and by electrophysiology, we can see it is worki ng appropriately, it is sensing the atrium while she is in the sinus rhythm, pacing the ventricle. A pparently, she is in the hospital because of dehydration. At the residential, she was not eating en ough, came in dehydrated, has been getting IV. I am not sure if there is any talk of a PEG tube and enteral feeding or parenteral feeding, but apparently the patient will not thrive if one of those is not done. I am not sure of the indication of the pacemaker. I could suspect that it is from an atri oventricular block. She may have atrial fibrillation as well. Medications: Her outpatient medications were iron sulfate, insulin, famotidine, isosorbide, fluoxeti ne, Plavix, folic acid, Coreg, Eliquis, ipratropium, gabapentin, atorvastatin, albuterol, and laxativ e. Physical Examination: General: The patient is obtunded, breathing with her mouth open. Head turned a little bit to the ri ght, not responsive to words or gentle stimulation. Lungs: No stridor or wheezes. Heart: Regular rate and rhythm. There is a systolic murmur consistent with aortic stenosis. Abdomen: Soft. Extremities: Thin. No edema. Imaging Studies: Chest x-ray does not reveal anything significant nor does a head CAT scan. Impression: The pacemaker is working well. We should try to find out what brand it is. Get a pacem patrick check. We can do a magnet check here in the hospital and see. If it is a [employer] device, we can do a telemetry pacemaker check without having to call a claim service representative in. KRISTINE/ARIK Voice ID: [id number] Report ID: [id number]
--- NOTE | 2018-11-21 12:50 | RAD REPORT ---
EXAM DESCRIPTION: RAD - Barium Swallow Modified - 11/21/2018 12:24 pm CLINICAL HISTORY: Dysphagia/CVA FINDINGS: LARYNGEAL PENETRATION - CLEARED THIN BY CUP -DID NOT CLEAR THIN BY TSP OR STRAW, OR HONEY BY CUP PHARYNGEAL RESIDUE: VALLECULAR AND PYRIFORM MILD - MODERATE MODERATE- SEVERE RETENTION OF PUREE IN UPPER ESOPHAGUS WITH LARGER BOLUS, REDUCED WITH THIN LIQUID WA SH 1 SEC SWALLOW DELAY SEVERE ORAL HOLD WITH PUREE 30 -35+ SECONDS OBSERVED PROMINENCE OF UES - CP BAR Twenty-nine fluoroscopic spot series obtained. Fluoroscopy time 5.4 minutes
[2018-11-21] MEDS: D5W 1,000 ML IV SCH (13:51)
[2018-11-21] MEDS ORDERED: APIXABAN 2.5 MG TABLET PO SCH (21:00)
[2018-11-21] MEDS ORDERED: ATORVASTATIN 80 MG TAB PO SCH (21:00)
[2018-11-21] MEDS ORDERED: GABAPENTIN 100 MG CAP PO SCH (21:00)
[2018-11-21] MEDS ORDERED: CARVEDILOL 6.25 MG TAB PO SCH (21:00)
[2018-11-22] MEDS ORDERED: ISOSORBIDE MONO SR 30 MG TAB PO SCH (09:00)
[2018-11-22] MEDS ORDERED: FLUOXETINE 10 MG CAP PO SCH (09:00)
[2018-11-22] MEDS ORDERED: FERROUS SULFATE 325 MG TAB PO SCH (09:00)
[2018-11-22] MEDS ORDERED: ENOXAPARIN 30 MG/0.3 ML SQ SCH (09:00)
[2018-11-22] MEDS ORDERED: CLOPIDOGREL 75 MG TABLET PO SCH (09:00)
[2018-11-22] MEDS ORDERED: FOLIC ACID 1 MG TABLET PO SCH (09:00)
--- NOTE | 2018-11-22 11:39 | P.SSS ---
Patient History Date of Service: 11/22/18 Primary Care Provider: [facility] Reason for admission: AMS History of Present Illness: 73 F with pmhx HTN, DM, CVA, Pacemaker placement who presented to the ED from [facility] for AMS and poor appetite. Pt [facility] for Right sided CVA and was DC after a long course hospital Stay for CVA. Pt does have left sided weakness and dysphagia from it. Family at bedside states she has not been able to eat or drink anything for past couple of weeks and has been declining. Thus [facility] decided to put her in the hospital for further care. In the ER pt was found to have Dehydration, and AMS and thus was admitted to the hospital for further care. Allergies No Known Allergies Allergy (Unverified 11/20/18 17:00) Home Medications: Unobtainable 11/21/18 - Past Medical/Surgical History Has patient received pneumonia vaccine in the past: No Diabetic: Yes -: HTN -: DM -: HLP -: CAD -: Right Sided CVA with Left sided Def -: Carotid Stenosis - Family History Family History: Reviewed- Non-Contributory - Social History Smoking Status: Former smoker Alcohol use: No CD- Drugs: No Caffeine use: No Place of Residence: Home Review of Systems 10-point ROS is otherwise unremarkable Physical Examination - Vital Signs Temperature: 97.4 F Blood Pressure: 121/69 Pulse: 77 Respirations: 20 Pulse Ox (%): 94 - Physical Exam General: Alert, In no apparent distress, Cachectic, Demented Respiratory: Clear to auscultation bilaterally, Normal air movement Cardiovascular: Regular rate/rhythm, Normal S1 S2 Gastrointestinal: Normal bowel sounds, No tenderness Musculoskeletal: No tenderness Integumentary: No rashes Neurological: Abnormal speech, Abnormal strength, Abnormal tone Lymphatics: No axilla or inguinal lymphadenopathy - Studies Microbiology Data (last 24 hrs): 11/20/18 15:35 Catheterized Urine [place] Count - Final >100,000 CFU/ML. 11/20/18 15:35 Catheterized Urine - Final MIXED JARROD. 11/20/18 15:00 Blood - Blood Anaerobic Blood Culture - Final 11/20/18 12:54 Blood - Blood Anaerobic Blood Culture - Final - Diagnosis (Problem(s)) (1) CVA (cerebral vascular accident) Status: Resolved Plan: Pt with Subacute CVA. Was seen in on 10/09/18 for acute CVA . Patient with poor prognosis -Head CT today with Subacute CVA - Right sided CVA involving Occupital Lobe, basal Ganglia and temporal lobe -Left Sided Weakness and Dysphagia 2.2 to CVA -ASA, Lipitor and Plavix -detailed discussion with family regarding patient's poor prognosis given the extensive nature of her CVA. -Son is in agreement to hospice care . Will discharge to inpatient hospice care today Qualifiers: CVA mechanism: occlusion Precerebral and cerebral artery: middle cerebral artery Laterality of affected vessel: right Qualified Code(s): I63.511 - Cerebral infarction due to unspecified occlusion or stenosis of right middle cerebral artery (2) Altered mental status Status: Acute Plan: AMS most likely 2.2 to Hypotension 2.2 to hypovolemia -Currently AAOx2. Baseline with AAOx 2 since Last CVA -Head CT with no new changes. Subacute Right sided CVA involving Occupital Lobe , basal Ganglia and temporal lobe Qualifiers: Altered mental status type: transient alteration of awareness Qualified Code(s): R40.4 - Transient alteration of awareness (3) Dehydration Status: Acute Plan: Dehydration most likely 2.2 to Poor Appetite 2.2 to dysphagia (4) HTN (hypertension) Status: Chronic Qualifiers: Hypertension type: essential hypertension Qualified Code(s): I10 - Essential (primary) hypertension (5) Diabetes Status: Chronic Plan: Type 2 DM Qualifiers: Diabetes mellitus type: type 2 Diabetes mellitus residential insulin use: without residential use Diabetes mellitus complication status: without complication Qualified Code(s): E11.9 - Type 2 diabetes mellitus without complications (6) Hyperlipidemia Status: Chronic Qualifiers: Hyperlipidemia type: mixed hyperlipidemia Qualified Code(s): E78.2 - Mixed hyperlipidemia (7) Carotid disease, bilateral Status: Chronic Qualifiers: Carotid artery disease type: stenosis Qualified Code(s): I65.23 - Occlusion and stenosis of bilateral carotid arteries Treatment Summary: Patient was admitted to the hospital for altered mental status and dehydration. Was resuscitated successfully here on the hospital and was transitioned over to hospice care given the poor prognosis per family request. - Disposition Disposition: HOSPICE-MEDICAL FACILITY
== END 2018-11-21 19:39 | disposition hospice, inpatient (51) ==
LOC: ER 12:10 → ERHOLD 15:48 → 2ND 16:31
PROVIDERS: ADMIT Family Medicine; ATTEND Family Medicine
DX: E86.0 Dehydration (principal); R40.4 Transient alteration of awareness; I63.9 Cerebral infarction, unspecified; R13.10 Dysphagia, unspecified; G81.94 Hemiplegia, unspecified affecting left nondominant side; I10 Essential (primary) hypertension; E11.9 Type 2 diabetes mellitus without complications; E78.2 Mixed hyperlipidemia; I65.23 Occlusion and stenosis of bilateral carotid arteries; Z09 Encounter for follow-up examination after completed treatment for conditions other than malignant neoplasm; Z95.0 Presence of cardiac pacemaker; Z79.01 Long term (current) use of anticoagulants; Z79.4 Long term (current) use of insulin; Z79.02 Long term (current) use of antithrombotics/antiplatelets; Z79.899 Other long term (current) drug therapy; Z87.891 Personal history of nicotine dependence
CPT/HCPCS: 36415; 70450; 71045; 74230; 80048; 80053; 80076; 81003; 81015; 82962; 83605; 83690; 84145; 84484; 85025; 85610; 85730; 87040; 87045; 87046; 87086; 87088; 87205; 92610; 92611; 93005; 93280; 94760; 96361; 96365; 96366; 96375; 97163; 99285; G0378; J0696; J1650; J2405; J2543; J7030

== ENCOUNTER 2018-11-21 19:37 | Inpatient (IN) | payer OTHER ==
--- OUTSIDE RECORDS SUMMARY | 2018-11-21 19:47 | XMS REPORT ---
:1945 [facility] [place] Dr. Donato [address] [place] [id number] Care Team Providers Name Role Phone OSCAR COSTA Unavailable Unavailable Problems This patient has no known problems. Allergies, Adverse Reactions, Alerts This patient has no known allergies or adverse reactions. Medications This patient has no known medications. Results Test Description Test Time Test Comments Text Results Atomic Results Result Comments BLOOD CULTURE 2018-11-16 20:01:00 Test Item Value Reference Range Comments CULTURE (BEAKER) (test xwcl=0654) No growth in 5 days BLOOD [id number] 20:01:00 Test Item Value Reference Range Comments CULTURE (BEAKER) (test svxv=8776) No growth in 5 days BLOOD [id number] 10:37:00 Test Item Value Reference Range Comments CULTURE (BEAKER) From Aerobic Bottle Only (test mand=5917) Coagulase negative Staphylococcus GRAM STAIN RESULT From aerobic bottle (BEAKER) (test only: gram positive fzsl=3476) cocci in clusters BLOOD [id number] 10:36:00 Test Item Value Reference Range Comments CULTURE (BEAKER) From Aerobic Bottle Only (test rifb=7316) Coagulase negative Staphylococcus GRAM STAIN RESULT From aerobic bottle (BEAKER) (test only: gram positive pjnt=0621) cocci in clusters POCT-GLUCOSE [id number] 12:32:00 Test Item Value Reference Range Comments POC-GLUCOSE METER (BEAKER) 87 mg/dL 70-[address] [facility] [address] [facility] (test ozlm=7797) [facility] [address] POCT-GLUCOSE [id number] 21:28:00 Test Item Value Reference Range Comments POC-GLUCOSE METER (BEAKER) 100 mg/dL 70-[address] [facility] [address] [facility] (test opks=8189) [facility] [address] POCT-GLUCOSE [id number] 21:01:00 Test Item Value Reference Range Comments POC-GLUCOSE METER (BEAKER) 98 mg/dL 70-[address] [facility] [address] [facility] (test ytkr=0760) [facility] [address] VANCOMYCIN LEVEL, [id number] 13:29:00 Test Item Value Reference Range Comments VANCOMYCIN TROUGH (BEAKER) (test kajv=425) 14.1 ug/mL 10.0-20.0 POCT-GLUCOSE [id number] 12:34:00 Test Item Value Reference Range Comments POC-GLUCOSE METER (BEAKER) 113 mg/dL 70-[address] [facility] [address] [facility] (test fnst=1006) [facility] [address] [id number] 06:25:00 Test Item Value Reference Range Comments MAGNESIUM (BEAKER) (test owgz=748) 1.8 mg/dL 1.6-2.6 BASIC METABOLIC [id number] 06:25:00 Test Item Value Reference Range Comments SODIUM (BEAKER) (test 140 meq/L 136-145 sjpm=219) POTASSIUM (BEAKER) (test 3.8 meq/L 3.5-5.1 nayi=071) CHLORIDE (BEAKER) (test 110 meq/L 98-107 owzj=289) CO2 (BEAKER) (test 27 meq/L 22-29 ggth=640) BLOOD UREA NITROGEN 16 mg/dL 7-21 (BEAKER) (test qvfs=364) CREATININE (BEAKER) (test 0.90 mg/dL 0.57-1.25 vded=327) GLUCOSE RANDOM (BEAKER) 106 mg/dL 70-105 (test zbpx=215) CALCIUM (BEAKER) (test 8.1 mg/dL 8.4-10.2 casx=572) EGFR (BEAKER) (test 61 mL/min/1.73 sq m ESTIMATED GFR IS NOT anct=2934) ACCURATE CREATININE CLEARANCE IN PREDICTING GLOMERULAR FILTRATION RATE. ESTIMATED GFR IS NOT APPLICABLE FOR DIALYSIS PATIENTS. CBC (HEMOGRAM ONLY)2018-11-14 05:35:00 Test Item Value Reference Range Comments WHITE BLOOD CELL COUNT (BEAKER) (test spip=551) 6.3 K/ L 3.5-10.5 RED BLOOD CELL COUNT (BEAKER) (test exgq=699) 2.54 M/ L 3.93-5.22 HEMOGLOBIN (BEAKER) (test tnob=550) 7.2 GM/DL 11.2-15.7 HEMATOCRIT (BEAKER) (test elph=465) 24.2 % 34.1-44.9 MEAN CORPUSCULAR VOLUME (BEAKER) (test axkj=425) 95.3 fL 79.4-94.8 MEAN CORPUSCULAR HEMOGLOBIN (BEAKER) (test 28.3 pg 25.6-32.2 dnwg=753) MEAN CORPUSCULAR HEMOGLOBIN CONC (BEAKER) (test 29.8 GM/DL 32.2-35.5 sjwo=711) RED CELL DISTRIBUTION WIDTH (BEAKER) (test 15.0 % 11.7-14.4 loix=814) PLATELET COUNT (BEAKER) (test jqmy=855) 362 K/CU MM 150-450 MEAN PLATELET VOLUME (BEAKER) (test bbim=899) 9.6 fL 9.4-12.3 NUCLEATED RED BLOOD CELLS (BEAKER) (test 0 /100 WBC 0-0 dhbg=943) POCT-GLUCOSE [id number] 21:52:00 Test Item Value Reference Range Comments POC-GLUCOSE METER (BEAKER) 221 mg/dL 70-110 TESTED AT [address] (test gkoo=0402) [place] [address] POCT-GLUCOSE [id number] 16:58:00 Test Item Value Reference Range Comments POC-GLUCOSE METER (BEAKER) 190 mg/dL 70-110 TESTED AT [address] (test myil=2819) [place] [address] POCT-GLUCOSE [id number] 16:58:00 Test Item Value Reference Range Comments POC-GLUCOSE METER (BEAKER) 167 mg/dL 70-110 TESTED AT [address] (test jgoc=5794) [place] [address] [id number] 13:24:00 Test Item Value Reference Range Comments PREALBUMIN (BEAKER) (test qgui=078) 15 mg/dL 14-45 VANCOMYCIN LEVEL, [id number] 13:21:00 Test Item Value Reference Range Comments VANCOMYCIN TROUGH (BEAKER) (test roim=833) 22.5 ug/mL 10.0-20.0 CT, CTANGIO [id number] 11:52:00FINAL REPORT CT, CTANGIO BRAIN, CT, CAROTID, [...] is preserved perfusion of the proximal right BOX LIDDER segments. The contralateral side is unremarkable.Venous opacification: [...] present. No apical pneumothorax. 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 Lesser involvement [...] Verified Date/ Time: 11/13/2018 11:52:12 Reading Location: [address] Neuro Reading Room CT, CAROTID, [id number] 11:52:00FINAL REPORT CT, CTANGIO BRAIN, CT, CAROTID, [...] is preserved perfusion of the proximal right BOX LIDDER segments. The contralateral side is unremarkable.Venous opacification: [...] present. No apical pneumothorax. 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 Lesser involvement [...] communicating vessels. Signed: JR Le[facility] ([place], [place]) Verified Date/ Time: 11/13/2018 11:52:12 Reading Location: [facility] Neuro Reading Room BASIC METABOLIC [id number] 07:49:00 Test Item Value Reference Range Comments SODIUM (BEAKER) (test 140 meq/L 136-145 gnzm=572) POTASSIUM (BEAKER) (test 4.0 meq/L 3.5-5.1 vrud=466) CHLORIDE (BEAKER) (test 110 meq/L 98-107 pxra=083) CO2 (BEAKER) (test 25 meq/L 22-29 rkss=791) BLOOD UREA NITROGEN 11 mg/dL 7-21 (BEAKER) (test lwwa=407) CREATININE (BEAKER) (test 0.92 mg/dL 0.57-1.25 rgly=428) GLUCOSE RANDOM (BEAKER) 116 mg/dL 70-105 (test zpng=551) CALCIUM (BEAKER) (test 7.9 mg/dL 8.4-10.2 sfrz=170) EGFR (BEAKER) (test 60 mL/min/1.73 sq m ESTIMATED GFR IS NOT sjzh=8572) ACCURATE CREATININE CLEARANCE IN PREDICTING GLOMERULAR FILTRATION RATE. ESTIMATED GFR IS NOT APPLICABLE FOR DIALYSIS PATIENTS. [id number] 07:47:00 Test Item Value Reference Range Comments MAGNESIUM (BEAKER) (test mfzr=234) 1.8 mg/dL 1.6-2.6 POCT-GLUCOSE [id number] 07:34:00 Test Item Value Reference Range Comments POC-GLUCOSE METER (BEAKER) 121 mg/dL 70-[address] [facility] [address] [facility] (test nqhk=3893) [facility] [address] CBC (HEMOGRAM ONLY)2018-11-13 05:12:00 Test Item Value Reference Range Comments WHITE BLOOD CELL COUNT (BEAKER) (test eaoe=232) 5.7 K/ L 3.5-10.5 RED BLOOD CELL COUNT (BEAKER) (test rupo=216) 2.52 M/ L 3.93-5.22 HEMOGLOBIN (BEAKER) (test ejfj=380) 7.4 GM/DL 11.2-15.7 HEMATOCRIT (BEAKER) (test znmo=949) 24.1 % 34.1-44.9 MEAN CORPUSCULAR VOLUME (BEAKER) (test uxzq=189) 95.6 fL 79.4-94.8 MEAN CORPUSCULAR HEMOGLOBIN (BEAKER) (test 29.4 pg 25.6-32.2 ibqk=658) MEAN CORPUSCULAR HEMOGLOBIN CONC (BEAKER) (test 30.7 GM/DL 32.2-35.5 wxlu=451) RED CELL DISTRIBUTION WIDTH (BEAKER) (test 15.0 % 11.7-14.4 nmvb=336) PLATELET COUNT (BEAKER) (test xixe=171) 342 K/CU MM 150-450 MEAN PLATELET VOLUME (BEAKER) (test ilfc=349) 9.7 fL 9.4-12.3 NUCLEATED RED BLOOD CELLS (BEAKER) (test 0 /100 WBC 0-0 zgoy=828) POCT-GLUCOSE [id number] 22:19:00 Test Item Value Reference Range Comments POC-GLUCOSE METER (BEAKER) 158 mg/dL 70-110 TESTED AT [address] (test hyke=2472) [facility] [address] POCT-GLUCOSE [id number] 17:24:00 Test Item Value Reference Range Comments POC-GLUCOSE METER (BEAKER) 135 mg/dL 70-110 TESTED AT [address] (test nzex=3197) [facility] [address] POCT-GLUCOSE [id number] 12:54:00 Test Item Value Reference Range Comments POC-GLUCOSE METER (BEAKER) 159 mg/dL 70-110 TESTED AT [address] (test xxct=4426) [facility] [address] POCT-GLUCOSE [id number] 07:55:00 Test Item Value Reference Range Comments POC-GLUCOSE METER (BEAKER) 110 mg/dL 70-110 TESTED AT [address] (test mtiy=0889) [facility] [address] [id number] 06:07:00 Test Item Value Reference Range Comments MAGNESIUM (BEAKER) (test xfsa=604) 1.8 mg/dL 1.6-2.6 BASIC METABOLIC [id number] 06:07:00 Test Item Value Reference Range Comments SODIUM (BEAKER) (test 140 meq/L 136-145 wdie=471) POTASSIUM (BEAKER) (test 3.4 meq/L 3.5-5.1 owbs=942) CHLORIDE (BEAKER) (test 110 meq/L 98-107 orbi=821) CO2 (BEAKER) (test 25 meq/L 22-29 rrud=447) BLOOD UREA NITROGEN 8 mg/dL 7-21 (BEAKER) (test ayui=926) CREATININE (BEAKER) (test 0.81 mg/dL 0.57-1.25 wjiy=869) GLUCOSE RANDOM (BEAKER) 89 mg/dL 70-105 (test vorw=729) CALCIUM (BEAKER) (test 8.2 mg/dL 8.4-10.2 ijqu=549) EGFR (BEAKER) (test 69 mL/min/1.73 sq m ESTIMATED GFR IS NOT jbem=5940) ACCURATE CREATININE CLEARANCE IN PREDICTING GLOMERULAR FILTRATION RATE. ESTIMATED GFR IS NOT APPLICABLE FOR DIALYSIS PATIENTS. CBC (HEMOGRAM ONLY)2018-11-12 05:20:00 Test Item Value Reference Range Comments WHITE BLOOD CELL COUNT (BEAKER) (test awhs=247) 6.1 K/ L 3.5-10.5 RED BLOOD CELL COUNT (BEAKER) (test wdpn=734) 2.71 M/ L 3.93-5.22 HEMOGLOBIN (BEAKER) (test qdws=939) 7.9 GM/DL 11.2-15.7 HEMATOCRIT (BEAKER) (test usat=144) 25.1 % 34.1-44.9 MEAN CORPUSCULAR VOLUME (BEAKER) (test tnrv=250) 92.6 fL 79.4-94.8 MEAN CORPUSCULAR HEMOGLOBIN (BEAKER) (test 29.2 pg 25.6-32.2 ayxk=663) MEAN CORPUSCULAR HEMOGLOBIN CONC (BEAKER) (test 31.5 GM/DL 32.2-35.5 jeir=651) RED CELL DISTRIBUTION WIDTH (BEAKER) (test 14.9 % 11.7-14.4 vhqp=998) PLATELET COUNT (BEAKER) (test fdam=597) 375 K/CU MM 150-450 MEAN PLATELET VOLUME (BEAKER) (test dpcp=473) 9.6 fL 9.4-12.3 NUCLEATED RED BLOOD CELLS (BEAKER) (test 0 /100 WBC 0-0 zxfx=534) RAD, CHEST, 1 VIEW, NON [id number] 23:49:00Reason for exam:-> cracklesShould this be performed [...] MDReport Verified Date/Time: 2018 23:49:52 Reading Location: [facility] B1 C013W Consult Reading Room POCT- GLUCOSE [id number] 22:44:00 Test Item Value Reference Range Comments POC-GLUCOSE METER (BEAKER) 169 mg/dL 70-[address] [facility] [address] [facility] (test anrv=0564) [facility] [address] POCT-GLUCOSE [id number] 18:45:00 Test Item Value Reference Range Comments POC-GLUCOSE METER (BEAKER) 233 mg/dL 70-[address] [facility] [address] [facility] (test rgos=2442) [facility] [address] BLOOD CULTURE IDENTIFICATION [id number] 15:21:00 Test Item Value Reference Range Comments LISTERIA MONOCYTOGENES (test Not detected Not detected ghfd=4502246) STAPHYLOCOCCUS (test Detected Not detected Coagulase negative Staph vopt=7389983) species (CoNS)- methicillin resistantFirst-line therapy: Vancomycin MecA DETECTED Possible contamination. The likelihood of pathogenicity is increased if the organism is observed in multiple blood cultures obtained from separate venipunctures. Reference Range: Not Detected STAPHYLOCOCCUS AUREUS (test Not detected Not detected cfbw=6905750) STREPTOCOCCUS (test Not detected Not detected uvvo=5627572) STREPTOCOCCUS AGALACTIAE (GROUP Not detected Not detected B) (test nksj=3609384) STREPTOCOCCUS PNEUMONIAE (test Not detected Not detected wnxw=5663587) STREPTOCOCCUS PYOGENES (GROUP Not detected Not detected A) (test psds=3594115) ACINETOBACTER BAUMANNII (test Not detected Not detected xaoc=9504898) HAEMOPHILUS INFLUENZAE (test Not detected Not detected msdw=3676648) NEISSERIA MENINGITIDIS (test Not detected Not detected rhpv=5927667) ENTEROBACTERIACEAE (test Not detected Not detected kddf=9465261) ENTEROBACTER CLOACOE COMPLEX Not detected Not detected (test lxcq=0603510) KLEBSIELLA OXYTOCA (test Not detected Not detected jmkd=9156286) KLEBSIELLA PNEUMONIAE (test Not detected Not detected scyc=5475) PROTEUS (test zncn=9505344) Not detected Not detected SERRATIA MARCESCENS (test Not detected Not detected xfrh=7334106) HAIR ALBICANS (test Not detected Not detected jwhc=0376804) HAIR GLABRATA (test Not detected Not detected pbkn=7938367) HAIR KRUSEI (test Not detected Not detected vrlg=4702689) HAIR PARAPSILOSIS (test Not detected Not detected vruj=1700330) HAIR TROPICALIS (test Not detected Not detected iryy=6229583) ESCHERICHIA COLI (test Not detected Not detected fjck=8468545) METHICILLIN-RESISTANCE GENE Detected Not detected (test vuqs=6571984) VANCOMYCIN-RESISTANCE GENE Not detected (test fjmc=9039004) CARBAPENEM-RESISTANCE GENE Not detected (test qhgv=2324673) ENTEROCOCCUS-BEAKER (test Not detected Not detected xtop=5830964) PSEUDOMONAS AERUGINOSA-BEAKER Not detected Not detected (test vtha=0739060) Other bacteria and resistance markers not targeted by this PCR panel cannot be excluded; therefore clinical correlation and follow up of serology, culture results, and other molecular studies is required. The results are not intended to be used as the sole means for clinical diagnosis or patient management decisions. This sample was tested at the [facility] Molecular Diagnostics Laboratory using the C-nario Blood Culture ID Panel. It is FDA cleared and has been verified and approved by the [facility] Molecular Diagnostics Laboratory for clinical use. This laboratory is CLIA-certified and College ofAmerican Pathologists (CAP)-accredited to perform high complexity testing.VANCOMYCIN LEVEL, [id number] 12:54:00 Test Item Value Reference Range Comments VANCOMYCIN TROUGH (AKER) (test lomg=689) 2.2 ug/mL 10.0-20.0 POCT-GLUCOSE [id number] 12:32:00 Test Item Value Reference Range Comments POC-GLUCOSE METER (BEAKER) 199 mg/dL 70-[address] [facility] [address] (test ixwp=2102) [facility] [address] [id number] 12:30:00 Test Item Value Reference Range Comments PROCALCITONIN (BEAKER) (test loxv=3697) 0.17 ng/mL <0.05 SEPSIS RISK (ng/mL)Low: 0.05-0.50Intermediate: 0.51-2.00High: & gt;=2.01LACTIC ACID, [id number] 11:55:00 Test Item Value Reference Range Comments LACTATE BLOOD VENOUS (2) (BEAKER) (test 1.8 mmol/L 0.5-2.2 cgwf=1437) POCT-GLUCOSE [id number] 07:47:00 Test Item Value Reference Range Comments POC-GLUCOSE METER (BEAKER) 110 mg/dL 70-[address] [facility] [address] (test ilku=2572) [facility] [address] [id number] 07:22:00 Test Item Value Reference Range Comments MAGNESIUM (BEAKER) (test xzat=675) 1.9 mg/dL 1.6-2.6 BASIC METABOLIC [id number] 07:22:00 Test Item Value Reference Range Comments SODIUM (BEAKER) (test 139 meq/L 136-145 oquo=270) POTASSIUM (BEAKER) (test 3.3 meq/L 3.5-5.1 iblg=701) CHLORIDE (BEAKER) (test 108 meq/L 98-107 bgrg=921) CO2 (BEAKER) (test 25 meq/L 22-29 gidd=434) BLOOD UREA NITROGEN 10 mg/dL 7-21 (BEAKER) (test ncig=101) CREATININE (BEAKER) (test 0.95 mg/dL 0.57-1.25 bsjr=833) GLUCOSE RANDOM (BEAKER) 89 mg/dL 70-105 (test lfdl=756) CALCIUM (BEAKER) (test 8.1 mg/dL 8.4-10.2 edzx=730) EGFR (BEAKER) (test 58 mL/min/1.73 sq m ESTIMATED GFR IS NOT tgqq=1502) ACCURATE CREATININE CLEARANCE IN PREDICTING GLOMERULAR FILTRATION RATE. ESTIMATED GFR IS NOT APPLICABLE FOR DIALYSIS PATIENTS. CBC (HEMOGRAM ONLY)2018-11-11 06:56:00 Test Item Value Reference Range Comments WHITE BLOOD CELL COUNT (BEAKER) (test erdz=280) 5.9 K/ L 3.5-10.5 RED BLOOD CELL COUNT (BEAKER) (test xgpm=221) 2.60 M/ L 3.93-5.22 HEMOGLOBIN (BEAKER) (test fcsq=423) 7.5 GM/DL 11.2-15.7 HEMATOCRIT (BEAKER) (test cfvl=728) 24.3 % 34.1-44.9 MEAN CORPUSCULAR VOLUME (BEAKER) (test nzbp=010) 93.5 fL 79.4-94.8 MEAN CORPUSCULAR HEMOGLOBIN (BEAKER) (test 28.8 pg 25.6-32.2 lyaj=521) MEAN CORPUSCULAR HEMOGLOBIN CONC (BEAKER) (test 30.9 GM/DL 32.2-35.5 omnn=452) RED CELL DISTRIBUTION WIDTH (BEAKER) (test 14.7 % 11.7-14.4 iiaf=297) PLATELET COUNT (BEAKER) (test tzpt=930) 338 K/CU MM 150-450 MEAN PLATELET VOLUME (BEAKER) (test wfxi=411) 10.1 fL 9.4-12.3 NUCLEATED RED BLOOD CELLS (BEAKER) (test 0 /100 WBC 0-0 auuj=812) POCT-GLUCOSE [id number] 21:00:00 Test Item Value Reference Range Comments POC-GLUCOSE METER (BEAKER) 202 mg/dL 70-[address] [facility] [address] [facility] (test icmw=3291) [facility] [address] URINALYSIS W/ REFLEX URINE [id number] 18:44:00 Test Item Value Reference Range Comments COLOR (BEAKER) (test mbzi=856) Yellow CLARITY (BEAKER) (test voce=065) Cloudy SPECIFIC GRAVITY UA (BEAKER) (test pvok=491) 1.011 1.001-1.035 PH UA (BEAKER) (test xmoy=228) 6.0 5.0-8.0 PROTEIN UA (BEAKER) (test tbax=859) 100 mg/dL Negative GLUCOSE UA (BEAKER) (test conl=902) Negative Negative KETONES UA (BEAKER) (test spfq=384) Negative Negative BILIRUBIN UA (BEAKER) (test yhhm=178) Negative Negative BLOOD UA (BEAKER) (test xzmv=903) Small Negative NITRITE UA (BEAKER) (test eyvb=496) Negative Negative LEUKOCYTE ESTERASE UA (BEAKER) (test wajf=100) Large Negative UROBILINOGEN UA (BEAKER) (test eewd=451) 0.2 mg/dL 0.2-1.0 RBC UA (BEAKER) (test ksty=024) 33 /HPF WBC UA (BEAKER) (test zghr=017) 357 /HPF MUCUS (BEAKER) (test didd=1810) Rare YEAST (BEAKER) (test qasx=4103) Many SOURCE(BEAKER) (test ihmc=8735) POCT-GLUCOSE [id number] 18:37:00 Test Item Value Reference Range Comments POC-GLUCOSE METER (BEAKER) 218 mg/dL 70-[address] [facility] [address] [facility] (test pxlc=0507) [facility] [address] POCT-GLUCOSE [id number] 17:16:00 Test Item Value Reference Range Comments POC-GLUCOSE METER (BEAKER) 216 mg/dL 70-110 TESTED AT [address] (test vbja=0348) [facility] [address] POCT-GLUCOSE [id number] 08:55:00 Test Item Value Reference Range Comments POC-GLUCOSE METER (BEAKER) 212 mg/dL 70-110 TESTED AT [address] (test ymwg=7989) [facility] [address] [id number] 06:55:00 Test Item Value Reference Range Comments MAGNESIUM (BEAKER) (test psra=804) 1.4 mg/dL 1.6-2.6 BASIC METABOLIC [id number] 06:55:00 Test Item Value Reference Range Comments SODIUM (BEAKER) (test 137 meq/L 136-145 labj=586) POTASSIUM (BEAKER) (test 3.5 meq/L 3.5-5.1 bpwn=257) CHLORIDE (BEAKER) (test 107 meq/L 98-107 riff=154) CO2 (BEAKER) (test 24 meq/L 22-29 phdn=407) BLOOD UREA NITROGEN 12 mg/dL 7-21 (BEAKER) (test gvft=371) CREATININE (BEAKER) (test 0.89 mg/dL 0.57-1.25 jcof=804) GLUCOSE RANDOM (BEAKER) 141 mg/dL 70-105 (test jxsv=685) CALCIUM (BEAKER) (test 8.3 mg/dL 8.4-10.2 ttrp=194) EGFR (BEAKER) (test 62 mL/min/1.73 sq m ESTIMATED GFR IS NOT zjzd=5615) ACCURATE CREATININE CLEARANCE IN PREDICTING GLOMERULAR FILTRATION RATE. ESTIMATED GFR IS NOT APPLICABLE FOR DIALYSIS PATIENTS. CBC (HEMOGRAM ONLY)2018-11-10 05:57:00 Test Item Value Reference Range Comments WHITE BLOOD CELL COUNT (BEAKER) (test xhau=690) 7.4 K/ L 3.5-10.5 RED BLOOD CELL COUNT (BEAKER) (test zkpi=454) 2.78 M/ L 3.93-5.22 HEMOGLOBIN (BEAKER) (test xmyo=983) 8.0 GM/DL 11.2-15.7 HEMATOCRIT (BEAKER) (test rvul=256) 25.9 % 34.1-44.9 MEAN CORPUSCULAR VOLUME (BEAKER) (test mvau=200) 93.2 fL 79.4-94.8 MEAN CORPUSCULAR HEMOGLOBIN (BEAKER) (test 28.8 pg 25.6-32.2 hgvn=197) MEAN CORPUSCULAR HEMOGLOBIN CONC (BEAKER) (test 30.9 GM/DL 32.2-35.5 bsnc=730) RED CELL DISTRIBUTION WIDTH (BEAKER) (test 14.6 % 11.7-14.4 opsn=465) PLATELET COUNT (BEAKER) (test ivtg=057) 331 K/CU MM 150-450 MEAN PLATELET VOLUME (BEAKER) (test glrv=351) 10.0 fL 9.4-12.3 NUCLEATED RED BLOOD CELLS (BEAKER) (test 0 /100 WBC 0-0 uzjn=145) POCT-GLUCOSE [id number] 21:26:00 Test Item Value Reference Range Comments POC-GLUCOSE METER (BEAKER) 213 mg/dL 70-110 TESTED AT [address] (test rrlz=5876) [place] [address] POCT-GLUCOSE [id number] 17:27:00 Test Item Value Reference Range Comments POC-GLUCOSE METER (BEAKER) 185 mg/dL 70-110 TESTED AT [address] (test ffbj=1316) [place] [address] POCT-GLUCOSE [id number] 13:24:00 Test Item Value Reference Range Comments POC-GLUCOSE METER (BEAKER) 135 mg/dL 70-110 TESTED AT [address] (test vpik=5104) [place] [address] BLOOD [id number] 10:55:00 Test Item Value Reference Range Comments CULTURE (BEAKER) From Aerobic And Anaerobic (test uttr=0796) Bottles Same organism has been isolated from cultures(s) of the same body site and collection date. Repeat identification and susceptibility testing performed only after consultation with the clinical microbiology laboratory.Refer to previous culture ofProteus mirabilis GRAM STAIN RESULT From aerobic and (BEAKER) (test anaerobic bottles: tbmo=5198) gram negative rods BLOOD [id number] 10:54:00 Test Item Value Reference Range Comments CULTURE (BEAKER) (test PROTEUS MIRABILIS From Aerobic And jgto=5576) Anaerobic Bottles Proteus mirabilis Amikacin (test code=1) [...] STAIN RESULT (BEAKER) From aerobic and (test ebss=4340) anaerobic bottles: gram negative rods BLOOD CULTURE IDENTIFICATION [id number] 10:54:00 Test Item Value Reference Range Comments LISTERIA MONOCYTOGENES Not detected Not detected (test cprg=1384804) STAPHYLOCOCCUS (test Not detected Not detected eezy=9653423) STAPHYLOCOCCUS AUREUS Not detected Not detected (test mhkh=1350915) STREPTOCOCCUS (test Not detected Not detected rypn=6952197) STREPTOCOCCUS AGALACTIAE Not detected Not detected (GROUP B) (test vlem=6319560) STREPTOCOCCUS PNEUMONIAE Not detected Not detected (test vwmu=7074802) STREPTOCOCCUS PYOGENES Not detected Not detected (GROUP A) (test bizh=6199992) ACINETOBACTER BAUMANNII Not detected Not detected (test voea=3852264) HAEMOPHILUS INFLUENZAE Not detected Not detected (test toad=0151203) NEISSERIA MENINGITIDIS Not detected Not detected (test gyhx=2752247) ENTEROBACTERIACEAE (test Detected Not detected xjdi=6511589) ENTEROBACTER CLOACOE Not detected Not detected COMPLEX (test qcji=0637882) KLEBSIELLA OXYTOCA (test Not detected Not detected bkcx=4311093) KLEBSIELLA PNEUMONIAE Not detected Not detected (test mvsh=0193) PROTEUS (test Detected Not detected Proteus speciesKPC not detected qqcq=[id number]) (a carbapenamase gene)First-line therapy: Cefepime or MeropenemDe-escalate based on susceptibilitiesReference Range: Not Detected SERRATIA MARCESCENS (test Not detected Not detected bxav=1814321) HAIR ALBICANS (test Not detected Not detected owus=9818878) HAIR GLABRATA (test Not detected Not detected pxiq=3518260) HAIR KRUSEI (test Not detected Not detected itev=7805726) HAIR PARAPSILOSIS Not detected Not detected (test epye=8174678) HAIR TROPICALIS (test Not detected Not detected ucig=1173063) ESCHERICHIA COLI (test Not detected Not detected chgu=7747383) METHICILLIN-RESISTANCE Not detected GENE (test gnss=9422158) VANCOMYCIN-RESISTANCE Not detected GENE (test sqfl=5135827) CARBAPENEM-RESISTANCE Not detected Not detected GENE (test ryhb=0102055) ENTEROCOCCUS-BEAKER (test Not detected Not detected eiqx=0214507) PSEUDOMONAS Not detected Not detected AERUGINOSA-BEAKER (test zxfs=8168866) Other bacteria and resistance markers not targeted by this PCR panel cannot be excluded; therefore clinical correlation and follow up of serology, culture results, and other molecular studies is required. The results are not intended to be used as the sole means for clinical diagnosis or patient management decisions. This sample was tested at the [facility] Molecular Diagnostics Laboratory using the C-nario Blood Culture ID Panel. It is FDA cleared and has been verified and approved by the [facility] Molecular Diagnostics Laboratory for clinical use. This laboratory is CLIA-certified and College ofAmerican Pathologists (CAP)-accredited to perform high complexity testing.POCT-GLUCOSE [id number] 08:40:00 Test Item Value Reference Range Comments POC-GLUCOSE METER (BEAKER) 110 mg/dL 70-[address] [facility] [address] (test vyiv=4760) [facility] [address] [id number] 05:26:00 Test Item Value Reference Range Comments MAGNESIUM (BEAKER) (test trwj=624) 1.6 mg/dL 1.6-2.6 BASIC METABOLIC [id number] 05:26:00 Test Item Value Reference Range Comments SODIUM (BEAKER) (test 140 meq/L 136-145 vtzm=088) POTASSIUM (BEAKER) (test 3.6 meq/L 3.5-5.1 ciwg=579) CHLORIDE (BEAKER) (test 111 meq/L 98-107 ehhk=121) CO2 (BEAKER) (test 25 meq/L 22-29 qtfz=634) BLOOD UREA NITROGEN 13 mg/dL 7-21 (BEAKER) (test sqbq=865) CREATININE (BEAKER) (test 0.83 mg/dL 0.57-1.25 dpez=106) GLUCOSE RANDOM (BEAKER) 84 mg/dL 70-105 (test vifg=340) CALCIUM (BEAKER) (test 8.3 mg/dL 8.4-10.2 peva=722) EGFR (BEAKER) (test 67 mL/min/1.73 sq m ESTIMATED GFR IS NOT ykuv=6842) ACCURATE CREATININE CLEARANCE IN PREDICTING GLOMERULAR FILTRATION RATE. ESTIMATED GFR IS NOT APPLICABLE FOR DIALYSIS PATIENTS. CBC (HEMOGRAM ONLY)2018-11-09 04:53:00 Test Item Value Reference Range Comments WHITE BLOOD CELL COUNT (BEAKER) (test nwzw=110) 6.2 K/ L 3.5-10.5 RED BLOOD CELL COUNT (BEAKER) (test cmjz=161) 2.71 M/ L 3.93-5.22 HEMOGLOBIN (BEAKER) (test xzbr=378) 7.8 GM/DL 11.2-15.7 HEMATOCRIT (BEAKER) (test qqzs=486) 25.9 % 34.1-44.9 MEAN CORPUSCULAR VOLUME (BEAKER) (test elfy=859) 95.6 fL 79.4-94.8 MEAN CORPUSCULAR HEMOGLOBIN (BEAKER) (test 28.8 pg 25.6-32.2 xnek=259) MEAN CORPUSCULAR HEMOGLOBIN CONC (BEAKER) (test 30.1 GM/DL 32.2-35.5 nucy=999) RED CELL DISTRIBUTION WIDTH (BEAKER) (test 14.7 % 11.7-14.4 gwrw=048) PLATELET COUNT (BEAKER) (test wpwa=892) 307 K/CU MM 150-450 MEAN PLATELET VOLUME (BEAKER) (test hkno=634) 9.8 fL 9.4-12.3 NUCLEATED RED BLOOD CELLS (BEAKER) (test 0 /100 WBC 0-0 pknq=532) POCT-GLUCOSE [id number] 20:45:00 Test Item Value Reference Range Comments POC-GLUCOSE METER (BEAKER) 207 mg/dL 70-[address] [facility] [address] [facility] (test msnu=6624) [facility] [address] POCT-GLUCOSE [id number] 19:02:00 Test Item Value Reference Range Comments POC-GLUCOSE METER (BEAKER) 296 mg/dL 70-[address] [facility] [address] [facility] (test cjks=8975) [facility] [address] POCT-GLUCOSE [id number] 12:32:00 Test Item Value Reference Range Comments POC-GLUCOSE METER (BEAKER) 291 mg/dL 70-110 TESTED AT [address] (test efxd=3206) [facility] [address] POCT-GLUCOSE [id number] 08:34:00 Test Item Value Reference Range Comments POC-GLUCOSE METER (BEAKER) 261 mg/dL 70-110 TESTED AT [address] (test gsbn=3397) [place] [address] [id number] 07:19:00 Test Item Value Reference Range Comments MAGNESIUM (BEAKER) (test fria=559) 1.8 mg/dL 1.6-2.6 BASIC METABOLIC [id number] 07:19:00 Test Item Value Reference Range Comments SODIUM (BEAKER) (test 138 meq/L 136-145 xyuu=434) POTASSIUM (BEAKER) (test 3.9 meq/L 3.5-5.1 vibk=920) CHLORIDE (BEAKER) (test 110 meq/L 98-107 tnnl=364) CO2 (BEAKER) (test 22 meq/L 22-29 bggr=279) BLOOD UREA NITROGEN 15 mg/dL 7-21 (BEAKER) (test ozlu=140) CREATININE (BEAKER) (test 0.97 mg/dL 0.57-1.25 wpcb=471) GLUCOSE RANDOM (BEAKER) 182 mg/dL 70-105 (test djdf=556) CALCIUM (BEAKER) (test 8.6 mg/dL 8.4-10.2 ofiu=676) EGFR (BEAKER) (test 56 mL/min/1.73 sq m ESTIMATED GFR IS NOT heie=9758) ACCURATE CREATININE CLEARANCE IN PREDICTING GLOMERULAR FILTRATION RATE. ESTIMATED GFR IS NOT APPLICABLE FOR DIALYSIS PATIENTS. CBC (HEMOGRAM ONLY)2018-11-08 06:06:00 Test Item Value Reference Range Comments WHITE BLOOD CELL COUNT (BEAKER) (test nnsp=584) 8.5 K/ L 3.5-10.5 RED BLOOD CELL COUNT (BEAKER) (test kqin=772) 2.93 M/ L 3.93-5.22 HEMOGLOBIN (BEAKER) (test qrqc=136) 8.6 GM/DL 11.2-15.7 HEMATOCRIT (BEAKER) (test pdax=527) 28.0 % 34.1-44.9 MEAN CORPUSCULAR VOLUME (BEAKER) (test mygd=461) 95.6 fL 79.4-94.8 MEAN CORPUSCULAR HEMOGLOBIN (BEAKER) (test 29.4 pg 25.6-32.2 hlfm=809) MEAN CORPUSCULAR HEMOGLOBIN CONC (BEAKER) (test 30.7 GM/DL 32.2-35.5 sndt=735) RED CELL DISTRIBUTION WIDTH (BEAKER) (test 15.1 % 11.7-14.4 lgni=545) PLATELET COUNT (BEAKER) (test hujx=823) 355 K/CU MM 150-450 MEAN PLATELET VOLUME (BEAKER) (test wyrq=286) 9.8 fL 9.4-12.3 NUCLEATED RED BLOOD CELLS (BEAKER) (test 0 /100 WBC 0-0 flwr=661) POCT-GLUCOSE [id number] 20:44:00 Test Item Value Reference Range Comments POC-GLUCOSE METER (BEAKER) 160 mg/dL 70-110 TESTED AT [address] (test fqvd=6597) [facility] [address] POCT-GLUCOSE [id number] 18:16:00 Test Item Value Reference Range Comments POC-GLUCOSE METER (BEAKER) 196 mg/dL 70-110 TESTED AT [address] (test dqpr=9809) [facility] [address] RAD, ABDOMEN/KUB, 1 VIEW [id number] 14:24:00Reason for exam:->feeding tubeFINAL REPORT RAD, ABDOMEN/KUB, [...] MDReport Verified Date/Time: 11/07/2018 14:24:41 Reading Location: [facility] C013W Consult Reading Room POCT-GLUCOSE [id number] 12:35:00 Test Item Value Reference Range Comments POC-GLUCOSE METER (BEAKER) 185 mg/dL 70-[address] [facility] [address] (test bxeb=5217) [facility] [address] [id number] 06:03:00 Test Item Value Reference Range Comments MAGNESIUM (BEAKER) (test plvk=819) 2.2 mg/dL 1.6-2.6 BASIC METABOLIC [id number] 06:03:00 Test Item Value Reference Range Comments SODIUM (BEAKER) (test 138 meq/L 136-145 ywim=826) POTASSIUM (BEAKER) (test 4.0 meq/L 3.5-5.1 kzhz=284) CHLORIDE (BEAKER) (test 110 meq/L 98-107 xnpa=224) CO2 (BEAKER) (test 24 meq/L 22-29 ygzl=312) BLOOD UREA NITROGEN 16 mg/dL 7-21 (BEAKER) (test ltlz=526) CREATININE (BEAKER) (test 0.94 mg/dL 0.57-1.25 vvww=921) GLUCOSE RANDOM (BEAKER) 115 mg/dL 70-105 (test svsf=148) CALCIUM (BEAKER) (test 8.4 mg/dL 8.4-10.2 dbyn=109) EGFR (BEAKER) (test 58 mL/min/1.73 sq m ESTIMATED GFR IS NOT mfin=3965) ACCURATE CREATININE CLEARANCE IN PREDICTING GLOMERULAR FILTRATION RATE. ESTIMATED GFR IS NOT APPLICABLE FOR DIALYSIS PATIENTS. [id number] 05:51:00 Test Item Value Reference Range Comments PROTIME (BEAKER) (test ywxk=056) 18.3 seconds 11.9-14.2 INR (BEAKER) (test wpla=901) 1.6 <=5.9 PARTIAL THROMBOPLASTIN TIME (BEAKER) (test 29.8 seconds 22.5-36.0 egwu=011) Effective 09/14/2018: PT Reference Range ChangeNew: 11.9-14.2 Previous: 11.7- 14.7RECOMMENDED COUMADIN/WARFARIN INR THERAPY RANGESSTANDARD DOSE: 2.0-3.0 Includes: PROPHYLAXIS for venous thrombosis, systemic embolization; TREATMENT for venous thrombosis and/or pulmonary embolus.HIGH RISK: Target INR is2.5-3.5 for patients wiht mechanical heart valves.CBC (HEMOGRAM ONLY)2018-11-07 05:29:00 Test Item Value Reference Range Comments WHITE BLOOD CELL COUNT (BEAKER) (test lzdd=039) 7.7 K/ L 3.5-10.5 RED BLOOD CELL COUNT (BEAKER) (test cyic=511) 2.85 M/ L 3.93-5.22 HEMOGLOBIN (BEAKER) (test vrua=742) 8.2 GM/DL 11.2-15.7 HEMATOCRIT (BEAKER) (test boim=997) 27.1 % 34.1-44.9 MEAN CORPUSCULAR VOLUME (BEAKER) (test xorb=812) 95.1 fL 79.4-94.8 MEAN CORPUSCULAR HEMOGLOBIN (BEAKER) (test 28.8 pg 25.6-32.2 wxic=578) MEAN CORPUSCULAR HEMOGLOBIN CONC (BEAKER) (test 30.3 GM/DL 32.2-35.5 ihsi=481) RED CELL DISTRIBUTION WIDTH (BEAKER) (test 15.1 % 11.7-14.4 gosf=069) PLATELET COUNT (BEAKER) (test cdek=102) 334 K/CU MM 150-450 MEAN PLATELET VOLUME (BEAKER) (test dsvo=854) 10.1 fL 9.4-12.3 NUCLEATED RED BLOOD CELLS (BEAKER) (test 0 /100 WBC 0-0 hktb=296) TROPONIN [id number] 00:59:00 Test Item Value Reference Range Comments TROPONIN I (BEAKER) (test sauc=985) 0.08 ng/mL 0.00-0.03 Troponin I (TnI) levels [...] acidosis, acute neurological disease, and persistent tachyarrhythmia.POCT-GLUCOSE [id number] 20:54:00 Test Item Value Reference Range Comments POC-GLUCOSE METER (BEAKER) 115 mg/dL 70-110 TESTED AT [place] [id number] [facility] (test hgdu=8000) [place] [id number] POCT-GLUCOSE [id number] 20:41:00 Test Item Value Reference Range Comments POC-GLUCOSE METER (BEAKER) 182 mg/dL 70-110 TESTED AT [address] (test vegp=6162) [place] [address] RAD, CHEST, 1 VIEW, NON [id number] 18:32:00Reason for exam:-> dyspneaShould this be performed at the bedside?->YesFINAL REPORT AP chest HISTORY: Dyspnea. COMPARISON: 11/02/2017. IMPRESSION: Left AICD. Stable cardiac silhouette. Coarse interstitial markings similar to previous. Small effusionsappear improved from previous. No pneumothorax. Signed : Raquel Maria MDReport Verified Date/Time: 11/06/2018 18:32:43 Reading Location: [address] Consult Reading Room POCT-GLUCOSE [id number] 18:16:00 Test Item Value Reference Range Comments POC-GLUCOSE METER (BEAKER) 174 mg/dL 70-110 TESTED AT [address] (test vafc=9896) [place] [address] URINALYSIS W/ REFLEX URINE [id number] 17:44:00 Test Item Value Reference Range Comments COLOR (BEAKER) (test qdur=907) Yellow CLARITY (BEAKER) (test avtk=257) Hazy SPECIFIC GRAVITY UA (BEAKER) (test 1.010 1.001-1.035 yuac=662) PH UA (BEAKER) (test xzsy=611) 6.5 5.0-8.0 PROTEIN UA (BEAKER) (test rtms=614) 200 mg/dL Negative GLUCOSE UA (BEAKER) (test msck=966) Negative Negative KETONES UA (BEAKER) (test dwsj=483) Negative Negative BILIRUBIN UA (BEAKER) (test emak=003) Negative Negative BLOOD UA (BEAKER) (test crca=093) Trace Negative NITRITE UA (BEAKER) (test vzbe=627) Negative Negative LEUKOCYTE ESTERASE UA (BEAKER) (test Large Negative jgrd=384) UROBILINOGEN UA (BEAKER) (test bndj=782) 0.2 mg/dL 0.2-1.0 RBC UA (BEAKER) (test jvbo=251) 7 /HPF WBC UA (BEAKER) (test rbzz=727) 258 /HPF WBC CLUMPS PRESENT YEAST (BEAKER) (test kdoo=4616) Few SOURCE(BEAKER) (test pjck=6289) TROPONIN [id number] 16:50:00 Test Item Value Reference Range Comments TROPONIN I (BEAKER) (test lecn=701) 0.08 ng/mL 0.00-0.03 Troponin I (TnI) levels [...] acute neurological disease, and persistent tachyarrhythmia.POCT-LACTIC ACID, [id number] 15:55 :00 Test Item Value Reference Range Comments POC-LACTIC ACID, VENOUS 1.2 mmol/L 0.9-1.[address] [facility] [address] (BEAKER) (test bigo=7845) [facility] [address] CT, BRAIN/STROKE [id number] 15:32:00FINAL REPORT CT Head without contrast CLINICAL [...] infarction is recommended. 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 The findings were discussed with the stroke neurologist at 3:30 PM Signed: Jaret Robbins Verified Date/Time: 11/06/2018 15:32:51 Reading Location: [facility] C013V Neuro Reading Room POCT-GLUCOSE [id number] 12:49:00 Test Item Value Reference Range Comments POC-GLUCOSE METER (BEAKER) 199 mg/dL 70-[address] [facility] [address] [facility] (test bowv=8077) [facility] [address] POCT-GLUCOSE [id number] 10:14:00 Test Item Value Reference Range Comments POC-GLUCOSE METER (BEAKER) 182 mg/dL 70-110 TESTED AT [address] (test vnjm=2011) [facility] [address] [id number] 06:57:00 Test Item Value Reference Range Comments MAGNESIUM (BEAKER) (test opbv=002) 1.6 mg/dL 1.6-2.6 BASIC METABOLIC [id number] 06:57:00 Test Item Value Reference Range Comments SODIUM (BEAKER) (test 141 meq/L 136-145 xrcm=965) POTASSIUM (BEAKER) (test 3.6 meq/L 3.5-5.1 bqjh=276) CHLORIDE (BEAKER) (test 109 meq/L 98-107 kygr=166) CO2 (BEAKER) (test 27 meq/L 22-29 gmfw=416) BLOOD UREA NITROGEN 18 mg/dL 7-21 (BEAKER) (test gfgk=767) CREATININE (BEAKER) (test 0.96 mg/dL 0.57-1.25 nlcj=728) GLUCOSE RANDOM (BEAKER) 149 mg/dL 70-105 (test enze=500) CALCIUM (BEAKER) (test 8.6 mg/dL 8.4-10.2 gyha=470) EGFR (BEAKER) (test 57 mL/min/1.73 sq m ESTIMATED GFR IS NOT mbpl=6358) ACCURATE CREATININE CLEARANCE IN PREDICTING GLOMERULAR FILTRATION RATE. ESTIMATED GFR IS NOT APPLICABLE FOR DIALYSIS PATIENTS. CBC (HEMOGRAM ONLY)2018-11-06 05:47:00 Test Item Value Reference Range Comments WHITE BLOOD CELL COUNT (BEAKER) (test ifbd=692) 7.1 K/ L 3.5-10.5 RED BLOOD CELL COUNT (BEAKER) (test itua=025) 2.99 M/ L 3.93-5.22 HEMOGLOBIN (BEAKER) (test hayd=719) 8.8 GM/DL 11.2-15.7 HEMATOCRIT (BEAKER) (test euyb=366) 28.5 % 34.1-44.9 MEAN CORPUSCULAR VOLUME (BEAKER) (test vaps=279) 95.3 fL 79.4-94.8 MEAN CORPUSCULAR HEMOGLOBIN (BEAKER) (test 29.4 pg 25.6-32.2 zxvk=286) MEAN CORPUSCULAR HEMOGLOBIN CONC (BEAKER) (test 30.9 GM/DL 32.2-35.5 hzlz=800) RED CELL DISTRIBUTION WIDTH (BEAKER) (test 14.8 % 11.7-14.4 ipsk=606) PLATELET COUNT (BEAKER) (test gybw=215) 330 K/CU MM 150-450 MEAN PLATELET VOLUME (BEAKER) (test vxhl=766) 10.0 fL 9.4-12.3 NUCLEATED RED BLOOD CELLS (BEAKER) (test 0 /100 WBC 0-0 uzbh=545) POCT-GLUCOSE [id number] 21:14:00 Test Item Value Reference Range Comments POC-GLUCOSE METER (BEAKER) 190 mg/dL 70-110 TESTED AT [address] (test uhbv=7497) [place] [address] POCT-GLUCOSE [id number] 18:18:00 Test Item Value Reference Range Comments POC-GLUCOSE METER (BEAKER) 206 mg/dL 70-110 TESTED AT [address] (test eych=3339) [place] [id number] POCT-GLUCOSE [id number] 12:54:00 Test Item Value Reference Range Comments POC-GLUCOSE METER (BEAKER) 167 mg/dL 70-110 TESTED AT [address] (test bizy=2363) [place] [address] VITAMIN D, [id number] 08:40:00 Test Item Value Reference Range Comments VITAMIN D 25-OH (BEAKER) (test wyef=3936) 6.4 ng/mL 6.6-49.9 Effective 01/27/2017: Reference Range ChangeNew: 6.6-49.9 ng/mL Previous: 13.0 -47.8 ng/mLRecommended Vitamin D Target Range: 30.0-40.0 ng/mLPOCT-GLUCOSE [id number] 08:10:00 Test Item Value Reference Range Comments POC-GLUCOSE METER (BEAKER) 155 mg/dL 70-[address] [facility] [address] [facility] (test phmb=3168) [facility] [address] [id number] 07:35:00 Test Item Value Reference Range Comments FERRITIN (BEAKER) (test ldss=877) 355 ng/mL 5-275 VITAMIN B12 AND [id number] 07:35:00 Test Item Value Reference Range Comments VITAMIN B12 (BEAKER) (test ircp=527) 420 pg/mL 213-816 FOLATE (BEAKER) (test nfwf=694) 6.7 ng/mL >=7.0 IRON, TIBC, % SAT. (WITHOUT FERRITIN)2018-11-05 06:59:00 Test Item Value Reference Range Comments IRON (BEAKER) (test kpht=152) 28.0 ug/dL 40.0-160.0 TOTAL IRON BINDING CAPACITY (BEAKER) (test 194 ug/dL 250-450 xuuq=047) IRON % SATURATION (2) (BEAKER) (test reom=5627) 14 % 20-55 [id number] 06:38:00 Test Item Value Reference Range Comments MAGNESIUM (BEAKER) (test kbvc=396) 1.6 mg/dL 1.6-2.6 BASIC METABOLIC [id number] 06:38:00 Test Item Value Reference Range Comments SODIUM (BEAKER) (test 138 meq/L 136-145 jbpb=487) POTASSIUM (BEAKER) (test 3.9 meq/L 3.5-5.1 fwhe=266) CHLORIDE (BEAKER) (test 105 meq/L 98-107 nxhc=566) CO2 (BEAKER) (test 27 meq/L 22-29 apej=546) BLOOD UREA NITROGEN 18 mg/dL 7-21 (BEAKER) (test igjr=050) CREATININE (BEAKER) (test 1.00 mg/dL 0.57-1.25 vwsi=641) GLUCOSE RANDOM (BEAKER) 131 mg/dL 70-105 (test skxy=471) CALCIUM (BEAKER) (test 8.7 mg/dL 8.4-10.2 teut=567) EGFR (BEAKER) (test 54 mL/min/1.73 sq m ESTIMATED GFR IS NOT knkp=7771) ACCURATE CREATININE CLEARANCE IN PREDICTING GLOMERULAR FILTRATION RATE. ESTIMATED GFR IS NOT APPLICABLE FOR DIALYSIS PATIENTS. CBC (HEMOGRAM ONLY)2018-11-05 05:52:00 Test Item Value Reference Range Comments WHITE BLOOD CELL COUNT (BEAKER) (test nard=176) 7.3 K/ L 3.5-10.5 RED BLOOD CELL COUNT (BEAKER) (test vchl=931) 3.09 M/ L 3.93-5.22 HEMOGLOBIN (BEAKER) (test uwwd=318) 9.0 GM/DL 11.2-15.7 HEMATOCRIT (BEAKER) (test vgeh=109) 29.5 % 34.1-44.9 MEAN CORPUSCULAR VOLUME (BEAKER) (test yswy=026) 95.5 fL 79.4-94.8 MEAN CORPUSCULAR HEMOGLOBIN (BEAKER) (test 29.1 pg 25.6-32.2 hryt=170) MEAN CORPUSCULAR HEMOGLOBIN CONC (BEAKER) (test 30.5 GM/DL 32.2-35.5 mgqo=016) RED CELL DISTRIBUTION WIDTH (BEAKER) (test 14.8 % 11.7-14.4 ihhm=645) PLATELET COUNT (BEAKER) (test tmgr=653) 353 K/CU MM 150-450 MEAN PLATELET VOLUME (BEAKER) (test enlm=115) 9.9 fL 9.4-12.3 NUCLEATED RED BLOOD CELLS (BEAKER) (test 0 /100 WBC 0-0 iagk=323) POCT-GLUCOSE [id number] 21:02:00 Test Item Value Reference Range Comments POC-GLUCOSE METER (BEAKER) 149 mg/dL 70-110 TESTED AT [address] (test csrr=1509) [facility] [address] POCT-GLUCOSE [id number] 19:17:00 Test Item Value Reference Range Comments POC-GLUCOSE METER (BEAKER) 142 mg/dL 70-110 TESTED AT [address] (test wivx=8922) [facility] [address] [id number] 13:41:00 Test Item Value Reference Range Comments ALBUMIN (BEAKER) (test atho=4302) 2.6 g/dL 3.5-5.0 POCT-GLUCOSE [id number] 11:23:00 Test Item Value Reference Range Comments POC-GLUCOSE METER (BEAKER) 202 mg/dL 70-[address] [facility] [address] [facility] (test uatm=6046) [facility] [address] [id number] 08:46:00 Test Item Value Reference Range Comments MAGNESIUM (BEAKER) (test lqmc=250) 1.6 mg/dL 1.6-2.6 BASIC METABOLIC [id number] 08:46:00 Test Item Value Reference Range Comments SODIUM (BEAKER) (test 135 meq/L 136-145 gpeh=590) POTASSIUM (BEAKER) (test 3.7 meq/L 3.5-5.1 gauf=033) CHLORIDE (BEAKER) (test 103 meq/L 98-107 yffy=982) CO2 (BEAKER) (test 26 meq/L 22-29 bixk=826) BLOOD UREA NITROGEN 15 mg/dL 7-21 (BEAKER) (test igri=316) CREATININE (BEAKER) (test 0.85 mg/dL 0.57-1.25 royk=313) GLUCOSE RANDOM (BEAKER) 193 mg/dL 70-105 (test jmrp=958) CALCIUM (BEAKER) (test 8.5 mg/dL 8.4-10.2 ztzf=219) EGFR (BEAKER) (test 66 mL/min/1.73 sq m ESTIMATED GFR IS NOT hokn=2608) ACCURATE CREATININE CLEARANCE IN PREDICTING GLOMERULAR FILTRATION RATE. ESTIMATED GFR IS NOT APPLICABLE FOR DIALYSIS PATIENTS. CBC (HEMOGRAM ONLY)2018-11-04 06:41:00 Test Item Value Reference Range Comments WHITE BLOOD CELL COUNT (BEAKER) (test dhlq=805) 8.9 K/ L 3.5-10.5 RED BLOOD CELL COUNT (BEAKER) (test gcis=368) 3.24 M/ L 3.93-5.22 HEMOGLOBIN (BEAKER) (test tgvd=318) 9.4 GM/DL 11.2-15.7 HEMATOCRIT (BEAKER) (test cvdk=870) 29.6 % 34.1-44.9 MEAN CORPUSCULAR VOLUME (BEAKER) (test smxt=378) 91.4 fL 79.4-94.8 MEAN CORPUSCULAR HEMOGLOBIN (BEAKER) (test 29.0 pg 25.6-32.2 daft=431) MEAN CORPUSCULAR HEMOGLOBIN CONC (BEAKER) (test 31.8 GM/DL 32.2-35.5 tjhq=773) RED CELL DISTRIBUTION WIDTH (BEAKER) (test 14.8 % 11.7-14.4 esoy=716) PLATELET COUNT (BEAKER) (test ozgx=060) 373 K/CU MM 150-450 MEAN PLATELET VOLUME (BEAKER) (test nffv=947) 9.9 fL 9.4-12.3 NUCLEATED RED BLOOD CELLS (BEAKER) (test 0 /100 WBC 0-0 ymrd=851) POCT-GLUCOSE [id number] 22:15:00 Test Item Value Reference Range Comments POC-GLUCOSE METER (BEAKER) 263 mg/dL 70-110 TESTED AT [address] (test ilwn=2235) [place] [id number] POCT-GLUCOSE [id number] 18:35:00 Test Item Value Reference Range Comments POC-GLUCOSE METER (BEAKER) 338 mg/dL 70-110 TESTED AT [address] (test mkyk=9530) [place] [address] [id number] 08:26:00 Test Item Value Reference Range Comments MAGNESIUM (BEAKER) (test butq=435) 1.5 mg/dL 1.6-2.6 BASIC METABOLIC [id number] 08:26:00 Test Item Value Reference Range Comments SODIUM (BEAKER) (test 136 meq/L 136-145 mtlm=899) POTASSIUM (BEAKER) (test 3.8 meq/L 3.5-5.1 mgms=986) CHLORIDE (BEAKER) (test 104 meq/L 98-107 yqdg=328) CO2 (BEAKER) (test 25 meq/L 22-29 mzwy=375) BLOOD UREA NITROGEN 10 mg/dL 7-21 (BEAKER) (test dsyn=976) CREATININE (BEAKER) (test 0.83 mg/dL 0.57-1.25 oaxz=873) GLUCOSE RANDOM (BEAKER) 129 mg/dL 70-105 (test iruy=625) CALCIUM (BEAKER) (test 8.8 mg/dL 8.4-10.2 sflp=720) EGFR (BEAKER) (test 67 mL/min/1.73 sq m ESTIMATED GFR IS NOT mwhq=4685) ACCURATE CREATININE CLEARANCE IN PREDICTING GLOMERULAR FILTRATION RATE. ESTIMATED GFR IS NOT APPLICABLE FOR DIALYSIS PATIENTS. TROPONIN [id number] 08:23:00 Test Item Value Reference Range Comments TROPONIN I (BEAKER) (test uyav=808) 0.24 ng/mL 0.00-0.03 Troponin I (TnI) levels [...] acidosis, acute neurological disease, and persistent tachyarrhythmia.POCT-GLUCOSE [id number] 07:59:00 Test Item Value Reference Range Comments POC-GLUCOSE METER (BEAKER) 134 mg/dL 70-[address] [facility] [address] [facility] (test afbz=0972) [facility] [address] CBC (HEMOGRAM ONLY)2018-11-03 07:16:00 Test Item Value Reference Range Comments WHITE BLOOD CELL COUNT (BEAKER) (test qmch=626) 8.4 K/ L 3.5-10.5 RED BLOOD CELL COUNT (BEAKER) (test btzq=216) 3.21 M/ L 3.93-5.22 HEMOGLOBIN (BEAKER) (test jgmq=556) 9.4 GM/DL 11.2-15.7 HEMATOCRIT (BEAKER) (test ilor=062) 29.9 % 34.1-44.9 MEAN CORPUSCULAR VOLUME (BEAKER) (test uyda=198) 93.1 fL 79.4-94.8 MEAN CORPUSCULAR HEMOGLOBIN (BEAKER) (test 29.3 pg 25.6-32.2 rkhs=321) MEAN CORPUSCULAR HEMOGLOBIN CONC (BEAKER) (test 31.4 GM/DL 32.2-35.5 afjr=580) RED CELL DISTRIBUTION WIDTH (BEAKER) (test 14.7 % 11.7-14.4 uezw=509) PLATELET COUNT (BEAKER) (test wbcs=310) 337 K/CU MM 150-450 MEAN PLATELET VOLUME (BEAKER) (test gyti=455) 9.8 fL 9.4-12.3 NUCLEATED RED BLOOD CELLS (BEAKER) (test 0 /100 WBC 0-0 lujc=119) POCT-GLUCOSE [id number] 22:53:00 Test Item Value Reference Range Comments POC-GLUCOSE METER (BEAKER) 142 mg/dL 70-110 TESTED AT [address] (test qcjy=1968) [place] [address] TROPONIN [id number] 18:57:00 Test Item Value Reference Range Comments TROPONIN I (BEAKER) (test eoih=775) 0.28 ng/mL 0.00-0.03 Troponin I (TnI) levels [...] acidosis, acute neurological disease, and persistent tachyarrhythmia.POCT-GLUCOSE [id number] 18:42:00 Test Item Value Reference Range Comments POC-GLUCOSE METER (BEAKER) 125 mg/dL 70-110 TESTED AT [address] (test dhjp=5958) [place] [address] POCT-GLUCOSE [id number] 15:04:00 Test Item Value Reference Range Comments POC-GLUCOSE METER (BEAKER) 120 mg/dL 70-110 TESTED AT [address] (test ypyp=5862) [place] [address] TROPONIN [id number] 11:37:00 Test Item Value Reference Range Comments TROPONIN I (BEAKER) (test slqm=989) 0.26 ng/mL 0.00-0.03 Troponin I (TnI) levels [...] and persistent tachyarrhythmia.RAD, CHEST, 1 VIEW, NON [id number] 11:31:00Reason for exam:->chest painShould this be performed at the bedside?- >YesFINAL REPORT Chest, portable AP view History: Chest pain Comparison: 10/25/2018 IMPRESSION: The cardiothoracic stable. 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 Right operation PICCtip terminates at the cavoatrial junction. Bibasilar atelectasis is present. No new consolidation, pleural effusion, or pneumothorax. Signed: Oscar Loyns MDReport Verified Date/Time: 11/02/2018 11:31:36 Reading Location: [facility] Radiology Reading Room POCT-GLUCOSE [id number] 09:33:00 Test Item Value Reference Range Comments POC-GLUCOSE METER (ROCAELAKER) 155 mg/dL 70-110 TESTED AT [address] (test laqx=0683) [facility] [address] [place], ANGIOGRAM, [id number] 08:35:00Reason for exam:->Diagnostic Angiogram and Possible Carotid Stent PlacmentFINAL REPORT DATE OF PROCEDURE: 10/26/2018 SURGEON: Lobo Dillon M.D. SENIOR FOREMAN: Felicity Curiel MD PREOPERATIVE DIAGNOSIS: Left and [...] 2*Right common femoral artery x1 MATERIALS EMPLOYED:*6 Cameroonian shuttle sheath *5 Cameroonian 130cm diagnostic catheter*Flexor Shuttle guiding cathter*Synchro Glidewire*Amplatz Super Stiff guidewire*ALBERTO II catheter* 5F Flush Contra catheter*Synchro Standard, exchange length*Spyder 6mm distal protection device*Viatrac 14 Plus 4x20mm balloon*Precise Pro 6 x 30mm stent*6 Cameroonian Mynxgrip closure device INDICATIONS: The patient is [...] good location the puncture site, a 6 Cameroonian shuttle sheath was advanced over an exchange length Synchro Glidewire into the mid thoracic aorta, the inner stylette and wire were removed, the catheter back bled , flushed in usual fashion and it was maintained on heparinized flushed throughout remainder the procedure. Using coaxial technique, a pre-flushed 4 Cam[place]onian Berenstein catheter on constant heparinized saline flush [...] and intracranial ICA angiograms through the 6 [place] sheath. ENDOVASCULAR INTERVENTION: A Weight-based heparin bolus [...] procedure well and was transported [facility] in unchanged neurological status, without groin [...] MDReport Verified Date/Time: 11/02/2018 08:35:28 Reading Location: [facility] Y026 Neuro Angio Reading Room [id number] 07:55:00 Test Item Value Reference Range Comments MAGNESIUM (BEAKER) (test npcy=339) 1.6 mg/dL 1.6-2.6 BASIC METABOLIC [id number] 07:55:00 Test Item Value Reference Range Comments SODIUM (BEAKER) (test 137 meq/L 136-145 rmmq=220) POTASSIUM (BEAKER) (test 4.0 meq/L 3.5-5.1 spfr=227) CHLORIDE (BEAKER) (test 105 meq/L 98-107 hnua=848) CO2 (BEAKER) (test 25 meq/L 22-29 sdnq=988) BLOOD UREA NITROGEN 9 mg/dL 7-21 (BEAKER) (test bevr=209) CREATININE (BEAKER) (test 0.79 mg/dL 0.57-1.25 yljj=298) GLUCOSE RANDOM (BEAKER) 141 mg/dL 70-105 (test daev=422) CALCIUM (BEAKER) (test 8.6 mg/dL 8.4-10.2 vdlk=425) EGFR (BEAKER) (test 71 mL/min/1.73 sq m ESTIMATED GFR IS NOT trwb=9590) ACCURATE CREATININE CLEARANCE IN PREDICTING GLOMERULAR FILTRATION RATE. ESTIMATED GFR IS NOT APPLICABLE FOR DIALYSIS PATIENTS. TROPONIN [id number] 07:21:00 Test Item Value Reference Range Comments TROPONIN I (BEAKER) (test esve=068) 0.21 ng/mL 0.00-0.03 Troponin I (TnI) levels [...] Comments WHITE BLOOD CELL COUNT (BEAKER) (test qckc=208) 7.8 K/ L 3.5-10.5 RED BLOOD CELL COUNT (BEAKER) (test cedu=348) 3.22 M/ L 3.93-5.22 HEMOGLOBIN (BEAKER) (test ywyw=642) 9.3 GM/DL 11.2-15.7 HEMATOCRIT (BEAKER) (test fidr=026) 30.3 % 34.1-44.9 MEAN CORPUSCULAR VOLUME (BEAKER) (test sfmg=929) 94.1 fL 79.4-94.8 MEAN CORPUSCULAR HEMOGLOBIN (BEAKER) (test 28.9 pg 25.6-32.2 qtkf=963) MEAN CORPUSCULAR HEMOGLOBIN CONC (BEAKER) (test 30.7 GM/DL 32.2-35.5 jdvg=443) RED CELL DISTRIBUTION WIDTH (BEAKER) (test 14.8 % 11.7-14.4 qvlu=958) PLATELET COUNT (BEAKER) (test yriu=358) 342 K/CU MM 150-450 MEAN PLATELET VOLUME (BEAKER) (test qdfs=469) 10.0 fL 9.4-12.3 NUCLEATED RED BLOOD CELLS (BEAKER) (test 0 /100 WBC 0-0 qdda=414) POCT-GLUCOSE [id number] 21:32:00 Test Item Value Reference Range Comments POC-GLUCOSE METER (BEAKER) 137 mg/dL 70-110 TESTED AT [address] (test qjof=4035) [place] [address] TROPONIN [id number] 18:48:00 Test Item Value Reference Range Comments TROPONIN I (BEAKER) (test qepo=542) 0.34 ng/mL 0.00-0.03 Troponin I (TnI) levels [...] acidosis, acute neurological disease, and persistent tachyarrhythmia.POCT-GLUCOSE [id number] 17:34:00 Test Item Value Reference Range Comments POC-GLUCOSE METER (BEAKER) 108 mg/dL 70-110 TESTED AT [address] (test ykus=9960) [place] [address] POCT-GLUCOSE [id number] 12:55:00 Test Item Value Reference Range Comments POC-GLUCOSE METER (BEAKER) 190 mg/dL 70-110 TESTED AT [address] (test bwlj=2299) [place] [address] POCT-GLUCOSE [id number] 09:07:00 Test Item Value Reference Range Comments POC-GLUCOSE METER (BEAKER) 199 mg/dL 70-110 TESTED AT [address] (test cclz=1589) [place] [address] TROPONIN [id number] 08:04:00 Test Item Value Reference Range Comments TROPONIN I (BEAKER) (test gqvb=804) 0.37 ng/mL 0.00-0.03 Troponin I (TnI) levels [...] failure, acidosis, acute neurological disease, and persistent tachyarrhythmia.[id number] 07:14:00 Test Item Value Reference Range Comments MAGNESIUM (BEAKER) (test crnc=354) 1.8 mg/dL 1.6-2.6 BASIC METABOLIC [id number] 07:14:00 Test Item Value Reference Range Comments SODIUM (BEAKER) (test 139 meq/L 136-145 dcxh=758) POTASSIUM (BEAKER) (test 4.0 meq/L 3.5-5.1 lrmf=023) CHLORIDE (BEAKER) (test 107 meq/L 98-107 rola=465) CO2 (BEAKER) (test 27 meq/L 22-29 aufp=400) BLOOD UREA NITROGEN 11 mg/dL 7-21 (BEAKER) (test asou=914) CREATININE (BEAKER) (test 0.76 mg/dL 0.57-1.25 mssr=738) GLUCOSE RANDOM (BEAKER) 97 mg/dL 70-105 (test ycdx=378) CALCIUM (BEAKER) (test 8.4 mg/dL 8.4-10.2 zjpk=250) EGFR (BEAKER) (test 75 mL/min/1.73 sq m ESTIMATED GFR IS NOT jgsk=6794) ACCURATE CREATININE CLEARANCE IN PREDICTING GLOMERULAR FILTRATION RATE. ESTIMATED GFR IS NOT APPLICABLE FOR DIALYSIS PATIENTS. [id number] 07:02:00 Test Item Value Reference Range Comments PARTIAL THROMBOPLASTIN TIME (BEAKER) (test 78.2 seconds 22.5-36.0 vryq=847) CBC (HEMOGRAM ONLY)2018-11-01 06:38:00 Test Item Value Reference Range Comments WHITE BLOOD CELL COUNT (BEAKER) (test xnrb=410) 8.0 K/ L 3.5-10.5 RED BLOOD CELL COUNT (BEAKER) (test httt=841) 3.02 M/ L 3.93-5.22 HEMOGLOBIN (BEAKER) (test xatt=992) 8.8 GM/DL 11.2-15.7 HEMATOCRIT (BEAKER) (test ssdm=811) 28.3 % 34.1-44.9 MEAN CORPUSCULAR VOLUME (BEAKER) (test avbo=863) 93.7 fL 79.4-94.8 MEAN CORPUSCULAR HEMOGLOBIN (BEAKER) (test 29.1 pg 25.6-32.2 imqz=041) MEAN CORPUSCULAR HEMOGLOBIN CONC (BEAKER) (test 31.1 GM/DL 32.2-35.5 bbaz=214) RED CELL DISTRIBUTION WIDTH (BEAKER) (test 14.9 % 11.7-14.4 sapg=973) PLATELET COUNT (BEAKER) (test upje=668) 336 K/CU MM 150-450 MEAN PLATELET VOLUME (BEAKER) (test velb=442) 10.1 fL 9.4-12.3 NUCLEATED RED BLOOD CELLS (BEAKER) (test 0 /100 WBC 0-0 tiup=221) [id number] 01:43:00 Test Item Value Reference Range Comments PARTIAL THROMBOPLASTIN TIME (BEAKER) (test 71.9 seconds 22.5-36.0 vrbp=175) TROPONIN [id number] 00:57:00 Test Item Value Reference Range Comments TROPONIN I (BEAKER) (test iszi=632) 0.44 ng/mL 0.00-0.03 Troponin I (TnI) levels [...] acidosis, acute neurological disease, and persistent tachyarrhythmia.POCT-GLUCOSE [id number] 22:19:00 Test Item Value Reference Range Comments POC-GLUCOSE METER (BEAKER) 307 mg/dL 70-110 Notified LLUVIA VERA/TESTED AT [facility] (test vvtj=1620) [address] [facility] [address] PLATELET [id number] 18:57:00 Test Item Value Reference Range Comments PLATELET COUNT (BEAKER) (test hehn=273) 311 K/CU MM 150-450 [id number] 17:43:00 Test Item Value Reference Range Comments PARTIAL THROMBOPLASTIN TIME (BEAKER) (test 46.3 seconds 22.5-36.0 vlph=184) TROPONIN [id number] 17:01:00 Test Item Value Reference Range Comments TROPONIN I (BEAKER) (test nzdc=007) 0.75 ng/mL 0.00-0.03 Troponin I (TnI) levels [...] failure, acidosis, acute neurological disease, and persistent tachyarrhythmia.[id number] 16:43:00 Test Item Value Reference Range Comments PARTIAL THROMBOPLASTIN TIME (BEAKER) (test 140.2 seconds 22.5-36.0 afjs=147) POCT-GLUCOSE [id number] 12:30:00 Test Item Value Reference Range Comments POC-GLUCOSE METER (BEAKER) 173 mg/dL 70-[address] [facility] [address] [place] [address] (test jukk=8249) [facility] [address] TROPONIN [id number] 11:16:00 Test Item Value Reference Range Comments TROPONIN I (BEAKER) (test dlup=958) 0.84 ng/mL 0.00-0.03 Troponin I (TnI) levels [...] failure, acidosis, acute neurological disease, and persistent tachyarrhythmia.[id number] 10:46:00 Test Item Value Reference Range Comments MAGNESIUM (BEAKER) (test elii=580) 2.2 mg/dL 1.6-2.6 [id number] 10:38:00 Test Item Value Reference Range Comments PARTIAL THROMBOPLASTIN TIME (BEAKER) (test 65.3 seconds 22.5-36.0 tscr=660) HEMOGLOBIN AND [id number] 10:34:00 Test Item Value Reference Range Comments HEMOGLOBIN (BEAKER) (test vwxk=179) 8.7 GM/DL 11.2-15.7 HEMATOCRIT (BEAKER) (test fkxe=766) 28.4 % 34.1-44.9 POCT-GLUCOSE [id number] 08:38:00 Test Item Value Reference Range Comments POC-GLUCOSE METER (BEAKER) 205 mg/dL 70-[address] [facility] [address] (test urkw=3369) [place] [address] TROPONIN [id number] 05:22:00 Test Item Value Reference Range Comments TROPONIN I (BEAKER) (test vtlz=559) 0.50 ng/mL 0.00-0.03 Troponin I (TnI) levels [...] failure, acidosis, acute neurological disease, and persistent tachyarrhythmia.[id number] 05:07:00 Test Item Value Reference Range Comments MAGNESIUM (BEAKER) (test reig=347) 1.7 mg/dL 1.6-2.6 BASIC METABOLIC [id number] 05:07:00 Test Item Value Reference Range Comments SODIUM (BEAKER) (test 139 meq/L 136-145 mhxc=456) POTASSIUM (BEAKER) (test 4.1 meq/L 3.5-5.1 aqja=714) CHLORIDE (BEAKER) (test 108 meq/L 98-107 yfyq=251) CO2 (BEAKER) (test 26 meq/L 22-29 xgly=696) BLOOD UREA NITROGEN 11 mg/dL 7-21 (BEAKER) (test jdsw=470) CREATININE (BEAKER) (test 0.79 mg/dL 0.57-1.25 ukey=988) GLUCOSE RANDOM (BEAKER) 190 mg/dL 70-105 (test ppjo=354) CALCIUM (BEAKER) (test 8.0 mg/dL 8.4-10.2 ypwo=183) EGFR (BEAKER) (test 71 mL/min/1.73 sq m ESTIMATED GFR IS NOT wafz=4459) ACCURATE CREATININE CLEARANCE IN PREDICTING GLOMERULAR FILTRATION RATE. ESTIMATED GFR IS NOT APPLICABLE FOR DIALYSIS PATIENTS. [id number] 04:42:00 Test Item Value Reference Range Comments PARTIAL THROMBOPLASTIN TIME (BEAKER) (test 76.0 seconds 22.5-36.0 tbjc=317) CBC (HEMOGRAM ONLY)2018-10-31 04:35:00 Test Item Value Reference Range Comments WHITE BLOOD CELL COUNT (BEAKER) (test jsmp=638) 7.8 K/ L 3.5-10.5 RED BLOOD CELL COUNT (BEAKER) (test rtyf=339) 2.88 M/ L 3.93-5.22 HEMOGLOBIN (BEAKER) (test uptt=364) 8.4 GM/DL 11.2-15.7 HEMATOCRIT (BEAKER) (test ujcy=773) 27.2 % 34.1-44.9 MEAN CORPUSCULAR VOLUME (BEAKER) (test xste=536) 94.4 fL 79.4-94.8 MEAN CORPUSCULAR HEMOGLOBIN (BEAKER) (test 29.2 pg 25.6-32.2 zfeq=476) MEAN CORPUSCULAR HEMOGLOBIN CONC (BEAKER) (test 30.9 GM/DL 32.2-35.5 pnpw=122) RED CELL DISTRIBUTION WIDTH (BEAKER) (test 15.0 % 11.7-14.4 asfe=974) PLATELET COUNT (BEAKER) (test duip=605) 302 K/CU MM 150-450 MEAN PLATELET VOLUME (BEAKER) (test igkd=335) 9.9 fL 9.4-12.3 NUCLEATED RED BLOOD CELLS (BEAKER) (test 0 /100 WBC 0-0 jqfc=488) TROPONIN [id number] 22:57:00 Test Item Value Reference Range Comments TROPONIN I (BEAKER) (test kowa=234) 0.15 ng/mL 0.00-0.03 Troponin I (TnI) levels [...] failure, acidosis, acute neurological disease, and persistent tachyarrhythmia.[id number] 22:43:00 Test Item Value Reference Range Comments PROTIME (BEAKER) (test fvgl=878) 13.6 seconds 11.9-14.2 INR (BEAKER) (test naqv=488) 1.1 <=5.9 PARTIAL THROMBOPLASTIN TIME (BEAKER) (test 63.6 seconds 22.5-36.0 nydy=861) Effective 09/14/2018: PT Reference Range ChangeNew: 11.9-14.2 Previous: 11.7- 14.7RECOMMENDED COUMADIN/WARFARIN INR THERAPY RANGESSTANDARD DOSE: 2.0-3.0 Includes: PROPHYLAXIS for venous thrombosis, systemic embolization; TREATMENT for venous thrombosis and/or pulmonary embolus.HIGH RISK: Target INR is2.5-3.5 for patients wiht mechanical heart valves.HEMOGLOBIN AND [id number] 22 :33:00 Test Item Value Reference Range Comments HEMOGLOBIN (BEAKER) (test egwy=136) 9.5 GM/DL 11.2-15.7 HEMATOCRIT (BEAKER) (test jkee=000) 30.3 % 34.1-44.9 POCT-GLUCOSE [id number] 22:12:00 Test Item Value Reference Range Comments POC-GLUCOSE METER (BEAKER) 278 mg/dL 70-110 TESTED AT [address] (test qpmc=0330) [facility] [address] POCT-GLUCOSE [id number] 17:26:00 Test Item Value Reference Range Comments POC-GLUCOSE METER (BEAKER) 203 mg/dL 70-110 TESTED AT [address] (test zqvf=8523) [facility] [address] [id number] 16:36:00 Test Item Value Reference Range Comments PROTIME (BEAKER) (test lkyn=642) 14.8 seconds 11.9-14.2 INR (BEAKER) (test vlxv=835) 1.2 <=5.9 PARTIAL THROMBOPLASTIN TIME (BEAKER) (test 106.3 seconds 22.5-36.0 ebwp=821) Effective 09/14/2018: PT Reference Range ChangeNew: 11.9-14.2 Previous: 11.7- 14.7RECOMMENDED COUMADIN/WARFARIN INR THERAPY RANGESSTANDARD DOSE: 2.0-3.0 Includes: PROPHYLAXIS for venous thrombosis, systemic embolization; TREATMENT for venous thrombosis and/or pulmonary embolus.HIGH RISK: Target INR is2.5-3.5 for patients wiht mechanical heart valves.HEMOGLOBIN AND [id number] 16 :13:00 Test Item Value Reference Range Comments HEMOGLOBIN (BEAKER) (test miqi=127) 8.8 GM/DL 11.2-15.7 HEMATOCRIT (BEAKER) (test mkcp=423) 28.4 % 34.1-44.9 OCCULT BLOOD, [id number] 15:13:00 Test Item Value Reference Range Comments FECAL OCCULT BLOOD (BEAKER) (test yfaw=953) Negative Negative POCT-GLUCOSE [id number] 11:31:00 Test Item Value Reference Range Comments POC-GLUCOSE METER (BEAKER) 185 mg/dL 70-[address] [facility] [address] [facility] (test qkbg=0091) [facility] [address] [id number] 09:25:00 Test Item Value Reference Range Comments MAGNESIUM (BEAKER) (test qxem=538) 2.1 mg/dL 1.6-2.6 [id number] 09:21:00 Test Item Value Reference Range Comments PROTIME (BEAKER) (test ofcg=776) 13.8 seconds 11.9-14.2 INR (BEAKER) (test uyky=814) 1.1 <=5.9 PARTIAL THROMBOPLASTIN TIME (BEAKER) (test 69.6 seconds 22.5-36.0 welp=517) Effective 09/14/2018: PT Reference Range ChangeNew: 11.9-14.2 Previous: 11.7- 14.7RECOMMENDED COUMADIN/WARFARIN INR THERAPY RANGESSTANDARD DOSE: 2.0-3.0 Includes: PROPHYLAXIS for venous thrombosis, systemic embolization; TREATMENT for venous thrombosis and/or pulmonary embolus.HIGH RISK: Target INR is2.5-3.5 for patients wiht mechanical heart valves.HEMOGLOBIN AND [id number] 09 :17:00 Test Item Value Reference Range Comments HEMOGLOBIN (BEAKER) (test qsli=727) 8.8 GM/DL 11.2-15.7 HEMATOCRIT (BEAKER) (test oubo=568) 28.2 % 34.1-44.9 OCCULT BLOOD, [id number] 08:28:00 Test Item Value Reference Range Comments FECAL OCCULT BLOOD (BEAKER) (test rlmm=019) Negative Negative POCT-GLUCOSE [id number] 08:02:00 Test Item Value Reference Range Comments POC-GLUCOSE METER (BEAKER) 94 mg/dL 70-[address] [facility] [address] (test aagy=7937) [facility] [address] [id number] 03:04:00 Test Item Value Reference Range Comments MAGNESIUM (BEAKER) (test xegn=781) 1.6 mg/dL 1.6-2.6 BASIC METABOLIC [id number] 03:04:00 Test Item Value Reference Range Comments SODIUM (BEAKER) (test 138 meq/L 136-145 xqku=546) POTASSIUM (BEAKER) (test 3.9 meq/L 3.5-5.1 impi=180) CHLORIDE (BEAKER) (test 109 meq/L 98-107 ruhh=020) CO2 (BEAKER) (test 25 meq/L 22-29 bapz=709) BLOOD UREA NITROGEN 11 mg/dL 7-21 (BEAKER) (test xhze=995) CREATININE (BEAKER) (test 0.77 mg/dL 0.57-1.25 fxcq=167) GLUCOSE RANDOM (BEAKER) 107 mg/dL 70-105 (test bovi=761) CALCIUM (BEAKER) (test 8.1 mg/dL 8.4-10.2 kpgi=408) EGFR (BEAKER) (test 73 mL/min/1.73 sq m ESTIMATED GFR IS NOT qhso=3875) ACCURATE CREATININE CLEARANCE IN PREDICTING GLOMERULAR FILTRATION RATE. ESTIMATED GFR IS NOT APPLICABLE FOR DIALYSIS PATIENTS. [id number] 02:35:00 Test Item Value Reference Range Comments PARTIAL THROMBOPLASTIN TIME (BEAKER) (test 80.4 seconds 22.5-36.0 mukj=586) CBC (HEMOGRAM ONLY)2018-10-30 02:23:00 Test Item Value Reference Range Comments WHITE BLOOD CELL COUNT (BEAKER) (test enlm=175) 7.2 K/ L 3.5-10.5 RED BLOOD CELL COUNT (BEAKER) (test ymfs=634) 2.88 M/ L 3.93-5.22 HEMOGLOBIN (BEAKER) (test igvk=324) 8.4 GM/DL 11.2-15.7 HEMATOCRIT (BEAKER) (test qqdy=452) 26.8 % 34.1-44.9 MEAN CORPUSCULAR VOLUME (BEAKER) (test yxqd=584) 93.1 fL 79.4-94.8 MEAN CORPUSCULAR HEMOGLOBIN (BEAKER) (test 29.2 pg 25.6-32.2 kvec=424) MEAN CORPUSCULAR HEMOGLOBIN CONC (BEAKER) (test 31.3 GM/DL 32.2-35.5 ixdf=181) RED CELL DISTRIBUTION WIDTH (BEAKER) (test 15.4 % 11.7-14.4 eewl=596) PLATELET COUNT (BEAKER) (test jbrx=455) 310 K/CU MM 150-450 MEAN PLATELET VOLUME (BEAKER) (test xamh=522) 9.4 fL 9.4-12.3 NUCLEATED RED BLOOD CELLS (BEAKER) (test 0 /100 WBC 0-0 twmk=719) CT, BRAIN, WITHOUT [id number] 02:05:00FINAL REPORT EXAM: CT head without contrast. [...] with evolving acute right MCA and right BOX LIDDER territory infarcts. 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 No acute intracranial hemorrhage, midline shift or hydrocephalus. Signed: Kane Beck Verified Date/Time : 10/30/2018 02:05:43 [id number] 01:04:00 Test Item Value Reference Range Comments PARTIAL THROMBOPLASTIN TIME (BEAKER) (test 116.1 seconds 22.5-36.0 igzb=826) [id number] 22:08:00 Test Item Value Reference Range Comments PARTIAL THROMBOPLASTIN TIME (BEAKER) (test 127.2 seconds 22.5-36.0 mqwc=517) HEMOGLOBIN AND [id number] 21:39:00 Test Item Value Reference Range Comments HEMOGLOBIN (BEAKER) (test qgac=519) 9.0 GM/DL 11.2-15.7 HEMATOCRIT (BEAKER) (test kjgm=451) 28.7 % 34.1-44.9 HEMOGLOBIN AND [id number] 18:45:00 Test Item Value Reference Range Comments HEMOGLOBIN (BEAKER) (test suwp=640) 9.2 GM/DL 11.2-15.7 HEMATOCRIT (BEAKER) (test kpzl=451) 29.7 % 34.1-44.9 POCT-GLUCOSE [id number] 18:27:00 Test Item Value Reference Range Comments POC-GLUCOSE METER (BEAKER) 224 mg/dL 70-110 TESTED AT [address] (test rwqq=9975) [place] [address] [id number] 16:04:00 Test Item Value Reference Range Comments PARTIAL THROMBOPLASTIN TIME (BEAKER) (test 68.7 seconds 22.5-36.0 npzn=471) [id number] 14:22:00 Test Item Value Reference Range Comments PARTIAL THROMBOPLASTIN TIME (BEAKER) (test 195.5 seconds 22.5-36.0 wdfo=520) HEMOGLOBIN AND [id number] 13:11:00 Test Item Value Reference Range Comments HEMOGLOBIN (BEAKER) (test zszn=223) 8.8 GM/DL 11.2-15.7 HEMATOCRIT (BEAKER) (test sapb=865) 29.8 % 34.1-44.9 POCT-GLUCOSE [id number] 12:17:00 Test Item Value Reference Range Comments POC-GLUCOSE METER (BEAKER) 196 mg/dL 70-110 TESTED AT [address] (test kndh=7349) [place] [address] [id number] 06:21:00 Test Item Value Reference Range Comments MAGNESIUM (BEAKER) (test izxx=835) 1.9 mg/dL 1.6-2.6 BASIC METABOLIC [id number] 06:21:00 Test Item Value Reference Range Comments SODIUM (BEAKER) (test 139 meq/L 136-145 zyvb=435) POTASSIUM (BEAKER) (test 3.7 meq/L 3.5-5.1 hvsr=330) CHLORIDE (BEAKER) (test 109 meq/L 98-107 njmb=686) CO2 (BEAKER) (test 24 meq/L 22-29 iczn=130) BLOOD UREA NITROGEN 13 mg/dL 7-21 (BEAKER) (test jfae=875) CREATININE (BEAKER) (test 0.81 mg/dL 0.57-1.25 hncu=116) GLUCOSE RANDOM (BEAKER) 117 mg/dL 70-105 (test txeq=477) CALCIUM (BEAKER) (test 8.3 mg/dL 8.4-10.2 dpmg=098) EGFR (BEAKER) (test 69 mL/min/1.73 sq m ESTIMATED GFR IS NOT rpsh=0475) ACCURATE CREATININE CLEARANCE IN PREDICTING GLOMERULAR FILTRATION RATE. ESTIMATED GFR IS NOT APPLICABLE FOR DIALYSIS PATIENTS. [id number] 05:56:00 Test Item Value Reference Range Comments PARTIAL THROMBOPLASTIN TIME (BEAKER) (test 73.1 seconds 22.5-36.0 slyt=297) CBC (HEMOGRAM ONLY)2018-10-29 05:36:00 Test Item Value Reference Range Comments WHITE BLOOD CELL COUNT (BEAKER) (test cjyb=751) 8.2 K/ L 3.5-10.5 RED BLOOD CELL COUNT (BEAKER) (test owgo=242) 2.97 M/ L 3.93-5.22 HEMOGLOBIN (BEAKER) (test qyhz=987) 8.7 GM/DL 11.2-15.7 HEMATOCRIT (BEAKER) (test fpcj=871) 28.2 % 34.1-44.9 MEAN CORPUSCULAR VOLUME (BEAKER) (test aete=733) 94.9 fL 79.4-94.8 MEAN CORPUSCULAR HEMOGLOBIN (BEAKER) (test 29.3 pg 25.6-32.2 ixbh=377) MEAN CORPUSCULAR HEMOGLOBIN CONC (BEAKER) (test 30.9 GM/DL 32.2-35.5 iyvt=020) RED CELL DISTRIBUTION WIDTH (BEAKER) (test 15.9 % 11.7-14.4 mxbf=345) PLATELET COUNT (BEAKER) (test sgip=658) 333 K/CU MM 150-450 MEAN PLATELET VOLUME (BEAKER) (test cimv=146) 9.9 fL 9.4-12.3 NUCLEATED RED BLOOD CELLS (BEAKER) (test 0 /100 WBC 0-0 qtmg=547) POCT-GLUCOSE [id number] 22:41:00 Test Item Value Reference Range Comments POC-GLUCOSE METER (BEAKER) 139 mg/dL 70-[address] [facility] [address] [facility] (test cowe=7405) [facility] [address] HEMOGLOBIN AND [id number] 21:49:00 Test Item Value Reference Range Comments HEMOGLOBIN (BEAKER) (test zvxt=680) 8.4 GM/DL 11.2-15.7 HEMATOCRIT (BEAKER) (test bpuv=928) 26.7 % 34.1-44.9 CT, [id number] 21:47:00FINAL REPORT CT abdomen and pelvis, 10/28/2018 [...] no evidence of retroperitoneal adenopathy Signed: [facility] Verified Date/Time: 10/28/2018 21:47:43 Reading Location : [facility] B1 [id number] Consult Reading Room POCT-GLUCOSE [id number] 17:56:00 Test Item Value Reference Range Comments POC-GLUCOSE METER (BEAKER) 196 mg/dL 70-110 TESTED AT [address] (test ileo=3941) [facility] [address] CBC (HEMOGRAM ONLY)2018-10-28 17:24:00 Test Item Value Reference Range Comments WHITE BLOOD CELL COUNT (BEAKER) (test efna=884) 10.1 K/ L 3.5-10.5 RED BLOOD CELL COUNT (BEAKER) (test ocym=996) 2.98 M/ L 3.93-5.22 HEMOGLOBIN (BEAKER) (test vovy=115) 8.6 GM/DL 11.2-15.7 HEMATOCRIT (BEAKER) (test pkns=807) 28.0 % 34.1-44.9 MEAN CORPUSCULAR VOLUME (BEAKER) (test nklo=348) 94.0 fL 79.4-94.8 MEAN CORPUSCULAR HEMOGLOBIN (BEAKER) (test 28.9 pg 25.6-32.2 rsma=084) MEAN CORPUSCULAR HEMOGLOBIN CONC (BEAKER) (test 30.7 GM/DL 32.2-35.5 szds=672) RED CELL DISTRIBUTION WIDTH (BEAKER) (test 15.9 % 11.7-14.4 xmpx=720) PLATELET COUNT (BEAKER) (test yrfv=280) 410 K/CU MM 150-450 MEAN PLATELET VOLUME (BEAKER) (test bhck=157) 9.5 fL 9.4-12.3 NUCLEATED RED BLOOD CELLS (BEAKER) (test 0 /100 WBC 0-0 yhih=312) [id number] 17:16:00 Test Item Value Reference Range Comments PARTIAL THROMBOPLASTIN TIME (BEAKER) (test 28.2 seconds 22.5-36.0 boiy=892) Prior to initiating heparinPOCT-GLUCOSE [id number] 07:57:00 Test Item Value Reference Range Comments POC-GLUCOSE METER (BEAKER) 199 mg/dL 70-110 TESTED AT [address] (test fyxc=0168) [facility] [address] [id number] 04:40:00 Test Item Value Reference Range Comments MAGNESIUM (BEAKER) (test yhmz=361) 2.0 mg/dL 1.6-2.6 BASIC METABOLIC [id number] 04:40:00 Test Item Value Reference Range Comments SODIUM (BEAKER) (test 142 meq/L 136-145 eozn=891) POTASSIUM (BEAKER) (test 3.9 meq/L 3.5-5.1 jxor=371) CHLORIDE (BEAKER) (test 113 meq/L 98-107 dilb=698) CO2 (BEAKER) (test 23 meq/L 22-29 jzwm=677) BLOOD UREA NITROGEN 15 mg/dL 7-21 (BEAKER) (test vvuo=710) CREATININE (BEAKER) (test 0.86 mg/dL 0.57-1.25 nwsn=002) GLUCOSE RANDOM (BEAKER) 171 mg/dL 70-105 (test bpuy=841) CALCIUM (BEAKER) (test 8.1 mg/dL 8.4-10.2 awhk=499) EGFR (BEAKER) (test 65 mL/min/1.73 sq m ESTIMATED GFR IS NOT msgg=1025) ACCURATE CREATININE CLEARANCE IN PREDICTING GLOMERULAR FILTRATION RATE. ESTIMATED GFR IS NOT APPLICABLE FOR DIALYSIS PATIENTS. CBC (HEMOGRAM ONLY)2018-10-28 04:36:00 Test Item Value Reference Range Comments WHITE BLOOD CELL COUNT (BEAKER) (test rbbl=335) 12.3 K/ L 3.5-10.5 RED BLOOD CELL COUNT (BEAKER) (test wxln=544) 2.35 M/ L 3.93-5.22 HEMOGLOBIN (BEAKER) (test dmdl=249) 6.8 GM/DL 11.2-15.7 HEMATOCRIT (BEAKER) (test wlic=222) 23.0 % 34.1-44.9 MEAN CORPUSCULAR VOLUME (BEAKER) (test zvwb=422) 97.9 fL 79.4-94.8 MEAN CORPUSCULAR HEMOGLOBIN (BEAKER) (test 28.9 pg 25.6-32.2 mpfb=490) MEAN CORPUSCULAR HEMOGLOBIN CONC (BEAKER) (test 29.6 GM/DL 32.2-35.5 savj=960) RED CELL DISTRIBUTION WIDTH (BEAKER) (test 14.8 % 11.7-14.4 ubku=324) PLATELET COUNT (BEAKER) (test uuin=286) 353 K/CU MM 150-450 MEAN PLATELET VOLUME (BEAKER) (test kiss=391) 9.6 fL 9.4-12.3 NUCLEATED RED BLOOD CELLS (BEAKER) (test 0 /100 WBC 0-0 umji=265) POCT-GLUCOSE [id number] 22:07:00 Test Item Value Reference Range Comments POC-GLUCOSE METER (BEAKER) 223 mg/dL 70-110 TESTED AT [address] (test ymgw=3176) [place] [address] POCT-GLUCOSE [id number] 16:51:00 Test Item Value Reference Range Comments POC-GLUCOSE METER (BEAKER) 234 mg/dL 70-110 TESTED AT [address] (test mwot=5288) [place] [address] POCT-GLUCOSE [id number] 14:05:00 Test Item Value Reference Range Comments POC-GLUCOSE METER (BEAKER) 250 mg/dL 70-110 TESTED AT [address] (test yzor=4527) [place] [address] TROPONIN [id number] 14:00:00 Test Item Value Reference Range Comments TROPONIN I (BEAKER) (test jgld=836) 0.47 ng/mL 0.00-0.03 Troponin I (TnI) levels [...] acute neurological disease, and persistent tachyarrhythmia.POCT-P2Y12 PLATELET [id number] 13:28:00 Test Item Value Reference Range Comments POC-P2Y12 PLATELET AGG (BEAKER) (test fade=8093) 142 PRU RANGE INFORMATION: PRU reference range is 194-418. Post Drug Results: Lower PRU levels are associated with expected antiplatelet effect. Values may be below the stated reference range above. The post-drug PRU values reported in the [employer] P2Y12 package insert are 18-435.CT, BRAIN, WITHOUT [id number] 11:44:00FINAL REPORT CT Head without contrast CLINICAL [...] MDReport Verified Date/Time: 10/27/2018 11:44:04 Reading Location: [address] Neuro Reading Room TROPONIN [id number] 10:05:00 Test Item Value Reference Range Comments TROPONIN I (BEAKER) (test nzrs=156) 0.53 ng/mL 0.00-0.03 Troponin I (TnI) levels [...] failure, acidosis, acute neurological disease, and persistent tachyarrhythmia.[id number] 04:30:00 Test Item Value Reference Range Comments PARTIAL THROMBOPLASTIN TIME (BEAKER) (test 30.8 seconds 22.5-36.0 mltd=563) 6 hours after starting heparin infusion and as indicated per sliding scaleBASI METABOLIC [id number] 04:24:00 Test Item Value Reference Range Comments SODIUM (BEAKER) (test 143 meq/L 136-145 fitl=380) POTASSIUM (BEAKER) (test 3.9 meq/L 3.5-5.1 juhx=558) CHLORIDE (BEAKER) (test 112 meq/L 98-107 mpaw=811) CO2 (BEAKER) (test 21 meq/L 22-29 ywnv=746) BLOOD UREA NITROGEN 14 mg/dL 7-21 (BEAKER) (test cvke=417) CREATININE (BEAKER) (test 0.86 mg/dL 0.57-1.25 bkgy=697) GLUCOSE RANDOM (BEAKER) 168 mg/dL 70-105 (test tlww=995) CALCIUM (BEAKER) (test 7.7 mg/dL 8.4-10.2 swid=522) EGFR (BEAKER) (test 65 mL/min/1.73 sq m ESTIMATED GFR IS NOT afjq=0516) ACCURATE CREATININE CLEARANCE IN PREDICTING GLOMERULAR FILTRATION RATE. ESTIMATED GFR IS NOT APPLICABLE FOR DIALYSIS PATIENTS. [id number] 04:23:00 Test Item Value Reference Range Comments MAGNESIUM (BEAKER) (test yyag=739) 1.8 mg/dL 1.6-2.6 CBC (HEMOGRAM ONLY)2018-10-27 04:00:00 Test Item Value Reference Range Comments WHITE BLOOD CELL COUNT (BEAKER) (test bwix=523) 16.2 K/ L 3.5-10.5 RED BLOOD CELL COUNT (BEAKER) (test gkqo=359) 2.64 M/ L 3.93-5.22 HEMOGLOBIN (BEAKER) (test zcfb=465) 7.8 GM/DL 11.2-15.7 HEMATOCRIT (BEAKER) (test jyvr=394) 25.7 % 34.1-44.9 MEAN CORPUSCULAR VOLUME (BEAKER) (test nqqp=114) 97.3 fL 79.4-94.8 MEAN CORPUSCULAR HEMOGLOBIN (BEAKER) (test 29.5 pg 25.6-32.2 ywba=956) MEAN CORPUSCULAR HEMOGLOBIN CONC (BEAKER) (test 30.4 GM/DL 32.2-35.5 lude=903) RED CELL DISTRIBUTION WIDTH (BEAKER) (test 14.6 % 11.7-14.4 whrn=049) PLATELET COUNT (BEAKER) (test jwyr=584) 430 K/CU MM 150-450 MEAN PLATELET VOLUME (BEAKER) (test kxzp=165) 9.7 fL 9.4-12.3 NUCLEATED RED BLOOD CELLS (BEAKER) (test 0 /100 WBC 0-0 iqqr=647) POCT-GLUCOSE [id number] 00:53:00 Test Item Value Reference Range Comments POC-GLUCOSE METER (BEAKER) 154 mg/dL 70-110 TESTED AT [address] (test yyuu=2146) [place] [id number] 21:42:00 Test Item Value Reference Range Comments ACTIVATED CLOTTING TIME 241 sec TESTED AT [address] (BEAKER) (test kise=921) [place] [id number] BLOOD GAS, [id number] 21:42:00 Test Item Value Reference Range Comments PH ARTERIAL (BEAKER) (test qxer=697) 7.45 7.35-7.45 PCO2 ARTERIAL (BEAKER) (test zqoj=060) 39 mm Hg 35-45 PO2 ARTERIAL (BEAKER) (test tqef=974) 133 mm Hg 80-90 O2 SATURATION ARTERIAL (BEAKER) (test kwuu=513) 98.8 % 96.0-97.0 HCO3 ARTERIAL (BEAKER) (test meee=262) 27 mmol/L 21-29 BASE EXCESS ARTERIAL (BEAKER) (test ezhm=982) 2.3 mmol/L -2.0-3.0 SODIUM NA-STAT [id number] 21:42:00 Test Item Value Reference Range Comments SODIUM (BEAKER) (test yygl=085) 138 meq/L 135-148 POTASSIUM-STAT [id number] 21:42:00 Test Item Value Reference Range Comments POTASSIUM (BEAKER) (test zspd=152) 3.7 meq/L 3.6-5.5 GLUCOSE-STAT [id number] 21:42:00 Test Item Value Reference Range Comments GLUCOSE RANDOM (BEAKER) (test ufri=743) 129 mg/dL 70-110 HGB/HCT (H&H) - STAT [id number] 21:42:00 Test Item Value Reference Range Comments HEMOGLOBIN (BEAKER) (test jqym=834) 9.5 GM/DL 12.0-15.0 HEMATOCRIT (BEAKER) (test kozr=982) 28.0 % 36.0-45.0 POCT-GLUCOSE [id number] 17:26:00 Test Item Value Reference Range Comments POC-GLUCOSE METER (BEAKER) 147 mg/dL 70-110 TESTED AT [address] (test xfzq=5139) [place] [id number] CT, BRAIN, WITHOUT [id number] 15:43:00FINAL REPORT CT Head without contrast CLINICAL [...] MDReport Verified Date/Time: 10/26/2018 15:43:56 Reading Location: [address] Neuro Reading RoomElectronically signed by: JARET ROBBINS M.D. on 01/2019 03:43 PMPROTHROMBIN TIME/[id number] 13:31:00 Test Item Value Reference Range Comments PROTIME (BEAKER) (test hgtd=089) 13.4 seconds 11.9-14.2 INR (BEAKER) (test zlgm=561) 1.1 <=5.9 Effective 09/14/2018: PT Reference Range ChangeNew: 11.9-14.2 Previous: 11.7- 14.7RECOMMENDED COUMADIN/WARFARIN INR THERAPY RANGESSTANDARD DOSE: 2.0-3.0 Includes: PROPHYLAXIS for venous thrombosis, systemic embolization; TREATMENT for venous thrombosis and/or pulmonary embolus.HIGH RISK: Target INR is2.5-3.5 for patients wiht mechanical heart valves.POCT-GLUCOSE [id number] 12:14:00 Test Item Value Reference Range Comments POC-GLUCOSE METER (BEAKER) 264 mg/dL 70-[address] [facility] [address] (test wcxt=6597) [facility] [address] POCT-GLUCOSE [id number] 07:52:00 Test Item Value Reference Range Comments POC-GLUCOSE METER (BEAKER) 247 mg/dL 70-[address] [facility] [address] (test xbti=9397) [place] [address] [id number] 05:38:00 Test Item Value Reference Range Comments MAGNESIUM (BEAKER) (test ejki=951) 1.9 mg/dL 1.6-2.6 BASIC METABOLIC [id number] 05:38:00 Test Item Value Reference Range Comments SODIUM (BEAKER) (test 138 meq/L 136-145 zlij=981) POTASSIUM (BEAKER) (test 4.2 meq/L 3.5-5.1 jwat=252) CHLORIDE (BEAKER) (test 103 meq/L 98-107 slky=418) CO2 (BEAKER) (test 26 meq/L 22-29 orzq=023) BLOOD UREA NITROGEN 15 mg/dL 7-21 (BEAKER) (test ettq=098) CREATININE (BEAKER) (test 1.06 mg/dL 0.57-1.25 cwvo=491) GLUCOSE RANDOM (BEAKER) 227 mg/dL 70-105 (test emup=740) CALCIUM (BEAKER) (test 9.0 mg/dL 8.4-10.2 sjfe=883) EGFR (BEAKER) (test 51 mL/min/1.73 sq m ESTIMATED GFR IS NOT vljt=1688) ACCURATE CREATININE CLEARANCE IN PREDICTING GLOMERULAR FILTRATION RATE. ESTIMATED GFR IS NOT APPLICABLE FOR DIALYSIS PATIENTS. CBC (HEMOGRAM ONLY)2018-10-26 05:27:00 Test Item Value Reference Range Comments WHITE BLOOD CELL COUNT (BEAKER) (test hzvt=595) 14.3 K/ L 3.5-10.5 RED BLOOD CELL COUNT (BEAKER) (test mpah=916) 3.25 M/ L 3.93-5.22 HEMOGLOBIN (BEAKER) (test jpkg=673) 9.4 GM/DL 11.2-15.7 HEMATOCRIT (BEAKER) (test gist=461) 30.7 % 34.1-44.9 MEAN CORPUSCULAR VOLUME (BEAKER) (test gueq=928) 94.5 fL 79.4-94.8 MEAN CORPUSCULAR HEMOGLOBIN (BEAKER) (test 28.9 pg 25.6-32.2 mvbp=811) MEAN CORPUSCULAR HEMOGLOBIN CONC (BEAKER) (test 30.6 GM/DL 32.2-35.5 xvee=160) RED CELL DISTRIBUTION WIDTH (BEAKER) (test 14.4 % 11.7-14.4 adqg=506) PLATELET COUNT (BEAKER) (test oxut=499) 501 K/CU MM 150-450 MEAN PLATELET VOLUME (BEAKER) (test aavd=218) 9.9 fL 9.4-12.3 NUCLEATED RED BLOOD CELLS (BEAKER) (test 0 /100 WBC 0-0 criq=258) [id number] 02:31:00 Test Item Value Reference Range Comments PARTIAL THROMBOPLASTIN TIME (BEAKER) (test 58.6 seconds 22.5-36.0 nebr=167) POCT-GLUCOSE [id number] 22:21:00 Test Item Value Reference Range Comments POC-GLUCOSE METER (BEAKER) 277 mg/dL 70-110 TESTED AT [address] (test roid=1949) [facility] [address] RAD, CHEST, 1 VIEW, NON [id number] 19:48:00Reason for exam:->Right UE PICC placementShould this [...] MDReport Verified Date/Time: 10/25/2018 19:48:53 Reading Location: [address] Consult Reading Room [id number] 19:08:00 Test Item Value Reference Range Comments PARTIAL THROMBOPLASTIN TIME (BEAKER) (test 30.7 seconds 22.5-36.0 uqhj=421) Prior to initiating heparinCBC (HEMOGRAM ONLY)2018-10-25 18:57:00 Test Item Value Reference Range Comments WHITE BLOOD CELL COUNT (BEAKER) (test djuy=536) 9.7 K/ L 3.5-10.5 RED BLOOD CELL COUNT (BEAKER) (test cpks=678) 3.23 M/ L 3.93-5.22 HEMOGLOBIN (BEAKER) (test zimq=143) 9.5 GM/DL 11.2-15.7 HEMATOCRIT (BEAKER) (test xajy=284) 30.6 % 34.1-44.9 MEAN CORPUSCULAR VOLUME (BEAKER) (test ithg=251) 94.7 fL 79.4-94.8 MEAN CORPUSCULAR HEMOGLOBIN (BEAKER) (test 29.4 pg 25.6-32.2 fxbz=449) MEAN CORPUSCULAR HEMOGLOBIN CONC (BEAKER) (test 31.0 GM/DL 32.2-35.5 gmhv=454) RED CELL DISTRIBUTION WIDTH (BEAKER) (test 14.5 % 11.7-14.4 lsny=550) PLATELET COUNT (BEAKER) (test qwhh=476) 497 K/CU MM 150-450 MEAN PLATELET VOLUME (BEAKER) (test zboq=423) 9.2 fL 9.4-12.3 NUCLEATED RED BLOOD CELLS (BEAKER) (test 0 /100 WBC 0-0 qvpx=755) POCT-GLUCOSE [id number] 18:52:00 Test Item Value Reference Range Comments POC-GLUCOSE METER (BEAKER) 122 mg/dL 70-110 TESTED AT [address] (test yfyq=9275) [place] [id number] POCT-GLUCOSE [id number] 11:57:00 Test Item Value Reference Range Comments POC-GLUCOSE METER (BEAKER) 252 mg/dL 70-110 TESTED AT [address] (test voiq=8319) [place] [id number] POCT-GLUCOSE [id number] 07:44:00 Test Item Value Reference Range Comments POC-GLUCOSE METER (BEAKER) 201 mg/dL 70-110 TESTED AT [address] (test pgyf=0390) [place] [id number] BASIC METABOLIC [id number] 05:57:00 Test Item Value Reference Range Comments SODIUM (BEAKER) (test 138 meq/L 136-145 tbqw=832) POTASSIUM (BEAKER) (test 4.6 meq/L 3.5-5.1 vxvq=243) CHLORIDE (BEAKER) (test 103 meq/L 98-107 hfqi=452) CO2 (BEAKER) (test 27 meq/L 22-29 alqc=663) BLOOD UREA NITROGEN 15 mg/dL 7-21 (BEAKER) (test dqav=812) CREATININE (BEAKER) (test 1.13 mg/dL 0.57-1.25 tvpf=297) GLUCOSE RANDOM (BEAKER) 158 mg/dL 70-105 (test wbfu=729) CALCIUM (BEAKER) (test 9.1 mg/dL 8.4-10.2 uxty=789) EGFR (BEAKER) (test 47 mL/min/1.73 sq m ESTIMATED GFR IS NOT kidr=8965) ACCURATE CREATININE CLEARANCE IN PREDICTING GLOMERULAR FILTRATION RATE. ESTIMATED GFR IS NOT APPLICABLE FOR DIALYSIS PATIENTS. [id number] 05:54:00 Test Item Value Reference Range Comments MAGNESIUM (BEAKER) (test rgsx=874) 2.1 mg/dL 1.6-2.6 CBC (HEMOGRAM ONLY)2018-10-25 04:46:00 Test Item Value Reference Range Comments WHITE BLOOD CELL COUNT (BEAKER) (test xwcq=018) 9.4 K/ L 3.5-10.5 RED BLOOD CELL COUNT (BEAKER) (test ihkf=558) 3.08 M/ L 3.93-5.22 HEMOGLOBIN (BEAKER) (test tjef=551) 9.0 GM/DL 11.2-15.7 HEMATOCRIT (BEAKER) (test umfc=314) 29.0 % 34.1-44.9 MEAN CORPUSCULAR VOLUME (BEAKER) (test habm=968) 94.2 fL 79.4-94.8 MEAN CORPUSCULAR HEMOGLOBIN (BEAKER) (test 29.2 pg 25.6-32.2 mfop=180) MEAN CORPUSCULAR HEMOGLOBIN CONC (BEAKER) (test 31.0 GM/DL 32.2-35.5 atyf=797) RED CELL DISTRIBUTION WIDTH (BEAKER) (test 14.6 % 11.7-14.4 mixu=860) PLATELET COUNT (BEAKER) (test vpzm=242) 459 K/CU MM 150-450 MEAN PLATELET VOLUME (BEAKER) (test rigi=554) 9.6 fL 9.4-12.3 NUCLEATED RED BLOOD CELLS (BEAKER) (test 0 /100 WBC 0-0 skjz=632) POCT-GLUCOSE [id number] 21:47:00 Test Item Value Reference Range Comments POC-GLUCOSE METER (BEAKER) 188 mg/dL 70-110 TESTED AT [address] (test wgzi=6609) [place] [address] POCT-GLUCOSE [id number] 17:18:00 Test Item Value Reference Range Comments POC-GLUCOSE METER (BEAKER) 83 mg/dL 70-110 TESTED AT [address] (test nmbf=9269) [place] [id number] POCT-GLUCOSE [id number] 12:07:00 Test Item Value Reference Range Comments POC-GLUCOSE METER (BEAKER) 209 mg/dL 70-110 TESTED AT [address] (test atze=4246) [place] [address] RAD, CHEST, 1 VIEW, NON [id number] 10:18:00Reason for exam:->SOBShould this be performed at [...] Verified Date/Time : 10/24/2018 10:18:27 Reading Location: [facility] Radiology Reading Room POCT- GLUCOSE [id number] 08:09:00 Test Item Value Reference Range Comments POC-GLUCOSE METER (BEAKER) 197 mg/dL 70-110 TESTED AT [address] (test mhfa=9580) [place] [id number] POCT-GLUCOSE [id number] 06:17:00 Test Item Value Reference Range Comments POC-GLUCOSE METER (BEAKER) 179 mg/dL 70-110 TESTED AT [address] (test cdht=6329) [place] [id number] BASIC METABOLIC [id number] 06:11:00 Test Item Value Reference Range Comments SODIUM (BEAKER) (test 140 meq/L 136-145 wkvo=870) POTASSIUM (BEAKER) (test 3.7 meq/L 3.5-5.1 dedb=422) CHLORIDE (BEAKER) (test 111 meq/L 98-107 xgis=610) CO2 (BEAKER) (test 23 meq/L 22-29 dyzk=504) BLOOD UREA NITROGEN 15 mg/dL 7-21 (BEAKER) (test tdoz=009) CREATININE (BEAKER) (test 0.85 mg/dL 0.57-1.25 xmjs=647) GLUCOSE RANDOM (BEAKER) 133 mg/dL 70-105 (test bxsn=845) CALCIUM (BEAKER) (test 6.9 mg/dL 8.4-10.2 wlkt=567) EGFR (BEAKER) (test 66 mL/min/1.73 sq m ESTIMATED GFR IS NOT vesw=1849) ACCURATE CREATININE CLEARANCE IN PREDICTING GLOMERULAR FILTRATION RATE. ESTIMATED GFR IS NOT APPLICABLE FOR DIALYSIS PATIENTS. [id number] 05:25:00 Test Item Value Reference Range Comments MAGNESIUM (BEAKER) (test ccae=114) 1.7 mg/dL 1.6-2.6 [id number] 04:33:00 Test Item Value Reference Range Comments PARTIAL THROMBOPLASTIN TIME (BEAKER) (test 72.9 seconds 22.5-36.0 ftsi=491) CBC (HEMOGRAM ONLY)2018-10-24 04:10:00 Test Item Value Reference Range Comments WHITE BLOOD CELL COUNT (BEAKER) (test cbfv=051) 10.6 K/ L 3.5-10.5 RED BLOOD CELL COUNT (BEAKER) (test xerk=383) 3.25 M/ L 3.93-5.22 HEMOGLOBIN (BEAKER) (test izxq=101) 9.6 GM/DL 11.2-15.7 HEMATOCRIT (BEAKER) (test gqbh=020) 30.3 % 34.1-44.9 MEAN CORPUSCULAR VOLUME (BEAKER) (test hysb=290) 93.2 fL 79.4-94.8 MEAN CORPUSCULAR HEMOGLOBIN (BEAKER) (test 29.5 pg 25.6-32.2 jfrh=441) MEAN CORPUSCULAR HEMOGLOBIN CONC (BEAKER) (test 31.7 GM/DL 32.2-35.5 amia=374) RED CELL DISTRIBUTION WIDTH (BEAKER) (test 14.9 % 11.7-14.4 lfwi=657) PLATELET COUNT (BEAKER) (test eijv=286) 485 K/CU MM 150-450 MEAN PLATELET VOLUME (BEAKER) (test noxl=334) 9.5 fL 9.4-12.3 NUCLEATED RED BLOOD CELLS (BEAKER) (test 0 /100 WBC 0-0 ojei=728) POCT-GLUCOSE [id number] 18:15:00 Test Item Value Reference Range Comments POC-GLUCOSE METER (BEAKER) 145 mg/dL 70-[address] [facility] [address] [facility] (test qklf=9660) [facility] [address] BASIC METABOLIC [id number] 16:22:00 Test Item Value Reference Range Comments SODIUM (BEAKER) (test 140 meq/L 136-145 dhzh=496) POTASSIUM (BEAKER) (test 5.0 meq/L 3.5-5.1 Specimen slightly jkhk=254) hemolyzed CHLORIDE (BEAKER) (test 101 meq/L 98-107 fxvq=952) CO2 (BEAKER) (test 31 meq/L 22-29 fihc=901) BLOOD UREA NITROGEN 17 mg/dL 7-21 (BEAKER) (test fxxv=891) CREATININE (BEAKER) (test 1.16 mg/dL 0.57-1.25 Specimen slightly cjkw=386) hemolyzed GLUCOSE RANDOM (BEAKER) 119 mg/dL 70-105 (test vvbh=438) CALCIUM (BEAKER) (test 9.1 mg/dL 8.4-10.2 iccg=506) EGFR (BEAKER) (test 46 mL/min/1.73 sq m ESTIMATED GFR IS NOT gkah=1512) ACCURATE CREATININE CLEARANCE IN PREDICTING GLOMERULAR FILTRATION RATE. ESTIMATED GFR IS NOT APPLICABLE FOR DIALYSIS PATIENTS. To be drawn at the same time as post transfusion CBCCBC (HEMOGRAM ONLY) 16:09:00 Test Item Value Reference Range Comments WHITE BLOOD CELL COUNT (BEAKER) (test aqzk=652) 10.7 K/ L 3.5-10.5 RED BLOOD CELL COUNT (BEAKER) (test satp=789) 3.10 M/ L 3.93-5.22 HEMOGLOBIN (BEAKER) (test fcwm=587) 9.1 GM/DL 11.2-15.7 HEMATOCRIT (BEAKER) (test fczj=388) 28.7 % 34.1-44.9 MEAN CORPUSCULAR VOLUME (BEAKER) (test ztge=775) 92.6 fL 79.4-94.8 MEAN CORPUSCULAR HEMOGLOBIN (BEAKER) (test 29.4 pg 25.6-32.2 mwvr=581) MEAN CORPUSCULAR HEMOGLOBIN CONC (BEAKER) (test 31.7 GM/DL 32.2-35.5 uthi=662) RED CELL DISTRIBUTION WIDTH (BEAKER) (test 14.2 % 11.7-14.4 axyh=868) PLATELET COUNT (BEAKER) (test ttad=536) 462 K/CU MM 150-450 MEAN PLATELET VOLUME (BEAKER) (test hbzd=097) 9.6 fL 9.4-12.3 NUCLEATED RED BLOOD CELLS (BEAKER) (test 0 /100 WBC 0-0 wnxs=736) POCT-GLUCOSE [id number] 12:23:00 Test Item Value Reference Range Comments POC-GLUCOSE METER (BEAKER) 214 mg/dL 70-110 TESTED AT [address] (test dign=0817) [place] [address] PLATELET AGGREGATION: FUNCTION [id number] 10:50:00 Test Item Value Reference Range Comments WEAK ADP RESULT(BEAKER) (test 16 % 60-91 nuue=0503) PLATELET FUNCTION SCREEN 0-39% indicates marked platelet INTERP (BEAKER) (test dysfunction fulq=4760) [id number] Luis Enrique Gardner M.D. (electonic (BEAKER) (test cfdg=8324) signature) PLATELET COUNT AGG (BEAKER) 457 K/CU MM 150-450 (test mbvt=8699) Platelet Function Screen results may be falsely low with platelet counts<100, 000/cu mm.POCT-GLUCOSE [id number] 10:36:00 Test Item Value Reference Range Comments POC-GLUCOSE METER (BEAKER) 263 mg/dL 70-110 TESTED AT [address] (test anlz=3254) [place] [address] [id number] 07:53:00 Test Item Value Reference Range Comments POTASSIUM (BEAKER) (test iqxr=688) 5.4 meq/L 3.5-5.1 Check Serum Potassium level 2 hours after oral potassium replacement completed or 30 min after intravenous potassium replacement.POCT-GLUCOSE [id number] 07:40:00 Test Item Value Reference Range Comments POC-GLUCOSE METER (BEAKER) 219 mg/dL 70-[address] [facility] [address] [facility] (test avas=9590) [facility] [address] TROPONIN [id number] 06:27:00 Test Item Value Reference Range Comments TROPONIN I (BEAKER) (test glwr=242) 1.64 ng/mL 0.00-0.03 Troponin I (TnI) levels [...] failure, acidosis, acute neurological disease, and persistent tachyarrhythmia.[id number] 06:11:00 Test Item Value Reference Range Comments MAGNESIUM (BEAKER) (test uhsy=113) 2.0 mg/dL 1.6-2.6 BASIC METABOLIC [id number] 06:11:00 Test Item Value Reference Range Comments SODIUM (BEAKER) (test 138 meq/L 136-145 hwda=326) POTASSIUM (BEAKER) (test 5.3 meq/L 3.5-5.1 eukq=404) CHLORIDE (BEAKER) (test 103 meq/L 98-107 mxog=990) CO2 (BEAKER) (test 29 meq/L 22-29 fwow=030) BLOOD UREA NITROGEN 17 mg/dL 7-21 (BEAKER) (test qsjg=609) CREATININE (BEAKER) (test 1.21 mg/dL 0.57-1.25 kcuo=356) GLUCOSE RANDOM (BEAKER) 179 mg/dL 70-105 (test jgsx=208) CALCIUM (BEAKER) (test 8.7 mg/dL 8.4-10.2 ssfp=225) EGFR (BEAKER) (test 44 mL/min/1.73 sq m ESTIMATED GFR IS NOT klpg=8702) ACCURATE CREATININE CLEARANCE IN PREDICTING GLOMERULAR FILTRATION RATE. ESTIMATED GFR IS NOT APPLICABLE FOR DIALYSIS PATIENTS. [id number] 05:42:00 Test Item Value Reference Range Comments PARTIAL THROMBOPLASTIN TIME (BEAKER) (test 88.9 seconds 22.5-36.0 dwhx=005) CBC (HEMOGRAM ONLY)2018-10-23 05:34:00 Test Item Value Reference Range Comments WHITE BLOOD CELL COUNT (BEAKER) (test vnjc=972) 9.4 K/ L 3.5-10.5 RED BLOOD CELL COUNT (BEAKER) (test wfxc=357) 2.59 M/ L 3.93-5.22 HEMOGLOBIN (BEAKER) (test diva=249) 7.4 GM/DL 11.2-15.7 HEMATOCRIT (BEAKER) (test mavb=586) 25.1 % 34.1-44.9 MEAN CORPUSCULAR VOLUME (BEAKER) (test wpcp=170) 96.9 fL 79.4-94.8 MEAN CORPUSCULAR HEMOGLOBIN (BEAKER) (test 28.6 pg 25.6-32.2 fkzn=296) MEAN CORPUSCULAR HEMOGLOBIN CONC (BEAKER) (test 29.5 GM/DL 32.2-35.5 miao=950) RED CELL DISTRIBUTION WIDTH (BEAKER) (test 13.4 % 11.7-14.4 lbmo=795) PLATELET COUNT (BEAKER) (test amhz=898) 430 K/CU MM 150-450 MEAN PLATELET VOLUME (BEAKER) (test ywif=553) 9.8 fL 9.4-12.3 NUCLEATED RED BLOOD CELLS (BEAKER) (test 0 /100 WBC 0-0 ixbh=762) TROPONIN [id number] 00:25:00 Test Item Value Reference Range Comments TROPONIN I (BEAKER) (test uzhi=203) 2.26 ng/mL 0.00-0.03 Troponin I (TnI) levels [...] acidosis, acute neurological disease, and persistent tachyarrhythmia.POCT-GLUCOSE [id number] 21:40:00 Test Item Value Reference Range Comments POC-GLUCOSE METER (BEAKER) 151 mg/dL 70-110 TESTED AT [address] (test aeqr=2256) [place] [address] TROPONIN [id number] 19:24:00 Test Item Value Reference Range Comments TROPONIN I (BEAKER) (test ezmu=334) 3.08 ng/mL 0.00-0.03 Troponin I (TnI) levels [...] acidosis, acute neurological disease, and persistent tachyarrhythmia.POCT-GLUCOSE [id number] 19:04:00 Test Item Value Reference Range Comments POC-GLUCOSE METER (BEAKER) 157 mg/dL 70-110 TESTED AT [address] (test uskr=3613) [place] [address] TROPONIN [id number] 12:49:00 Test Item Value Reference Range Comments TROPONIN I (BEAKER) (test faaf=100) 1.81 ng/mL 0.00-0.03 Troponin I (TnI) levels [...] completed or 30 min after intravenous potassium replacement.[id number] 12:38:00 Test Item Value Reference Range Comments POTASSIUM (BEAKER) (test nbpp=344) 4.7 meq/L 3.5-5.1 Check Serum Potassium level 2 hours after oral potassium replacement completed or 30 min after intravenous potassium replacement.[id number] 12:38:00 Test Item Value Reference Range Comments MAGNESIUM (BEAKER) (test hjms=610) 2.5 mg/dL 1.6-2.6 Check Serum Potassium level 2 hours after oral potassium replacement completed or 30 min after intravenous potassium replacement.POCT-GLUCOSE [id number] 12:37:00 Test Item Value Reference Range Comments POC-GLUCOSE METER (BEAKER) 161 mg/dL 70-[address] [facility] [address] [facility] (test tsnf=4828) [facility] [address] HEMOGLOBIN AND [id number] 10:36:00 Test Item Value Reference Range Comments HEMOGLOBIN (BEAKER) (test fzoo=730) 7.6 GM/DL 11.2-15.7 HEMATOCRIT (BEAKER) (test pdqu=263) 24.9 % 34.1-44.9 POCT-GLUCOSE [id number] 07:55:00 Test Item Value Reference Range Comments POC-GLUCOSE METER (BEAKER) 296 mg/dL 70-110 TESTED AT [address] (test dfea=4248) [facility] [address] [id number] 06:42:00 Test Item Value Reference Range Comments MAGNESIUM (BEAKER) (test 1.7 mg/dL 1.6-2.6 Specimen slightly hemolyzed fzli=412) BASIC METABOLIC [id number] 06:42:00 Test Item Value Reference Range Comments SODIUM (BEAKER) (test 137 meq/L 136-145 hpyu=165) POTASSIUM (BEAKER) (test 5.1 meq/L 3.5-5.1 Specimen slightly fscg=731) hemolyzed CHLORIDE (BEAKER) (test 102 meq/L 98-107 ocwb=181) CO2 (BEAKER) (test 27 meq/L 22-29 spza=928) BLOOD UREA NITROGEN 15 mg/dL 7-21 (BEAKER) (test vouf=543) CREATININE (BEAKER) (test 1.05 mg/dL 0.57-1.25 Specimen slightly ropx=023) hemolyzed GLUCOSE RANDOM (BEAKER) 258 mg/dL 70-105 (test qejr=561) CALCIUM (BEAKER) (test 9.0 mg/dL 8.4-10.2 lviz=483) EGFR (BEAKER) (test 51 mL/min/1.73 sq m ESTIMATED GFR IS NOT tgks=9693) ACCURATE CREATININE CLEARANCE IN PREDICTING GLOMERULAR FILTRATION RATE. ESTIMATED GFR IS NOT APPLICABLE FOR DIALYSIS PATIENTS. [id number] 06:08:00 Test Item Value Reference Range Comments PARTIAL THROMBOPLASTIN TIME (BEAKER) (test 84.7 seconds 22.5-36.0 mhun=593) CBC (HEMOGRAM ONLY)2018-10-22 05:59:00 Test Item Value Reference Range Comments WHITE BLOOD CELL COUNT (BEAKER) (test uwoj=093) 10.6 K/ L 3.5-10.5 RED BLOOD CELL COUNT (BEAKER) (test bgyc=604) 2.78 M/ L 3.93-5.22 HEMOGLOBIN (BEAKER) (test vfbp=659) 8.2 GM/DL 11.2-15.7 HEMATOCRIT (BEAKER) (test ppmg=981) 26.3 % 34.1-44.9 MEAN CORPUSCULAR VOLUME (BEAKER) (test ofet=289) 94.6 fL 79.4-94.8 MEAN CORPUSCULAR HEMOGLOBIN (BEAKER) (test 29.5 pg 25.6-32.2 gsov=475) MEAN CORPUSCULAR HEMOGLOBIN CONC (BEAKER) (test 31.2 GM/DL 32.2-35.5 xmng=974) RED CELL DISTRIBUTION WIDTH (BEAKER) (test 13.2 % 11.7-14.4 etfg=606) PLATELET COUNT (BEAKER) (test qwch=355) 459 K/CU MM 150-450 MEAN PLATELET VOLUME (BEAKER) (test ksbg=209) 9.7 fL 9.4-12.3 NUCLEATED RED BLOOD CELLS (BEAKER) (test 0 /100 WBC 0-0 cmbh=163) TROPONIN [id number] 01:20:00 Test Item Value Reference Range Comments TROPONIN I (BEAKER) (test oiyj=048) 0.35 ng/mL 0.00-0.03 Troponin I (TnI) levels [...] acidosis, acute neurological disease, and persistent tachyarrhythmia.POCT-GLUCOSE [id number] 23:31:00 Test Item Value Reference Range Comments POC-GLUCOSE METER (BEAKER) 244 mg/dL 70-110 TESTED AT [address] (test nqyx=2886) [place] [address] PLATELET AGGREGATION: DRUG [id number] 17:53:00 Test Item Value Reference Range Comments STRONG ADP RESULT(BEAKER) (test 0 % 70-94 xpmo=6095) WEAK ADP RESULT(BEAKER) (test 5 % 60-91 oczb=1956) ARACHADONIC ACID RESULT(BEAKER) 18 % 63-89 (test zrol=3907) PLATELET AGG DRUG INTERPRETATION Decreased response to ADP (BEAKER) (test jtze=6925) suggest a [id number]-[id number] drug effect. PLATELET AGG DRUG INTERPRETATION Decreased response to (BEAKER) (test rriw=917400) arachidonic acid suggests aspirin-like effect. [id number]-TUCXVYLDYHY-[id number] (BEAKER) Luis Enrique Gardner M.D. (test dzxm=3716) (electonic signature) PLATELET COUNT AGG (BEAKER) 382 K/CU MM 150-450 (test cifo=8589) Platelet function studies by aggregation methodology on samples with platelet count <75,000/CU MMare unreliable; platelet function assessment should not be based on a single test.POCT-GLUCOSE [id number] 17:26:00 Test Item Value Reference Range Comments POC-GLUCOSE METER (BEAKER) 158 mg/dL 70-110 TESTED AT [address] (test tugp=4048) [place] [address] POCT-GLUCOSE [id number] 11:50:00 Test Item Value Reference Range Comments POC-GLUCOSE METER (BEAKER) 105 mg/dL 70-110 TESTED AT [address] (test iiyj=2797) [place] [address] POCT-GLUCOSE [id number] 10:25:00 Test Item Value Reference Range Comments POC-GLUCOSE METER (BEAKER) 83 mg/dL 70-110 TESTED AT [address] (test tixg=3874) [place] [address] POCT-GLUCOSE [id number] 08:58:00 Test Item Value Reference Range Comments POC-GLUCOSE METER (BEAKER) 130 mg/dL 70-110 TESTED AT [address] (test gbfh=5234) [place] [address] POCT-GLUCOSE [id number] 08:58:00 Test Item Value Reference Range Comments POC-GLUCOSE METER (BEAKER) 49 mg/dL 70-[address] [facility] [address] [facility] (test kfaa=9970) [facility] [address] [id number] 08:45:00 Test Item Value Reference Range Comments MAGNESIUM (BEAKER) (test cerq=219) 2.1 mg/dL 1.6-2.6 [id number] 06:59:00 Test Item Value Reference Range Comments PARTIAL THROMBOPLASTIN TIME (BEAKER) (test 85.5 seconds 22.5-36.0 gvde=130) [id number] 01:16:00 Test Item Value Reference Range Comments MAGNESIUM (BEAKER) (test ffrs=007) 2.1 mg/dL 1.6-2.6 BASIC METABOLIC [id number] 01:16:00 Test Item Value Reference Range Comments SODIUM (BEAKER) (test 136 meq/L 136-145 krah=627) POTASSIUM (BEAKER) (test 5.0 meq/L 3.5-5.1 vmri=778) CHLORIDE (BEAKER) (test 103 meq/L 98-107 mfpy=005) CO2 (BEAKER) (test 29 meq/L 22-29 oitr=447) BLOOD UREA NITROGEN 16 mg/dL 7-21 (BEAKER) (test ifzx=244) CREATININE (BEAKER) (test 1.07 mg/dL 0.57-1.25 cynf=703) GLUCOSE RANDOM (BEAKER) 125 mg/dL 70-105 (test hprs=539) CALCIUM (BEAKER) (test 8.6 mg/dL 8.4-10.2 dplc=510) EGFR (BEAKER) (test 50 mL/min/1.73 sq m ESTIMATED GFR IS NOT ejdm=0418) ACCURATE CREATININE CLEARANCE IN PREDICTING GLOMERULAR FILTRATION RATE. ESTIMATED GFR IS NOT APPLICABLE FOR DIALYSIS PATIENTS. CBC (HEMOGRAM ONLY)2018-10-21 01:00:00 Test Item Value Reference Range Comments WHITE BLOOD CELL COUNT (BEAKER) (test esuv=708) 6.8 K/ L 3.5-10.5 RED BLOOD CELL COUNT (BEAKER) (test xhvr=076) 2.57 M/ L 3.93-5.22 HEMOGLOBIN (BEAKER) (test datl=392) 7.4 GM/DL 11.2-15.7 HEMATOCRIT (BEAKER) (test tmtx=247) 24.3 % 34.1-44.9 MEAN CORPUSCULAR VOLUME (BEAKER) (test bpzj=278) 94.6 fL 79.4-94.8 MEAN CORPUSCULAR HEMOGLOBIN (BEAKER) (test 28.8 pg 25.6-32.2 ctbp=377) MEAN CORPUSCULAR HEMOGLOBIN CONC (BEAKER) (test 30.5 GM/DL 32.2-35.5 foqa=495) RED CELL DISTRIBUTION WIDTH (BEAKER) (test 13.3 % 11.7-14.4 dprh=028) PLATELET COUNT (BEAKER) (test xsfc=876) 344 K/CU MM 150-450 MEAN PLATELET VOLUME (BEAKER) (test ukcj=411) 9.6 fL 9.4-12.3 NUCLEATED RED BLOOD CELLS (BEAKER) (test 0 /100 WBC 0-0 pvgw=370) POCT-GLUCOSE [id number] 22:05:00 Test Item Value Reference Range Comments POC-GLUCOSE METER (BEAKER) 140 mg/dL 70-110 TESTED AT [address] (test ledw=2285) [place] [address] [id number] 14:34:00 Test Item Value Reference Range Comments POTASSIUM (BEAKER) (test ottt=862) 4.5 meq/L 3.5-5.1 Check Serum Potassium level 2 hours after oral potassium replacement completed or 30 min after intravenous potassium replacement.[id number] 14:34:00 Test Item Value Reference Range Comments MAGNESIUM (BEAKER) (test jzwn=252) 2.3 mg/dL 1.6-2.6 Check Serum Potassium level 2 hours after oral potassium replacement completed or 30 min after intravenous potassium replacement.POCT-GLUCOSE [id number] 12:43:00 Test Item Value Reference Range Comments POC-GLUCOSE METER (BEAKER) 188 mg/dL 70-110 TESTED AT [address] (test pplk=2246) [place] [address] RAD, CHEST, 1 VIEW, NON [id number] 10:54:00Reason for exam:->SOBFINAL REPORT RAD, CHEST, 1 [...] Verified Date/Time: 10/20/2018 10 :54:45 Reading Location: [address] Neuro Reading Room POCT-GLUCOSE [id number] 07:49:00 Test Item Value Reference Range Comments POC-GLUCOSE METER (BEAKER) 205 mg/dL 70-110 TESTED AT [address] (test ifrn=1773) [facility] [address] [id number] 06:49:00 Test Item Value Reference Range Comments MAGNESIUM (BEAKER) (test 2.0 mg/dL 1.6-2.6 Specimen slightly hemolyzed dtnq=172) BASIC METABOLIC [id number] 06:49:00 Test Item Value Reference Range Comments SODIUM (BEAKER) (test 135 meq/L 136-145 etul=745) POTASSIUM (BEAKER) (test 4.7 meq/L 3.5-5.1 Specimen slightly xzyu=658) hemolyzed CHLORIDE (BEAKER) (test 103 meq/L 98-107 wscm=372) CO2 (BEAKER) (test 25 meq/L 22-29 bpce=135) BLOOD UREA NITROGEN 18 mg/dL 7-21 (BEAKER) (test fped=617) CREATININE (BEAKER) (test 1.02 mg/dL 0.57-1.25 Specimen slightly ihev=387) hemolyzed GLUCOSE RANDOM (BEAKER) 193 mg/dL 70-105 (test spxp=850) CALCIUM (BEAKER) (test 8.5 mg/dL 8.4-10.2 hkjt=294) EGFR (BEAKER) (test 53 mL/min/1.73 sq m ESTIMATED GFR IS NOT wsbk=9394) ACCURATE CREATININE CLEARANCE IN PREDICTING GLOMERULAR FILTRATION RATE. ESTIMATED GFR IS NOT APPLICABLE FOR DIALYSIS PATIENTS. [id number] 06:37:00 Test Item Value Reference Range Comments PARTIAL THROMBOPLASTIN TIME (BEAKER) (test 91.1 seconds 22.5-36.0 nicb=385) CBC (HEMOGRAM ONLY)2018-10-20 06:32:00 Test Item Value Reference Range Comments WHITE BLOOD CELL COUNT (BEAKER) (test rxda=838) 7.4 K/ L 3.5-10.5 RED BLOOD CELL COUNT (BEAKER) (test ecud=512) 2.62 M/ L 3.93-5.22 HEMOGLOBIN (BEAKER) (test uguo=018) 7.8 GM/DL 11.2-15.7 HEMATOCRIT (BEAKER) (test buuo=833) 24.7 % 34.1-44.9 MEAN CORPUSCULAR VOLUME (BEAKER) (test pgoy=369) 94.3 fL 79.4-94.8 MEAN CORPUSCULAR HEMOGLOBIN (BEAKER) (test 29.8 pg 25.6-32.2 pghc=619) MEAN CORPUSCULAR HEMOGLOBIN CONC (BEAKER) (test 31.6 GM/DL 32.2-35.5 qida=879) RED CELL DISTRIBUTION WIDTH (BEAKER) (test 13.3 % 11.7-14.4 qinr=526) PLATELET COUNT (BEAKER) (test evxy=875) 381 K/CU MM 150-450 MEAN PLATELET VOLUME (BEAKER) (test lmym=297) 9.9 fL 9.4-12.3 NUCLEATED RED BLOOD CELLS (BEAKER) (test 0 /100 WBC 0-0 dbfp=140) POCT-GLUCOSE [id number] 21:24:00 Test Item Value Reference Range Comments POC-GLUCOSE METER (BEAKER) 196 mg/dL 70-110 TESTED AT [address] (test fywn=6214) [place] [id number] POCT-GLUCOSE [id number] 17:36:00 Test Item Value Reference Range Comments POC-GLUCOSE METER (BEAKER) 136 mg/dL 70-110 TESTED AT [address] (test sbyg=3309) [place] [address] [id number] 15:46:00 Test Item Value Reference Range Comments PARTIAL THROMBOPLASTIN TIME (BEAKER) (test 89.1 seconds 22.5-36.0 ixbx=733) POCT-GLUCOSE [id number] 13:00:00 Test Item Value Reference Range Comments POC-GLUCOSE METER (BEAKER) 197 mg/dL 70-110 TESTED AT [address] (test ggov=9084) [facility] [address] CT, BRAIN, WITHOUT [id number] 10:26:00FINAL REPORT CT Head without contrast CLINICAL [...] Verified Date/ Time: 10/19/2018 10:26:00 Reading Location: [address] Neuro Reading Room Electronically signed by: JARET ROBBINS M.D.on 10/19/2018 10:26 AMPOCT- GLUCOSE [id number] 07:45:00 Test Item Value Reference Range Comments POC-GLUCOSE METER (BEAKER) 85 mg/dL 70-110 TESTED AT [address] (test qqqp=3753) [facility] [address] [id number] 07:05:00 Test Item Value Reference Range Comments PARTIAL THROMBOPLASTIN TIME (BEAKER) (test 87.5 seconds 22.5-36.0 jgvj=128) [id number] 05:08:00 Test Item Value Reference Range Comments MAGNESIUM (BEAKER) (test 2.4 mg/dL 1.6-2.6 Specimen slightly hemolyzed lmkf=281) BASIC METABOLIC [id number] 05:08:00 Test Item Value Reference Range Comments SODIUM (BEAKER) (test 139 meq/L 136-145 jnns=793) POTASSIUM (BEAKER) (test 4.5 meq/L 3.5-5.1 Specimen slightly bhxh=019) hemolyzed CHLORIDE (BEAKER) (test 107 meq/L 98-107 znax=353) CO2 (BEAKER) (test 26 meq/L 22-29 pfed=207) BLOOD UREA NITROGEN 15 mg/dL 7-21 (BEAKER) (test boob=834) CREATININE (BEAKER) (test 0.89 mg/dL 0.57-1.25 Specimen slightly rddw=585) hemolyzed GLUCOSE RANDOM (BEAKER) 81 mg/dL 70-105 (test ykck=919) CALCIUM (BEAKER) (test 8.6 mg/dL 8.4-10.2 nxpt=187) EGFR (BEAKER) (test 62 mL/min/1.73 sq m ESTIMATED GFR IS NOT wyns=7870) ACCURATE CREATININE CLEARANCE IN PREDICTING GLOMERULAR FILTRATION RATE. ESTIMATED GFR IS NOT APPLICABLE FOR DIALYSIS PATIENTS. CBC (HEMOGRAM ONLY)2018-10-19 04:41:00 Test Item Value Reference Range Comments WHITE BLOOD CELL COUNT (BEAKER) (test qrjc=324) 7.7 K/ L 3.5-10.5 RED BLOOD CELL COUNT (BEAKER) (test yflu=369) 2.67 M/ L 3.93-5.22 HEMOGLOBIN (BEAKER) (test jmkc=112) 7.7 GM/DL 11.2-15.7 HEMATOCRIT (BEAKER) (test gtst=855) 25.4 % 34.1-44.9 MEAN CORPUSCULAR VOLUME (BEAKER) (test gxho=217) 95.1 fL 79.4-94.8 MEAN CORPUSCULAR HEMOGLOBIN (BEAKER) (test 28.8 pg 25.6-32.2 gdus=747) MEAN CORPUSCULAR HEMOGLOBIN CONC (BEAKER) (test 30.3 GM/DL 32.2-35.5 gylo=196) RED CELL DISTRIBUTION WIDTH (BEAKER) (test 13.4 % 11.7-14.4 pnzc=438) PLATELET COUNT (BEAKER) (test ghhu=412) 371 K/CU MM 150-450 MEAN PLATELET VOLUME (BEAKER) (test outn=963) 10.0 fL 9.4-12.3 NUCLEATED RED BLOOD CELLS (BEAKER) (test 0 /100 WBC 0-0 wxkb=758) [id number] 22:55:00 Test Item Value Reference Range Comments PARTIAL THROMBOPLASTIN TIME (BEAKER) (test 41.6 seconds 22.5-36.0 hmnk=903) POCT-GLUCOSE [id number] 22:27:00 Test Item Value Reference Range Comments POC-GLUCOSE METER (BEAKER) 136 mg/dL 70-110 TESTED AT [address] (test hlgf=5217) [place] [id number] POCT-GLUCOSE [id number] 17:49:00 Test Item Value Reference Range Comments POC-GLUCOSE METER (BEAKER) 179 mg/dL 70-110 TESTED AT [address] (test ldwf=3907) [place] [address] [id number] 14:54:00 Test Item Value Reference Range Comments PARTIAL THROMBOPLASTIN TIME (BEAKER) (test 31.7 seconds 22.5-36.0 snab=970) NV, ANGIOGRAM, [id number] 14:04:00Reason for exam:->Right MCA strokeReason for exam:->Diagnostic [...] common femoral artery x1 MATERIALS EMPLOYED:1. 8 Cameroonian short sheath 2. 5 Cameroonian 125cm diagnostic catheter3. Bentson guidewire4. Terumo 0.035 LT glidewire5. Flowgate 8F Balloon Guide Catheter6. Marksman microcatheter7. Embotrap 5mm x 30mm8. BMW Exchange Length9. Viatrac 8uge73fp balloon9. 8 Cameroonian Angioseal device INDICATIONS:The patient is a 73 [...] the puncture site was confirmed, a 8 Cameroonian short sheath was inserted over a OptiSynxson wire and was maintained on heparinized saline flush throughout the remainder of the procedure. Using coaxial technique, a preflushed 5 Cameroonian 125cm diagnostic glidecatheter on constant heparinized saline flush was placed through a pre-flushed and pre-prepped 8 Cameroonian Flowgate balloon guide catheter. The two catheters [...] the occlusion. We then inserted a preflushed GoPlaceIt microcatheter over a preshaped Synchro standard wire [...] was occlusive in the internal carotid, the administrative assistant receptionist pulled suction through the lumen of the [...] was removed and hemostasis achieved with an8 Cameroonian Angioseal and manual compression. The patient tolerated [...] complete resolution of the intravascular thrombus and methodist of flow to the distal MCAbranches, representing [...] MDReport Verified Date/Time: 10/18/2018 14:04:16 Reading Location: [facility] Radiology Reading Room POCT- GLUCOSE [id number] 12:43:00 Test Item Value Reference Range Comments POC-GLUCOSE METER (BEAKER) 202 mg/dL 70-110 TESTED AT [address] (test hywy=3475) [facility] [address] POCT-GLUCOSE [id number] 07:41:00 Test Item Value Reference Range Comments POC-GLUCOSE METER (BEAKER) 111 mg/dL 70-110 TESTED AT [address] (test omhm=5652) [facility] [address] [id number] 05:02:00 Test Item Value Reference Range Comments MAGNESIUM (BEAKER) (test fxxz=257) 1.8 mg/dL 1.6-2.6 BASIC METABOLIC [id number] 05:02:00 Test Item Value Reference Range Comments SODIUM (BEAKER) (test 139 meq/L 136-145 ykuv=050) POTASSIUM (BEAKER) (test 3.9 meq/L 3.5-5.1 bxkq=320) CHLORIDE (BEAKER) (test 107 meq/L 98-107 hkgo=130) CO2 (BEAKER) (test 27 meq/L 22-29 ymwo=170) BLOOD UREA NITROGEN 12 mg/dL 7-21 (BEAKER) (test cvrb=460) CREATININE (BEAKER) (test 0.78 mg/dL 0.57-1.25 lhuj=243) GLUCOSE RANDOM (BEAKER) 116 mg/dL 70-105 (test lkht=756) CALCIUM (BEAKER) (test 8.6 mg/dL 8.4-10.2 illc=648) EGFR (BEAKER) (test 72 mL/min/1.73 sq m ESTIMATED GFR IS NOT hnis=4025) ACCURATE CREATININE CLEARANCE IN PREDICTING GLOMERULAR FILTRATION RATE. ESTIMATED GFR IS NOT APPLICABLE FOR DIALYSIS PATIENTS. CBC (HEMOGRAM ONLY)2018-10-18 04:44:00 Test Item Value Reference Range Comments WHITE BLOOD CELL COUNT (BEAKER) (test tyyg=922) 8.6 K/ L 3.5-10.5 RED BLOOD CELL COUNT (BEAKER) (test dgum=749) 3.02 M/ L 3.93-5.22 HEMOGLOBIN (BEAKER) (test sdhh=685) 8.7 GM/DL 11.2-15.7 HEMATOCRIT (BEAKER) (test ghel=625) 28.0 % 34.1-44.9 MEAN CORPUSCULAR VOLUME (BEAKER) (test smzz=329) 92.7 fL 79.4-94.8 MEAN CORPUSCULAR HEMOGLOBIN (BEAKER) (test 28.8 pg 25.6-32.2 qrgg=045) MEAN CORPUSCULAR HEMOGLOBIN CONC (BEAKER) (test 31.1 GM/DL 32.2-35.5 utlx=659) RED CELL DISTRIBUTION WIDTH (BEAKER) (test 13.2 % 11.7-14.4 ktbb=422) PLATELET COUNT (BEAKER) (test hgdx=552) 380 K/CU MM 150-450 MEAN PLATELET VOLUME (BEAKER) (test doqj=478) 10.3 fL 9.4-12.3 NUCLEATED RED BLOOD CELLS (BEAKER) (test 0 /100 WBC 0-0 fwle=485) TROPONIN [id number] 02:35:00 Test Item Value Reference Range Comments TROPONIN I (BEAKER) (test tzaf=083) 1.47 ng/mL 0.00-0.03 Troponin I (TnI) levels [...] acidosis, acute neurological disease, and persistent tachyarrhythmia.POCT-GLUCOSE [id number] 21:14:00 Test Item Value Reference Range Comments POC-GLUCOSE METER (BEAKER) 86 mg/dL 70-110 TESTED AT [address] (test bnfm=2538) [place] [address] POCT-GLUCOSE [id number] 18:35:00 Test Item Value Reference Range Comments POC-GLUCOSE METER (BEAKER) 148 mg/dL 70-110 TESTED AT [address] (test onuh=0033) [place] [address] PUL PERF IMAGING, PARTIC, [id number] 18:31:00Authorized by Dr. Morataya REPORT PROCEDURE: V/Q LUNG SCAN CPT CODE: 54001 INDICATION: acute chest pain, elevated D-dimer PROTOCOL: [...] Vivienne Cardenas MDReport Verified Date/Time: 10/17/201818:31:34 POCT-GLUCOSE [id number] 15:01:00 Test Item Value Reference Range Comments POC-GLUCOSE METER (BEAKER) 211 mg/dL 70-[address] [facility] [address] (test kjdn=2864) [place] [address] TROPONIN [id number] 11:56:00 Test Item Value Reference Range Comments TROPONIN I (BEAKER) (test tcno=682) 3.11 ng/mL 0.00-0.03 Troponin I (TnI) levels [...] failure, acidosis, acute neurological disease, and persistent tachyarrhythmia.[id number] 11:34:00 Test Item Value Reference Range Comments PARTIAL THROMBOPLASTIN TIME (BEAKER) (test 24.8 seconds 22.5-36.0 nxff=840) [id number] 07:25:00 Test Item Value Reference Range Comments PARTIAL THROMBOPLASTIN TIME (BEAKER) (test > seconds 22.5-36.0 yesf=217) BASIC METABOLIC [id number] 06:49:00 Test Item Value Reference Range Comments SODIUM (BEAKER) (test 135 meq/L 136-145 qtiz=089) POTASSIUM (BEAKER) (test 3.3 meq/L 3.5-5.1 lpdp=307) CHLORIDE (BEAKER) (test 104 meq/L 98-107 lkqq=616) CO2 (BEAKER) (test 24 meq/L 22-29 lquk=181) BLOOD UREA NITROGEN 15 mg/dL 7-21 (BEAKER) (test bisi=593) CREATININE (BEAKER) (test 0.90 mg/dL 0.57-1.25 vsdc=141) GLUCOSE RANDOM (BEAKER) 200 mg/dL 70-105 (test nbgs=952) CALCIUM (BEAKER) (test 7.9 mg/dL 8.4-10.2 dnea=322) EGFR (BEAKER) (test 61 mL/min/1.73 sq m ESTIMATED GFR IS NOT ufls=5432) ACCURATE CREATININE CLEARANCE IN PREDICTING GLOMERULAR FILTRATION RATE. ESTIMATED GFR IS NOT APPLICABLE FOR DIALYSIS PATIENTS. [id number] 06:43:00 Test Item Value Reference Range Comments MAGNESIUM (BEAKER) (test inxi=519) 1.7 mg/dL 1.6-2.6 TROPONIN [id number] 06:28:00 Test Item Value Reference Range Comments TROPONIN I (BEAKER) (test cwcs=423) 3.14 ng/mL 0.00-0.03 Troponin I (TnI) levels [...] acidosis, acute neurological disease, and persistent tachyarrhythmia.PLATELET [id number] 05:10:00 Test Item Value Reference Range Comments PLATELET COUNT (BEAKER) (test hhfu=983) 300 K/CU MM 150-450 LACTIC ACID, [id number] 04:59:00 Test Item Value Reference Range Comments LACTATE BLOOD VENOUS (2) (BEAKER) (test 1.6 mmol/L 0.5-2.2 hboa=4694) [id number] 01:05:00 Test Item Value Reference Range Comments PARTIAL THROMBOPLASTIN TIME (BEAKER) (test 80.4 seconds 22.5-36.0 olgd=099) POCT-GLUCOSE [id number] 21:23:00 Test Item Value Reference Range Comments POC-GLUCOSE METER (BEAKER) 252 mg/dL 70-110 TESTED AT [address] (test zsuc=6425) [facility] [address] TROPONIN [id number] 18:56:00 Test Item Value Reference Range Comments TROPONIN I (BEAKER) (test ydzx=302) 0.96 ng/mL 0.00-0.03 Troponin I (TnI) levels [...] failure, acidosis, acute neurological disease, and persistent tachyarrhythmia.[id number] 18:09:00 Test Item Value Reference Range Comments PARTIAL THROMBOPLASTIN TIME (BEAKER) (test 68.3 seconds 22.5-36.0 hgsz=262) POCT-GLUCOSE [id number] 17:28:00 Test Item Value Reference Range Comments POC-GLUCOSE METER (BEAKER) 290 mg/dL 70-110 TESTED AT [address] (test ewgp=2644) [place] [address] TROPONIN [id number] 12:30:00 Test Item Value Reference Range Comments TROPONIN I (BEAKER) (test ixnd=993) 0.06 ng/mL 0.00-0.03 Troponin I (TnI) levels [...] acidosis, acute neurological disease, and persistent tachyarrhythmia.POCT-GLUCOSE [id number] 11:44:00 Test Item Value Reference Range Comments POC-GLUCOSE METER (BEAKER) 238 mg/dL 70-110 TESTED AT [address] (test ftls=0585) [place] [address] RAD, CHEST, 1 VIEW, NON [id number] 10:30:00Reason for exam:->chest painShould this be performed [...] Verified Date/Time: 10/16/2018 10:30: 06 Reading Location: [address] Neuro Reading Room [id number] 09:54:00 Test Item Value Reference Range Comments PARTIAL THROMBOPLASTIN TIME (BEAKER) (test 64.0 seconds 22.5-36.0 ehxg=380) CBC W/PLT COUNT & AUTO [id number] 09:41:00 Test Item Value Reference Range Comments WHITE BLOOD CELL COUNT (BEAKER) (test exch=528) 8.6 K/ L 3.5-10.5 RED BLOOD CELL COUNT (BEAKER) (test sivq=227) 3.25 M/ L 3.93-5.22 HEMOGLOBIN (BEAKER) (test rhiu=774) 9.4 GM/DL 11.2-15.7 HEMATOCRIT (BEAKER) (test jyvo=076) 30.2 % 34.1-44.9 MEAN CORPUSCULAR VOLUME (BEAKER) (test ewau=609) 92.9 fL 79.4-94.8 MEAN CORPUSCULAR HEMOGLOBIN (BEAKER) (test 28.9 pg 25.6-32.2 mkth=010) MEAN CORPUSCULAR HEMOGLOBIN CONC (BEAKER) (test 31.1 GM/DL 32.2-35.5 fscy=363) RED CELL DISTRIBUTION WIDTH (BEAKER) (test 13.1 % 11.7-14.4 bszx=028) PLATELET COUNT (BEAKER) (test xxfj=345) 338 K/CU MM 150-450 MEAN PLATELET VOLUME (BEAKER) (test ljzl=841) 10.7 fL 9.4-12.3 NUCLEATED RED BLOOD CELLS (BEAKER) (test 0 /100 WBC 0-0 reva=148) NEUTROPHILS RELATIVE PERCENT (BEAKER) (test 58 % unjt=688) LYMPHOCYTES RELATIVE PERCENT (BEAKER) (test 25 % qkbq=002) MONOCYTES RELATIVE PERCENT (BEAKER) (test 13 % fyqw=483) EOSINOPHILS RELATIVE PERCENT (BEAKER) (test 3 % hscp=355) BASOPHILS RELATIVE PERCENT (BEAKER) (test 0 % qajf=917) NEUTROPHILS ABSOLUTE COUNT (BEAKER) (test 5.00 K/ L 1.56-6.13 reas=515) LYMPHOCYTES ABSOLUTE COUNT (BEAKER) (test 2.10 K/ L 1.18-3.74 tgpm=674) MONOCYTES ABSOLUTE COUNT (BEAKER) (test 1.12 K/ L 0.24-0.36 ewuq=944) EOSINOPHILS ABSOLUTE COUNT (BEAKER) (test 0.26 K/ L 0.04-0.36 oinc=671) BASOPHILS ABSOLUTE COUNT (BEAKER) (test 0.03 K/ L 0.01-0.08 csmu=920) IMMATURE GRANULOCYTES-RELATIVE PERCENT (BEAKER) 1 % 0-1 (test sciv=2751) [id number] 08:02:00 Test Item Value Reference Range Comments MAGNESIUM (BEAKER) (test 1.5 mg/dL 1.6-2.6 Specimen slightly hemolyzed pbgw=846) BASIC METABOLIC [id number] 08:02:00 Test Item Value Reference Range Comments SODIUM (BEAKER) (test 135 meq/L 136-145 plee=952) POTASSIUM (BEAKER) (test 4.0 meq/L 3.5-5.1 Specimen slightly znzm=985) hemolyzed CHLORIDE (BEAKER) (test 106 meq/L 98-107 nbnj=390) CO2 (BEAKER) (test 20 meq/L 22-29 xjqd=011) BLOOD UREA NITROGEN 16 mg/dL 7-21 (BEAKER) (test ovzx=140) CREATININE (BEAKER) (test 0.98 mg/dL 0.57-1.25 Specimen slightly wdjj=550) hemolyzed GLUCOSE RANDOM (BEAKER) 200 mg/dL 70-105 (test bwcl=866) CALCIUM (BEAKER) (test 8.5 mg/dL 8.4-10.2 nnlq=742) EGFR (BEAKER) (test 56 mL/min/1.73 sq m ESTIMATED GFR IS NOT lznq=0680) ACCURATE CREATININE CLEARANCE IN PREDICTING GLOMERULAR FILTRATION RATE. ESTIMATED GFR IS NOT APPLICABLE FOR DIALYSIS PATIENTS. POCT-GLUCOSE [id number] 06:35:00 Test Item Value Reference Range Comments POC-GLUCOSE METER (BEAKER) 225 mg/dL 70-[address] [facility] [address] [facility] (test ghpp=6081) [facility] [address] [id number] 00:04:00 Test Item Value Reference Range Comments PARTIAL THROMBOPLASTIN TIME (BEAKER) (test 72.5 seconds 22.5-36.0 szqw=228) 6 hours after starting heparin infusion and as indicated per sliding scalePOCT- GLUCOSE [id number] 23:27:00 Test Item Value Reference Range Comments POC-GLUCOSE METER (BEAKER) 367 mg/dL 70-[address] [facility] [address] [facility] (test uipr=9349) [facility] [address] POCT-GLUCOSE [id number] 22:50:00 Test Item Value Reference Range Comments POC-GLUCOSE METER (BEAKER) 364 mg/dL 70-110 TESTED AT [address] (test htyf=9382) [facility] [address] POCT-GLUCOSE [id number] 17:33:00 Test Item Value Reference Range Comments POC-GLUCOSE METER (BEAKER) 253 mg/dL 70-110 TESTED AT [address] (test rdus=3827) [facility] [address] B-TYPE NATRIURETIC FACTOR (BNP)2018-10-15 12:25:00 Test Item Value Reference Range Comments B-TYPE NATRIURETIC PEPTIDE (BEAKER) (test 756 pg/mL 0-100 nnwf=850) [id number] 12:14:00 Test Item Value Reference Range Comments PARTIAL THROMBOPLASTIN TIME (BEAKER) (test 39.3 seconds 22.5-36.0 maan=909) Prior to initiating heparinCBC (HEMOGRAM ONLY)2018-10-15 12:01:00 Test Item Value Reference Range Comments WHITE BLOOD CELL COUNT (BEAKER) (test iffn=592) 6.8 K/ L 3.5-10.5 RED BLOOD CELL COUNT (BEAKER) (test ocvp=580) 3.09 M/ L 3.93-5.22 HEMOGLOBIN (BEAKER) (test jgkr=335) 8.8 GM/DL 11.2-15.7 HEMATOCRIT (BEAKER) (test ioew=819) 28.5 % 34.1-44.9 MEAN CORPUSCULAR VOLUME (BEAKER) (test cugr=460) 92.2 fL 79.4-94.8 MEAN CORPUSCULAR HEMOGLOBIN (BEAKER) (test 28.5 pg 25.6-32.2 vftx=227) MEAN CORPUSCULAR HEMOGLOBIN CONC (BEAKER) (test 30.9 GM/DL 32.2-35.5 fyjz=486) RED CELL DISTRIBUTION WIDTH (BEAKER) (test 12.9 % 11.7-14.4 psca=532) PLATELET COUNT (BEAKER) (test fuvr=957) 323 K/CU MM 150-450 MEAN PLATELET VOLUME (BEAKER) (test qyvm=496) 10.8 fL 9.4-12.3 NUCLEATED RED BLOOD CELLS (BEAKER) (test 0 /100 WBC 0-0 kprk=322) POCT-GLUCOSE [id number] 11:59:00 Test Item Value Reference Range Comments POC-GLUCOSE METER (BEAKER) 217 mg/dL 70-[address] [facility] [address] [place] [address] (test hfcw=8048) [facility] [address] RAD, CHEST, 1 VIEW, NON [id number] 10:45:00Reason for exam:->SOBFINAL REPORT RAD, CHEST, 1 VIEW, NON DEPT INDICATION: SOB COMPARISON: October 14, 2018 FINDINGS: Portable frontal view of the chest. IMPRESSION: Support Lines: Stable positioningof the pacer apparatus. Lungs and pleura: No new consolidation or effusion. No pneumothorax.Heart and mediastinum : Stable contours. Additional findings: None. Signed: JR Leary Robert MDReport Verified Date/Time: 10/15/2018 10:45:40 Reading Location: [address] Neuro Reading Room CT, BRAIN, WITHOUT [id number] 08:26:00FINAL REPORT CT, BRAIN, WITHOUT CONTRAST INDICATION: [...] Verified Date/Time: 10/15/2018 08:26:34 Reading Location : [facility] C013V Neuro Reading Room [id number] 06:40:00 Test Item Value Reference Range Comments MAGNESIUM (BEAKER) (test gbid=709) 1.5 mg/dL 1.6-2.6 BASIC METABOLIC [id number] 06:40:00 Test Item Value Reference Range Comments SODIUM (BEAKER) (test 139 meq/L 136-145 pckg=421) POTASSIUM (BEAKER) (test 3.6 meq/L 3.5-5.1 owqd=453) CHLORIDE (BEAKER) (test 108 meq/L 98-107 ywxe=784) CO2 (BEAKER) (test 23 meq/L 22-29 hsqx=610) BLOOD UREA NITROGEN 11 mg/dL 7-21 (BEAKER) (test dpio=705) CREATININE (BEAKER) (test 0.76 mg/dL 0.57-1.25 psrt=179) GLUCOSE RANDOM (BEAKER) 126 mg/dL 70-105 (test jupc=256) CALCIUM (BEAKER) (test 8.3 mg/dL 8.4-10.2 xvbk=930) EGFR (BEAKER) (test 75 mL/min/1.73 sq m ESTIMATED GFR IS NOT kfdo=0939) ACCURATE CREATININE CLEARANCE IN PREDICTING GLOMERULAR FILTRATION RATE. ESTIMATED GFR IS NOT APPLICABLE FOR DIALYSIS PATIENTS. POCT-GLUCOSE [id number] 06:34:00 Test Item Value Reference Range Comments POC-GLUCOSE METER (BEAKER) 132 mg/dL 70-[address] [facility] [address] [facility] (test coiu=3254) [facility] [address] POCT-GLUCOSE [id number] 23:30:00 Test Item Value Reference Range Comments POC-GLUCOSE METER (BEAKER) 128 mg/dL 70-[address] [facility] [address] [facility] (test jyqr=5934) [facility] [address] RAD, CHEST, 1 VIEW, NON [id number] 19:39:00Reason for exam:->s/p PPMShould this be performed [...] MDReport Verified Date/Time: 10/14/2018 19:39:43 Reading Location: [facility] [id number] Consult Reading Room POCT-GLUCOSE [id number] 17:14:00 Test Item Value Reference Range Comments POC-GLUCOSE METER (BEAKER) 85 mg/dL 70-110 TESTED AT [address] (test fniy=8345) [place] [address] POCT-GLUCOSE [id number] 16:55:00 Test Item Value Reference Range Comments POC-GLUCOSE METER (BEAKER) 74 mg/dL 70-110 TESTED AT [address] (test oxeu=2734) [place] [address] POCT-GLUCOSE [id number] 11:29:00 Test Item Value Reference Range Comments POC-GLUCOSE METER (BEAKER) 74 mg/dL 70-110 TESTED AT [address] (test qjem=1057) [place] [id number] BLOOD [id number] 08:00:00 Test Item Value Reference Range Comments CULTURE (BEAKER) (test aptr=7958) No growth in 5 days BLOOD [id number] 08:00:00 Test Item Value Reference Range Comments CULTURE (BEAKER) (test krav=6664) No growth in 5 days [id number] 07:19:00 Test Item Value Reference Range Comments MAGNESIUM (BEAKER) (test smon=352) 1.9 mg/dL 1.6-2.6 BASIC METABOLIC [id number] 07:19:00 Test Item Value Reference Range Comments SODIUM (BEAKER) (test 138 meq/L 136-145 fynv=026) POTASSIUM (BEAKER) (test 3.3 meq/L 3.5-5.1 cjal=245) CHLORIDE (BEAKER) (test 111 meq/L 98-107 acer=301) CO2 (BEAKER) (test 22 meq/L 22-29 phjl=470) BLOOD UREA NITROGEN 12 mg/dL 7-21 (BEAKER) (test lgdr=179) CREATININE (BEAKER) (test 0.75 mg/dL 0.57-1.25 dulw=369) GLUCOSE RANDOM (BEAKER) 75 mg/dL 70-105 (test xxkh=282) CALCIUM (BEAKER) (test 8.2 mg/dL 8.4-10.2 ticl=186) EGFR (BEAKER) (test 76 mL/min/1.73 sq m ESTIMATED GFR IS NOT nffz=5224) ACCURATE CREATININE CLEARANCE IN PREDICTING GLOMERULAR FILTRATION RATE. ESTIMATED GFR IS NOT APPLICABLE FOR DIALYSIS PATIENTS. POCT-GLUCOSE [id number] 05:20:00 Test Item Value Reference Range Comments POC-GLUCOSE METER (BEAKER) 85 mg/dL 70-110 TESTED AT [address] (test zksz=1034) [place] [id number] POCT-GLUCOSE [id number] 23:53:00 Test Item Value Reference Range Comments POC-GLUCOSE METER (BEAKER) 106 mg/dL 70-110 TESTED AT [address] (test lncx=4252) [place] [id number] POCT-GLUCOSE [id number] 12:27:00 Test Item Value Reference Range Comments POC-GLUCOSE METER (BEAKER) 207 mg/dL 70-110 TESTED AT [address] (test nbrh=1517) [facility] [address] RAD, CHEST, 1 VIEW, NON [id number] 11:59:00Reason for exam:->pacer positionShould this be performed [...] Reading Location: [facility] Reading Room [id number] 10:00:00 Test Item Value Reference Range Comments MAGNESIUM (BEAKER) (test fwzj=740) 1.7 mg/dL 1.6-2.6 POCT-GLUCOSE [id number] 06:02:00 Test Item Value Reference Range Comments POC-GLUCOSE METER (BEAKER) 237 mg/dL 70-[address] [facility] [address] [facility] (test hsqf=4382) [facility] [address] BASIC METABOLIC [id number] 04:26:00 Test Item Value Reference Range Comments SODIUM (BEAKER) (test 143 meq/L 136-145 yiak=589) POTASSIUM (BEAKER) (test 3.6 meq/L 3.5-5.1 plly=384) CHLORIDE (BEAKER) (test 116 meq/L 98-107 mjuk=009) CO2 (BEAKER) (test 20 meq/L 22-29 gxdz=493) BLOOD UREA NITROGEN 14 mg/dL 7-21 (BEAKER) (test xyju=883) CREATININE (BEAKER) (test 0.85 mg/dL 0.57-1.25 cyvr=768) GLUCOSE RANDOM (BEAKER) 244 mg/dL 70-105 (test diqu=503) CALCIUM (BEAKER) (test 8.3 mg/dL 8.4-10.2 plwj=944) EGFR (BEAKER) (test 66 mL/min/1.73 sq m ESTIMATED GFR IS NOT mzfs=5688) ACCURATE CREATININE CLEARANCE IN PREDICTING GLOMERULAR FILTRATION RATE. ESTIMATED GFR IS NOT APPLICABLE FOR DIALYSIS PATIENTS. CBC W/PLT COUNT & AUTO [id number] 03:49:00 Test Item Value Reference Range Comments WHITE BLOOD CELL COUNT (BEAKER) (test suep=944) 6.5 K/ L 3.5-10.5 RED BLOOD CELL COUNT (BEAKER) (test bfpq=647) 3.07 M/ L 3.93-5.22 HEMOGLOBIN (BEAKER) (test nknp=925) 8.9 GM/DL 11.2-15.7 HEMATOCRIT (BEAKER) (test cpvu=985) 29.1 % 34.1-44.9 MEAN CORPUSCULAR VOLUME (BEAKER) (test zwfs=656) 94.8 fL 79.4-94.8 MEAN CORPUSCULAR HEMOGLOBIN (BEAKER) (test 29.0 pg 25.6-32.2 jzfc=322) MEAN CORPUSCULAR HEMOGLOBIN CONC (BEAKER) (test 30.6 GM/DL 32.2-35.5 vjzo=576) RED CELL DISTRIBUTION WIDTH (BEAKER) (test 13.1 % 11.7-14.4 gggy=479) PLATELET COUNT (BEAKER) (test cxjf=899) 259 K/CU MM 150-450 MEAN PLATELET VOLUME (BEAKER) (test mbvi=873) 11.0 fL 9.4-12.3 NUCLEATED RED BLOOD CELLS (BEAKER) (test 0 /100 WBC 0-0 vuso=098) NEUTROPHILS RELATIVE PERCENT (BEAKER) (test 69 % sxid=380) LYMPHOCYTES RELATIVE PERCENT (BEAKER) (test 14 % rblx=787) MONOCYTES RELATIVE PERCENT (BEAKER) (test 13 % emyj=087) EOSINOPHILS RELATIVE PERCENT (BEAKER) (test 2 % tyqi=469) BASOPHILS RELATIVE PERCENT (BEAKER) (test 1 % ebzx=010) NEUTROPHILS ABSOLUTE COUNT (BEAKER) (test 4.46 K/ L 1.56-6.13 cbbv=406) LYMPHOCYTES ABSOLUTE COUNT (BEAKER) (test 0.93 K/ L 1.18-3.74 nczu=948) MONOCYTES ABSOLUTE COUNT (BEAKER) (test 0.83 K/ L 0.24-0.36 ucoc=331) EOSINOPHILS ABSOLUTE COUNT (BEAKER) (test 0.14 K/ L 0.04-0.36 pwof=962) BASOPHILS ABSOLUTE COUNT (BEAKER) (test 0.05 K/ L 0.01-0.08 gacd=681) IMMATURE GRANULOCYTES-RELATIVE PERCENT (BEAKER) 1 % 0-1 (test pkps=9775) POCT-GLUCOSE [id number] 23:58:00 Test Item Value Reference Range Comments POC-GLUCOSE METER (BEAKER) 329 mg/dL 70-[address] [facility] [address] [facility] (test ytfo=6510) [facility] [address] POCT-GLUCOSE [id number] 18:14:00 Test Item Value Reference Range Comments POC-GLUCOSE METER (BEAKER) 335 mg/dL 70-110 Notified LLUVIA VERA/TESTED AT [facility] (test qvty=0959) [address] [place] [address] POCT-GLUCOSE [id number] 11:54:00 Test Item Value Reference Range Comments POC-GLUCOSE METER (BEAKER) 232 mg/dL 70-110 TESTED AT [address] (test hrhr=5949) [facility] [address] RAD, CHEST, 1 VIEW, NON [id number] 09:00:00Reason for exam:->Transvenous pacemakerShould this be performed at the bedside?->YesFINAL REPORT CLINICAL HISTORY: Transvenous pacemaker TECHNIQUE: 1 view of thechest. COMPARISON: 10/11/2018 IMPRESSION: The tip of the transvenous pacer lead has been retracted and now terminates near the cavoatrial junction alongside the left jugular line. There are no focal infiltrates or effusions. The cardiomediastinal silhouette is magnified by technique. Signed: [facility] Robbins [facility] Verified Date/Time: 10/12/2018 09:00:59 Reading Location: [facility] Radiology Reading Room POCT-GLUCOSE [id number] 06:03:00 Test Item Value Reference Range Comments POC-GLUCOSE METER (BEAKER) 208 mg/dL 70-110 TESTED AT [address] (test meot=7745) [facility] [address] BASIC METABOLIC [id number] 05:10:00 Test Item Value Reference Range Comments SODIUM (BEAKER) (test 142 meq/L 136-145 nkba=752) POTASSIUM (BEAKER) (test 3.9 meq/L 3.5-5.1 bgqj=859) CHLORIDE (BEAKER) (test 116 meq/L 98-107 opoz=067) CO2 (BEAKER) (test 17 meq/L 22-29 cmem=408) BLOOD UREA NITROGEN 11 mg/dL 7-21 (BEAKER) (test ttlz=044) CREATININE (BEAKER) (test 0.79 mg/dL 0.57-1.25 thzs=889) GLUCOSE RANDOM (BEAKER) 175 mg/dL 70-105 (test ujvi=584) CALCIUM (BEAKER) (test 7.9 mg/dL 8.4-10.2 dtzy=519) EGFR (BEAKER) (test 71 mL/min/1.73 sq m ESTIMATED GFR IS NOT gyhr=9581) ACCURATE CREATININE CLEARANCE IN PREDICTING GLOMERULAR FILTRATION RATE. ESTIMATED GFR IS NOT APPLICABLE FOR DIALYSIS PATIENTS. [id number] 04:57:00 Test Item Value Reference Range Comments MAGNESIUM (BEAKER) (test rjle=180) 1.9 mg/dL 1.6-2.6 CBC W/PLT COUNT & AUTO [id number] 04:34:00 Test Item Value Reference Range Comments WHITE BLOOD CELL COUNT (BEAKER) (test vido=621) 7.8 K/ L 3.5-10.5 RED BLOOD CELL COUNT (BEAKER) (test evih=311) 3.18 M/ L 3.93-5.22 HEMOGLOBIN (BEAKER) (test mrxh=926) 9.0 GM/DL 11.2-15.7 HEMATOCRIT (BEAKER) (test dovi=234) 30.4 % 34.1-44.9 MEAN CORPUSCULAR VOLUME (BEAKER) (test wguz=152) 95.6 fL 79.4-94.8 MEAN CORPUSCULAR HEMOGLOBIN (BEAKER) (test 28.3 pg 25.6-32.2 qrpo=394) MEAN CORPUSCULAR HEMOGLOBIN CONC (BEAKER) (test 29.6 GM/DL 32.2-35.5 xugi=401) RED CELL DISTRIBUTION WIDTH (BEAKER) (test 13.2 % 11.7-14.4 lvwb=188) PLATELET COUNT (BEAKER) (test nkxu=046) 208 K/CU MM 150-450 MEAN PLATELET VOLUME (BEAKER) (test dmeb=642) 10.8 fL 9.4-12.3 NUCLEATED RED BLOOD CELLS (BEAKER) (test 0 /100 WBC 0-0 cugk=465) NEUTROPHILS RELATIVE PERCENT (BEAKER) (test 73 % qppi=103) LYMPHOCYTES RELATIVE PERCENT (BEAKER) (test 12 % tsif=030) MONOCYTES RELATIVE PERCENT (BEAKER) (test 12 % oqrn=734) EOSINOPHILS RELATIVE PERCENT (BEAKER) (test 1 % zylh=248) BASOPHILS RELATIVE PERCENT (BEAKER) (test 1 % xlxf=575) NEUTROPHILS ABSOLUTE COUNT (BEAKER) (test 5.69 K/ L 1.56-6.13 ogye=960) LYMPHOCYTES ABSOLUTE COUNT (BEAKER) (test 0.95 K/ L 1.18-3.74 smvg=598) MONOCYTES ABSOLUTE COUNT (BEAKER) (test 0.93 K/ L 0.24-0.36 bokp=956) EOSINOPHILS ABSOLUTE COUNT (BEAKER) (test 0.09 K/ L 0.04-0.36 znjh=998) BASOPHILS ABSOLUTE COUNT (BEAKER) (test 0.06 K/ L 0.01-0.08 xqyn=067) IMMATURE GRANULOCYTES-RELATIVE PERCENT (BEAKER) 1 % 0-1 (test qazf=4111) POCT-GLUCOSE [id number] 23:54:00 Test Item Value Reference Range Comments POC-GLUCOSE METER (BEAKER) 212 mg/dL 70-110 TESTED AT [address] (test rnyi=3221) [place] [address] POCT-GLUCOSE [id number] 17:48:00 Test Item Value Reference Range Comments POC-GLUCOSE METER (BEAKER) 239 mg/dL 70-110 TESTED AT [address] (test yfqk=8916) [place] [id number] SPUTUM CULTURE + GRAM [id number] 14:13:00 Test Item Value Reference Range Comments CULTURE (BEAKER) (test cimx=9903) No growth GRAM STAIN RESULT (BEAKER) (test <1+ WBCs qygn=3464) GRAM STAIN RESULT (BEAKER) (test 0-5 epithelial cells yubx=75929) GRAM STAIN RESULT (BEAKER) (test No organisms seen rgqv=68064) [id number] 13:13:00 Test Item Value Reference Range Comments CORTISOL, TOTAL (BEAKER) (test mupp=4818) 14.3 ug/dL 3.7-19.4 [id number] 12:49:00 Test Item Value Reference Range Comments POTASSIUM (BEAKER) (test gjeo=584) 4.0 meq/L 3.5-5.1 [id number] 12:49:00 Test Item Value Reference Range Comments MAGNESIUM (BEAKER) (test zoku=884) 2.5 mg/dL 1.6-2.6 POCT-GLUCOSE [id number] 11:22:00 Test Item Value Reference Range Comments POC-GLUCOSE METER (BEAKER) 182 mg/dL 70-[address] [facility] [address] (test wvnp=5083) [place] [address] RAD, CHEST, 1 VIEW, NON [id number] 09:51:00Reason for exam:->Temp pacemaker position.Should this be [...] Verified Date/Time: 10/11/2018 09:51: 15 Reading Location: [facility]iology Reading Room BASIC METABOLIC [id number] 06:48:00 Test Item Value Reference Range Comments SODIUM (BEAKER) (test 140 meq/L 136-145 yynq=489) POTASSIUM (BEAKER) (test 3.7 meq/L 3.5-5.1 sxjg=994) CHLORIDE (BEAKER) (test 117 meq/L 98-107 naff=859) CO2 (BEAKER) (test 16 meq/L 22-29 cmul=922) BLOOD UREA NITROGEN 6 mg/dL 7-21 (BEAKER) (test cftv=607) CREATININE (BEAKER) (test 0.74 mg/dL 0.57-1.25 umfs=360) GLUCOSE RANDOM (BEAKER) 145 mg/dL 70-105 (test acly=065) CALCIUM (BEAKER) (test 7.4 mg/dL 8.4-10.2 wlby=099) EGFR (BEAKER) (test 77 mL/min/1.73 sq m ESTIMATED GFR IS NOT aykq=9643) ACCURATE CREATININE CLEARANCE IN PREDICTING GLOMERULAR FILTRATION RATE. ESTIMATED GFR IS NOT APPLICABLE FOR DIALYSIS PATIENTS. [id number] 06:44:00 Test Item Value Reference Range Comments MAGNESIUM (BEAKER) (test yhmv=881) 2.2 mg/dL 1.6-2.6 POCT-GLUCOSE [id number] 06:10:00 Test Item Value Reference Range Comments POC-GLUCOSE METER (BEAKER) 166 mg/dL 70-[address] [facility] [address] [facility] (test chsd=5000) [facility] [address] BLOOD GAS, [id number] 05:35:00 Test Item Value Reference Range Comments PH ARTERIAL (BEAKER) (test ruqh=793) 7.44 7.35-7.45 PCO2 ARTERIAL (BEAKER) (test bdft=225) 28 mmHg 35-45 PO2 ARTERIAL (BEAKER) (test evrj=676) 197 mmHg 80-90 O2 SATURATION ARTERIAL (BEAKER) (test szip=460) 99.4 % 96.0-97.0 HCO3 ARTERIAL (BEAKER) (test ycvm=507) 19 mmol/L 21-29 BASE EXCESS ARTERIAL (BEAKER) (test pdjk=142) -4.5 mmol/L -2.0-3.0 PATIENT TEMPERATURE (BEAKER) (test svmf=3474) 37.6 C FIO2 (BEAKER) (test dozp=8934) 40.0 % CBC W/PLT COUNT & AUTO [id number] 05:28:00 Test Item Value Reference Range Comments WHITE BLOOD CELL COUNT (BEAKER) (test aazg=488) 8.1 K/ L 3.5-10.5 RED BLOOD CELL COUNT (BEAKER) (test cuud=904) 3.19 M/ L 3.93-5.22 HEMOGLOBIN (BEAKER) (test odox=195) 9.2 GM/DL 11.2-15.7 HEMATOCRIT (BEAKER) (test nhip=962) 30.2 % 34.1-44.9 MEAN CORPUSCULAR VOLUME (BEAKER) (test ocsr=101) 94.7 fL 79.4-94.8 MEAN CORPUSCULAR HEMOGLOBIN (BEAKER) (test 28.8 pg 25.6-32.2 bzkx=566) MEAN CORPUSCULAR HEMOGLOBIN CONC (BEAKER) (test 30.5 GM/DL 32.2-35.5 kczq=342) RED CELL DISTRIBUTION WIDTH (BEAKER) (test 13.2 % 11.7-14.4 zbnj=687) PLATELET COUNT (BEAKER) (test lncs=940) 246 K/CU MM 150-450 MEAN PLATELET VOLUME (BEAKER) (test qwmd=459) 10.8 fL 9.4-12.3 NUCLEATED RED BLOOD CELLS (BEAKER) (test 0 /100 WBC 0-0 exgd=027) NEUTROPHILS RELATIVE PERCENT (BEAKER) (test 78 % xweb=293) LYMPHOCYTES RELATIVE PERCENT (BEAKER) (test 11 % iyru=807) MONOCYTES RELATIVE PERCENT (BEAKER) (test 11 % mkqc=731) EOSINOPHILS RELATIVE PERCENT (BEAKER) (test 0 % fccd=917) BASOPHILS RELATIVE PERCENT (BEAKER) (test 0 % aifr=853) NEUTROPHILS ABSOLUTE COUNT (BEAKER) (test 6.25 K/ L 1.56-6.13 wknb=894) LYMPHOCYTES ABSOLUTE COUNT (BEAKER) (test 0.87 K/ L 1.18-3.74 bkow=605) MONOCYTES ABSOLUTE COUNT (BEAKER) (test 0.85 K/ L 0.24-0.36 imcw=084) EOSINOPHILS ABSOLUTE COUNT (BEAKER) (test 0.01 K/ L 0.04-0.36 rtcv=309) BASOPHILS ABSOLUTE COUNT (BEAKER) (test 0.03 K/ L 0.01-0.08 ribc=484) IMMATURE GRANULOCYTES-RELATIVE PERCENT (BEAKER) 1 % 0-1 (test wbol=1003) CORTISOL,60 [id number] 02:44:00 Test Item Value Reference Range Comments CORTISOL BASELINE NETWORKED (BEAKER) (test 14.9 mcg/dL ymfh=4711) CORTISOL 30 MINUTE NETWORKED (BEAKER) (test 23.6 mcg/dL skoa=4918) CORTISOL, 60 MINUTE (BEAKER) (test ramb=3604) 32.9 ug/dL ACTH STIMULATION TEST INTERPRETATION GUIDELINES(Synonyms: [...] study by Natasha et al (HARRIETT 2000,283( 8):1697-45), the ACTH Stimulation Test provides important prognostic [...] serum cortisollevel 60 minutes after cosyntropin administration.POCT-GLUCOSE [id number] 00:24:00 Test Item Value Reference Range Comments POC-GLUCOSE METER (BEAKER) 142 mg/dL 70-[address] [facility] [address] (test umub=6269) [facility] [address] [id number] 22:42:00 Test Item Value Reference Range Comments MAGNESIUM (BEAKER) (test gxuz=491) 2.4 mg/dL 1.6-2.6 CORTISOL,30 [id number] 22:42:00 Test Item Value Reference Range Comments CORTISOL BASELINE NETWORKED (BEAKER) (test 14.9 mcg/dL sbdi=3128) CORTISOL, 30 MINUTE (BEAKER) (test gehi=3549) 23.6 ug/dL ACTH STIMULATION TEST INTERPRETATION GUIDELINES(Synonyms: [...] Draw serum cortisollevel 60 minutes after cosyntropin administration.CORTISOL,[id number] 22:32:00 Test Item Value Reference Range Comments CORTISOL, BASELINE (SAMI) (test eaac=9326) 14.9 ug/dL ACTH STIMULATION TEST INTERPRETATION GUIDELINES(Synonyms: [...] study by Natasha et al (HARRIETT 2000,283( 8):8754-45), the ACTH Stimulation Test provides important prognostic [...] Draw serum cortisollevel 60 minutes after cosyntropin administration.[id number] 22:30:00 Test Item Value Reference Range Comments CORTISOL, TOTAL (BEAKER) (test spzc=3558) 15.1 ug/dL 3.7-19.4 RAD, CHEST, 1 VIEW, NON [id number] 20:50:00Reason for exam:->s/p temp wireShould this be performed at the bedside?->YesFINAL REPORT CLINICAL INDICATION: Support lines. Comparison: Same dated Please note that at the time of the original dictation, the left-sided marker was placed on the right side of the patient. The chief radiology the department was notified. This may be [...] [place] Verified Date/Time: 10/10/2018 20:50:10 Reading Location: [address] Reading Room [id number] 15:13:00 Test Item Value Reference Range Comments MAGNESIUM (BEAKER) (test lbus=030) 1.7 mg/dL 1.6-2.6 POCT-GLUCOSE [id number] 12:43:00 Test Item Value Reference Range Comments POC-GLUCOSE METER (BEAKER) 175 mg/dL 70-110 TESTED AT [address] (test psbk=3037) [place] [address] [id number] 09:00:00 Test Item Value Reference Range Comments MAGNESIUM (BEAKER) (test 1.1 mg/dL 1.6-2.6 Specimen slightly hemolyzed xnqn=836) BLOOD GAS, [id number] 08:37:00 Test Item Value Reference Range Comments PH ARTERIAL (BEAKER) (test mcgm=228) 7.39 7.35-7.45 PCO2 ARTERIAL (BEAKER) (test edbz=413) 29 mmHg 35-45 PO2 ARTERIAL (BEAKER) (test nheq=165) 179 mmHg 80-90 O2 SATURATION ARTERIAL (BEAKER) (test kmjr=452) 99.2 % 96.0-97.0 HCO3 ARTERIAL (BEAKER) (test uohk=308) 17 mmol/L 21-29 BASE EXCESS ARTERIAL (BEAKER) (test gvdy=546) -6.6 mmol/L -2.0-3.0 PATIENT TEMPERATURE (BEAKER) (test bsiw=0128) 38.0 C FIO2 (BEAKER) (test sljf=1940) 40.0 % POCT-GLUCOSE [id number] 06:48:00 Test Item Value Reference Range Comments POC-GLUCOSE METER (BEAKER) 230 mg/dL 70-110 TESTED AT [address] (test gszn=4412) [place] [id number] CT, BRAIN, WITHOUT [id number] 04:06:00FINAL REPORT CT Head without contrast CLINICAL [...] 10/10/2018 04:06:13 RAD, CHEST, 1 VIEW, NON [id number] 03:46:00Reason for exam:->transvenous pacer placementShould this be [...] Verified Date /Time: 10/10/2018 03:46:49 Reading Location: [address] Reading Room TROPONIN [id number] 01:06:00 Test Item Value Reference Range Comments TROPONIN I (BEAKER) (test nmod=396) 0.03 ng/mL 0.00-0.03 Troponin I (TnI) levels [...] acute neurological disease, and persistent tachyarrhythmia.BASIC METABOLIC [id number] 01:05:00 Test Item Value Reference Range Comments SODIUM (BEAKER) (test 140 meq/L 136-145 tkld=459) POTASSIUM (BEAKER) (test 4.1 meq/L 3.5-5.1 eumy=605) CHLORIDE (BEAKER) (test 118 meq/L 98-107 rrub=439) CO2 (BEAKER) (test 13 meq/L 22-29 okli=376) BLOOD UREA NITROGEN 9 mg/dL 7-21 (BEAKER) (test gwtz=246) CREATININE (BEAKER) (test 1.01 mg/dL 0.57-1.25 pqdv=303) GLUCOSE RANDOM (BEAKER) 244 mg/dL 70-105 (test yznc=057) CALCIUM (BEAKER) (test 7.0 mg/dL 8.4-10.2 kxjy=927) EGFR (BEAKER) (test 54 mL/min/1.73 sq m ESTIMATED GFR IS NOT akfo=0607) ACCURATE CREATININE CLEARANCE IN PREDICTING GLOMERULAR FILTRATION RATE. ESTIMATED GFR IS NOT APPLICABLE FOR DIALYSIS PATIENTS. CBC W/PLT COUNT & AUTO [id number] 01:00:00 Test Item Value Reference Range Comments WHITE BLOOD CELL COUNT (BEAKER) (test sjwu=461) 12.2 K/ L 3.5-10.5 RED BLOOD CELL COUNT (BEAKER) (test plpn=118) 3.59 M/ L 3.93-5.22 HEMOGLOBIN (BEAKER) (test brjc=779) 10.5 GM/DL 11.2-15.7 HEMATOCRIT (BEAKER) (test cwmp=958) 33.6 % 34.1-44.9 MEAN CORPUSCULAR VOLUME (BEAKER) (test bsaz=123) 93.6 fL 79.4-94.8 MEAN CORPUSCULAR HEMOGLOBIN (BEAKER) (test 29.2 pg 25.6-32.2 hsuq=585) MEAN CORPUSCULAR HEMOGLOBIN CONC (BEAKER) (test 31.3 GM/DL 32.2-35.5 eufc=281) RED CELL DISTRIBUTION WIDTH (BEAKER) (test 13.2 % 11.7-14.4 qypj=485) PLATELET COUNT (BEAKER) (test dskw=215) 375 K/CU MM 150-450 MEAN PLATELET VOLUME (BEAKER) (test mmtx=605) 10.7 fL 9.4-12.3 NUCLEATED RED BLOOD CELLS (BEAKER) (test 0 /100 WBC 0-0 wnuz=367) NEUTROPHILS RELATIVE PERCENT (BEAKER) (test 74 % mfcn=031) LYMPHOCYTES RELATIVE PERCENT (BEAKER) (test 13 % gbli=306) MONOCYTES RELATIVE PERCENT (BEAKER) (test 12 % encz=700) EOSINOPHILS RELATIVE PERCENT (BEAKER) (test 0 % fdag=023) BASOPHILS RELATIVE PERCENT (BEAKER) (test 1 % uziw=603) NEUTROPHILS ABSOLUTE COUNT (BEAKER) (test 8.97 K/ L 1.56-6.13 xvyo=586) LYMPHOCYTES ABSOLUTE COUNT (BEAKER) (test 1.57 K/ L 1.18-3.74 uxei=191) MONOCYTES ABSOLUTE COUNT (BEAKER) (test 1.50 K/ L 0.24-0.36 tkev=921) EOSINOPHILS ABSOLUTE COUNT (BEAKER) (test 0.01 K/ L 0.04-0.36 ucin=101) BASOPHILS ABSOLUTE COUNT (BEAKER) (test 0.06 K/ L 0.01-0.08 tibu=813) IMMATURE GRANULOCYTES-RELATIVE PERCENT (BEAKER) 1 % 0-1 (test rfve=7461) [id number] 00:50:00 Test Item Value Reference Range Comments PROTIME (BEAKER) (test hkpw=615) 16.0 seconds 11.9-14.2 INR (BEAKER) (test farb=230) 1.4 <=5.9 PARTIAL THROMBOPLASTIN TIME (BEAKER) (test 24.9 seconds 22.5-36.0 atou=287) Effective 09/14/2018: PT Reference Range ChangeNew: 11.9-14.2 Previous: 11.7- 14.7RECOMMENDED COUMADIN/WARFARIN INR THERAPY RANGESSTANDARD DOSE: 2.0-3.0 Includes: PROPHYLAXIS for venous thrombosis, systemic embolization; TREATMENT for venous thrombosis and/or pulmonary embolus.HIGH RISK: Target INR is2.5-3.5 for patients wiht mechanical heart valves.POCT-GLUCOSE [id number] 00:30:00 Test Item Value Reference Range Comments POC-GLUCOSE METER (ROCAELAKER) 259 mg/dL 70-110 TESTED AT [address] (test jsoz=7266) [place] [address] POCT-GLUCOSE [id number] 18:39:00 Test Item Value Reference Range Comments POC-GLUCOSE METER (ROCAELAKER) 224 mg/dL 70-110 TESTED AT [address] (test bafb=2772) [place] [address] TROPONIN [id number] 18:10:00 Test Item Value Reference Range Comments TROPONIN I (BEAKER) (test dmui=867) 0.04 ng/mL 0.00-0.03 Troponin I (TnI) levels [...] failure, acidosis, acute neurological disease, and persistent tachyarrhythmia.[id number] 16:25:00 Test Item Value Reference Range Comments POTASSIUM (BEAKER) (test tath=473) 4.4 meq/L 3.5-5.1 Check Serum Potassium level 2 hours after oral potassium replacement completed or 30 min after intravenous potassium replacement.CT, BRAIN, WITHOUT [id number] 15:45:00FINAL REPORT CT Head without contrast CLINICAL [...] MDReport Verified Date/Time: 2018 15:45:17 Reading Location: [address] Neuro Reading Room [id number] 13:08:00 Test Item Value Reference Range Comments RPR SCREEN (Incisive SurgicalAKER) (test ozxf=504) Nonreactive Nonreactive [id number] 13:04:00 Test Item Value Reference Range Comments PARTIAL THROMBOPLASTIN TIME (BEAKER) (test 27.9 seconds 22.5-36.0 okyz=965) PROTHROMBIN TIME/[id number] 13:03:00 Test Item Value Reference Range Comments PROTIME (BEAKER) (test rabq=413) 15.7 seconds 11.9-14.2 INR (BEAKER) (test dqcr=050) 1.3 <=5.9 Effective 09/14/2018: PT Reference Range ChangeNew: 11.9-14.2 Previous: 11.7- 14.7RECOMMENDED COUMADIN/WARFARIN INR THERAPY RANGESSTANDARD DOSE: 2.0-3.0 Includes: PROPHYLAXIS for venous thrombosis, systemic embolization; TREATMENT for venous thrombosis and/or pulmonary embolus.HIGH RISK: Target INR is2.5-3.5 for patients wiht mechanical heart valves.POCT-GLUCOSE [id number] 11:40:00 Test Item Value Reference Range Comments POC-GLUCOSE METER (BEAKER) 127 mg/dL 70-110 TESTED AT [address] (test omol=8609) [facility] [address] POCT-GLUCOSE [id number] 09:45:00 Test Item Value Reference Range Comments POC-GLUCOSE METER (BEAKER) 171 mg/dL 70-110 TESTED AT [address] (test eijq=4040) [place] [id number] TROPONIN [id number] 09:26:00 Test Item Value Reference Range Comments TROPONIN I (BEAKER) (test cpfw=515) 0.05 ng/mL 0.00-0.03 Troponin I (TnI) levels [...] acute neurological disease, and persistent tachyarrhythmia.BLOOD GAS, [id number] 08:56:00 Test Item Value Reference Range Comments PH ARTERIAL (BEAKER) (test jypw=515) 7.37 7.35-7.45 PCO2 ARTERIAL (BEAKER) (test xtou=861) 34 mmHg 35-45 PO2 ARTERIAL (BEAKER) (test tcbp=958) 183 mmHg 80-90 O2 SATURATION ARTERIAL (BEAKER) (test ivlp=777) 99.2 % 96.0-97.0 HCO3 ARTERIAL (BEAKER) (test ahte=701) 19 mmol/L 21-29 BASE EXCESS ARTERIAL (BEAKER) (test ejva=717) -5.1 mmol/L -2.0-3.0 PATIENT TEMPERATURE (BEAKER) (test slwg=7517) 37.0 C FIO2 (BEAKER) (test cimj=4666) 40.0 % HEMOGLOBIN [id number] 08:31:00 Test Item Value Reference Range Comments HEMOGLOBIN A1C (BEAKER) (test vpno=167) 15.0 % 4.3-6.1 POCT-GLUCOSE [id number] 08:27:00 Test Item Value Reference Range Comments POC-GLUCOSE METER (BEAKER) 205 mg/dL 70-110 TESTED AT [address] (test epzs=6414) [facility] [address] POCT-GLUCOSE [id number] 07:55:00 Test Item Value Reference Range Comments POC-GLUCOSE METER (BEAKER) 198 mg/dL 70-110 TESTED AT [address] (test tczd=9464) [facility] [address] POCT-GLUCOSE [id number] 06:17:00 Test Item Value Reference Range Comments POC-GLUCOSE METER (BEAKER) 166 mg/dL 70-110 TESTED AT [address] (test ffhf=1911) [facility] [address] POCT-GLUCOSE [id number] 06:17:00 Test Item Value Reference Range Comments POC-GLUCOSE METER (BEAKER) 164 mg/dL 70-110 TESTED AT [address] (test jdeo=4224) [facility] [address] POCT-GLUCOSE [id number] 06:17:00 Test Item Value Reference Range Comments POC-GLUCOSE METER (BEAKER) 177 mg/dL 70-110 TESTED AT [address] (test crqu=0082) [facility] [address] POCT-GLUCOSE [id number] 06:17:00 Test Item Value Reference Range Comments POC-GLUCOSE METER (BEAKER) 257 mg/dL 70-110 TESTED AT [address] (test ldza=5604) [facility] [address] VITAMIN B12 AND [id number] 05:00:00 Test Item Value Reference Range Comments VITAMIN B12 (BEAKER) (test udtf=551) 404 pg/mL 213-816 FOLATE (BEAKER) (test vzzr=076) 7.8 ng/mL >=7.0 TSH/FREE T4 IF [id number] 03:12:00 Test Item Value Reference Range Comments THYROID STIMULATING HORMONE (BEAKER) (test 2.05 uIU/mL 0.35-4.94 pvqt=787) [id number] 02:43:00 Test Item Value Reference Range Comments PROCALCITONIN (BEAKER) (test tvnl=2531) < ng/mL <0.05 SEPSIS RISK (ng/mL)Low: 0.05-0.50Intermediate: 0.51-2.00High: & gt;=2.01URINALYSIS W/ REFLEX URINE [id number] 02:34:00 Test Item Value Reference Range Comments COLOR (BEAKER) (test xljt=915) Colorless CLARITY (BEAKER) (test otgx=075) Clear SPECIFIC GRAVITY UA (BEAKER) (test vqkc=210) 1.035 1.001-1.035 PH UA (BEAKER) (test lcxp=108) 5.5 5.0-8.0 PROTEIN UA (BEAKER) (test egpi=842) 50 mg/dL Negative GLUCOSE UA (BEAKER) (test tzao=603) >1000 mg/dL Negative KETONES UA (BEAKER) (test eemn=756) Negative Negative BILIRUBIN UA (BEAKER) (test kvbf=176) Negative Negative BLOOD UA (BEAKER) (test qfqr=670) Trace Negative NITRITE UA (BEAKER) (test adsa=571) Negative Negative LEUKOCYTE ESTERASE UA (BEAKER) (test tnak=373) Small Negative UROBILINOGEN UA (BEAKER) (test gaca=130) 0.2 mg/dL 0.2-1.0 RBC UA (BEAKER) (test tjhk=442) 5 /HPF WBC UA (BEAKER) (test tyhx=555) 8 /HPF MUCUS (BEAKER) (test vaxc=7062) Rare SQUAMOUS EPITHELIAL (BEAKER) (test xegx=821) < /HPF YEAST (BEAKER) (test yhpi=6922) Many SOURCE(BEAKER) (test kdjt=1922) [id number] 01:51:00 Test Item Value Reference Range Comments PARTIAL THROMBOPLASTIN TIME (BEAKER) (test 74.9 seconds 22.5-36.0 noks=693) PROTHROMBIN [id number] 01:49:00 Test Item Value Reference Range Comments PROTIME (BEAKER) (test ekpv=814) 22.1 seconds 11.9-14.2 INR (BEAKER) (test nfku=100) 2.1 <=5.9 Effective 09/14/2018: PT Reference Range ChangeNew: 11.9-14.2 Previous: 11.7- 14.7RECOMMENDED COUMADIN/WARFARIN INR THERAPY RANGESSTANDARD DOSE: 2.0-3.0 Includes: PROPHYLAXIS for venous thrombosis, systemic embolization; TREATMENT for venous thrombosis and/or pulmonary embolus.HIGH RISK: Target INR is2.5-3.5 for patients wiht mechanical heart valves.BASIC METABOLIC [id number] 01:44: 00 Test Item Value Reference Range Comments SODIUM (BEAKER) (test 138 meq/L 136-145 jvnk=555) POTASSIUM (BEAKER) (test 2.7 meq/L 3.5-5.1 niwn=474) CHLORIDE (BEAKER) (test 110 meq/L 98-107 qahg=704) CO2 (BEAKER) (test 20 meq/L 22-29 fihx=092) BLOOD UREA NITROGEN 12 mg/dL 7-21 (BEAKER) (test ngkc=959) CREATININE (BEAKER) (test 0.98 mg/dL 0.57-1.25 dvjr=545) GLUCOSE RANDOM (BEAKER) 309 mg/dL 70-105 (test cqqd=152) CALCIUM (BEAKER) (test 7.1 mg/dL 8.4-10.2 nmge=676) EGFR (BEAKER) (test 56 mL/min/1.73 sq m ESTIMATED GFR IS NOT znrn=5131) ACCURATE CREATININE CLEARANCE IN PREDICTING GLOMERULAR FILTRATION RATE. ESTIMATED GFR IS NOT APPLICABLE FOR DIALYSIS PATIENTS. CBC W/PLT COUNT & AUTO [id number] 01:34:00 Test Item Value Reference Range Comments WHITE BLOOD CELL COUNT (BEAKER) (test praz=554) 10.7 K/ L 3.5-10.5 RED BLOOD CELL COUNT (BEAKER) (test rgjg=890) 4.04 M/ L 3.93-5.22 HEMOGLOBIN (BEAKER) (test ubhp=841) 11.9 GM/DL 11.2-15.7 HEMATOCRIT (BEAKER) (test yisg=650) 37.0 % 34.1-44.9 MEAN CORPUSCULAR VOLUME (BEAKER) (test axnp=129) 91.6 fL 79.4-94.8 MEAN CORPUSCULAR HEMOGLOBIN (BEAKER) (test 29.5 pg 25.6-32.2 gmio=445) MEAN CORPUSCULAR HEMOGLOBIN CONC (BEAKER) (test 32.2 GM/DL 32.2-35.5 hjgr=201) RED CELL DISTRIBUTION WIDTH (BEAKER) (test 12.6 % 11.7-14.4 zttb=755) PLATELET COUNT (BEAKER) (test wpci=813) 365 K/CU MM 150-450 MEAN PLATELET VOLUME (BEAKER) (test emil=179) 10.4 fL 9.4-12.3 NUCLEATED RED BLOOD CELLS (BEAKER) (test 0 /100 WBC 0-0 pecd=921) NEUTROPHILS RELATIVE PERCENT (BEAKER) (test 80 % scsi=129) LYMPHOCYTES RELATIVE PERCENT (BEAKER) (test 7 % nypq=513) MONOCYTES RELATIVE PERCENT (BEAKER) (test 11 % zbir=520) EOSINOPHILS RELATIVE PERCENT (BEAKER) (test 0 % fpvk=623) BASOPHILS RELATIVE PERCENT (BEAKER) (test 0 % zlxx=082) NEUTROPHILS ABSOLUTE COUNT (BEAKER) (test 8.64 K/ L 1.56-6.13 uwzw=800) LYMPHOCYTES ABSOLUTE COUNT (BEAKER) (test 0.78 K/ L 1.18-3.74 upsr=878) MONOCYTES ABSOLUTE COUNT (BEAKER) (test 1.17 K/ L 0.24-0.36 rrjt=231) EOSINOPHILS ABSOLUTE COUNT (BEAKER) (test 0.02 K/ L 0.04-0.36 erxp=459) BASOPHILS ABSOLUTE COUNT (BEAKER) (test 0.04 K/ L 0.01-0.08 inwd=260) IMMATURE GRANULOCYTES-RELATIVE PERCENT (BEAKER) 1 % 0-1 (test sjrp=4614) TROPONIN [id number] 01:27:00 Test Item Value Reference Range Comments TROPONIN I (BEAKER) (test naxg=848) 0.04 ng/mL 0.00-0.03 Troponin I (TnI) levels [...] acute neurological disease, and persistent tachyarrhythmia.FastingBASIC METABOLIC [id number] 01:24:00 Test Item Value Reference Range Comments SODIUM (BEAKER) (test 138 meq/L 136-145 ncjd=657) POTASSIUM (BEAKER) (test 2.8 meq/L 3.5-5.1 vwkw=741) CHLORIDE (BEAKER) (test 110 meq/L 98-107 qpmq=516) CO2 (BEAKER) (test 19 meq/L 22-29 nrfs=836) BLOOD UREA NITROGEN 12 mg/dL 7-21 (BEAKER) (test dmff=687) CREATININE (BEAKER) (test 1.02 mg/dL 0.57-1.25 wovj=102) GLUCOSE RANDOM (BEAKER) 317 mg/dL 70-105 (test fjhi=382) CALCIUM (BEAKER) (test 7.2 mg/dL 8.4-10.2 cvle=048) EGFR (BEAKER) (test 53 mL/min/1.73 sq m ESTIMATED GFR IS NOT hnes=4984) ACCURATE CREATININE CLEARANCE IN PREDICTING GLOMERULAR FILTRATION RATE. ESTIMATED GFR IS NOT APPLICABLE FOR DIALYSIS PATIENTS. [id number] 01:20:00 Test Item Value Reference Range Comments POTASSIUM (BEAKER) (test onsc=126) 2.8 meq/L 3.5-5.1 FastingLIPID [id number] 01:20:00 Test Item Value Reference Range Comments TRIGLYCERIDES (BEAKER) (test txnk=986) 205 mg/dL CHOLESTEROL (BEAKER) (test visy=733) 194 mg/dL HDL CHOLESTEROL (BEAKER) (test kpdd=155) 31 mg/dL LDL CHOLESTEROL CALCULATED (BEAKER) (test 122 mg/dL kosq=173) Triglyceride Reference Range: Low Risk <150 Borderline 150- 199 High Risk 200-499 Very High Risk >=500Cholesterol Reference Range: Low Risk <200 Borderline 200-239 High Risk > 240HDL Cholesterol Reference Range: Low Risk >=60 High Risk <40LDL Cholesterol Reference Range: Optimal <100 Near Optimal 100-129 Borderline 130-159 High 160-189 Very High >=190 FastingHEPATIC FUNCTION [id number] 01:20:00 Test Item Value Reference Range Comments TOTAL PROTEIN (BEAKER) (test fepj=715) 6.2 gm/dL 6.0-8.3 ALBUMIN (BEAKER) (test yurl=4700) 2.8 g/dL 3.5-5.0 BILIRUBIN TOTAL (BEAKER) (test yxsr=125) 0.2 mg/dL 0.2-1.2 BILIRUBIN DIRECT (BEAKER) (test stup=093) 0.1 mg/dL 0.1-0.5 ALKALINE PHOSPHATASE (BEAKER) (test ncky=153) 117 U/L 40-150 AST (SGOT) (BEAKER) (test xmzz=205) 13 U/L 5-34 ALT (SGPT) (BEAKER) (test gcaw=876) 7 U/L 6-55 [id number] 01:20:00 Test Item Value Reference Range Comments GLUCOSE RANDOM (BEAKER) (test fjzv=803) 317 mg/dL 70-105 FastingC-REACTIVE [id number] 01:20:00 Test Item Value Reference Range Comments C-REACTIVE PROTEIN (BEAKER) (test qetx=261) 1.97 mg/dL 0.00-0.50 FastingLACTIC ACID, [id number] 01:14:00 Test Item Value Reference Range Comments LACTATE BLOOD VENOUS (2) 1.2 mmol/L 0.5-2.2 Specimen slightly hemolyzed (BEAKER) (test qwty=5010) LACTIC ACID, [id number] 01:14:00 Test Item Value Reference Range Comments LACTATE BLOOD VENOUS (2) 1.2 mmol/L 0.5-2.2 Specimen slightly hemolyzed (BEAKER) (test ceon=4844) POCT-GLUCOSE [id number] 00:37:00 Test Item Value Reference Range Comments POC-GLUCOSE METER (BEAKER) 283 mg/dL 70-[address] [facility] [address] [place] [address] (test jepd=5757) [facility] [address] CT, BRAIN, WITHOUT [id number] 00:33:00FINAL REPORT CT Head without contrast CLINICAL [...] 10/09/2018 00:33:32 RAD, CHEST, 1 VIEW, NON [id number] 21:56: 00Reason for exam:->NEUROLOGIC PROBLEMReason for exam:->acute [...] Verified Date /Time: 10/08/2018 21:56:10 Reading Location: [address] Reading [place], [place], [id number] 21:51:00Reason for exam:->NEUROLOGIC PROBLEMWhat is the patient's [...] of the scan. Signed: Veronica Malik [facility] ([place], [place]) Verified Date/Time: 10/08/2018 21:51:45 [facility] [id number] 21:51:00FINAL REPORT CLINICAL HISTORY: Stroke TECHNIQUE: Contiguous [...] of the scan. Signed: Veronica Malik [facility] ([place], [place]) Verified Date/Time: 10/08/2018 21:51:45 BLOOD GAS, [id number] 21 :39:00 Test Item Value Reference Range Comments PH VENOUS (BEAKER) (test mdlf=701) 7.30 7.32-7.42 PCO2 VENOUS (BEAKER) (test jwow=065) 45 mmHg 41-51 PO2 VENOUS (BEAKER) (test pcoq=210) 50 mmHg 25-40 O2 SATURATION VENOUS (BEAKER) (test qywk=338) 80.7 % 40.0-70.0 HCO3 VENOUS (BEAKER) (test wkqz=819) 22 mmol/L 21-29 BASE EXCESS VENOUS (BEAKER) (test tqzo=048) -4.3 mmol/L -2.0-3.0 PATIENT TEMPERATURE (BEAKER) (test tfki=4610) 37.5 C FIO2 (BEAKER) (test livd=8435) 100.0 % B-TYPE NATRIURETIC FACTOR (BNP)2018-10-08 21:09:00 Test Item Value Reference Range Comments B-TYPE NATRIURETIC PEPTIDE (BEAKER) (test 247 pg/mL 0-100 rdet=174) TROPONIN [id number] 21:08:00 Test Item Value Reference Range Comments TROPONIN I (BEAKER) (test voty=387) 0.03 ng/mL 0.00-0.03 Troponin I (TnI) levels [...] acute neurological disease, and persistent tachyarrhythmia.BASIC METABOLIC [id number] 21:07:00 Test Item Value Reference Range Comments SODIUM (BEAKER) (test 131 meq/L 136-145 wwry=426) POTASSIUM (BEAKER) (test 4.0 meq/L 3.5-5.1 zuhl=487) CHLORIDE (BEAKER) (test 99 meq/L 98-107 gxex=742) CO2 (BEAKER) (test 20 meq/L 22-29 qnkx=943) BLOOD UREA NITROGEN 15 mg/dL 7-21 (BEAKER) (test zdtp=207) CREATININE (BEAKER) (test 1.53 mg/dL 0.57-1.25 nyny=315) GLUCOSE RANDOM (BEAKER) 652 mg/dL 70-105 (test wwql=848) CALCIUM (BEAKER) (test 9.0 mg/dL 8.4-10.2 yuox=218) EGFR (BEAKER) (test mL/min/1.73 sq m INSUFFICIENT CLINICAL DATA hwdq=3478) TO CALCULATE ESTIMATED GFR. [id number] 21:03:00 Test Item Value Reference Range Comments PHOSPHORUS (BEAKER) (test ovpt=177) 3.1 mg/dL 2.3-4.7 [id number] 21:03:00 Test Item Value Reference Range Comments MAGNESIUM (BEAKER) (test cnvn=969) 1.6 mg/dL 1.6-2.6 HEPATIC FUNCTION [id number] 21:03:00 Test Item Value Reference Range Comments TOTAL PROTEIN (BEAKER) (test qzjk=308) 7.7 gm/dL 6.0-8.3 ALBUMIN (BEAKER) (test rqka=5449) 3.4 g/dL 3.5-5.0 BILIRUBIN TOTAL (BEAKER) (test jnhc=900) 0.4 mg/dL 0.2-1.2 BILIRUBIN DIRECT (BEAKER) (test ixxm=948) 0.2 mg/dL 0.1-0.5 ALKALINE PHOSPHATASE (BEAKER) (test psbp=829) 153 U/L 40-150 AST (SGOT) (BEAKER) (test jdwm=529) 12 U/L 5-34 ALT (SGPT) (BEAKER) (test xzyr=641) 8 U/L 6-55 CREATINE KINASE (CK)2018-10-08 21:03:00 Test Item Value Reference Range Comments CREATINE KINASE TOTAL (BEAKER) (test hcyy=920) 22 U/L 29-200 [id number] 20:47:00 Test Item Value Reference Range Comments PROTIME (BEAKER) (test oifw=179) 14.9 seconds 11.9-14.2 INR (BEAKER) (test mwpg=540) 1.2 <=5.9 PARTIAL THROMBOPLASTIN TIME (BEAKER) (test 29.2 seconds 22.5-36.0 foxi=364) Effective 09/14/2018: PT Reference Range ChangeNew: 11.9-14.2 Previous: 11.7- 14.7RECOMMENDED COUMADIN/WARFARIN INR THERAPY RANGESSTANDARD DOSE: 2.0-3.0 Includes: PROPHYLAXIS for venous thrombosis, systemic embolization; TREATMENT for venous thrombosis and/or pulmonary embolus.HIGH RISK: Target INR is2.5-3.5 for patients wiht mechanical heart valves.CBC W/PLT COUNT & AUTO [id number] 20:35:00 Test Item Value Reference Range Comments WHITE BLOOD CELL COUNT (BEAKER) (test winu=439) 7.2 K/ L 3.5-10.5 RED BLOOD CELL COUNT (BEAKER) (test bkyk=217) 4.40 M/ L 3.93-5.22 HEMOGLOBIN (BEAKER) (test owht=693) 12.6 GM/DL 11.2-15.7 HEMATOCRIT (BEAKER) (test rvzm=607) 39.0 % 34.1-44.9 MEAN CORPUSCULAR VOLUME (BEAKER) (test xtey=311) 88.6 fL 79.4-94.8 MEAN CORPUSCULAR HEMOGLOBIN (BEAKER) (test 28.6 pg 25.6-32.2 zgua=977) MEAN CORPUSCULAR HEMOGLOBIN CONC (BEAKER) (test 32.3 GM/DL 32.2-35.5 gjtg=076) RED CELL DISTRIBUTION WIDTH (BEAKER) (test 12.6 % 11.7-14.4 feyp=178) PLATELET COUNT (BEAKER) (test yszy=243) 366 K/CU MM 150-450 MEAN PLATELET VOLUME (BEAKER) (test sfxa=645) 10.6 fL 9.4-12.3 NUCLEATED RED BLOOD CELLS (BEAKER) (test 0 /100 WBC 0-0 yjbz=125) NEUTROPHILS RELATIVE PERCENT (BEAKER) (test 65 % oetp=926) LYMPHOCYTES RELATIVE PERCENT (BEAKER) (test 19 % tvgp=075) MONOCYTES RELATIVE PERCENT (BEAKER) (test 13 % onig=582) EOSINOPHILS RELATIVE PERCENT (BEAKER) (test 2 % wpfe=758) BASOPHILS RELATIVE PERCENT (BEAKER) (test 1 % lmmv=363) NEUTROPHILS ABSOLUTE COUNT (BEAKER) (test 4.72 K/ L 1.56-6.13 fldg=946) LYMPHOCYTES ABSOLUTE COUNT (BEAKER) (test 1.34 K/ L 1.18-3.74 osfx=734) MONOCYTES ABSOLUTE COUNT (BEAKER) (test 0.91 K/ L 0.24-0.36 znqr=045) EOSINOPHILS ABSOLUTE COUNT (BEAKER) (test 0.12 K/ L 0.04-0.36 mrrw=269) BASOPHILS ABSOLUTE COUNT (BEAKER) (test 0.05 K/ L 0.01-0.08 dojx=133) IMMATURE GRANULOCYTES-RELATIVE PERCENT (BEAKER) 1 % 0-1 (test wkgw=5553) POCT-GLUCOSE [id number] 20:12:00 Test Item Value Reference Range Comments POC-GLUCOSE METER (BEAKER) 488 mg/dL 70-[address] [facility] [address] [facility] (test vgsn=6153) [facility] [address] CT, BRAIN/STROKE [id number] 20:09:00Reason for exam:->strokeWhat is the patient's sedation [...] Baker MDReport Verified Date/Time: 20:09:27 Reading Location: [address] Reading Room
[2018-11-21] MEDS ORDERED: LORazepam 2 MG/ML VIAL IV PRN (19:50)
[2018-11-21] MEDS ORDERED: D50W 25 GM/50 ML SYRINGE IV PRN (19:50)
[2018-11-21] MEDS ORDERED: PROMETHAZINE 25 MG TABLET PO PRN (19:50)
[2018-11-21] MEDS ORDERED: PROMETHAZINE 25 MG/SUPP PR PRN (19:50)
[2018-11-21] MEDS ORDERED: ACETAMINOPHEN 650MG/RECT SUPP PR PRN (19:50)
[2018-11-21] MEDS ORDERED: MORPHINE 2 MG/ML SYR IV PRN (19:50)
[2018-11-21] MEDS ORDERED: DOCUSATE NA/SENNA CONC 1 TAB PO PRN (19:50)
[2018-11-21] MEDS ORDERED: ALBUTEROL 2.5 MG/3 ML NEB SOL NEB PRN (19:50)
[2018-11-21] MEDS ORDERED: IPRATROPIUM BROM 0.5MG/2.5ML NEB PRN (19:50)
[2018-11-21] MEDS ORDERED: GLUCAGON 1 MG/VIAL IM PRN (19:50)
[2018-11-21] MEDS ORDERED: BISACODYL 10 MG RECTAL SUPP PR PRN (19:50)
[2018-11-21] MEDS: INSULIN -REGULAR HUMAN 50 UNIT/0.5 ML ML SQ SCH (21:00)
[2018-11-22] MEDS: FLUOXETINE 10 MG CAP PO SCH (08:02)
[2018-11-22] MEDS: CLOPIDOGREL 75 MG TABLET PO SCH (08:02)
[2018-11-22] MEDS: INSULIN -REGULAR HUMAN 50 UNIT/0.5 ML ML SQ SCH ×2 (09:00→21:00)
--- NOTE | 2018-11-22 11:42 | P.HP ---
Certification for Inpatient Patient admitted to: Inpatient With expected LOS: >2 Midnights Patient will require the following post-hospital care: None Practitioner: I am a practitioner with admitting privileges, knowledge of patient current condition, hospital course, and medical plan of care. Services: Services provided to patient in accordance with Admission requirements found in Title 42 Section 412.3 of the Code of Federal Regulations Patient History Date of Service: 11/22/18 History of Present Illness: 73-year-old female with significant past medical history of end-stage CVA, diabetes, hypertension, rapid decline in mentation, poor to no appetite, nonambulatory who presented to the ED with complaints of altered mental status and dehydration from the snf. Was admitted to the hospital was started on IV fluids. Speech therapy was consulted at that time given the poor appetite and dysphagia patient was recommended to be NPO. Detailed discussion was done with the family at that time who opted for hospice care. 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 -: Carotid Stenosis - Social History Smoking Status: Former smoker Alcohol use: No CD- Drugs: No Caffeine use: No Place of Residence: [facility] Review of Systems 10-point ROS is otherwise unremarkable Physical Examination - Vital Signs Temperature: 97 F Blood Pressure: 117/75 Pulse: 85 Respirations: 20 Pulse Ox (%): 93 - Physical Exam General: Alert, In no apparent distress, Oriented x1, Cachectic, Demented Respiratory: Normal air movement, Expiratory wheezes Cardiovascular: Regular rate/rhythm, Normal S1 S2 Gastrointestinal: Normal bowel sounds, No tenderness Musculoskeletal: No tenderness Integumentary: No rashes Neurological: Abnormal speech, Abnormal cranial nerve function, Abnormal reflexes Lymphatics: No axilla or inguinal lymphadenopathy Assessment and Plan - Problems (Diagnosis) (1) Hospice care Current Visit: Yes Status: Acute (2) CVA (cerebral vascular accident) Current Visit: Yes Status: Chronic Qualifiers: CVA mechanism: unspecified Qualified Code(s): I63.9 - Cerebral infarction, unspecified (3) Diabetes Current Visit: No Status: Chronic Qualifiers: Diabetes mellitus type: type 2 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 Will continue with morphine and Ativan and Zofran p.r.n. here in the hospital. Discharge Plan: Home Plan to discharge in: Greater than 2 days - Advance Directives Does patient have a Living Will: No Does patient have a Durable POA for Healthcare: No - Code Status/Comfort Care Code Status Assessed: Yes Critical Care: No
[2018-11-23] MEDS: CLOPIDOGREL 75 MG TABLET PO SCH (09:01)
[2018-11-23] MEDS: FLUOXETINE 10 MG CAP PO SCH (09:01)
--- NOTE | 2018-11-23 15:02 | P.DS ---
Admission Date: 11/21/18 Discharge Date: 11/23/18 Disposition: HOSPICE-HOME Discharge Condition: FAIR - Problems (1) Hospice care Status: Acute (2) CVA (cerebral vascular accident) Status: Chronic Qualifiers: CVA mechanism: unspecified Qualified Code(s): I63.9 - Cerebral infarction, unspecified (3) Diabetes Status: Chronic Qualifiers: Diabetes mellitus type: type 2 Diabetes mellitus watermaster insulin use: without custodial use Diabetes mellitus complication status: without complication Qualified Code(s): E11.9 - Type 2 diabetes mellitus without complications (4) HTN (hypertension) Status: Chronic Qualifiers: Hypertension type: essential hypertension (5) Hyperlipidemia Status: Chronic Qualifiers: Hyperlipidemia type: mixed hyperlipidemia Brief History of Present Illness: 73-year-old female with significant past medical history of end-stage CVA, diabetes, hypertension, rapid decline in mentation, poor to no appetite, nonambulatory who presented to the ED with complaints of altered mental status and [facility]. Was admitted to the hospital was started on IV fluids. Speech therapy was consulted at that time given the poor appetite and dysphagia patient was recommended to be NPO. Detailed discussion was done with the family at that time who opted for hospice care. Patient was thus transferred over to inpatient hospice care was admitted under my care Hospital Course: Pt was admitted to the hospital for hospice care. Pt actually was doing well and thus no longer requiring Hospice care here in the hospital. Will transition her over to the at home hospice. Vital Signs/Physical Exam: Temp Pulse Resp BP Pulse Ox 99.0 F 88 16 115/79 93 11/23/18 08:00 11/23/18 08:00 11/23/18 08:00 11/23/18 08:00 11/23/18 08:00 General: Alert, In no apparent distress HEENT: Atraumatic, PERRLA, EOMI Neck: Supple, JVD not distended Respiratory: Clear to auscultation bilaterally, Normal air movement Cardiovascular: Regular rate/rhythm, Normal S1 S2 Gastrointestinal: Normal bowel sounds, No tenderness Musculoskeletal: No tenderness Integumentary: No rashes Neurological: Normal speech, Normal tone, Normal affect Lymphatics: No axilla or inguinal lymphadenopathy Home Medications: Unobtainable 11/21/18
== END 2018-11-23 14:25 | disposition hospice, inpatient (51) | DRG 641 ==
LOC: 2ND 19:37
PROVIDERS: ADMIT Family Medicine; ATTEND Family Medicine
DX: E86.0 Dehydration (principal); R64 Cachexia; I69.30 Unspecified sequelae of cerebral infarction; Z51.5 Encounter for palliative care; Z68.22 Body mass index [BMI] 22.0-22.9, adult; R13.10 Dysphagia, unspecified; E11.9 Type 2 diabetes mellitus without complications; I10 Essential (primary) hypertension; E78.2 Mixed hyperlipidemia; I25.10 Atherosclerotic heart disease of native coronary artery without angina pectoris; Z87.891 Personal history of nicotine dependence
CPT/HCPCS: 36415; 70450; 71045; 71260; 72125; 74177; 74230; 80048; 80053; 80076; 81003; 81015; 82962; 83605; 83690; 83735; 83880; 84145; 84484; 85025; 85610; 85730; 86850; 86900; 86901; 87040; 87045; 87046; 87086; 87088; 87205; 92610; 92611; 93005; 93280; 93971; 94760; 96361; 96365; 96366; 96374; 96375; 97163; 99285; G0378; J0696; J1650; J2405; J2543; J7030; Q9967